=== PATIENT | male | born 1960 | race Caucasian/White ===

== ENCOUNTER 2019-04-04 05:49 | Outpatient (RCR) | payer MEDICARE, MEDICAID, SELFPAY | END 2019-04-12 00:01 | LOC: ONCMED 05:49 | PROVIDERS: Visit Provider Specialist | DX: C90.00 Multiple myeloma not having achieved remission (principal); I10 Essential (primary) hypertension; E11.9 Type 2 diabetes mellitus without complications; K21.9 Gastro-esophageal reflux disease without esophagitis; M19.90 Unspecified osteoarthritis, unspecified site; G89.3 Neoplasm related pain (acute) (chronic); M54.9 Dorsalgia, unspecified; Z79.891 Long term (current) use of opiate analgesic; Z79.4 Long term (current) use of insulin; Z79.899 Other long term (current) drug therapy; Z92.3 Personal history of irradiation; Z94.84 Stem cells transplant status; Z87.891 Personal history of nicotine dependence; Z28.21 Immunization not carried out because of patient refusal ==

== ENCOUNTER 2019-05-11 05:47 | Outpatient (RCR) | payer MEDICARE, MEDICAID, SELFPAY ==
[2019-04-19] MEDS: acetaminophen 325 mg Tablet 650 MG PO (12:00)
[2019-04-19 12:56] LABS: Immunoglobulin IGG 601 mg/dL (700-1600); Immunoglobulin IGM 64 mg/dL (40-230)
[2019-04-19] MEDS: sodium chloride 0.9% 500 ML 75 ML IV (13:00)
[2019-04-19 13:11] LABS: Immunoglobulin IGA 41 mg/dL (70-400)
[2019-04-19] MEDS: LORazepam 2 mg/mL INJ 1 mL IV (14:40)
[2019-04-20] MEDS: palonosetron 0.25 mg/5 mL SDV IV (11:20)
[2019-04-20] MEDS: acetaminophen 325 mg Tablet 650 MG PO (11:20)
[2019-04-20] MEDS: dexamethasone 20 MG in sodium chloride 0.9% 50 ML 188 MG IVP (11:20)
[2019-04-22 19:52] LABS: ABNORMAL PROTEIN BAND 1 0.2 g/dL (NONE DETECTED); ALBUMIN 3.8 g/dL (3.8-4.8); ALPHA 1 GLOBULIN 0.3 g/dL (0.2-0.3); ALPHA 2 GLOBULIN 0.8 g/dL (0.5-0.9); BETA 1 GLOBULIN 0.4 g/dL (0.4-0.6); BETA 2 GLOBULIN 0.2 g/dL (0.2-0.5); GAMMA GLOBULIN 0.5 g/dL (0.8-1.7); KAPPA LIGHT CHAIN, FREE, SERUM 15.1 mg/L (3.3-19.4); KAPPA/LAMBDA LIGHT CHAINS FREE 1.13 (0.26-1.65); LAMBDA LIGHT CHAIN, FREE, SERU 13.4 mg/L (5.7-26.3)
--- NOTE | 2019-04-25 10:38 | ONC FU_ITS ---
[facility] Patient Note Patient: Hal Canchola Unit #: [id number]: [id number] Dictated By: Diandra NunnDate of Visit: Apr 19, 2019 Onc MED Follow-Up/Prog Note Chief Complaint: Myeloma. 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 He had presented with pain in the right arm. His x-ray on 05/12/13 showed a large expansile lytic lesion in the midshaft of humeral diaphysis. He was referred to see Dr. Arrieta in [place], [place]. Further work up included laboratory analysis on 05/23/13 that showed normal hemoglobin at 12.4 g/dL, mild renal insufficiency with BUN 26 and creatinine of 1.2, normal albumin at 3.9, and normal calcium at 9.6. His skeletal bone survey showed no additional lesions on 05/26/13. Biopsy of the right humeral lesion on 05/31/13 revealed plasma cell neoplasm, kappa restricted. He was first seen here on 06/16/13. His protein electrophoresis studies showed 1.79 g of IgG kappa. His bone marrow biopsy on 06/17/13 revealed 3% plasma cells, 5-10% CD138 positive cells by flow. Cytogenetic analysis showed two population of cells. First population comprising 10% showed loss of 1q, additional material on 20q, and trisomy of chromosomes 3, 5, 7, 9, 11 and 15. FISH panel revealed gain of 9q, 11q, 15q, and 17q. He had no iron storage. Radiation therapy to the arm lesion began on 3/10/14. In the midst of all of his radiation treatment, short of about 2 fractions, the patient sustained a mechanical fall and landed on the affected arm, sustaining significant fracture. He required surgery on 08/09/2013. Despite of the radiation therapy, his follow up plasmacytoma studies on 09/01/2013 showed further increase of M protein to 2.5 g/dL, IgG 3460, serum free light chain ratio increased to 35. He had mild anemia with hemoglobin of 11 g/dL. His creatinine was 1.1. with calcium 9. Induction chemotherapy with VCd regimen (Velcade, Cytoxan and dexamethasone) began on 09/12/13. He had a positive response to the treatment, and after 6 cycles of therapy cytoxan was dropped from the regimen. The patient completed a total of 8 cycles of treatment with a very good response. On 04/11/2014 he underwent high-dose melphalan followed by an autologous stem cell transplantation. On 07/14/14 he underwent a day 100 post transplant bone marrow biopsy at [facility] with residual disease. IgG kappa M protein 0.77 g/dL. Maintenance single agent Revlimid therapy was recommended, but the patient ultimately decided against it for a variety of reasons, including concerns over completing REMS questionnaire over the phone and privacy issues. Maintenance with single agent Velcade every 2 weeks for 2 years was recommended. Cycle 1 began on 09/11/14. Baseline IgG 0.94 g/dL. The patient received Velcade therapy up until 04/10/2015. He required a dose reduction to 1 mg/m??? every 2 weeks due to progressive peripheral neuropathy. He again developed recurrent cramps and pruritis in the legs, which occurred after restarting Velcade. Given recurrent peripheral neuropathy, Velcade therapy was discontinued. M protein remained stable at 0.84 g/dL on 05/01/2015. As he had measurable disease, single agent Ixazomib began on 05/21/15 at a standard dosage of 4 mg weekly on days 1, 8,and 15 of each 28 day cycle. As of his follow-up visit in November 2015 his M protein was stable, and he was tolerating treatment well. He began cycle 9 of ixazomib on 01/02/2016. He had also continued Zometa infusions every 3 months for the lytic bone involvement. The protein electrophoresis studies from 01/22/2016 did show slight increase in his kappa free light chain, but there was no change in the M protein or in the 24-hour urine monoclonal protein excretion. On 02/03/2016 he was admitted to the hospital with cellulitis associated with a diabetic foot ulceration. His repeat protein electrophoresis studies from 03/04/2016 showed a further increase in the kappa free light chain to 15.9 mg/dL compared to 7.26 mg/dL in January and to 4 0.7 mg/dL in November 2015. The M protein at that point had also increased, to 1.11 g/dL compared to 0.81 g/dL in January. The 24-hour urine at that time showed a total protein excretion of 2226 mg with 2.3% monoclonal protein. That was not significantly changed. His subsequent protein electrophoresis studies remained stable. As of 12/11/2016 the M protein had increased only slightly, to 1.30 g/dL with his kappa free light chain stable at 12.8 mg/dL. His 24-hour urine protein electrophoresis showed a total monoclonal protein excretion of 32 mg. Skeletal survey on 10/09/2016 showed probable old healed pathologic fracture deformity of the right mid humeral diaphysis and probable additional old healed pathologic fracture of the distal left fibular diaphysis. There were findings consistent with advanced neuropathic arthropathy of the feet. There were no other lytic bone lesions. As of 01/08/2017 there was further increase in the M protein level to 1.50 g/dL, but his repeat protein electrophoresis on 02/11/2017 showed no significant change in the M protein. He continued treatment with single agent ixazomib. As of his follow-up visit on 03/18/2017 his M protein had shown a significant increase, up to 1.93 g/dL compared to 1.50 g/dL in December 2016. His blood counts at that point remained stable. His skeletal survey as of 02/11/2017 showed no active bone lesions. However, as it was evident that his disease was progressing, I did have him stop his treatment. He had subsequently reported development a chest wall mass. A noncontrast chest CT on 03/27/2017 showed evidence of a lytic expansile lesion of the anterior left fifth rib with an adjacent soft tissue mass. He was then referred to Dr. Navarro and he underwent radiation to the chest wall lesion, completed on 05/12/2017 to a total dose of 4000 cGy. He tolerated the treatment well. During this time he had also developed a lump on his forehead. Head CT on 06/18/2017 showed bifrontal and anterior ethmoid sinus soft tissue abnormality suggestive of mass and associated with mucocele expansion of the right frontal sinus and lytic bony erosive changes. Reported differential diagnosis included primary sinus neoplasm or extraosseous myeloma. Also noted was midline frontal scalp soft tissue mass secondary to erosion of the anterior wall frontal sinus. There was also apparent erosion of the floor of the anterior cranial fossa by the component of the mass in the ethmoid sinus. His laboratory studies from 06/22/2017 included CBC showing a decline in his hemoglobin to 10.4 g with white blood cell count 5100 and platelet count 253,000. Chem profile showed borderline renal function with BUN 25 and creatinine 1.44 mg/dL. Calcium was normal 9.7 mg/dL. Serum protein electrophoresis showed increase in his M protein to 3.43 g/dL. The 24-hour urine monoclonal protein excretion was 102 mg. He was then given radiation to the frontal bone, completed on 07/27/2017 to a total dose of 3600 cGy. His other medical illnesses include hypertension, type II diabetes, GERD, degenerative arthritis, and androgen deficiency. He had smoked in the past but quit more than 20 years ago. INTERIM HISTORY: On 07/06/2017 he began 3rd line treatment with daratumumab in combination with Revlimid and dexamethasone. It was initiated at a reduced dosage of Revlimid, 15 mg daily on a 21/28 day schedule. He was able to continue the daratumumab infusions weekly with no apparent toxicity. He completed his 8th weekly infusion on 08/26/2017. During that time he required a reduction in the Revlimid dosage to 10 mg. He also started monthly denosumab injections. Beginning on 09/09/2017 the frequency of his daratumumab infusions was increased to every 2 weeks. As of 12/23/2017 he completed his 8th dose of daratumumab at the 2-week dosing interval. His repeat protein electrophoresis on 01/21/2018 showed only a faint monoclonal protein band. The free light chain assay showed his kappa free light chain decreased to 1.19 mg/dL with kappa/lambda ratio normal at 0.9754. Beginning on 01/25/2018 he continued his daratumumab infusions at the 4-week dosing interval. During his time he had on his own accord adjusted his Revlimid schedule to a 14 days on/14 days off schedule because of throat swelling and spasms. The Revlimid dosage was then changed to 5 mg daily. In December 2017 he had presented with increased pain and swelling in his upper right arm. A PET/CT on 01/09/2018 showed improvement compared to the previous study from June 2017. Numerous hypermetabolic osseous lesions had become sclerotic with nearly negligible FDG uptake, consistent with a positive response to therapy. Hypermetabolic lymph nodes in the mediastinum were subcentimeter in size and FDG negative. He was referred back to his orthopedic surgeon in [place], where he underwent I & D of an abscess on 01/19/2018. It apparently was not involving the bone. In the absence of any evidence of progression of his myeloma, he continued treatment with daratumumab, Revlimid, and dexamethasone, but he opted to change the Revlimid to the previous schedule of 10 mg daily for 14 days of a 28 day schedule. As of his follow-up visit on 09/15/2018 there was no evidence of progression of the myeloma. Prior to that visit, though, he had opted to stop the Revlimid and the dexamethasone. He did receive his scheduled daratumumab infusion. During his further follow-up, he required additional surgery on his left foot, and he also required prolonged antibiotic therapy. He continued treatment with daratumumab and dexamethasone. As of October 2018 there was no increase in the serum monoclonal protein and no significant change in the kappa free light chain. The protein electrophoresis studies from 12/01/2018 again showed no change in the serum monoclonal protein. The free light chain assay did show a significant increase in the kappa free light chain, to 7.67 mg/L, but the lambda light chain also had increased such that the kappa/lambda ratio remained normal at 0.85. Dr Rodriges had seen him for a scheduled visit on 12/08/2018. At that time he had developed pain, redness, and swelling at the site of his previous abscess in the upper right arm. He was having fever and chills. The clinical picture was consistent with recurrent cellulitis or abscess. His treatment was put on hold, and Dr Rodriges had him restart IV antibiotic coverage with Rocephin. At about day 2 or 3 he developed spontaneous drainage of purulent material. Cultures from both the blood and subsequently from the exudate were negative. After the spontaneous drainage, he was transitioned to oral antibiotic therapy. During subsequent follow-up he had ongoing problems with the cellulitis and other issues, and he was not able to restart treatment. He had further evaluation with CT scans of the chest, abdomen, and pelvis on 01/25/2019. The most significant finding was the presence of progressive lytic myelomatous lesions of the left ischium and superior acetabular structures with probable nondisplaced pathologic fracture of the left acetabular margin. At that point he had developed significant pain in the left hip and left leg. He was referred to Dr. Navarro for additional radiation. He completed treatment to the left hip on 03/02/2019, total dose 3000 cGy. Mr Canchola is here today for continuation of treatment. His new chemotherapy plan of care is daratumumab, carfilzomib and dexamethasone. He states overall he is doing about the same. He is concerned that his left hip is bothering him more so than it has been. He states he does not think radiation helped a great deal. He denies any fever or chills. Said no nausea or vomiting. He denies any diarrhea or constipation. He states his appetite is good. His ability to ambulate is limited due to the hip pain is actually in a wheelchair today. He was able to drive himself over from [place] which is approximately an hour to hour and a half drive for him. He states he had to get out once and stand up because his hip is hurting him. He states the pain medicine generally controls the pain really well. He states Dr. Bah, the local needs for radiation therapy indicated that there may be way to do more radiation to his hip. He was advised that I will talk with Dr. Rodriges and Dr. Navarro regarding this. His ECOG today is 3. Past Medical History: Allergic rhinitis Diabetes Gastroesophageal reflux Hypertension Hypoganadism Osteoarthritis Phlebitis Past Surgical History: Toe amputation x2 in 2019 Autologus stem cell transplant-[facility] in 2013 Biopsy in 2013 - [facility] Ankle Surgery in 2011 Skin Graft in 1995 - Right [place] July 2013, placed pin in right arm Allergies: Aparna, Claritin, Insulin (any type), Morphine Sulfate, and OxyCODONE HCl. Medications: Acyclovir 1 (400 mg) Tablet Oral b.i.d. Amaryl (4 mg) Tablet Oral b.i.d. Aspirin 2 Tablet (of 81 mg) Tablet, enteric coated Oral daily Benadryl 2 (25 mg) Tablet Oral four times a day PRN Clotrimazole-Betamethasone Cream Topical PRN Depo-Testosterone (200 mg/mL) Intramuscular q 2 weeks Dilaudid 1 (4 mg) Tablet Oral q 3 hours PRN Famotidine 1 Tablet (of 20 mg) Oral daily Glucophage 1 Tablet (of 850 mg) Oral t.i.d. Invokana 1 (100 mg) Tablet Oral daily Januvia 1 (100 mg) Tablet Oral daily Lasix 1 Tablet (of 20 mg) Oral daily Lisinopril 1 Tablet (of 2.5 mg) Oral daily Lyrica 1 (75 mg) Capsule Oral daily Mucinex (600 mg) Tablet SR 12 HR Oral b.i.d. Prandin 2 Tablet (of 2 mg) Tablet Oral t.i.d. Victoza 1.8 mg Subcutaneous daily Family History: Mr. Canchola's mother is alive. Mr. Canchola's father at age 64: Myelomas Cancer. Mr. Canchola has 2 brothers: 2 alive. Mr. Canchola's first brother's renal pelvis and ureter cancer. Another brother's cancer history consists of Colon cancer. Social History: Mr. Canchola is single and he is an on disability. Mr. Canchola quit smoking 20 years ago but had smoked for 5 years. He has indicated exposure to the following products: cigars. Mr. Canchola reports the following support systems: lives alone, lives in own house, and supportive family/friends willing to assist with needs. His diet consists of regular meals. He indicates his activity level as: daily activities. Patient smoked 3 to 4 Cigars a day for 5 years. Review Of Symptoms: Constitutional Denies fevers, chills, night sweats, or weight loss. Moderate fatigue. Allergic/Immunologic No reactions. Eyes Denies significant visual changes. ENMT Denies sore throat, mouth sores, difficulty or changes in swallowing ability, and/or sinus drainage. Endocrine Denies hot flashes or night sweats. Hematologic/Lymphatic Denies easy bruising or bleeding. The patient denies any tender or palpable lymph nodes. Breasts Respiratory Denies chest pain or hemoptysis. Dyspnea upon exertion. Cardiovascular Denies anginal chest pain. Gastrointestinal Denies nausea, vomiting, heartburn, or constipation. Diarrhea occasional. Genitourinary (M) Denies hematuria, dysuria, increased frequency, urgency, hesitancy or incontinence. Musculoskeletal Chronic back pain-stable and controlled. Continued and worsening left hip pain. Requires wheelchair for ambulation assistance today. Integumentary Denies chronic rashes, inflammation, ulcerations or skin changes. Neurologic Denies blurred vision. Psychiatric Denies insomnia, depression, anxiety. Vital Signs: Performed on Apr 19, 2019 10:44 Height - 72.00 in Weight - 288.2 lbs (LOW) BSA - 2.49 sq.m BMI - 39.09 (HIGH) Temperature - 97.7 F (LOW) Pulse - 102 /min (HIGH) Respiration - 24 /min BP - 121/65 mm(hg) O2 Sat - 97 % Pain - 8,2 - Ambulatory/capable of all self-care, unable to perform any work activities. Up and about more than 50% of waking hours. (ECOG) Physical Examination: Constitutional Alert, oriented, no acute distress. Skin pink, warm and dry. Head Normocephalic; atraumatic. Eyes Conjunctivae and sclerae are clear and without icterus. Pupils are reactive and equal. Does wear corrective lenses. Neck Supple without masses or thyromegaly. No jugular venous distension. Hematologic/Lymphatic No petechiae or purpura. No tender or palpable lymph nodes in the cervical, supraclavicular areas. Respiratory Lungs are clear to auscultation without rhonchi or wheezing. Cardiovascular Regular rate and rhythm of heart without murmurs,clicks, gallops or rubs. Abdomen Non-tender, non-distended, no masses, ascites. Unable to detect hepatosplenomegaly due to abdominal size. Good bowel sounds noted in all quads. No guarding or rebound tenderness. No pulsatile masses. Back/Spine Non-tender to palpation. Extremities Not assessed due to wearing braces/boots both legs. Integumentary No rashes or lesions. Neurologic No sensory or motor deficits, normal cerebellar function. gait-not assessed but he required assistance to transfer from wheelchair to treatment chair due to pain. Psychiatric Alert and oriented times three. Coherent speech. Verbalizes understanding of our discussions today. Laboratory:Test performed on Apr 18, 2019 16:15 Glucose 192 mg/dL BUN 28 mg/dL Creatinine 1.28 mg/dL Cr Clearance (Est) 114.14 mL/min Sodium 139 mmol/L Potassium 4.8 mmol/L Chloride 97 mmol/L CO2 26 mmol/L Calcium 9.7 mg/dL Protein, Total 7.5 g/dL Albumin 4.8 g/dL Bilirubin, Total 0.3 mg/dL Alkaline Phosphatase 93 IU/L AST (SGOT) 17 IU/L ALT (SGPT) 25 IU/L Test performed on Apr 18, 2019 12:19 WBC 4.3 10^9/L RBC 4.56 10^12/L HGB 12.7 g/dL HCT 39.0 % MCV 85.5 fl MCH 27.9 pg MCHC 32.6 g/dL RDW 15.2 % Platelet Count 274 10^9/L MPV 9.3 fL Neutrophils (Gran) 2.37 10^9/L Lymphocytes 1.21 10^9/L Monocytes 0.55 10^9/L Eosinophils 0.11 10^9/L Basophils 0.03 10^9/L Manual Lymphocytes 28 % Manual Monocytes 13 % Manual Eosinophils 3 % Manual Basophils 1 % Test performed on Mar 31, 2019 16:09 LDH, Total 195 IU/L U Creatinine (R) 70.4 mg/dL U Creatinine, 24hr 2500 mg/24hr U Protein, 24hr 530 mg/24hr U Protein (R) 15 mg/dL IGA 41 mg/dL IGG 603 mg/dL IGM 66 mg/dL Dietrich / Lambda Ratio 0.94 Absolute Value Lambda Light Chain 12.56 Dietrich Light Chain 11.84 UPE Interpretation No significant change in monoclonal protein in urine since prior study Test performed on Mar 24, 2019 12:30 Iron 70 ug/dL Magnesium 2.2 mg/dL Protein, SPE 6.6 g/dL Vitamin D (25-Hydroxy), Total 17 ng/mL Albumin, SPE 4.1 g/dL % Iron Saturation 22.8 % UIBC 236 ug/dL Anion Gap 19.0 eGFR 62.2 mL/min Globulin 1.3 gm/dL Neutrophil % 67.3 % Lymphocyte % 20.1 % Monocyte % 9.6 % Eosinophil % 1.3 % Basophils % 0.4 % Dietrich Free Light Chains 11.3 mg/L Lambda Free Light Chains 13.0 mg/L [id number] 0.3 g/dL Dietrich/Lambda Free Ratio 0.87 [id number] 1.0 g/dL Beta Globulin 0.4 g/dL Beta 2 Globulin 0.3 g/dL Gamma Globulin 0.5 g/dL M-Bronson 0.3 g/dL S Immunofixation Interp SEE NOTE There is a restriction in the kappa gregoria that does not correspond with either G,A,M,D,E heavy chains, nor does it react with free kappa antisera. Finding is inconclusive for the presence of a monoclonal protein at this time. Suggest clinical correlation. Repeat testing in three to six months and urine protein electrophoresis with immunofixation may be helpful. THIS TEST WAS PERFORMED AT: [employer] [facility] [id number] [place] [address] PARAG ADDISON DO,MPH Test performed on Dec 29, 2018 10:31 SPE Interpretation No significant change in monochonal proteinemia since prior study. Interpreted by: Rosendo Ibrahim MD Test performed on Dec 01, 2018 10:21 Lambda Light Chain (Quant) 8.85 mg/dL Dietrich Light Chain (Quant) 7.67 mg/dL Impression: 1. Patient with stage II, standard risk multiple myeloma and a large destructive plasmacytoma in the right humerus with associated pathological fracture. He underwent palliative radiation therapy and surgical repair of his arm. 2. Despite treatment he had a further progression of his M protein, and he was found to have hyperdiploid cytogenetics on bone marrow biopsy. 3. Induction chemotherapy with Velcade, Cytoxan, and Decadron began on 09/12/13. After 6 cycles of induction therapy cyclophosphamide was stopped, and he continued with Velcade and Decadron for 8 cycles. 4. On 04/11/2014 he underwent high-dose melphalan followed by an autologous stem cell transplantation. Post transplant bone marrow biopsy revealed residual disease. 5. He declined maintenance Revlimid therapy. Maintenance treatment with Velcade 1.3 mg/m2 sc every 2 weeks for 2 years began on 09/11/14. 6. He had progressive preexistent peripheral neuropathy. His dose was adjusted at 1 mg/m??? subcutaneously every 2 weeks, but he developed progressive neuropathy with pruritus. Velcade therapy was discontinued. His M protein level at that point was stable at 0.84 g/dL. 7. A trial of ixazomib 4 mg weekly on days 1, 8, and 15 of 28 day cycle began on 05/21/15. His other medical illnesses include: 8. Hypertension. 9. Type II diabetes. 10. GERD. 11. Degenerative arthritis. 12. Androgen deficiency. He had evidence of some response to the ixazomib. As of his follow-up visit in January 2016 his M protein had increased somewhat, but it then stabilized. During subsequent follow-up, the M protein had increased very gradually. However, between December and March 2017 there was a significant increase, from 1.50 g/dL to 1.93 g/dL. He had then presented with a mass in left chest wall. His chest CT showed an area of lytic involvement with associated soft tissue mass, consistent with myeloma. He underwent radiation to the involved area, completed on 05/12/2017 to a total dose of 4000 cGy. He then developed a new lump in his forehead. Head CT showed bifrontal and anterior ethmoid sinus soft tissue abnormality suggestive of mass as well as midline frontal scalp soft tissue mass secondary to erosion of the anterior wall frontal sinus. Overall, the findings were consistent with involvement with myeloma, and his laboratory studies also were indicative of significant further progression of his M protein. He was given radiation to the frontal bone, completed on 07/27/2017 to a total dose of 3600 cGy. He then began 3rd line treatment with daratumumab in combination with Revlimid and dexamethasone. He completed 8 weekly infusions of daratumumab, which he tolerated well, though he did require a reduction in the Revlimid dosage to 10 mg. He also started monthly injections of denosumab for the lytic bone involvement. As of 09/09/2017 the frequency of the daratumumab infusions was increased to every 2 weeks. As of 12/23/2017 he had completed 8 infusions at that interval. Beginning on 01/25/2018 he continued daratumumab at the 4-week dosing interval. During this time he had opted to adjust his Revlimid to a 14 days on/14 days off schedule due to throat swelling and spasms, and his Revlimid dosage was then further reduced to 5 mg daily on a / day schedule. As of January 2018 his protein electrophoresis showed just a faint M band compared to a pretreatment M protein level of 3.43 g/dL. In December 2017 he presented with increased pain and swelling in his upper right arm. His repeat PET/CT showed significant response to treatment compared to the June 2017 study. 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 On 01/19/2018 he underwent incision/drainage of an abscess, which apparently was not involving the bone. He had an open wound at that site, but it has gradually healed. In the absence of any evidence of progression of the myeloma, he continued treatment with daratumumab, Revlimid, and dexamethasone. He has limited the Revlimid to 14 days each month because it does seem to cause some swelling in his throat. 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 During that time he required a prolonged course of antibiotic therapy with Rocephin. He has been able to continue treatment with daratumumab in combination with Revlimid and dexamethasone with no evidence of progression of the myeloma. He had been having increasing side effects with the Revlimid, and he opted to stop both the Revlimid and dexamethasone 6 weeks ago. During subsequent follow-up he had improvement in some symptoms, though his activity had been further limited due to his left foot problems. He was having more diarrhea, but that he had attributed to his antibiotic. As of his follow-up in October 2018 there was no evidence of progression of the myeloma. He had presented on 12/08/2018 with recurrence of pain in association with cellulitis/abscess of the right upper arm soft tissues. This was the same site as his previous abscess, which reportedly was not involving the bone. It showed gradual improvement on antibiotic therapy after spontaneous drainage. However, his treatment during that time had remained on hold. He then had further evaluation with CT scans of the chest, abdomen, and pelvis on 01/25/2019. 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 There appear to be associated nondisplaced lateral acetabular margin pathologic fracture. He was referred to Dr. Navarro, and he was then given radiation to the left hip, completed on 02/19/2019 to a total dose of 3000 cGy. Mr. Canchola has been offered systemic therapy with daratumumab carfilzomib and dexamethasone. He is here today to begin his first cycle. Plan: 1. Proceed with cycle 1 day 1 & 2 daratumumab/carfilzomib and dexamethasone. His treatment plan consists of daratumumab in a split dose on days 1 and 2 is just of cycle 1. He will have carfilzomib day 1 and 2 of each week for 3 weeks and he will have 1 week of rest. The daratumumab will remain weekly and after completion of 4 cycles we will go to every 2 weeks. 2. Premedication including antiemetics given his history of nausea. 3. He will need to continue acyclovir and ASA. He has been intolerant of antibiotics in the past due to severe diarrhea. 4. Labs from April 18, 2019 were reviewed in detail and discussed with Mr. Batista. WBC 4.3, hemoglobin 12.7, platelets 224,000 ANC is 2400 creatinine 1.2 BUN is 28 random glucose was 192 LFTs are normal. I did request myeloma labs be drawn at baseline today. The last myeloma labs I see on him were March 31, 2019 his kappa free light chain at that time was reported 11.8 and the lambda light chain was reported 12.56. 5. Mr. Canchola will have weekly interim labs to include CBC CMP. He also have weekly follow-ups while he is on treatment. 6. I did reduce his dexamethasone dose to 10 mg given his significant history of uncontrolled diabetes in the past. He is insulin intolerant. However he did have a mild possible infusion reaction with day 1. Therefore we will administer to 20 mg on Day 2 and he see how he does with this. 7. Mr. Batista was instructed to contact us in the interim should questions or problems arise. Return tomorrow for day 2 daratumumab and carfilzomib. 8. After discussing Mr. Canchola's hip pain with Dr. Rodriges, it is requested that we pursue with a CT of the bony pelvis and left hip for further evaluation. After results of the CT are available, we will talk with Dr. Navarro as he will be back from vacation at that time. Should Mr. Canchola fail daratumumab and carfilzomib, he may be a candidate for selinexor (Xpovio-a nuclear export inhibitor-as he requires failure of: two proteasome inhibitors (he has failed Velcade and ixazomib); two immunomodulary agents (he has failed Revlimid) (carfilzomib falls in this drug classification); and failure of one anti-CD38 monoclonal ( he would have to have failed Darzalex). Signed By: Diandra Nunn-, [facility] Rosendo Rodriges MD <<Signature on File>>
[2019-04-26] MEDS: sodium chloride 0.9% 500 ML 75 ML IV ×2 (12:00→12:50)
[2019-04-26] MEDS: acetaminophen 325 mg Tablet 650 MG PO (12:00)
[2019-04-26] MEDS: dexamethasone 20 MG in sodium chloride 0.9% 50 ML 188 MG IV (12:16)
[2019-04-27] MEDS: sodium chloride 0.9% 500 ML 999 ML IV (11:30)
[2019-04-27] MEDS: dexamethasone 20 MG in sodium chloride 0.9% 50 ML 188 MG IV (12:03)
[2019-04-27] MEDS: palonosetron 0.25 MG in sodium chloride 0.9% 50 ML 188 MG IV (12:19)
--- NOTE | 2019-04-30 14:38 | ONC FU_ITS ---
[facility] Patient Note Patient: Hal Canchola Unit #: [id number]: 1960 Dictated By: Diandra NunnDate of Visit: Apr 26, 2019 Onc MED Follow-Up/Prog Note Chief Complaint: Myeloma. 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 He had presented with pain in the right arm. His x-ray on 05/12/13 showed a large expansile lytic lesion in the midshaft of humeral diaphysis. He was referred to see Dr. Arrieta in [place], [place]. Further work up included laboratory analysis on 05/23/13 that showed normal hemoglobin at 12.4 g/dL, mild renal insufficiency with BUN 26 and creatinine of 1.2, normal albumin at 3.9, and normal calcium at 9.6. His skeletal bone survey showed no additional lesions on 05/26/13. Biopsy of the right humeral lesion on 05/31/13 revealed plasma cell neoplasm, kappa restricted. He was first seen here on 06/16/13. His protein electrophoresis studies showed 1.79 g of IgG kappa. His bone marrow biopsy on 06/17/13 revealed 3% plasma cells, 5-10% CD138 positive cells by flow. Cytogenetic analysis showed two population of cells. First population comprising 10% showed loss of 1q, additional material on 20q, and trisomy of chromosomes 3, 5, 7, 9, 11 and 15. FISH panel revealed gain of 9q, 11q, 15q, and 17q. He had no iron storage. Radiation therapy to the arm lesion began on 3/10/14. In the midst of all of his radiation treatment, short of about 2 fractions, the patient sustained a mechanical fall and landed on the affected arm, sustaining significant fracture. He required surgery on 08/09/2013. Despite of the radiation therapy, his follow up plasmacytoma studies on 09/01/2013 showed further increase of M protein to 2.5 g/dL, IgG 3460, serum free light chain ratio increased to 35. He had mild anemia with hemoglobin of 11 g/dL. His creatinine was 1.1. with calcium 9. Induction chemotherapy with VCd regimen (Velcade, Cytoxan and dexamethasone) began on 09/12/13. He had a positive response to the treatment, and after 6 cycles of therapy cytoxan was dropped from the regimen. The patient completed a total of 8 cycles of treatment with a very good response. On 04/11/2014 he underwent high-dose melphalan followed by an autologous stem cell transplantation. On 07/14/14 he underwent a day 100 post transplant bone marrow biopsy at [facility] with residual disease. IgG kappa M protein 0.77 g/dL. Maintenance single agent Revlimid therapy was recommended, but the patient ultimately decided against it for a variety of reasons, including concerns over completing REMS questionnaire over the phone and privacy issues. Maintenance with single agent Velcade every 2 weeks for 2 years was recommended. Cycle 1 began on 09/11/14. Baseline IgG 0.94 g/dL. The patient received Velcade therapy up until 04/10/2015. He required a dose reduction to 1 mg/m??? every 2 weeks due to progressive peripheral neuropathy. He again developed recurrent cramps and pruritis in the legs, which occurred after restarting Velcade. Given recurrent peripheral neuropathy, Velcade therapy was discontinued. M protein remained stable at 0.84 g/dL on 05/01/2015. As he had measurable disease, single agent Ixazomib began on 05/21/15 at a standard dosage of 4 mg weekly on days 1, 8,and 15 of each 28 day cycle. As of his follow-up visit in November 2015 his M protein was stable, and he was tolerating treatment well. He began cycle 9 of ixazomib on 01/02/2016. He had also continued Zometa infusions every 3 months for the lytic bone involvement. The protein electrophoresis studies from 01/22/2016 did show slight increase in his kappa free light chain, but there was no change in the M protein or in the 24-hour urine monoclonal protein excretion. On 02/03/2016 he was admitted to the hospital with cellulitis associated with a diabetic foot ulceration. His repeat protein electrophoresis studies from 03/04/2016 showed a further increase in the kappa free light chain to 15.9 mg/dL compared to 7.26 mg/dL in January and to 4 0.7 mg/dL in November 2015. The M protein at that point had also increased, to 1.11 g/dL compared to 0.81 g/dL in January. The 24-hour urine at that time showed a total protein excretion of 2226 mg with 2.3% monoclonal protein. That was not significantly changed. His subsequent protein electrophoresis studies remained stable. As of 12/11/2016 the M protein had increased only slightly, to 1.30 g/dL with his kappa free light chain stable at 12.8 mg/dL. His 24-hour urine protein electrophoresis showed a total monoclonal protein excretion of 32 mg. Skeletal survey on 10/09/2016 showed probable old healed pathologic fracture deformity of the right mid humeral diaphysis and probable additional old healed pathologic fracture of the distal left fibular diaphysis. There were findings consistent with advanced neuropathic arthropathy of the feet. There were no other lytic bone lesions. As of 01/08/2017 there was further increase in the M protein level to 1.50 g/dL, but his repeat protein electrophoresis on 02/11/2017 showed no significant change in the M protein. He continued treatment with single agent ixazomib. As of his follow-up visit on 03/18/2017 his M protein had shown a significant increase, up to 1.93 g/dL compared to 1.50 g/dL in December 2016. His blood counts at that point remained stable. His skeletal survey as of 02/11/2017 showed no active bone lesions. However, as it was evident that his disease was progressing, I did have him stop his treatment. He had subsequently reported development a chest wall mass. A noncontrast chest CT on 03/27/2017 showed evidence of a lytic expansile lesion of the anterior left fifth rib with an adjacent soft tissue mass. He was then referred to Dr. Navarro and he underwent radiation to the chest wall lesion, completed on 05/12/2017 to a total dose of 4000 cGy. He tolerated the treatment well. During this time he had also developed a lump on his forehead. Head CT on 06/18/2017 showed bifrontal and anterior ethmoid sinus soft tissue abnormality suggestive of mass and associated with mucocele expansion of the right frontal sinus and lytic bony erosive changes. Reported differential diagnosis included primary sinus neoplasm or extraosseous myeloma. Also noted was midline frontal scalp soft tissue mass secondary to erosion of the anterior wall frontal sinus. There was also apparent erosion of the floor of the anterior cranial fossa by the component of the mass in the ethmoid sinus. His laboratory studies from 06/22/2017 included CBC showing a decline in his hemoglobin to 10.4 g with white blood cell count 5100 and platelet count 253,000. Chem profile showed borderline renal function with BUN 25 and creatinine 1.44 mg/dL. Calcium was normal 9.7 mg/dL. Serum protein electrophoresis showed increase in his M protein to 3.43 g/dL. The 24-hour urine monoclonal protein excretion was 102 mg. He was then given radiation to the frontal bone, completed on 07/27/2017 to a total dose of 3600 cGy. His other medical illnesses include hypertension, type II diabetes, GERD, degenerative arthritis, and androgen deficiency. He had smoked in the past but quit more than 20 years ago. INTERIM HISTORY: On 07/06/2017 he began 3rd line treatment with daratumumab in combination with Revlimid and dexamethasone. It was initiated at a reduced dosage of Revlimid, 15 mg daily on a 21/28 day schedule. He was able to continue the daratumumab infusions weekly with no apparent toxicity. He completed his 8th weekly infusion on 08/26/2017. During that time he required a reduction in the Revlimid dosage to 10 mg. He also started monthly denosumab injections. Beginning on 09/09/2017 the frequency of his daratumumab infusions was increased to every 2 weeks. As of 12/23/2017 he completed his 8th dose of daratumumab at the 2-week dosing interval. His repeat protein electrophoresis on 01/21/2018 showed only a faint monoclonal protein band. The free light chain assay showed his kappa free light chain decreased to 1.19 mg/dL with kappa/lambda ratio normal at 0.9754. Beginning on 01/25/2018 he continued his daratumumab infusions at the 4-week dosing interval. During his time he had on his own accord adjusted his Revlimid schedule to a 14 days on/14 days off schedule because of throat swelling and spasms. The Revlimid dosage was then changed to 5 mg daily. In December 2017 he had presented with increased pain and swelling in his upper right arm. A PET/CT on 01/09/2018 showed improvement compared to the previous study from June 2017. Numerous hypermetabolic osseous lesions had become sclerotic with nearly negligible FDG uptake, consistent with a positive response to therapy. Hypermetabolic lymph nodes in the mediastinum were subcentimeter in size and FDG negative. He was referred back to his orthopedic surgeon in [place], where he underwent I & D of an abscess on 01/19/2018. It apparently was not involving the bone. In the absence of any evidence of progression of his myeloma, he continued treatment with daratumumab, Revlimid, and dexamethasone, but he opted to change the Revlimid to the previous schedule of 10 mg daily for 14 days of a 28 day schedule. As of his follow-up visit on 09/15/2018 there was no evidence of progression of the myeloma. Prior to that visit, though, he had opted to stop the Revlimid and the dexamethasone. He did receive his scheduled daratumumab infusion. During his further follow-up, he required additional surgery on his left foot, and he also required prolonged antibiotic therapy. He continued treatment with daratumumab and dexamethasone. As of October 2018 there was no increase in the serum monoclonal protein and no significant change in the kappa free light chain. The protein electrophoresis studies from 12/01/2018 again showed no change in the serum monoclonal protein. The free light chain assay did show a significant increase in the kappa free light chain, to 7.67 mg/L, but the lambda light chain also had increased such that the kappa/lambda ratio remained normal at 0.85. Dr Rodriges had seen him for a scheduled visit on 12/08/2018. At that time he had developed pain, redness, and swelling at the site of his previous abscess in the upper right arm. He was having fever and chills. The clinical picture was consistent with recurrent cellulitis or abscess. His treatment was put on hold, and Dr Rodriges had him restart IV antibiotic coverage with Rocephin. At about day 2 or 3 he developed spontaneous drainage of purulent material. Cultures from both the blood and subsequently from the exudate were negative. After the spontaneous drainage, he was transitioned to oral antibiotic therapy. During subsequent follow-up he had ongoing problems with the cellulitis and other issues, and he was not able to restart treatment. He had further evaluation with CT scans of the chest, abdomen, and pelvis on 01/25/2019. The most significant finding was the presence of progressive lytic myelomatous lesions of the left ischium and superior acetabular structures with probable nondisplaced pathologic fracture of the left acetabular margin. At that point he had developed significant pain in the left hip and left leg. He was referred to Dr. Navarro for additional radiation. He completed treatment to the left hip on 03/02/2019, total dose 3000 cGy. Mr Canchola is here today for continuation of treatment. He is due for cycle 1 day 8 daratumumab, carfilzomib and dexamethasone. He states overall he is doing about the same. He is concerned that his left hip still really bothering him. We attempted to set him up for CT of the hip at [facility] but he did not keep that appointment. He was to warp picker a disc for comparison here when he was in town after his last visit but did not do that so apparently did not keep his appointment. This is been rescheduled. He does have the comparison CD disc and hand today. He states the pain is no worse but it is no better either. He states he did have a few little cracks in the corner of my mouth but no actual sores. They resolved on their own. Is also complaining of some right ear pain. He states after his last treatment he had a little stomach upset but that seemed to resolve on its own. He thinks he may have taken some pain medicine on empty stomach which may have contributed. He has had no recurrence of the upset stomach . He denies any new concerns. He denies any new pain. He denies fever or chills. He states his appetite is good for him. He still requires a wheelchair for assistance due to the hip pain. He is trying to stay as active as he can with the limited mobility with the hip. His ECOG is 3 due to the hip pain. Past Medical History: Allergic rhinitis Diabetes Gastroesophageal reflux Hypertension Hypoganadism Osteoarthritis Phlebitis Past Surgical History: Toe amputation x2 in 2019 Autologus stem cell transplant-Ro in 2013 Biopsy in 2013 - [facility] Ankle Surgery in 2011 Skin Graft in 1995 - Right [place] July 2013, placed pin in right arm Allergies: Aparna, Claritin, Insulin (any type), Morphine Sulfate, and OxyCODONE HCl. Medications: Acyclovir 1 (400 mg) Tablet Oral b.i.d. Amaryl (4 mg) Tablet Oral b.i.d. Aspirin 2 Tablet (of 81 mg) Tablet, enteric coated Oral daily Benadryl 2 (25 mg) Tablet Oral four times a day PRN Clotrimazole-Betamethasone Cream Topical PRN Depo-Testosterone (200 mg/mL) Intramuscular q 2 weeks Dilaudid 1 (4 mg) Tablet Oral q 3 hours PRN Famotidine 1 Tablet (of 20 mg) Oral daily Glucophage 1 Tablet (of 850 mg) Oral t.i.d. Invokana 1 (100 mg) Tablet Oral daily Januvia 1 (100 mg) Tablet Oral daily Lasix 1 Tablet (of 20 mg) Oral daily Lisinopril 1 Tablet (of 2.5 mg) Oral daily Lyrica 1 (75 mg) Capsule Oral daily Mucinex (600 mg) Tablet SR 12 HR Oral b.i.d. Prandin 2 Tablet (of 2 mg) Tablet Oral t.i.d. Victoza 1.8 mg Subcutaneous daily Family History: Mr. Canchola's mother is alive. Mr. Canchola's father at age 64: Myelomas Cancer. Mr. Canchola has 2 brothers: 2 alive. Mr. Canchola's first brother's renal pelvis and ureter cancer. Another brother's cancer history consists of Colon cancer. Social History: Mr. Canchola is single and he is an on disability. Mr. Canchola quit smoking 20 years ago but had smoked for 5 years. He has indicated exposure to the following products: cigars. Mr. Canchola reports the following support systems: lives alone, lives in own house, and supportive family/friends willing to assist with needs. His diet consists of regular meals. He indicates his activity level as: daily activities. Patient smoked 3 to 4 Cigars a day for 5 years. Review Of Symptoms: Constitutional Denies fevers, chills, night sweats, or weight loss. Moderate fatigue. Allergic/Immunologic No reactions. Eyes Denies significant visual changes. ENMT Denies sore throat, mouth sores, difficulty or changes in swallowing ability, and/or sinus drainage. Right ear pain. new and has been there for 2-3 days...not sure if any drainage. Endocrine Denies hot flashes or night sweats. Hematologic/Lymphatic Denies easy bruising or bleeding. The patient denies any tender or palpable lymph nodes. Respiratory Denies chest pain or hemoptysis. Dyspnea upon exertion. Cardiovascular Denies anginal chest pain. Gastrointestinal Denies nausea, vomiting, heartburn, or constipation. Diarrhea occasional. A little stomach upset after treatment last week, but nothing persistent. Did not take any nausea meds or heartburn meds and resolved on its own. Genitourinary (M) Denies hematuria, dysuria, increased frequency, urgency, hesitancy or incontinence. Musculoskeletal Chronic back pain-stable and controlled. Continued and worsening left hip pain. Requires wheelchair for ambulation assistance today. Integumentary Denies chronic rashes, inflammation, ulcerations or skin changes. Neurologic Denies blurred vision. Psychiatric Denies insomnia, depression, anxiety. Vital Signs: Performed on Apr 26, 2019 11:14 Height - 72.00 in Weight - 294.4 lbs (HIGH) BSA - 2.51 sq.m BMI - 39.93 (HIGH) Temperature - 97.8 F (LOW) Pulse - 94 /min Respiration - 16 /min BP - 109/64 mm(hg) O2 Sat - 98 % Pain - 4 Fatigue - 7,3 - Capable of only limited self-care, confined to bed or chair more than 50% of waking hours. (ECOG) Physical Examination: Constitutional Alert, oriented, no acute distress. Skin pink, warm and dry. Head Normocephalic; atraumatic. Eyes Conjunctivae and sclerae are clear and without icterus. Pupils are reactive and equal. Does wear corrective lenses. ENMT Sinuses are nontender. No oral exudates, ulcers, masses, thrush or mucositis. Oropharynx clear. Tongue normal. Right ear does have cloudy appearance with slight exudate. TM is red and cloudy appearing. Left ear is normal. Neck Supple without masses or thyromegaly. No jugular venous distension. Hematologic/Lymphatic No petechiae or purpura. No tender or palpable lymph nodes in the cervical, supraclavicular areas. Respiratory Lungs are clear to auscultation without rhonchi or wheezing. Cardiovascular Regular rate and rhythm of heart with soft systolic murmur but no clicks, gallops or rubs. Abdomen Non-tender, non-distended, no masses, ascites. Good bowel sounds noted in all quads. No guarding or rebound tenderness. No pulsatile masses. Back/Spine Non-tender to palpation. Extremities Not assessed due to wearing braces/boots both legs. Musculoskeletal No tenderness or swelling, normal range of motion without obvious weakness. Integumentary No rashes or lesions. Neurologic No sensory or motor deficits, normal cerebellar function. gait-not assessed but he required assistance to transfer from wheelchair to treatment chair due to pain. Psychiatric Alert and oriented times three. Coherent speech. Verbalizes understanding of our discussions today. Laboratory:Test performed on Apr 26, 2019 08:08 Protein, Total 6.0 g/dL Albumin, SPE 3.8 g/dL Maize / Lambda Ratio 1.13 Absolute Value Lambda Light Chain 13.4 IGG 601 mg/dL Maize Light Chain 15.1 IGA 41 mg/dL IGM 64 mg/dL Enwmy-8-baqoaxav 0.3 g/dL Yukgr-8-yymojtkv 0.8 g/dL Beta Globulin 0.4 g/dL Gamma Globulin 0.5 g/dL SPE Interpretation Faint restricted band (M-spike) migrating in the gamma region. Test performed on Apr 25, 2019 15:13 Glucose 183 mg/dL BUN 26 mg/dL Creatinine 1.14 mg/dL Cr Clearance (Est) 128.15 mL/min Sodium 137 mmol/L Potassium 4.5 mmol/L Chloride 98 mmol/L CO2 24 mmol/L Calcium 9.6 mg/dL Albumin 4.4 g/dL Bilirubin, Total 0.3 mg/dL Alkaline Phosphatase 95 IU/L AST (SGOT) 14 IU/L ALT (SGPT) 25 IU/L WBC 5.1 10^9/L RBC 4.57 10^12/L HGB 12.6 g/dL HCT 39.1 % MCV 85.6 fl MCH 27.6 pg MCHC 32.2 g/dL RDW 15.1 % Platelet Count 238 10^9/L MPV 9.7 fL Neutrophils (Gran) 3.2 10^9/L Lymphocytes 1.34 10^9/L Monocytes 0.44 10^9/L Eosinophils 0.11 10^9/L Basophils 0.01 10^9/L Test performed on Apr 18, 2019 12:19 Manual Lymphocytes 28 % Manual Monocytes 13 % Manual Eosinophils 3 % Manual Basophils 1 % Test performed on Mar 31, 2019 16:09 LDH, Total 195 IU/L U Creatinine (R) 70.4 mg/dL U Creatinine, 24hr 2500 mg/24hr U Protein, 24hr 530 mg/24hr U Protein (R) 15 mg/dL UPE Interpretation No significant change in monoclonal protein in urine since prior study Test performed on Mar 24, 2019 12:30 Iron 70 ug/dL Magnesium 2.2 mg/dL Protein, SPE 6.6 g/dL Vitamin D (25-Hydroxy), Total 17 ng/mL % Iron Saturation 22.8 % UIBC 236 ug/dL Anion Gap 19.0 eGFR 62.2 mL/min Globulin 1.3 gm/dL Neutrophil % 67.3 % Lymphocyte % 20.1 % Monocyte % 9.6 % Eosinophil % 1.3 % Basophils % 0.4 % Maize Free Light Chains 11.3 mg/L Lambda Free Light Chains 13.0 mg/L Maize/Lambda Free Ratio 0.87 Beta 2 Globulin 0.3 g/dL M-Bronson 0.3 g/dL S Immunofixation Interp SEE NOTE There is a restriction in the kappa gregoria that does not correspond with either G,A,M,D,E heavy chains, nor does it react with free kappa antisera. Finding is inconclusive for the presence of a monoclonal protein at this time. Suggest clinical correlation. Repeat testing in three to six months and urine protein electrophoresis with immunofixation may be helpful. THIS TEST WAS PERFORMED AT: [facility] [id number] [place] [id number] PARAG ADDISON DO,MPH Test performed on Jan 11, 2019 11:05 Manual Segs 38 % Manual Bands 0 % Test performed on Dec 08, 2018 12:05 CRP, High Sensitivity 23.040 mg/dL ESR (Sed Rate) 105 mm/hr Blood Culture NO GROWTH AFTER 5 DAYS Test performed on Dec 01, 2018 10:21 Lambda Light Chain (Quant) 8.85 mg/dL Maize Light Chain (Quant) 7.67 mg/dL Impression: 1. Patient with stage II, standard risk multiple myeloma and a large destructive plasmacytoma in the right humerus with associated pathological fracture. He underwent palliative radiation therapy and surgical repair of his arm. 2. Despite treatment he had a further progression of his M protein, and he was found to have hyperdiploid cytogenetics on bone marrow biopsy. 3. Induction chemotherapy with Velcade, Cytoxan, and Decadron began on 09/12/13. After 6 cycles of induction therapy cyclophosphamide was stopped, and he continued with Velcade and Decadron for 8 cycles. 4. On 04/11/2014 he underwent high-dose melphalan followed by an autologous stem cell transplantation. Post transplant bone marrow biopsy revealed residual disease. 5. He declined maintenance Revlimid therapy. Maintenance treatment with Velcade 1.3 mg/m2 sc every 2 weeks for 2 years began on 09/11/14. 6. He had progressive preexistent peripheral neuropathy. His dose was adjusted at 1 mg/m??? subcutaneously every 2 weeks, but he developed progressive neuropathy with pruritus. Velcade therapy was discontinued. His M protein level at that point was stable at 0.84 g/dL. 7. A trial of ixazomib 4 mg weekly on days 1, 8, and 15 of 28 day cycle began on 05/21/15. His other medical illnesses include: 8. Hypertension. 9. Type II diabetes. 10. GERD. 11. Degenerative arthritis. 12. Androgen deficiency. He had evidence of some response to the ixazomib. As of his follow-up visit in January 2016 his M protein had increased somewhat, but it then stabilized. During subsequent follow-up, the M protein had increased very gradually. However, between December and March 2017 there was a significant increase, from 1.50 g/dL to 1.93 g/dL. He had then presented with a mass in left chest wall. His chest CT showed an area of lytic involvement with associated soft tissue mass, consistent with myeloma. He underwent radiation to the involved area, completed on 05/12/2017 to a total dose of 4000 cGy. He then developed a new lump in his forehead. Head CT showed bifrontal and anterior ethmoid sinus soft tissue abnormality suggestive of mass as well as midline frontal scalp soft tissue mass secondary to erosion of the anterior wall frontal sinus. Overall, the findings were consistent with involvement with myeloma, and his laboratory studies also were indicative of significant further progression of his M protein. He was given radiation to the frontal bone, completed on 07/27/2017 to a total dose of 3600 cGy. He then began 3rd line treatment with daratumumab in combination with Revlimid and dexamethasone. He completed 8 weekly infusions of daratumumab, which he tolerated well, though he did require a reduction in the Revlimid dosage to 10 mg. He also started monthly injections of denosumab for the lytic bone involvement. As of 09/09/2017 the frequency of the daratumumab infusions was increased to every 2 weeks. As of 12/23/2017 he had completed 8 infusions at that interval. Beginning on 01/25/2018 he continued daratumumab at the 4-week dosing interval. During this time he had opted to adjust his Revlimid to a 14 days on/14 days off schedule due to throat swelling and spasms, and his Revlimid dosage was then further reduced to 5 mg daily on a / day schedule. As of January 2018 his protein electrophoresis showed just a faint M band compared to a pretreatment M protein level of 3.43 g/dL. In December 2017 he presented with increased pain and swelling in his upper right arm. His repeat PET/CT showed significant response to treatment compared to the June 2017 study. 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 On 01/19/2018 he underwent incision/drainage of an abscess, which apparently was not involving the bone. He had an open wound at that site, but it has gradually healed. In the absence of any evidence of progression of the myeloma, he continued treatment with daratumumab, Revlimid, and dexamethasone. He has limited the Revlimid to 14 days each month because it does seem to cause some swelling in his throat. 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 During that time he required a prolonged course of antibiotic therapy with Rocephin. He has been able to continue treatment with daratumumab in combination with Revlimid and dexamethasone with no evidence of progression of the myeloma. He had been having increasing side effects with the Revlimid, and he opted to stop both the Revlimid and dexamethasone 6 weeks ago. During subsequent follow-up he had improvement in some symptoms, though his activity had been further limited due to his left foot problems. He was having more diarrhea, but that he had attributed to his antibiotic. As of his follow-up in October 2018 there was no evidence of progression of the myeloma. He had presented on 12/08/2018 with recurrence of pain in association with cellulitis/abscess of the right upper arm soft tissues. This was the same site as his previous abscess, which reportedly was not involving the bone. It showed gradual improvement on antibiotic therapy after spontaneous drainage. However, his treatment during that time had remained on hold. He then had further evaluation with CT scans of the chest, abdomen, and pelvis on 01/25/2019. 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 There appear to be associated nondisplaced lateral acetabular margin pathologic fracture. He was referred to Dr. Navarro, and he was then given radiation to the left hip, completed on 02/19/2019 to a total dose of 3000 cGy. Mr. Canchola has been offered systemic therapy with daratumumab carfilzomib and dexamethasone. He is here today for cycle 1 day 8 & 9 treatment. He has tolerated it relatively well so far. He did have a mild infusion reaction last week on day 1 but tolerated day 2 well. Plan: 1. Proceed with cycle 1 day 8 & 9 daratumumab/carfilzomib and dexamethasone. His treatment plan consists of daratumumab in a split dose on days 1 and 2- just on cycle 1. He will have carfilzomib day 1 and 2 of each week for 3 weeks and he will have 1 week of rest. The daratumumab will remain weekly and after completion of 4 cycles we will go to every 2 weeks. 2. Premedication including antiemetics given his history of nausea. 3. He will need to continue acyclovir and ASA. He has been intolerant of antibiotics in the past due to severe diarrhea. 4. Labs from April 25, 2019 were reviewed in detail and discussed with Mr. Canchola. WBC 5.1, hemoglobin 12.6, platelets 238,000 ANC is 3200 creatinine 1.1 BUN is 26 random glucose was 183 LFTs are normal. I did request myeloma labs be drawn at baseline today. The last myeloma labs I see on him were March 31, 2019 his kappa free light chain at that time was reported 11.8 and the lambda light chain was reported 12.56. 5. Mr. Canchola will have weekly interim labs to include CBC CMP. He also have weekly follow-ups while he is on treatment. 6. I did reduce his dexamethasone dose to 10 mg given his significant history of uncontrolled diabetes in the past. He is insulin intolerant. However he did have a mild possible infusion reaction with day 1. Therefore we did administer 20 mg on Day 2 and he tolerated day 2 much better. His Random glucose is no higher than what it has been, so will leavee the dexamethasone at 20 mg. 7. Mr. Batista was instructed to contact us in the interim should questions or problems arise. Return tomorrow for day 9 carfilzomib. 8. After discussing Mr. Canchola's hip pain with Dr. Rodriges, it is requested that we pursue with a CT of the bony pelvis and left hip for further evaluation. After results of the CT are available, we will talk with Dr. Navarro. Mr Canchola was scheduled for the CT at [facility], but his appointment had to be rescheduled for adjustments to his schedule. 9. Refill neomycin ear gtts for pb media in right ear. Should Mr. Canchola fail daratumumab and carfilzomib, he may be a candidate for selinexor (Xpovio-a nuclear export inhibitor-as he requires failure of: two proteasome inhibitors (he has failed Velcade and ixazomib); two immunomodulary agents (he has failed Revlimid) (carfilzomib falls in this drug classification); and failure of one anti-CD38 monoclonal ( he would have to have failed Darzalex). Signed By: Diandra Nunn-, [facility] Rosendo Rodriges MD <<Signature on File>>
[2019-05-04] MEDS: acetaminophen 325 mg Tablet 650 MG PO (12:10)
[2019-05-04] MEDS: dexamethasone 20 MG in sodium chloride 0.9% 50 ML 188 MG IV (12:31)
[2019-05-04] MEDS: sodium chloride 0.9% 500 ML 999 ML IV (15:50)
--- NOTE | 2019-05-07 09:40 | ONC FU_ITS ---
Dr. Rodriges Patient Follow-Up Note Patient: Hal Canchola Unit #: [id number]: [id number] Dicatated By: Rosendo Rodriges M.D.Date of Visit:May 04, 2019 Onc Med Follow-up/Prog Note Chief Complaint: Myeloma. 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 He had presented with pain in the right arm. His x-ray on 05/12/13 showed a large expansile lytic lesion in the midshaft of humeral diaphysis. He was referred to see Dr. Arrieta in [place], [place]. Further work up included laboratory analysis on 05/23/13 that showed normal hemoglobin at 12.4 g/dL, mild renal insufficiency with BUN 26 and creatinine of 1.2, normal albumin at 3.9, and normal calcium at 9.6. His skeletal bone survey showed no additional lesions on 05/26/13. Biopsy of the right humeral lesion on 05/31/13 revealed plasma cell neoplasm, kappa restricted. He was first seen here on 06/16/13. His protein electrophoresis studies showed 1.79 g of IgG kappa. His bone marrow biopsy on 06/17/13 revealed 3% plasma cells, 5-10% CD138 positive cells by flow. Cytogenetic analysis showed two population of cells. First population comprising 10% showed loss of 1q, additional material on 20q, and trisomy of chromosomes 3, 5, 7, 9, 11 and 15. FISH panel revealed gain of 9q, 11q, 15q, and 17q. He had no iron storage. Radiation therapy to the arm lesion began on 06/20/13. In the midst of all of his radiation treatment, short of about 2 fractions, the patient sustained a mechanical fall and landed on the affected arm, sustaining significant fracture. He required surgery on 08/09/2013. Despite of the radiation therapy, his follow up plasmacytoma studies on 09/01/2013 showed further increase of M protein to 2.5 g/dL, IgG 3460, serum free light chain ratio increased to 35. He had mild anemia with hemoglobin of 11 g/dL. His creatinine was 1.1. with calcium 9. Induction chemotherapy with VCd regimen (Velcade, Cytoxan and dexamethasone) began on 09/12/13. He had a positive response to the treatment, and after 6 cycles of therapy cytoxan was dropped from the regimen. The patient completed a total of 8 cycles of treatment with a very good response. On 04/11/2014 he underwent high-dose melphalan followed by an autologous stem cell transplantation. On 07/14/14 he underwent a day 100 post transplant bone marrow biopsy at [facility] with residual disease. IgG kappa M protein 0.77 g/dL. Maintenance single agent Revlimid therapy was recommended, but the patient ultimately decided against it for a variety of reasons, including concerns over completing REMS questionnaire over the phone and privacy issues. Maintenance with single agent Velcade every 2 weeks for 2 years was recommended. Cycle 1 began on 09/11/14. Baseline IgG 0.94 g/dL. The patient received Velcade therapy up until 04/10/2015. He required a dose reduction to 1 mg/m??? every 2 weeks due to progressive peripheral neuropathy. He again developed recurrent cramps and pruritis in the legs, which occurred after restarting Velcade. Given recurrent peripheral neuropathy, Velcade therapy was discontinued. M protein remained stable at 0.84 g/dL on 05/01/2015. As he had measurable disease, single agent Ixazomib began on 05/21/15 at a standard dosage of 4 mg weekly on days 1, 8,and 15 of each 28 day cycle. As of his follow-up visit in November 2015 his M protein was stable, and he was tolerating treatment well. He began cycle 9 of ixazomib on 01/02/2016. He had also continued Zometa infusions every 3 months for the lytic bone involvement. The protein electrophoresis studies from 01/22/2016 did show slight increase in his kappa free light chain, but there was no change in the M protein or in the 24-hour urine monoclonal protein excretion. On 02/03/2016 he was admitted to the hospital with cellulitis associated with a diabetic foot ulceration. His repeat protein electrophoresis studies from 03/04/2016 showed a further increase in the kappa free light chain to 15.9 mg/dL compared to 7.26 mg/dL in January and to 4 0.7 mg/dL in November 2015. The M protein at that point had also increased, to 1.11 g/dL compared to 0.81 g/dL in January. The 24-hour urine at that time showed a total protein excretion of 2226 mg with 2.3% monoclonal protein. That was not significantly changed. His subsequent protein electrophoresis studies remained stable. As of 12/11/2016 the M protein had increased only slightly, to 1.30 g/dL with his kappa free light chain stable at 12.8 mg/dL. His 24-hour urine protein electrophoresis showed a total monoclonal protein excretion of 32 mg. Skeletal survey on 10/09/2016 showed probable old healed pathologic fracture deformity of the right mid humeral diaphysis and probable additional old healed pathologic fracture of the distal left fibular diaphysis. There were findings consistent with advanced neuropathic arthropathy of the feet. There were no other lytic bone lesions. As of 01/08/2017 there was further increase in the M protein level to 1.50 g/dL, but his repeat protein electrophoresis on 02/11/2017 showed no significant change in the M protein. He continued treatment with single agent ixazomib. As of his follow-up visit on 03/18/2017 his M protein had shown a significant increase, up to 1.93 g/dL compared to 1.50 g/dL in December 2016. His blood counts at that point remained stable. His skeletal survey as of 02/11/2017 showed no active bone lesions. However, as it was evident that his disease was progressing, I did have him stop his treatment. He had subsequently reported development a chest wall mass. A noncontrast chest CT on 03/27/2017 showed evidence of a lytic expansile lesion of the anterior left fifth rib with an adjacent soft tissue mass. He was then referred to Dr. Navarro and he underwent radiation to the chest wall lesion, completed on 05/12/2017 to a total dose of 4000 cGy. He tolerated the treatment well. During this time he had also developed a lump on his forehead. Head CT on 06/18/2017 showed bifrontal and anterior ethmoid sinus soft tissue abnormality suggestive of mass and associated with mucocele expansion of the right frontal sinus and lytic bony erosive changes. Reported differential diagnosis included primary sinus neoplasm or extraosseous myeloma. Also noted was midline frontal scalp soft tissue mass secondary to erosion of the anterior wall frontal sinus. There was also apparent erosion of the floor of the anterior cranial fossa by the component of the mass in the ethmoid sinus. His laboratory studies from 06/22/2017 included CBC showing a decline in his hemoglobin to 10.4 g with white blood cell count 5100 and platelet count 253,000. Chem profile showed borderline renal function with BUN 25 and creatinine 1.44 mg/dL. Calcium was normal 9.7 mg/dL. Serum protein electrophoresis showed increase in his M protein to 3.43 g/dL. The 24-hour urine monoclonal protein excretion was 102 mg. He was then given radiation to the frontal bone, completed on 07/27/2017 to a total dose of 3600 cGy. His other medical illnesses include hypertension, type II diabetes, GERD, degenerative arthritis, and androgen deficiency. He had smoked in the past but quit more than 20 years ago. INTERIM HISTORY: On 07/06/2017 he began 3rd line treatment with daratumumab in combination with Revlimid and dexamethasone. It was initiated at a reduced dosage of Revlimid, 15 mg daily on a 21/28 day schedule. He was able to continue the daratumumab infusions weekly with no apparent toxicity. He completed his 8th weekly infusion on 08/26/2017. During that time he required a reduction in the Revlimid dosage to 10 mg. He also started monthly denosumab injections. Beginning on 09/09/2017 the frequency of his daratumumab infusions was increased to every 2 weeks. As of 12/23/2017 he completed his 8th dose of daratumumab at the 2-week dosing interval. His repeat protein electrophoresis on 01/21/2018 showed only a faint monoclonal protein band. The free light chain assay showed his kappa free light chain decreased to 1.19 mg/dL with kappa/lambda ratio normal at 0.9754. Beginning on 01/25/2018 he continued his daratumumab infusions at the 4-week dosing interval. During his time he had on his own accord adjusted his Revlimid schedule to a 14 days on/14 days off schedule because of throat swelling and spasms. The Revlimid dosage was then changed to 5 mg daily. In December 2017 he had presented with increased pain and swelling in his upper right arm. A PET/CT on 01/09/2018 showed improvement compared to the previous study from June 2017. Numerous hypermetabolic osseous lesions had become sclerotic with nearly negligible FDG uptake, consistent with a positive response to therapy. Hypermetabolic lymph nodes in the mediastinum were subcentimeter in size and FDG negative. He was referred back to his orthopedic surgeon in [place], where he underwent I & D of an abscess on 01/19/2018. It apparently was not involving the bone. In the absence of any evidence of progression of his myeloma, he continued treatment with daratumumab, Revlimid, and dexamethasone, but he opted to change the Revlimid to the previous schedule of 10 mg daily for 14 days of a 28 day schedule. As of his follow-up visit on 09/15/2018 there was no evidence of progression of the myeloma. Prior to that visit, though, he had opted to stop the Revlimid and the dexamethasone. He did receive his scheduled daratumumab infusion. During his further follow-up, he required additional surgery on his left foot, and he also required prolonged antibiotic therapy. He continued treatment with daratumumab and dexamethasone. As of October 2018 there was no increase in the serum monoclonal protein and no significant change in the kappa free light chain. The protein electrophoresis studies from 12/01/2018 again showed no change in the serum monoclonal protein. The free light chain assay did show a significant increase in the kappa free light chain, to 7.67 mg/L, but the lambda light chain also had increased such that the kappa/lambda ratio remained normal at 0.85. I had seen him for a scheduled visit on 12/08/2018. At that time he had developed pain, redness, and swelling at the site of his previous abscess in the upper right arm. He was having fever and chills. The clinical picture was consistent with recurrent cellulitis or abscess. His treatment was put on hold, and I had him restart IV antibiotic coverage with Rocephin. At about day 2 or 3 he developed spontaneous drainage of purulent material. Cultures from both the blood and subsequently from the exudate were negative. After the spontaneous drainage, he was transitioned to oral antibiotic therapy. During subsequent follow-up he had ongoing problems with the cellulitis and other issues, and he was not able to restart treatment. He had further evaluation with CT scans of the chest, abdomen, and pelvis on 01/25/2019. The most significant finding was the presence of progressive lytic myelomatous lesions of the left ischium and superior acetabular structures with probable nondisplaced pathologic fracture of the left acetabular margin. At that point he had developed significant pain in the left hip and left leg. He was referred to Dr. Navarro for additional radiation. He completed treatment to the left hip on 03/02/2019, total dose 3000 cGy. On 04/19/2019 he restarted systemic therapy with carfilzomib and dexamethasone in combination with daratumumab. He tolerated his initial day 1/day 2 treatment well, and he returned for day 8 treatment on 04/26/2019. He is seen for a follow-up visit. He still has very limited activity due to the left hip/leg pain. His ECOG score is 3. His appetite has been OK. He has not had fever. He had one episode of night sweating. He does not complain of shortness of breath or chest pain. He has just occasional cough. He currently has no GI or complaints other than frequent urination. He also has back pain, which is chronic. He reports having some weakness in the left arm, attributable to prior Velcade therapy, and recently he has had some weakness in the right arm. He has neuropathy in his feet. Medications: Acyclovir 1 (400 mg) Tablet Oral b.i.d., Amaryl (4 mg) Tablet Oral b.i.d., Aspirin 2 Tablet (of 81 mg) Tablet, enteric coated Oral daily, Benadryl 2 (25 mg) Tablet Oral four times a day PRN, Clotrimazole-Betamethasone Cream Topical PRN, Depo-Testosterone (200 mg/mL) Intramuscular q 2 weeks, Dilaudid 1 (4 mg) Tablet Oral q 3 hours PRN, Famotidine 1 Tablet (of 20 mg) Oral daily, Glucophage 1 Tablet (of 850 mg) Oral t.i.d., Invokana 1 (100 mg) Tablet Oral daily, Januvia 1 (100 mg) Tablet Oral daily, Lasix 1 Tablet (of 20 mg) Oral daily, Lisinopril 1 Tablet (of 2.5 mg) Oral daily, Lyrica 1 (75 mg) Capsule Oral daily, Mucinex (600 mg) Tablet SR 12 HR Oral b.i.d., Prandin 2 Tablet (of 2 mg) Tablet Oral t.i.d., Victoza 1.8 mg Subcutaneous daily Allergies: Aparna, Claritin, Insulin (any type), Morphine Sulfate, and OxyCODONE HCl. Review of Systems: Constitutional - He has limited activity. His appetite has been okay. He has no fever. He had one episode of night sweating. ECOG score is 3, ENMT - He has sinus congestion/drainage. His mouth has a rough spot on one side. No sore throat or difficulty swallowing, Hematologic/Lymphatic - No abnormal bruising or bleeding, Respiratory - No shortness of breath. He has just occasional cough. No pleuritic pain or hemoptysis, Cardiovascular - No angina pain. No palpitations, Gastrointestinal - No nausea/vomiting. He has some heartburn/acid reflux. No diarrhea or constipation. No blood in the stool or black stools, Genitourinary (M) - No dysuria or hematuria. He has urinary frequency. No urgency or incontinence, Musculoskeletal - He has significant pain in his left hip and leg. It is limiting his activity. He also has some chronic back pain, Integumentary - The sores on his left foot have healed, Neurologic - He has occasional headache. No dizziness, but he has some difficulty with his balance. He has neuropathy in his feet. He has had some weakness in the left arm from Velcade, and lately his right arm has felt weak, Psychiatric - No anxiety or depression. No insomnia. Vital Signs: Performed on May 04, 2019 10:55 Height - 72.00 in Weight - 293.2 lbs (LOW) BSA - 2.51 sq.m BMI - 39.77 (HIGH) Temperature - 98.0 F (LOW) Pulse - 107 /min (HIGH) Respiration - 26 /min BP - 146/68 mm(hg) (HIGH) O2 Sat - 98 % Pain - 6 Physical Examination: Constitutional - He appears somewhat weak generally. He has limited mobility, Eyes - Sclerae nonicteric. Conjunctivae clear, ENMT - No lesions noted in the oral cavity, Hematologic/Lymphatic - No cervical, clavicular, or axillary adenopathy, Respiratory - Lungs sound clear with diminished air movemen bilaterally, Cardiovascular - Heart rhythm is regular. There is a II/ systolic murmur. There is no gallop or rub noted, Abdomen - Mildly distended. Liver and spleen are not enlarged. There is no abdominal mass or ascites noted and there is no inguinal adenopathy, Extremities - There is mild lower extremity edema, Integumentary - There is some localized erythema in the area of the right wrist, Neurologic - No focal neurologic deficits noted. Lab/Imaging: Test performed on May 03, 2019 10:46 Glucose 258 mg/dL BUN 33 mg/dL Creatinine 1.05 mg/dL Cr Clearance (Est) 139.14 mL/min Sodium 137 mmol/L Potassium 4.9 mmol/L Chloride 96 mmol/L CO2 25 mmol/L Calcium 9.4 mg/dL Protein, Total 6.6 g/dL Albumin 4.1 g/dL Bilirubin, Total 0.3 mg/dL Alkaline Phosphatase 86 IU/L AST (SGOT) 14 IU/L ALT (SGPT) 19 IU/L WBC 4.7 10^9/L RBC 4.23 10^12/L HGB 11.7 g/dL HCT 36.1 % MCV 85.3 fl MCH 27.7 pg MCHC 32.4 g/dL RDW 15.4 % Platelet Count 163 10^9/L MPV 10.0 fL Neutrophils (Gran) 3.39 10^9/L Lymphocytes 0.72 10^9/L Monocytes 0.47 10^9/L Eosinophils 0.08 10^9/L Basophils 0.01 10^9/L Manual Lymphocytes 15 % Manual Monocytes 10 % Manual Eosinophils 2 % Manual Basophils 0 % Test performed on Apr 26, 2019 08:08 Albumin, SPE 3.8 g/dL [place] / Lambda Ratio 1.13 Absolute Value Lambda Light Chain 13.4 IGG 601 mg/dL [place] Light Chain 15.1 IGA 41 mg/dL IGM 64 mg/dL [id number] 0.3 g/dL Ttbms-4-[id number] 0.8 g/dL Beta Globulin 0.4 g/dL Gamma Globulin 0.5 g/dL SPE Interpretation Faint restricted band (M-spike) migrating in the gamma region. Impression: 1. Patient with stage II, standard risk multiple myeloma and a large destructive plasmacytoma in the right humerus with associated pathological fracture. He underwent palliative radiation therapy and surgical repair of his arm. 2. Despite treatment he had a further progression of his M protein, and he was found to have hyperdiploid cytogenetics on bone marrow biopsy. 3. Induction chemotherapy with Velcade, Cytoxan, and Decadron began on 09/12/13. After 6 cycles of induction therapy cyclophosphamide was stopped, and he continued with Velcade and Decadron for 8 cycles. 4. On 04/11/2014 he underwent high-dose melphalan followed by an autologous stem cell transplantation. Post transplant bone marrow biopsy revealed residual disease. 5. He declined maintenance Revlimid therapy. Maintenance treatment with Velcade 1.3 mg/m2 sc every 2 weeks for 2 years began on 09/11/14. 6. He had progressive preexistent peripheral neuropathy. His dose was adjusted at 1 mg/m??? subcutaneously every 2 weeks, but he developed progressive neuropathy with pruritus. Velcade therapy was discontinued. His M protein level at that point was stable at 0.84 g/dL. 7. A trial of ixazomib 4 mg weekly on days 1, 8, and 15 of 28 day cycle began on 05/21/15. His other medical illnesses include: 8. Hypertension. 9. Type II diabetes. 10. GERD. 11. Degenerative arthritis. 12. Androgen deficiency. He had evidence of some response to the ixazomib. As of his follow-up visit in January 2016 his M protein had increased somewhat, but it then stabilized. During subsequent follow-up, the M protein had increased very gradually. However, between December and March 2017 there was a significant increase, from 1.50 g/dL to 1.93 g/dL. He had then presented with a mass in left chest wall. His chest CT showed an area of lytic involvement with associated soft tissue mass, consistent with myeloma. He underwent radiation to the involved area, completed on 05/12/2017 to a total dose of 4000 cGy. He then developed a new lump in his forehead. Head CT showed bifrontal and anterior ethmoid sinus soft tissue abnormality suggestive of mass as well as midline frontal scalp soft tissue mass secondary to erosion of the anterior wall frontal sinus. Overall, the findings were consistent with involvement with myeloma, and his laboratory studies also were indicative of significant further progression of his M protein. He was given radiation to the frontal bone, completed on 07/27/2017 to a total dose of 3600 cGy. He then began 3rd line treatment with daratumumab in combination with Revlimid and dexamethasone. He completed 8 weekly infusions of daratumumab, which he tolerated well, though he did require a reduction in the Revlimid dosage to 10 mg. He also started monthly injections of denosumab for the lytic bone involvement. As of 09/09/2017 the frequency of the daratumumab infusions was increased to every 2 weeks. As of 12/23/2017 he had completed 8 infusions at that interval. Beginning on 01/25/2018 he continued daratumumab at the 4-week dosing interval. During this time he had opted to adjust his Revlimid to a 14 days on/14 days off schedule due to throat swelling and spasms, and his Revlimid dosage was then further reduced to 5 mg daily on a 21/ day schedule. As of January 2018 his protein electrophoresis showed just a faint M band compared to a pretreatment M protein level of 3.43 g/dL. In December 2017 he presented with increased pain and swelling in his upper right arm. His repeat PET/CT showed significant response to treatment compared to the June 2017 study. 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 On 01/19/2018 he underwent incision/drainage of an abscess, which apparently was not involving the bone. He had an open wound at that site, but it has gradually healed. In the absence of any evidence of progression of the myeloma, he continued treatment with daratumumab, Revlimid, and dexamethasone. He has limited the Revlimid to 14 days each month because it does seem to cause some swelling in his throat. 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 During that time he required a prolonged course of antibiotic therapy with Rocephin. He has been able to continue treatment with daratumumab in combination with Revlimid and dexamethasone with no evidence of progression of the myeloma. He had been having increasing side effects with the Revlimid, and he opted to stop both the Revlimid and dexamethasone 6 weeks ago. During subsequent follow-up he had improvement in some symptoms, though his activity had been further limited due to his left foot problems. He was having more diarrhea, but that he had attributed to his antibiotic. As of his follow-up in October 2018 there was no evidence of progression of the myeloma. He had presented on 12/08/2018 with recurrence of pain in association with cellulitis/abscess of the right upper arm soft tissues. This was the same site as his previous abscess, which reportedly was not involving the bone. It showed gradual improvement on antibiotic therapy after spontaneous drainage. However, his treatment during that time had remained on hold. He then had further evaluation with CT scans of the chest, abdomen, and pelvis on 01/25/2019. 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 There appear to be associated nondisplaced lateral acetabular margin pathologic fracture. He was referred to Dr. Navarro, and he was then given radiation to the left hip, completed on 02/19/2019 to a total dose of 3000 cGy. On 04/19/2019 he restarted systemic therapy with carfilzomib and dexamethasone in combination with daratumumab. He tolerated his initial day 1/day 2 treatment well, and he returned for day 8 treatment on 04/26/2019. Thus far he has been tolerating the treatment well. He still has very limited activity related to the lytic involvement in the left acetabulum, and the recent CT scan showed evidence of pathologic fracture. Plan: He will continue with day 15 daratumumab and day 15/16 carfilzomib and dexamethasome. The dosages remain the same. He returns next week for day 22 daratumumab. He will have a followup visit in 2 weeks. In the meantime, I will review the CT scan with one of the orthopedic surgeons as soon as the disk is available. Signed By: Rosendo Rodriges M.D. <<Signature on File>>
[2019-05-11] MEDS: acetaminophen 325 mg Tablet 650 MG PO (11:00)
[2019-05-11] MEDS: dexamethasone 20 MG in sodium chloride 0.9% 50 ML 188 MG IV (11:36)
[2019-05-11] MEDS: sodium chloride 0.9% 500 ML 999 ML IV (11:55)
== END 2019-05-13 23:59 | disposition home or self-care (01) ==
LOC: ONCMED 05:47
PROVIDERS: Nurse Practitioner; Visit Provider Internal Medicine Medical Oncology
DX: Z51.12 Encounter for antineoplastic immunotherapy (principal); C90.00 Multiple myeloma not having achieved remission; Z94.84 Stem cells transplant status; I10 Essential (primary) hypertension; K21.9 Gastro-esophageal reflux disease without esophagitis; M19.90 Unspecified osteoarthritis, unspecified site; E11.42 Type 2 diabetes mellitus with diabetic polyneuropathy; M84.550D Pathological fracture in neoplastic disease, pelvis, subsequent encounter for fracture with routine healing; G89.3 Neoplasm related pain (acute) (chronic); Z79.82 Long term (current) use of aspirin; Z79.891 Long term (current) use of opiate analgesic; Z79.4 Long term (current) use of insulin; Z89.429 Acquired absence of other toe(s), unspecified side; Z92.3 Personal history of irradiation; Z87.891 Personal history of nicotine dependence
CPT/HCPCS: 82784; 83883; 84155; 84165; 96361; 96367; 96375; 96413; 96415; 96417; 99214; A4222; J1100; J1200; J2060; J2405; J2469; J7040; J9047; J9145

== ENCOUNTER 2019-06-08 05:44 | Outpatient (RCR) | payer MEDICARE, MEDICAID, SELFPAY ==
[2019-05-18] MEDS: sodium chloride 0.9% 500 ML 999 ML IV (12:03)
[2019-05-18] MEDS: dexamethasone 20 MG in sodium chloride 0.9% 50 ML 188 MG IV (12:03)
[2019-05-18] MEDS: acetaminophen 325 mg Tablet 650 MG PO (12:05)
[2019-05-19] MEDS: sodium chloride 0.9% 500 ML 999 ML IV (11:15)
[2019-05-19] MEDS: acetaminophen 325 mg Tablet 650 MG PO (11:15)
[2019-05-19] MEDS: dexamethasone 20 MG in sodium chloride 0.9% 50 ML 188 MG IV (11:30)
[2019-05-19] MEDS: palonosetron 0.25 MG in sodium chloride 0.9% 50 ML 188 MG IV (11:46)
[2019-05-25] MEDS: acetaminophen 325 mg Tablet 650 MG PO (12:05)
[2019-05-25] MEDS: dexamethasone 20 MG in sodium chloride 0.9% 50 ML 188 MG IV (12:57)
[2019-05-25] MEDS: sodium chloride 0.9% 500 ML 999 ML IV (15:30)
--- NOTE | 2019-05-25 20:53 | ONC FU_ITS ---
Dr. Rodriges Patient Follow-Up Note Patient: Hal Canchola Unit #: [id number]: [id number] Dicatated By: Rosendo Rodriges M.D.Date of Visit:May 25, 2019 Onc Med Follow-up/Prog Note Chief Complaint: Myeloma. 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 He had presented with pain in the right arm. His x-ray on 05/12/13 showed a large expansile lytic lesion in the midshaft of humeral diaphysis. He was referred to see Dr. Arrieta in [place], [place]. Further work up included laboratory analysis on 05/23/13 that showed normal hemoglobin at 12.4 g/dL, mild renal insufficiency with BUN 26 and creatinine of 1.2, normal albumin at 3.9, and normal calcium at 9.6. His skeletal bone survey showed no additional lesions on 05/26/13. Biopsy of the right humeral lesion on 05/31/13 revealed plasma cell neoplasm, kappa restricted. He was first seen here on 06/16/13. His protein electrophoresis studies showed 1.79 g of IgG kappa. His bone marrow biopsy on 06/17/13 revealed 3% plasma cells, 5-10% CD138 positive cells by flow. Cytogenetic analysis showed two population of cells. First population comprising 10% showed loss of 1q, additional material on 20q, and trisomy of chromosomes 3, 5, 7, 9, 11 and 15. FISH panel revealed gain of 9q, 11q, 15q, and 17q. He had no iron storage. Radiation therapy to the arm lesion began on 06/20/13. In the midst of all of his radiation treatment, short of about 2 fractions, the patient sustained a mechanical fall and landed on the affected arm, sustaining significant fracture. He required surgery on 08/09/2013. Despite of the radiation therapy, his follow up plasmacytoma studies on 09/01/2013 showed further increase of M protein to 2.5 g/dL, IgG 3460, serum free light chain ratio increased to 35. He had mild anemia with hemoglobin of 11 g/dL. His creatinine was 1.1. with calcium 9. Induction chemotherapy with VCd regimen (Velcade, Cytoxan and dexamethasone) began on 09/12/13. He had a positive response to the treatment, and after 6 cycles of therapy cytoxan was dropped from the regimen. The patient completed a total of 8 cycles of treatment with a very good response. On 04/11/2014 he underwent high-dose melphalan followed by an autologous stem cell transplantation. On 07/14/14 he underwent a day 100 post transplant bone marrow biopsy at [facility] with residual disease. IgG kappa M protein 0.77 g/dL. Maintenance single agent Revlimid therapy was recommended, but the patient ultimately decided against it for a variety of reasons, including concerns over completing REMS questionnaire over the phone and privacy issues. Maintenance with single agent Velcade every 2 weeks for 2 years was recommended. Cycle 1 began on 09/11/14. Baseline IgG 0.94 g/dL. The patient received Velcade therapy up until 04/10/2015. He required a dose reduction to 1 mg/m??? every 2 weeks due to progressive peripheral neuropathy. He again developed recurrent cramps and pruritis in the legs, which occurred after restarting Velcade. Given recurrent peripheral neuropathy, Velcade therapy was discontinued. M protein remained stable at 0.84 g/dL on 05/01/2015. As he had measurable disease, single agent Ixazomib began on 05/21/15 at a standard dosage of 4 mg weekly on days 1, 8,and 15 of each 28 day cycle. As of his follow-up visit in November 2015 his M protein was stable, and he was tolerating treatment well. He began cycle 9 of ixazomib on 01/02/2016. He had also continued Zometa infusions every 3 months for the lytic bone involvement. The protein electrophoresis studies from 01/22/2016 did show slight increase in his kappa free light chain, but there was no change in the M protein or in the 24-hour urine monoclonal protein excretion. On 02/03/2016 he was admitted to the hospital with cellulitis associated with a diabetic foot ulceration. His repeat protein electrophoresis studies from 03/04/2016 showed a further increase in the kappa free light chain to 15.9 mg/dL compared to 7.26 mg/dL in January and to 4 0.7 mg/dL in November 2015. The M protein at that point had also increased, to 1.11 g/dL compared to 0.81 g/dL in January. The 24-hour urine at that time showed a total protein excretion of 2226 mg with 2.3% monoclonal protein. That was not significantly changed. His subsequent protein electrophoresis studies remained stable. As of 12/11/2016 the M protein had increased only slightly, to 1.30 g/dL with his kappa free light chain stable at 12.8 mg/dL. His 24-hour urine protein electrophoresis showed a total monoclonal protein excretion of 32 mg. Skeletal survey on 10/09/2016 showed probable old healed pathologic fracture deformity of the right mid humeral diaphysis and probable additional old healed pathologic fracture of the distal left fibular diaphysis. There were findings consistent with advanced neuropathic arthropathy of the feet. There were no other lytic bone lesions. As of 01/08/2017 there was further increase in the M protein level to 1.50 g/dL, but his repeat protein electrophoresis on 02/11/2017 showed no significant change in the M protein. He continued treatment with single agent ixazomib. As of his follow-up visit on 03/18/2017 his M protein had shown a significant increase, up to 1.93 g/dL compared to 1.50 g/dL in December 2016. His blood counts at that point remained stable. His skeletal survey as of 02/11/2017 showed no active bone lesions. However, as it was evident that his disease was progressing, I did have him stop his treatment. He had subsequently reported development a chest wall mass. A noncontrast chest CT on 03/27/2017 showed evidence of a lytic expansile lesion of the anterior left fifth rib with an adjacent soft tissue mass. He was then referred to Dr. Navarro and he underwent radiation to the chest wall lesion, completed on 05/12/2017 to a total dose of 4000 cGy. He tolerated the treatment well. During this time he had also developed a lump on his forehead. Head CT on 06/18/2017 showed bifrontal and anterior ethmoid sinus soft tissue abnormality suggestive of mass and associated with mucocele expansion of the right frontal sinus and lytic bony erosive changes. Reported differential diagnosis included primary sinus neoplasm or extraosseous myeloma. Also noted was midline frontal scalp soft tissue mass secondary to erosion of the anterior wall frontal sinus. There was also apparent erosion of the floor of the anterior cranial fossa by the component of the mass in the ethmoid sinus. His laboratory studies from 06/22/2017 included CBC showing a decline in his hemoglobin to 10.4 g with white blood cell count 5100 and platelet count 253,000. Chem profile showed borderline renal function with BUN 25 and creatinine 1.44 mg/dL. Calcium was normal 9.7 mg/dL. Serum protein electrophoresis showed increase in his M protein to 3.43 g/dL. The 24-hour urine monoclonal protein excretion was 102 mg. He was then given radiation to the frontal bone, completed on 07/27/2017 to a total dose of 3600 cGy. His other medical illnesses include hypertension, type II diabetes, GERD, degenerative arthritis, and androgen deficiency. He had smoked in the past but quit more than 20 years ago. INTERIM HISTORY: On 07/06/2017 he began 3rd line treatment with daratumumab in combination with Revlimid and dexamethasone. It was initiated at a reduced dosage of Revlimid, 15 mg daily on a 21/28 day schedule. He was able to continue the daratumumab infusions weekly with no apparent toxicity. He completed his 8th weekly infusion on 08/26/2017. During that time he required a reduction in the Revlimid dosage to 10 mg. He also started monthly denosumab injections. Beginning on 09/09/2017 the frequency of his daratumumab infusions was increased to every 2 weeks. As of 12/23/2017 he completed his 8th dose of daratumumab at the 2-week dosing interval. His repeat protein electrophoresis on 01/21/2018 showed only a faint monoclonal protein band. The free light chain assay showed his kappa free light chain decreased to 1.19 mg/dL with kappa/lambda ratio normal at 0.9754. Beginning on 01/25/2018 he continued his daratumumab infusions at the 4-week dosing interval. During his time he had on his own accord adjusted his Revlimid schedule to a 14 days on/14 days off schedule because of throat swelling and spasms. The Revlimid dosage was then changed to 5 mg daily. In December 2017 he had presented with increased pain and swelling in his upper right arm. A PET/CT on 01/09/2018 showed improvement compared to the previous study from June 2017. Numerous hypermetabolic osseous lesions had become sclerotic with nearly negligible FDG uptake, consistent with a positive response to therapy. Hypermetabolic lymph nodes in the mediastinum were subcentimeter in size and FDG negative. He was referred back to his orthopedic surgeon in [place], where he underwent I & D of an abscess on 01/19/2018. It apparently was not involving the bone. In the absence of any evidence of progression of his myeloma, he continued treatment with daratumumab, Revlimid, and dexamethasone, but he opted to change the Revlimid to the previous schedule of 10 mg daily for 14 days of a 28 day schedule. As of his follow-up visit on 09/15/2018 there was no evidence of progression of the myeloma. Prior to that visit, though, he had opted to stop the Revlimid and the dexamethasone. He did receive his scheduled daratumumab infusion. During his further follow-up, he required additional surgery on his left foot, and he also required prolonged antibiotic therapy. He continued treatment with daratumumab and dexamethasone. As of October 2018 there was no increase in the serum monoclonal protein and no significant change in the kappa free light chain. The protein electrophoresis studies from 12/01/2018 again showed no change in the serum monoclonal protein. The free light chain assay did show a significant increase in the kappa free light chain, to 7.67 mg/L, but the lambda light chain also had increased such that the kappa/lambda ratio remained normal at 0.85. I had seen him for a scheduled visit on 12/08/2018. At that time he had developed pain, redness, and swelling at the site of his previous abscess in the upper right arm. He was having fever and chills. The clinical picture was consistent with recurrent cellulitis or abscess. His treatment was put on hold, and I had him restart IV antibiotic coverage with Rocephin. At about day 2 or 3 he developed spontaneous drainage of purulent material. Cultures from both the blood and subsequently from the exudate were negative. After the spontaneous drainage, he was transitioned to oral antibiotic therapy. During subsequent follow-up he had ongoing problems with the cellulitis and other issues, and he was not able to restart treatment. He had further evaluation with CT scans of the chest, abdomen, and pelvis on 01/25/2019. The most significant finding was the presence of progressive lytic myelomatous lesions of the left ischium and superior acetabular structures with probable nondisplaced pathologic fracture of the left acetabular margin. At that point he had developed significant pain in the left hip and left leg. He was referred to Dr. Navarro for additional radiation. He completed treatment to the left hip on 03/02/2019, total dose 3000 cGy. On 04/19/2019 he restarted systemic therapy with carfilzomib and dexamethasone in combination with daratumumab. He tolerated his initial day 1/day 2 treatment well, and he was then able to continue his treatment on schedule other than he missed his day 16 carfilzomib injection due to bad weather. He began cycle 2 on 05/04/2019. He is seen for a follow-up visit. He continues to have low energy and limited activity, though he says his left hip is not hurting as much as it had been. It mainly bothers him now when he is leaning to his left side. He indicates he is now having some difficulty with his right leg mobility, though does not really hurt. He is ambulating with crutches. His ECOG score is 2. He has good appetite. He has had recent symptoms of respiratory infection with fever/chills, sinus congestion, and cough. He was started on antibiotic, and it does seem to be getting better. He says his breathing is pretty good. He does not complain of chest pain. He had some vomiting yesterday. He has acid reflux, the medication is helping with that. Bowel function has been okay. He has frequent urination. He has had some generalized aching with the fever, and he also has had some headache. He has numbness/tingling in his feet and in his left hand. Medications: Acyclovir 1 (400 mg) Tablet Oral b.i.d., Amaryl (4 mg) Tablet Oral b.i.d., Aspirin 2 Tablet (of 81 mg) Tablet, enteric coated Oral daily, Azithromycin 1 Tablet (of 250 mg) Oral b.i.d. for 10 days, Benadryl 2 (25 mg) Tablet Oral four times a day PRN, Clotrimazole-Betamethasone Cream Topical PRN, Depo-Testosterone (200 mg/mL) Intramuscular q 2 weeks, Dilaudid 1 (4 mg) Tablet Oral q 3 hours PRN, Famotidine 1 Tablet (of 20 mg) Oral daily, Glucophage 1 Tablet (of 850 mg) Oral t.i.d., Invokana 1 (100 mg) Tablet Oral daily, Januvia 1 (100 mg) Tablet Oral daily, Lasix 1 Tablet (of 20 mg) Oral daily, Lisinopril 1 Tablet (of 2.5 mg) Oral daily, Lyrica 1 (75 mg) Capsule Oral daily, Mucinex (600 mg) Tablet SR 12 HR Oral b.i.d., Prandin 2 Tablet (of 2 mg) Tablet Oral t.i.d., Victoza 1.8 mg Subcutaneous daily Allergies: Aparna, Claritin, Insulin (any type), Morphine Sulfate, and OxyCODONE HCl. Review of Systems: Constitutional - His energy has been low. He does not do much at home. He has not been feeling well since Thursday. His appetite is good and his weight is up slightly. He had a fever this morning of 101.3. He has had chills and sweating. ECOG score is 3, ENMT - He has sinus congestion/drainage. No mouth sores. He has a sore throat. No difficulty swallowing, Hematologic/Lymphatic - No abnormal bruising or bleeding, Respiratory - No shortness of breath. He has a nonproductive cough. No pleuritic pain or hemoptysis, Cardiovascular - No angina pain. No palpitations, Gastrointestinal - He has some nausea and vomiting. He was recently changed to Protonix. His heartburn had gotten better. No diarrhea or constipation. No blood in the stool or black stools, Genitourinary (M) - No dysuria or hematuria. No urinary frequency. No urgency or incontinence, Musculoskeletal - He has pain in the left side of his lower back and hip when he bends over, Integumentary - No skin complications, Neurologic - He has had headache. No dizziness. He has numbness and tingling in his feet and in his left hand, Psychiatric - No anxiety or depression. No insomnia. Vital Signs: Performed on May 25, 2019 11:22 Height - 72.00 in Weight - 292.6 lbs (HIGH) BSA - 2.50 sq.m BMI - 39.68 (HIGH) Temperature - 98.0 F (LOW) Pulse - 97 /min Respiration - 24 /min BP - 91/63 mm(hg) O2 Sat - 96 % Pain - 4 Physical Examination: Constitutional - He appears generally weak. He has limited mobility, Eyes - Sclerae nonicteric. Conjunctivae clear, ENMT - No lesions noted in the oral cavity, Hematologic/Lymphatic - No cervical, clavicular, or axillary adenopathy, Respiratory - Lungs sound clear with diminished air movement bilaterally, Cardiovascular - Heart rhythm is regular. There is a II/ systolic murmur. There is no gallop or rub noted, Abdomen - Mildly distended. Liver and spleen are not enlarged. There is no abdominal mass or ascites noted and there is no inguinal adenopathy, Extremities - Mild edema, Neurologic - No focal neurologic deficits noted. Lab/Imaging: Test performed on May 23, 2019 12:50 Glucose 219 mg/dL BUN 20 mg/dL Creatinine 0.97 mg/dL Cr Clearance (Est) 150.61 mL/min Sodium 132 mmol/L Potassium 4.4 mmol/L Chloride 93 mmol/L CO2 27 mmol/L Calcium 9.7 mg/dL Protein, Total 6.1 g/dL Albumin 4.0 g/dL Bilirubin, Total 0.3 mg/dL Alkaline Phosphatase 83 IU/L AST (SGOT) 18 IU/L ALT (SGPT) 22 IU/L WBC 4.2 10^9/L RBC 4.07 10^12/L HGB 11.5 g/dL HCT 34.7 % MCV 85.3 fl MCH 28.3 pg MCHC 33.1 g/dL RDW 15.6 % Platelet Count 143 10^9/L MPV 9.8 fL Neutrophils (Gran) 3.21 10^9/L Lymphocytes 0.47 10^9/L Monocytes 0.42 10^9/L Eosinophils 0.08 10^9/L Basophils 0.00 10^9/L Manual Lymphocytes 11 % Manual Monocytes 10 % Manual Eosinophils 2 % Manual Basophils 0 % Test performed on May 16, 2019 13:32 Albumin, SPE 4.21 g/dL [place] / Lambda Ratio 0.78 Absolute Value Lambda Light Chain 6.68 [place] Light Chain 5.22 Lyrwu-0-thfulwus 0.2 g/dL Arylj-2-ehfohdvv 0.96 g/dL Beta Globulin 0.86 g/dL Gamma Globulin 0.59 g/dL M-Bronson 0.19 g/dL SPE Interpretation No significant change in monoclonal proteinemia since prior study. Impression: 1. Patient with stage II, standard risk multiple myeloma and a large destructive plasmacytoma in the right humerus with associated pathological fracture. He underwent palliative radiation therapy and surgical repair of his arm. 2. Despite treatment he had a further progression of his M protein, and he was found to have hyperdiploid cytogenetics on bone marrow biopsy. 3. Induction chemotherapy with Velcade, Cytoxan, and Decadron began on 09/12/13. After 6 cycles of induction therapy cyclophosphamide was stopped, and he continued with Velcade and Decadron for 8 cycles. 4. On 04/11/2014 he underwent high-dose melphalan followed by an autologous stem cell transplantation. Post transplant bone marrow biopsy revealed residual disease. 5. He declined maintenance Revlimid therapy. Maintenance treatment with Velcade 1.3 mg/m2 sc every 2 weeks for 2 years began on 09/11/14. 6. He had progressive preexistent peripheral neuropathy. His dose was adjusted at 1 mg/m??? subcutaneously every 2 weeks, but he developed progressive neuropathy with pruritus. Velcade therapy was discontinued. His M protein level at that point was stable at 0.84 g/dL. 7. A trial of ixazomib 4 mg weekly on days 1, 8, and 15 of 28 day cycle began on 05/21/15. His other medical illnesses include: 8. Hypertension. 9. Type II diabetes. 10. GERD. 11. Degenerative arthritis. 12. Androgen deficiency. He had evidence of some response to the ixazomib. As of his follow-up visit in January 2016 his M protein had increased somewhat, but it then stabilized. During subsequent follow-up, the M protein had increased very gradually. However, between December and March 2017 there was a significant increase, from 1.50 g/dL to 1.93 g/dL. He had then presented with a mass in left chest wall. His chest CT showed an area of lytic involvement with associated soft tissue mass, consistent with myeloma. He underwent radiation to the involved area, completed on 05/12/2017 to a total dose of 4000 cGy. He then developed a new lump in his forehead. Head CT showed bifrontal and anterior ethmoid sinus soft tissue abnormality suggestive of mass as well as midline frontal scalp soft tissue mass secondary to erosion of the anterior wall frontal sinus. Overall, the findings were consistent with involvement with myeloma, and his laboratory studies also were indicative of significant further progression of his M protein. He was given radiation to the frontal bone, completed on 07/27/2017 to a total dose of 3600 cGy. He then began 3rd line treatment with daratumumab in combination with Revlimid and dexamethasone. He completed 8 weekly infusions of daratumumab, which he tolerated well, though he did require a reduction in the Revlimid dosage to 10 mg. He also started monthly injections of denosumab for the lytic bone involvement. As of 09/09/2017 the frequency of the daratumumab infusions was increased to every 2 weeks. As of 12/23/2017 he had completed 8 infusions at that interval. Beginning on 01/25/2018 he continued daratumumab at the 4-week dosing interval. During this time he had opted to adjust his Revlimid to a 14 days on/14 days off schedule due to throat swelling and spasms, and his Revlimid dosage was then further reduced to 5 mg daily on a 21/28 day schedule. As of January 2018 his protein electrophoresis showed just a faint M band compared to a pretreatment M protein level of 3.43 g/dL. In December 2017 he presented with increased pain and swelling in his upper right arm. His repeat PET/CT showed significant response to treatment compared to the June 2017 study. 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 On 01/19/2018 he underwent incision/drainage of an abscess, which apparently was not involving the bone. He had an open wound at that site, but it has gradually healed. In the absence of any evidence of progression of the myeloma, he continued treatment with daratumumab, Revlimid, and dexamethasone. He has limited the Revlimid to 14 days each month because it does seem to cause some swelling in his throat. 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 During that time he required a prolonged course of antibiotic therapy with Rocephin. He has been able to continue treatment with daratumumab in combination with Revlimid and dexamethasone with no evidence of progression of the myeloma. He had been having increasing side effects with the Revlimid, and he opted to stop both the Revlimid and dexamethasone 6 weeks ago. During subsequent follow-up he had improvement in some symptoms, though his activity had been further limited due to his left foot problems. He was having more diarrhea, but that he had attributed to his antibiotic. As of his follow-up in October 2018 there was no evidence of progression of the myeloma. He had presented on 12/08/2018 with recurrence of pain in association with cellulitis/abscess of the right upper arm soft tissues. This was the same site as his previous abscess, which reportedly was not involving the bone. It showed gradual improvement on antibiotic therapy after spontaneous drainage. However, his treatment during that time had remained on hold. He then had further evaluation with CT scans of the chest, abdomen, and pelvis on 01/25/2019. 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 There appear to be associated nondisplaced lateral acetabular margin pathologic fracture. He was referred to Dr. Navarro, and he was then given radiation to the left hip, completed on 02/19/2019 to a total dose of 3000 cGy. On 04/19/2019 he restarted systemic therapy with carfilzomib and dexamethasone in combination with daratumumab. He tolerated his initial day 1/day 2 treatment well, and he was then able to continue his treatment on schedule other than he had to skip his day 16 carfilzomib injection due to bad weather. He began cycle 2 on 05/18/2019. He has been tolerating treatment with acceptable toxicity. It will be difficult to evaluate his response. By clinical evaluation, he has not had any obvious disease progression. Plan: He will continue with cycle 2 day 8 daratumumab and carfilzomib. This will be his 6th weekly infusion of daratumumab. The carfilzomib dosage will now be adjusted to 70 mg/m2 weekly. He returns in one week. Signed By: Rosendo Rodriges M.D. <<Signature on File>>
[2019-06-01] MEDS: acetaminophen 325 mg Tablet 650 MG PO (12:35)
[2019-06-01] MEDS: dexamethasone 20 MG in sodium chloride 0.9% 50 ML 188 MG IV (12:37)
[2019-06-01] MEDS: sodium chloride 0.9% 500 ML 999 ML IV (12:37)
--- NOTE | 2019-06-02 16:33 | ONC FU_ITS ---
[facility] Patient Note Patient: Hal Canchola Unit #: [id number]: 1960 Dictated By: Diandra NunnDate of Visit: Jun 01, 2019 Onc MED Follow-Up/Prog Note Chief Complaint: Myeloma. 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 He had presented with pain in the right arm. His x-ray on 05/12/13 showed a large expansile lytic lesion in the midshaft of humeral diaphysis. He was referred to see Dr. Arrieta in [place], [place]. Further work up included laboratory analysis on 05/23/13 that showed normal hemoglobin at 12.4 g/dL, mild renal insufficiency with BUN 26 and creatinine of 1.2, normal albumin at 3.9, and normal calcium at 9.6. His skeletal bone survey showed no additional lesions on 05/26/13. Biopsy of the right humeral lesion on 05/31/13 revealed plasma cell neoplasm, kappa restricted. He was first seen here on 06/16/13. His protein electrophoresis studies showed 1.79 g of IgG kappa. His bone marrow biopsy on 06/17/13 revealed 3% plasma cells, 5-10% CD138 positive cells by flow. Cytogenetic analysis showed two population of cells. First population comprising 10% showed loss of 1q, additional material on 20q, and trisomy of chromosomes 3, 5, 7, 9, 11 and 15. FISH panel revealed gain of 9q, 11q, 15q, and 17q. He had no iron storage. Radiation therapy to the arm lesion began on 06/20/13. In the midst of all of his radiation treatment, short of about 2 fractions, the patient sustained a mechanical fall and landed on the affected arm, sustaining significant fracture. He required surgery on 08/09/2013. Despite of the radiation therapy, his follow up plasmacytoma studies on 09/01/2013 showed further increase of M protein to 2.5 g/dL, IgG 3460, serum free light chain ratio increased to 35. He had mild anemia with hemoglobin of 11 g/dL. His creatinine was 1.1. with calcium 9. Induction chemotherapy with VCd regimen (Velcade, Cytoxan and dexamethasone) began on 09/12/13. He had a positive response to the treatment, and after 6 cycles of therapy cytoxan was dropped from the regimen. The patient completed a total of 8 cycles of treatment with a very good response. On 04/11/2014 he underwent high-dose melphalan followed by an autologous stem cell transplantation. On 07/14/14 he underwent a day 100 post transplant bone marrow biopsy at [facility] with residual disease. IgG kappa M protein 0.77 g/dL. Maintenance single agent Revlimid therapy was recommended, but the patient ultimately decided against it for a variety of reasons, including concerns over completing REMS questionnaire over the phone and privacy issues. Maintenance with single agent Velcade every 2 weeks for 2 years was recommended. Cycle 1 began on 09/11/14. Baseline IgG 0.94 g/dL. The patient received Velcade therapy up until 04/10/2015. He required a dose reduction to 1 mg/m??? every 2 weeks due to progressive peripheral neuropathy. He again developed recurrent cramps and pruritis in the legs, which occurred after restarting Velcade. Given recurrent peripheral neuropathy, Velcade therapy was discontinued. M protein remained stable at 0.84 g/dL on 05/01/2015. As he had measurable disease, single agent Ixazomib began on 05/21/15 at a standard dosage of 4 mg weekly on days 1, 8,and 15 of each 28 day cycle. As of his follow-up visit in November 2015 his M protein was stable, and he was tolerating treatment well. He began cycle 9 of ixazomib on 01/02/2016. He had also continued Zometa infusions every 3 months for the lytic bone involvement. The protein electrophoresis studies from 01/22/2016 did show slight increase in his kappa free light chain, but there was no change in the M protein or in the 24-hour urine monoclonal protein excretion. On 02/03/2016 he was admitted to the hospital with cellulitis associated with a diabetic foot ulceration. His repeat protein electrophoresis studies from 03/04/2016 showed a further increase in the kappa free light chain to 15.9 mg/dL compared to 7.26 mg/dL in January and to 4 0.7 mg/dL in November 2015. The M protein at that point had also increased, to 1.11 g/dL compared to 0.81 g/dL in January. The 24-hour urine at that time showed a total protein excretion of 2226 mg with 2.3% monoclonal protein. That was not significantly changed. His subsequent protein electrophoresis studies remained stable. As of 12/11/2016 the M protein had increased only slightly, to 1.30 g/dL with his kappa free light chain stable at 12.8 mg/dL. His 24-hour urine protein electrophoresis showed a total monoclonal protein excretion of 32 mg. Skeletal survey on 10/09/2016 showed probable old healed pathologic fracture deformity of the right mid humeral diaphysis and probable additional old healed pathologic fracture of the distal left fibular diaphysis. There were findings consistent with advanced neuropathic arthropathy of the feet. There were no other lytic bone lesions. As of 01/08/2017 there was further increase in the M protein level to 1.50 g/dL, but his repeat protein electrophoresis on 02/11/2017 showed no significant change in the M protein. He continued treatment with single agent ixazomib. As of his follow-up visit on 03/18/2017 his M protein had shown a significant increase, up to 1.93 g/dL compared to 1.50 g/dL in December 2016. His blood counts at that point remained stable. His skeletal survey as of 02/11/2017 showed no active bone lesions. However, as it was evident that his disease was progressing, Dr Rodriges did have him stop his treatment. He had subsequently reported development a chest wall mass. A noncontrast chest CT on 03/27/2017 showed evidence of a lytic expansile lesion of the anterior left fifth rib with an adjacent soft tissue mass. He was then referred to Dr. Navarro and he underwent radiation to the chest wall lesion, completed on 05/12/2017 to a total dose of 4000 cGy. He tolerated the treatment well. During this time he had also developed a lump on his forehead. Head CT on 06/18/2017 showed bifrontal and anterior ethmoid sinus soft tissue abnormality suggestive of mass and associated with mucocele expansion of the right frontal sinus and lytic bony erosive changes. Reported differential diagnosis included primary sinus neoplasm or extraosseous myeloma. Also noted was midline frontal scalp soft tissue mass secondary to erosion of the anterior wall frontal sinus. There was also apparent erosion of the floor of the anterior cranial fossa by the component of the mass in the ethmoid sinus. His laboratory studies from 06/22/2017 included CBC showing a decline in his hemoglobin to 10.4 g with white blood cell count 5100 and platelet count 253,000. Chem profile showed borderline renal function with BUN 25 and creatinine 1.44 mg/dL. Calcium was normal 9.7 mg/dL. Serum protein electrophoresis showed increase in his M protein to 3.43 g/dL. The 24-hour urine monoclonal protein excretion was 102 mg. He was then given radiation to the frontal bone, completed on 07/27/2017 to a total dose of 3600 cGy. His other medical illnesses include hypertension, type II diabetes, GERD, degenerative arthritis, and androgen deficiency. He had smoked in the past but quit more than 20 years ago. INTERIM HISTORY: On 07/06/2017 he began 3rd line treatment with daratumumab in combination with Revlimid and dexamethasone. It was initiated at a reduced dosage of Revlimid, 15 mg daily on a 21/28 day schedule. He was able to continue the daratumumab infusions weekly with no apparent toxicity. He completed his 8th weekly infusion on 08/26/2017. During that time he required a reduction in the Revlimid dosage to 10 mg. He also started monthly denosumab injections. Beginning on 09/09/2017 the frequency of his daratumumab infusions was increased to every 2 weeks. As of 12/23/2017 he completed his 8th dose of daratumumab at the 2-week dosing interval. His repeat protein electrophoresis on 01/21/2018 showed only a faint monoclonal protein band. The free light chain assay showed his kappa free light chain decreased to 1.19 mg/dL with kappa/lambda ratio normal at 0.9754. Beginning on 01/25/2018 he continued his daratumumab infusions at the 4-week dosing interval. During his time he had on his own accord adjusted his Revlimid schedule to a 14 days on/14 days off schedule because of throat swelling and spasms. The Revlimid dosage was then changed to 5 mg daily. In December 2017 he had presented with increased pain and swelling in his upper right arm. A PET/CT on 01/09/2018 showed improvement compared to the previous study from June 2017. Numerous hypermetabolic osseous lesions had become sclerotic with nearly negligible FDG uptake, consistent with a positive response to therapy. Hypermetabolic lymph nodes in the mediastinum were subcentimeter in size and FDG negative. He was referred back to his orthopedic surgeon in [place], where he underwent I & D of an abscess on 01/19/2018. It apparently was not involving the bone. In the absence of any evidence of progression of his myeloma, he continued treatment with daratumumab, Revlimid, and dexamethasone, but he opted to change the Revlimid to the previous schedule of 10 mg daily for 14 days of a 28 day schedule. As of his follow-up visit on 09/15/2018 there was no evidence of progression of the myeloma. Prior to that visit, though, he had opted to stop the Revlimid and the dexamethasone. He did receive his scheduled daratumumab infusion. During his further follow-up, he required additional surgery on his left foot, and he also required prolonged antibiotic therapy. He continued treatment with daratumumab and dexamethasone. As of October 2018 there was no increase in the serum monoclonal protein and no significant change in the kappa free light chain. The protein electrophoresis studies from 12/01/2018 again showed no change in the serum monoclonal protein. The free light chain assay did show a significant increase in the kappa free light chain, to 7.67 mg/L, but the lambda light chain also had increased such that the kappa/lambda ratio remained normal at 0.85. Dr Rodriges had seen him for a scheduled visit on 12/08/2018. At that time he had developed pain, redness, and swelling at the site of his previous abscess in the upper right arm. He was having fever and chills. The clinical picture was consistent with recurrent cellulitis or abscess. His treatment was put on hold, and Dr Rodriges had him restart IV antibiotic coverage with Rocephin. At about day 2 or 3 he developed spontaneous drainage of purulent material. Cultures from both the blood and subsequently from the exudate were negative. After the spontaneous drainage, he was transitioned to oral antibiotic therapy. During subsequent follow-up he had ongoing problems with the cellulitis and other issues, and he was not able to restart treatment. He had further evaluation with CT scans of the chest, abdomen, and pelvis on 01/25/2019. The most significant finding was the presence of progressive lytic myelomatous lesions of the left ischium and superior acetabular structures with probable nondisplaced pathologic fracture of the left acetabular margin. At that point he had developed significant pain in the left hip and left leg. He was referred to Dr. Navarro for additional radiation. He completed treatment to the left hip on 03/02/2019, total dose 3000 cGy. Mr Canchola is here today for continuation of treatment. He is due for cycle 2 day 15 (week 7) daratumumab, carfilzomib and dexamethasone. He has no new concerns today. He denies any fever or chills. He said no trouble swallowing. He states he continues to have hip pain but has not gotten any worse. He still uses a walker to ambulate because of hip pain. He denies any new pain. His appetite is still good, but his energy is low. He denied any diarrhea or constipatin. He denies an bladder concerns. He presents in a wheelchair today and continues to wear his orthopedic boot . His ECOG is 2. Past Medical History: Allergic rhinitis Diabetes Gastroesophageal reflux Hypertension Hypoganadism Osteoarthritis Phlebitis Past Surgical History: Toe amputation x2 in 2018 Autologus stem cell transplant-[facility] in 2013 Biopsy in 2013 - [facility] in 2011 Skin Graft in 1995 - Right [place] July 2013, placed pin in right arm Allergies: Aparna, Claritin, Insulin (any type), Morphine Sulfate, and OxyCODONE HCl. Medications: Acyclovir 1 (400 mg) Tablet Oral b.i.d. Amaryl (4 mg) Tablet Oral b.i.d. Aspirin 2 Tablet (of 81 mg) Tablet, enteric coated Oral daily Azithromycin 1 Tablet (of 250 mg) Oral b.i.d. for 10 days Benadryl 2 (25 mg) Tablet Oral four times a day PRN Clotrimazole-Betamethasone Cream Topical PRN Depo-Testosterone (200 mg/mL) Intramuscular q 2 weeks Dilaudid 1 (4 mg) Tablet Oral q 3 hours PRN Famotidine 1 Tablet (of 20 mg) Oral daily Glucophage 1 Tablet (of 850 mg) Oral t.i.d. Invokana 1 (100 mg) Tablet Oral daily Januvia 1 (100 mg) Tablet Oral daily Lasix 1 Tablet (of 20 mg) Oral daily Lisinopril 1 Tablet (of 2.5 mg) Oral daily Lyrica 1 (75 mg) Capsule Oral daily Mucinex (600 mg) Tablet SR 12 HR Oral b.i.d. Prandin 2 Tablet (of 2 mg) Tablet Oral t.i.d. Victoza 1.8 mg Subcutaneous daily Family History: Mr. Canchola's mother is alive. Mr. Canchola's father at age 64: Myelomas Cancer. Mr. Canchola has 2 brothers: 2 alive. Mr. Canchola's first brother's renal pelvis and ureter cancer. Another brother's cancer history consists of Colon cancer. Social History: Mr. Canchola is single and he is an on disability. Mr. Canchola quit smoking 20 years ago but had smoked for 5 years. He has indicated exposure to the following products: cigars. Mr. Canchola reports the following support systems: lives alone, lives in own house, and supportive family/friends willing to assist with needs. His diet consists of regular meals. He indicates his activity level as: daily activities. Patient smoked 3 to 4 Cigars a day for 5 years. Review Of Symptoms: Constitutional Denies fevers, chills, night sweats, excessive fatigue or weight loss. Allergic/Immunologic No reactions. Eyes Denies significant visual changes. No diplopia. No amaurosis. ENMT Denies changes in hearing, sore throat, mouth sores, difficulty or changes in swallowing ability, and/or sinus drainage. Endocrine No diabetes, thyroid disease or hormone replacement. Denies hot flashes or night sweats. Hematologic/Lymphatic Denies easy bruising or bleeding. The patient denies any tender or palpable lymph nodes. Respiratory Denies dyspnea on exertion, chest pain, cough or hemoptysis. Denies orthopnea. Cardiovascular Denies anginal chest pain, palpitations or orthopnea. Gastrointestinal Denies nausea, vomiting, diarrhea, GI bleeding, or constipation. Denies change in bowel habits and/or stool color, no heartburn or early satiety. Genitourinary (M) Denies hematuria, dysuria, increased frequency, urgency, hesitancy or incontinence. Musculoskeletal Denies joint pain, swelling or redness. No decreased range of motion. Integumentary Denies chronic rashes, inflammation, ulcerations or skin changes. Neurologic Denies headache, blurred vision, and no areas of focal weakness or numbness. Normal gait. No sensory problems. Psychiatric Denies insomnia, depression, jacqueline or mood swings. Vital Signs: Performed on Jun 01, 2019 11:37 Height - 72.00 in Weight - 282.4 lbs (LOW) BSA - 2.47 sq.m BMI - 38.30 (HIGH) Temperature - 98.4 F Pulse - 96 /min Respiration - 14 /min BP - 103/62 mm(hg) O2 Sat - 99 % Pain - 3 Fatigue - 6,2 - Ambulatory/capable of all self-care, unable to perform any work activities. Up and about more than 50% of waking hours. (ECOG) Physical Examination: Constitutional Alert, oriented, no acute distress. Skin pink, warm and dry. Head Normocephalic; atraumatic. Eyes Conjunctivae and sclerae are clear and without icterus. Pupils are reactive and equal. ENMT No oral exudates, ulcers, masses, thrush or mucositis. Oropharynx clear. Tongue normal. Neck Supple without masses or thyromegaly. No jugular venous distension. Hematologic/Lymphatic No petechiae or purpura. No tender or palpable lymph nodes in the cervical or supraclavicular areas. Respiratory Lungs are clear to auscultation without rhonchi or wheezing. Cardiovascular Regular rate and rhythm of heart without murmurs,clicks, gallops or rubs. Chest Chest is symmetric without chest wall deformities. Abdomen Non-tender, non-distended, no masses or ascites. Good bowel sounds noted in all quads. No guarding or rebound tenderness. No pulsatile masses. Back/Spine Non-tender to palpation. Extremities No visible deformities, no cyanosis, clubbing or edema. Musculoskeletal No tenderness or swelling, normal range of motion without obvious weakness. Integumentary No rashes or lesions. Neurologic No sensory or motor deficits, normal cerebellar function, normal gait. Psychiatric Alert and oriented times three. Coherent speech. Verbalizes understanding of our discussions today. Laboratory:Test performed on May 30, 2019 16:26 Glucose 179 mg/dL BUN 42 mg/dL Creatinine 1.25 mg/dL Sodium 138 mmol/L Potassium 4.2 mmol/L Chloride 102 mmol/L CO2 25 mmol/L Calcium 8.7 mg/dL WBC 4.1 10^9/L RBC 3.68 10^12/L HGB 10.3 g/dL HCT 31.9 % MCV 86.7 fl MCH 28 pg MCHC 32.3 g/dL RDW 16.6 % Platelet Count 103 10^9/L Neutrophils (Gran) 3.321 10^9/L Lymphocytes 0.41 10^9/L Monocytes 0.287 10^9/L Eosinophils 0.041 10^9/L Basophils 0 10^9/L Test performed on May 23, 2019 12:50 Cr Clearance (Est) 150.61 mL/min Protein, Total 6.1 g/dL Albumin 4.0 g/dL Bilirubin, Total 0.3 mg/dL Alkaline Phosphatase 83 IU/L AST (SGOT) 18 IU/L ALT (SGPT) 22 IU/L MPV 9.8 fL Manual Lymphocytes 11 % Manual Monocytes 10 % Manual Eosinophils 2 % Manual Basophils 0 % Test performed on May 16, 2019 13:32 Albumin, SPE 4.21 g/dL [place] / Lambda Ratio 0.78 Absolute Value Lambda Light Chain 6.68 [place] Light Chain 5.22 [id number]-hafbuhog 0.2 g/dL Sousr-1-ehuioyph 0.96 g/dL Beta Globulin 0.86 g/dL Gamma Globulin 0.59 g/dL M-Bronson 0.19 g/dL SPE Interpretation No significant change in monoclonal proteinemia since prior study. Test performed on Apr 26, 2019 08:08 IGG 601 mg/dL IGA 41 mg/dL IGM 64 mg/dL Test performed on Mar 31, 2019 16:09 LDH, Total 195 IU/L U Creatinine (R) 70.4 mg/dL U Creatinine, 24hr 2500 mg/24hr U Protein, 24hr 530 mg/24hr U Protein (R) 15 mg/dL UPE Interpretation No significant change in monoclonal protein in urine since prior study Test performed on Mar 24, 2019 12:30 Iron 70 ug/dL Magnesium 2.2 mg/dL Protein, SPE 6.6 g/dL Vitamin D (25-Hydroxy), Total 17 ng/mL % Iron Saturation 22.8 % UIBC 236 ug/dL Anion Gap 19.0 eGFR 62.2 mL/min Globulin 1.3 gm/dL Neutrophil % 67.3 % Lymphocyte % 20.1 % Monocyte % 9.6 % Eosinophil % 1.3 % Basophils % 0.4 % [place] Free Light Chains 11.3 mg/L Lambda Free Light Chains 13.0 mg/L [place]/Lambda Free Ratio 0.87 Beta 2 Globulin 0.3 g/dL S Immunofixation Interp SEE NOTE There is a restriction in the kappa gregoria that does not correspond with either G,A,M,D,E heavy chains, nor does it react with free kappa antisera. Finding is inconclusive for the presence of a monoclonal protein at this time. Suggest clinical correlation. Repeat testing in three to six months and urine protein electrophoresis with immunofixation may be helpful. THIS TEST WAS PERFORMED AT: [facility] [place] [address] [place] [address] PARAG ADDISON DO,MPH Test performed on Jan 11, 2019 11:05 Manual Segs 38 % Manual Bands 0 % Test performed on Dec 08, 2018 12:05 CRP, High Sensitivity 23.040 mg/dL ESR (Sed Rate) 105 mm/hr Blood Culture NO GROWTH AFTER 5 DAYS Impression: 1. Patient with stage II, standard risk multiple myeloma and a large destructive plasmacytoma in the right humerus with associated pathological fracture. He underwent palliative radiation therapy and surgical repair of his arm. 2. Despite treatment he had a further progression of his M protein, and he was found to have hyperdiploid cytogenetics on bone marrow biopsy. 3. Induction chemotherapy with Velcade, Cytoxan, and Decadron began on 09/12/13. After 6 cycles of induction therapy cyclophosphamide was stopped, and he continued with Velcade and Decadron for 8 cycles. 4. On 04/11/2014 he underwent high-dose melphalan followed by an autologous stem cell transplantation. Post transplant bone marrow biopsy revealed residual disease. 5. He declined maintenance Revlimid therapy. Maintenance treatment with Velcade 1.3 mg/m2 sc every 2 weeks for 2 years began on 09/11/14. 6. He had progressive preexistent peripheral neuropathy. His dose was adjusted at 1 mg/m??? subcutaneously every 2 weeks, but he developed progressive neuropathy with pruritus. Velcade therapy was discontinued. His M protein level at that point was stable at 0.84 g/dL. 7. A trial of ixazomib 4 mg weekly on days 1, 8, and 15 of 28 day cycle began on 05/21/15. His other medical illnesses include: 8. Hypertension. 9. Type II diabetes. 10. GERD. 11. Degenerative arthritis. 12. Androgen deficiency. He had evidence of some response to the ixazomib. As of his follow-up visit in January 2016 his M protein had increased somewhat, but it then stabilized. During subsequent follow-up, the M protein had increased very gradually. However, between December and March 2017 there was a significant increase, from 1.50 g/dL to 1.93 g/dL. He had then presented with a mass in left chest wall. His chest CT showed an area of lytic involvement with associated soft tissue mass, consistent with myeloma. He underwent radiation to the involved area, completed on 05/12/2017 to a total dose of 4000 cGy. He then developed a new lump in his forehead. Head CT showed bifrontal and anterior ethmoid sinus soft tissue abnormality suggestive of mass as well as midline frontal scalp soft tissue mass secondary to erosion of the anterior wall frontal sinus. Overall, the findings were consistent with involvement with myeloma, and his laboratory studies also were indicative of significant further progression of his M protein. He was given radiation to the frontal bone, completed on 07/27/2017 to a total dose of 3600 cGy. He then began 3rd line treatment with daratumumab in combination with Revlimid and dexamethasone. He completed 8 weekly infusions of daratumumab, which he tolerated well, though he did require a reduction in the Revlimid dosage to 10 mg. He also started monthly injections of denosumab for the lytic bone involvement. As of 09/09/2017 the frequency of the daratumumab infusions was increased to every 2 weeks. As of 12/23/2017 he had completed 8 infusions at that interval. Beginning on 01/25/2018 he continued daratumumab at the 4-week dosing interval. During this time he had opted to adjust his Revlimid to a 14 days on/14 days off schedule due to throat swelling and spasms, and his Revlimid dosage was then further reduced to 5 mg daily on a day schedule. As of January 2018 his protein electrophoresis showed just a faint M band compared to a pretreatment M protein level of 3.43 g/dL. In December 2017 he presented with increased pain and swelling in his upper right arm. His repeat PET/CT showed significant response to treatment compared to the June 2017 study. 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 On 01/19/2018 he underwent incision/drainage of an abscess, which apparently was not involving the bone. He had an open wound at that site, but it has gradually healed. In the absence of any evidence of progression of the myeloma, he continued treatment with daratumumab, Revlimid, and dexamethasone. He has limited the Revlimid to 14 days each month because it does seem to cause some swelling in his throat. 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 During that time he required a prolonged course of antibiotic therapy with Rocephin. He has been able to continue treatment with daratumumab in combination with Revlimid and dexamethasone with no evidence of progression of the myeloma. He had been having increasing side effects with the Revlimid, and he opted to stop both the Revlimid and dexamethasone 6 weeks ago. During subsequent follow-up he had improvement in some symptoms, though his activity had been further limited due to his left foot problems. He was having more diarrhea, but that he had attributed to his antibiotic. As of his follow-up in October 2018 there was no evidence of progression of the myeloma. He had presented on 12/08/2018 with recurrence of pain in association with cellulitis/abscess of the right upper arm soft tissues. This was the same site as his previous abscess, which reportedly was not involving the bone. It showed gradual improvement on antibiotic therapy after spontaneous drainage. However, his treatment during that time had remained on hold. He then had further evaluation with CT scans of the chest, abdomen, and pelvis on 01/25/2019. 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 There appear to be associated nondisplaced lateral acetabular margin pathologic fracture. He was referred to Dr. Navarro, and he was then given radiation to the left hip, completed on 02/19/2019 to a total dose of 3000 cGy. Mr. Canchola has been offered systemic therapy with daratumumab carfilzomib and dexamethasone. He is here today for cycle 2 day 15 treatment. He has tolerated it relatively well so far. He did have a mild infusion reaction on day 1 but tolerated day 2 well. He has tolerated it well since that time. He is having a clinical response by the comparisons of the [place] free light chain and Lambda free light chain. On March 31, 2019 his kappa free light chain was reported as 11.8 (it was 5.22 on 05/16/2019) and the lambda light chain was reported as 12.56 on 03/31/2019 and it was reported as 6.68 on 05/16/2019. His M-protein was 0.19 on . Plan: 1. Proceed with cycle 15 daratumumab/carfilzomib and dexamethasone. His treatment plan consists of carfilzomib for 3 weeks and he will have 1 week of rest. The daratumumab will remain weekly and after completion of 4 cycles (16 weeks) we will go to every 2 weeks. The carfilizomib has no been transitioned to weeklky administration. 2. Premedication including antiemetics given his history of nausea. 3. He will need to continue acyclovir and ASA. He has been intolerant of antibiotics in the past due to severe diarrhea. 4. Labs from 05/30/2019 were reviewed in detail and discussed with Mr. Canchola. WBC 4.1, hemoglobin 4.1, HGB was 10.3 platelets 103,000 ANC is 3300 creatinine 125 mg BUN is 25 random glucose was 215. LFTs are normal. On March 31, 2019 his kappa free light chain was reported as 11.8 (it was 5.22 on 05/16/2019) and the lambda light chain was reported as 12.56 on 03/31/2019 and it was reported as 6.68 on 05/16/2019. 5. Mr. Canchola will have weekly interim labs to include CBC CMP. He also have weekly follow-ups while he is on treatment. 6. I did reduce his dexamethasone dose to 10 mg given his significant history of uncontrolled diabetes in the past. He is insulin intolerant. However he did have a mild possible infusion reaction with day 1. Therefore we did administer 20 mg on Day 2 and he tolerated day 2 much better. His Random glucose is no higher than what it has been, so will leave the dexamethasone at 20 mg. 7. Mr. Batista was instructed to contact us in the interim should questions or problems arise. Should Mr. Canchola fail daratumumab and carfilzomib, he may be a candidate for selinexor (Xpovio-a nuclear export inhibitor-as he requires failure of: two proteasome inhibitors (he has failed Velcade and ixazomib); two immunomodulary agents (he has failed Revlimid) (carfilzomib falls in this drug classification); and failure of one anti-CD38 monoclonal ( he would have to have failed Darzalex). Signed By: Diandra Nunn-, [facility] Rosendo Rodriges MD <<Signature on File>>
[2019-06-08] MEDS: sodium chloride 0.9% 500 ML 999 ML IV (11:23)
[2019-06-08] MEDS: acetaminophen 325 mg Tablet 650 MG PO (11:23)
[2019-06-08] MEDS: dexamethasone 20 MG in sodium chloride 0.9% 50 ML 188 MG IV (11:23)
== END 2019-06-11 23:59 | disposition home or self-care (01) ==
LOC: ONCMED 05:44
PROVIDERS: Visit Provider Nurse Practitioner
DX: Z51.12 Encounter for antineoplastic immunotherapy (principal); C90.00 Multiple myeloma not having achieved remission; I10 Essential (primary) hypertension; K21.9 Gastro-esophageal reflux disease without esophagitis; E11.42 Type 2 diabetes mellitus with diabetic polyneuropathy; M19.90 Unspecified osteoarthritis, unspecified site; E29.1 Testicular hypofunction; Z94.84 Stem cells transplant status; Z79.82 Long term (current) use of aspirin; Z79.4 Long term (current) use of insulin; Z79.899 Other long term (current) drug therapy; Z87.891 Personal history of nicotine dependence; Z92.21 Personal history of antineoplastic chemotherapy; Z92.3 Personal history of irradiation; Z89.429 Acquired absence of other toe(s), unspecified side
CPT/HCPCS: 96361; 96367; 96413; 96415; 96417; 99214; J1100; J1200; J2405; J2469; J7040; J9047; J9145

== ENCOUNTER 2019-07-12 06:48 | Outpatient (RCR) | payer MEDICARE, MEDICAID, SELFPAY ==
--- NOTE | 2019-06-15 18:43 | ONC FU_ITS ---
Dr. Rodriges Patient Follow-Up Note Patient: Hal Canchola Unit #: [id number]: 1960 Dicatated By: Rosendo Rodriges M.D.Date of Visit:Jun 15, 2019 Onc Med Follow-up/Prog Note Chief Complaint: Myeloma. 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 He had presented with pain in the right arm. His x-ray on 05/12/13 showed a large expansile lytic lesion in the midshaft of humeral diaphysis. He was referred to see Dr. Arrieta in . Further work up included laboratory analysis on 05/23/13 that showed normal hemoglobin at 12.4 g/dL, mild renal insufficiency with BUN 26 and creatinine of 1.2, normal albumin at 3.9, and normal calcium at 9.6. His skeletal bone survey showed no additional lesions on 05/26/13. Biopsy of the right humeral lesion on 05/31/13 revealed plasma cell neoplasm, kappa restricted. He was first seen here on 06/16/13. His protein electrophoresis studies showed 1.79 g of IgG kappa. His bone marrow biopsy on 06/17/13 revealed 3% plasma cells, 5-10% CD138 positive cells by flow. Cytogenetic analysis showed two population of cells. First population comprising 10% showed loss of 1q, additional material on 20q, and trisomy of chromosomes 3, 5, 7, 9, 11 and 15. FISH panel revealed gain of 9q, 11q, 15q, and 17q. He had no iron storage. Radiation therapy to the arm lesion began on 06/20/13. In the midst of all of his radiation treatment, short of about 2 fractions, the patient sustained a mechanical fall and landed on the affected arm, sustaining significant fracture. He required surgery on 08/09/2013. Despite of the radiation therapy, his follow up plasmacytoma studies on 09/01/2013 showed further increase of M protein to 2.5 g/dL, IgG 3460, serum free light chain ratio increased to 35. He had mild anemia with hemoglobin of 11 g/dL. His creatinine was 1.1. with calcium 9. Induction chemotherapy with VCd regimen (Velcade, Cytoxan and dexamethasone) began on 09/12/13. He had a positive response to the treatment, and after 6 cycles of therapy cytoxan was dropped from the regimen. The patient completed a total of 8 cycles of treatment with a very good response. On 04/11/2014 he underwent high-dose melphalan followed by an autologous stem cell transplantation. On 07/14/14 he underwent a day 100 post transplant bone marrow biopsy at [facility] with residual disease. IgG kappa M protein 0.77 g/dL. Maintenance single agent Revlimid therapy was recommended, but the patient ultimately decided against it for a variety of reasons, including concerns over completing REMS questionnaire over the phone and privacy issues. Maintenance with single agent Velcade every 2 weeks for 2 years was recommended. Cycle 1 began on 09/11/14. Baseline IgG 0.94 g/dL. The patient received Velcade therapy up until 04/10/2015. He required a dose reduction to 1 mg/m??? every 2 weeks due to progressive peripheral neuropathy. He again developed recurrent cramps and pruritis in the legs, which occurred after restarting Velcade. Given recurrent peripheral neuropathy, Velcade therapy was discontinued. M protein remained stable at 0.84 g/dL on 05/01/2015. As he had measurable disease, single agent Ixazomib began on 05/21/15 at a standard dosage of 4 mg weekly on days 1, 8,and 15 of each 28 day cycle. As of his follow-up visit in November 2015 his M protein was stable, and he was tolerating treatment well. He began cycle 9 of ixazomib on 01/02/2016. He had also continued Zometa infusions every 3 months for the lytic bone involvement. The protein electrophoresis studies from 01/22/2016 did show slight increase in his kappa free light chain, but there was no change in the M protein or in the 24-hour urine monoclonal protein excretion. On 02/03/2016 he was admitted to the hospital with cellulitis associated with a diabetic foot ulceration. His repeat protein electrophoresis studies from 03/04/2016 showed a further increase in the kappa free light chain to 15.9 mg/dL compared to 7.26 mg/dL in January and to 4 0.7 mg/dL in November 2015. The M protein at that point had also increased, to 1.11 g/dL compared to 0.81 g/dL in January. The 24-hour urine at that time showed a total protein excretion of 2226 mg with 2.3% monoclonal protein. That was not significantly changed. His subsequent protein electrophoresis studies remained stable. As of 12/11/2016 the M protein had increased only slightly, to 1.30 g/dL with his kappa free light chain stable at 12.8 mg/dL. His 24-hour urine protein electrophoresis showed a total monoclonal protein excretion of 32 mg. Skeletal survey on 10/09/2016 showed probable old healed pathologic fracture deformity of the right mid humeral diaphysis and probable additional old healed pathologic fracture of the distal left fibular diaphysis. There were findings consistent with advanced neuropathic arthropathy of the feet. There were no other lytic bone lesions. As of 01/08/2017 there was further increase in the M protein level to 1.50 g/dL, but his repeat protein electrophoresis on 02/11/2017 showed no significant change in the M protein. He continued treatment with single agent ixazomib. As of his follow-up visit on 03/18/2017 his M protein had shown a significant increase, up to 1.93 g/dL compared to 1.50 g/dL in December 2016. His blood counts at that point remained stable. His skeletal survey as of 02/11/2017 showed no active bone lesions. However, as it was evident that his disease was progressing, I did have him stop his treatment. He had subsequently reported development a chest wall mass. A noncontrast chest CT on 03/27/2017 showed evidence of a lytic expansile lesion of the anterior left fifth rib with an adjacent soft tissue mass. He was then referred to Dr. Navarro and he underwent radiation to the chest wall lesion, completed on 05/12/2017 to a total dose of 4000 cGy. He tolerated the treatment well. During this time he had also developed a lump on his forehead. Head CT on 06/18/2017 showed bifrontal and anterior ethmoid sinus soft tissue abnormality suggestive of mass and associated with mucocele expansion of the right frontal sinus and lytic bony erosive changes. Reported differential diagnosis included primary sinus neoplasm or extraosseous myeloma. Also noted was midline frontal scalp soft tissue mass secondary to erosion of the anterior wall frontal sinus. There was also apparent erosion of the floor of the anterior cranial fossa by the component of the mass in the ethmoid sinus. His laboratory studies from 06/22/2017 included CBC showing a decline in his hemoglobin to 10.4 g with white blood cell count 5100 and platelet count 253,000. Chem profile showed borderline renal function with BUN 25 and creatinine 1.44 mg/dL. Calcium was normal 9.7 mg/dL. Serum protein electrophoresis showed increase in his M protein to 3.43 g/dL. The 24-hour urine monoclonal protein excretion was 102 mg. He was then given radiation to the frontal bone, completed on 07/27/2017 to a total dose of 3600 cGy. His other medical illnesses include hypertension, type II diabetes, GERD, degenerative arthritis, and androgen deficiency. He had smoked in the past but quit more than 20 years ago. INTERIM HISTORY: On 07/06/2017 he began 3rd line treatment with daratumumab in combination with Revlimid and dexamethasone. It was initiated at a reduced dosage of Revlimid, 15 mg daily on a 21/28 day schedule. He was able to continue the daratumumab infusions weekly with no apparent toxicity. He completed his 8th weekly infusion on 08/26/2017. During that time he required a reduction in the Revlimid dosage to 10 mg. He also started monthly denosumab injections. Beginning on 09/09/2017 the frequency of his daratumumab infusions was increased to every 2 weeks. As of 12/23/2017 he completed his 8th dose of daratumumab at the 2-week dosing interval. His repeat protein electrophoresis on 01/21/2018 showed only a faint monoclonal protein band. The free light chain assay showed his kappa free light chain decreased to 1.19 mg/dL with kappa/lambda ratio normal at 0.9754. Beginning on 01/25/2018 he continued his daratumumab infusions at the 4-week dosing interval. During his time he had on his own accord adjusted his Revlimid schedule to a 14 days on/14 days off schedule because of throat swelling and spasms. The Revlimid dosage was then changed to 5 mg daily. In December 2017 he had presented with increased pain and swelling in his upper right arm. A PET/CT on 01/09/2018 showed improvement compared to the previous study from June 2017. Numerous hypermetabolic osseous lesions had become sclerotic with nearly negligible FDG uptake, consistent with a positive response to therapy. Hypermetabolic lymph nodes in the mediastinum were subcentimeter in size and FDG negative. He was referred back to his orthopedic surgeon in [place], where he underwent I & D of an abscess on 01/19/2018. It apparently was not involving the bone. In the absence of any evidence of progression of his myeloma, he continued treatment with daratumumab, Revlimid, and dexamethasone, but he opted to change the Revlimid to the previous schedule of 10 mg daily for 14 days of a 28 day schedule. As of his follow-up visit on 09/15/2018 there was no evidence of progression of the myeloma. Prior to that visit, though, he had opted to stop the Revlimid and the dexamethasone. He did receive his scheduled daratumumab infusion. During his further follow-up, he required additional surgery on his left foot, and he also required prolonged antibiotic therapy. He continued treatment with daratumumab and dexamethasone. As of October 2018 there was no increase in the serum monoclonal protein and no significant change in the kappa free light chain. The protein electrophoresis studies from 12/01/2018 again showed no change in the serum monoclonal protein. The free light chain assay did show a significant increase in the kappa free light chain, to 7.67 mg/L, but the lambda light chain also had increased such that the kappa/lambda ratio remained normal at 0.85. I had seen him for a scheduled visit on 12/08/2018. At that time he had developed pain, redness, and swelling at the site of his previous abscess in the upper right arm. He was having fever and chills. The clinical picture was consistent with recurrent cellulitis or abscess. His treatment was put on hold, and I had him restart IV antibiotic coverage with Rocephin. At about day 2 or 3 he developed spontaneous drainage of purulent material. Cultures from both the blood and subsequently from the exudate were negative. After the spontaneous drainage, he was transitioned to oral antibiotic therapy. During subsequent follow-up he had ongoing problems with the cellulitis and other issues, and he was not able to restart treatment. He had further evaluation with CT scans of the chest, abdomen, and pelvis on 01/25/2019. The most significant finding was the presence of progressive lytic myelomatous lesions of the left ischium and superior acetabular structures with probable nondisplaced pathologic fracture of the left acetabular margin. At that point he had developed significant pain in the left hip and left leg. He was referred to Dr. Navarro for additional radiation. He completed treatment to the left hip on 03/02/2019, total dose 3000 cGy. On 04/19/2019 he restarted systemic therapy with carfilzomib and dexamethasone in combination with daratumumab. He tolerated his initial day 1/day 2 treatment well, and he was then able to continue his treatment on schedule other than he missed his day 16 carfilzomib injection due to bad weather. He began cycle 2 on 05/18/2019. At that point the carfilzomib was adjusted to weekly dosing, and he was able to complete his day 1, day 8, and day 15 treatments with no adverse effects. He was then hospitalized with influenza A. He returned on 06/08/2023 is day 22 treatment, limited to just to the daratumumab, and that did complete his 8th weekly daratumumab infusion. He is seen for a follow-up visit. He is still having some increased fatigue following his recent influenza illness. He also has limited activity due to continued pain in the left hip area. His ECOG score is 2. He has good appetite. He has not had any fever since the hospitalization. He has occasional sweating. He always has sinus drainage. He does not complain of shortness of breath, cough, or chest pain. He has had some nausea. His acid reflux is adequately managed. Bowel function has been okay. He has frequent urination. He also has some pain in his low back and sciatic area on both sides and he has pain in both ankles. He has occasional headache. He has numbness in his feet. Medications: Acyclovir 1 (400 mg) Tablet Oral b.i.d., Amaryl (4 mg) Tablet Oral b.i.d., Aspirin 2 Tablet (of 81 mg) Tablet, enteric coated Oral daily, Azithromycin 1 Tablet (of 250 mg) Oral b.i.d. for 10 days, Benadryl 2 (25 mg) Tablet Oral four times a day PRN, Clotrimazole-Betamethasone Cream Topical PRN, Depo-Testosterone (200 mg/mL) Intramuscular q 2 weeks, Dilaudid 1 (4 mg) Tablet Oral q 3 hours PRN, Famotidine 1 Tablet (of 20 mg) Oral daily, Glucophage 1 Tablet (of 850 mg) Oral t.i.d., Invokana 1 (100 mg) Tablet Oral daily, Januvia 1 (100 mg) Tablet Oral daily, Lasix 1 Tablet (of 20 mg) Oral daily, Lisinopril 1 Tablet (of 2.5 mg) Oral daily, Lyrica 1 (75 mg) Capsule Oral daily, Mucinex (600 mg) Tablet SR 12 HR Oral b.i.d., Prandin 2 Tablet (of 2 mg) Tablet Oral t.i.d., Victoza 1.8 mg Subcutaneous daily Allergies: Aparna, Claritin, Insulin (any type), Morphine Sulfate, and OxyCODONE HCl. Review of Systems: Constitutional - His energy is low. He is up and around at home, but does not do much activity. His appetite is good and his weight is up 10 pounds. No fever, chills or hot flashes. He has occasional sweating at night. ECOG score is 2, ENMT - He has sinus congestion/drainage. No mouth sores. No sore throat or difficulty swallowing, Hematologic/Lymphatic - He bruises easily, Respiratory - No shortness of breath. No cough. No pleuritic pain or hemoptysis, Cardiovascular - No angina pain. No palpitations, Gastrointestinal - He had nausea and vomiting last night. He woke up with some nausea this morning. The Protonix seems to be working better for his heartburn. No diarrhea or constipation. No blood in the stool or black stools, Genitourinary (M) - No dysuria or hematuria. He has urinary frequency during the day. No urgency or incontinence, Musculoskeletal - He has pain in his left hip and in both ankles. He also has been having more pain in his lower back, Integumentary - His left leg/foot ulcerations have healed, Neurologic - He has occasional sinus headaches. No dizziness. He has numbness in his feet, Psychiatric - No anxiety or depression. No insomnia. Vital Signs: Performed on Jun 15, 2019 10:49 Height - 72.00 in Weight - 292.0 lbs (HIGH) BSA - 2.50 sq.m BMI - 39.60 (HIGH) Temperature - 99.5 F (HIGH) Pulse - 98 /min Respiration - 24 /min BP - 113/63 mm(hg) O2 Sat - 98 % Pain - 6 Physical Examination: Constitutional - He appears somewhat weak generally. He has limited mobility, Eyes - Sclerae nonicteric. Conjunctivae clear, ENMT - No lesions noted in the oral cavity, Hematologic/Lymphatic - No cervical, clavicular, or axillary adenopathy, Respiratory - Lungs sound clear with diminished air movement bilaterally, Cardiovascular - Heart rhythm is regular. There is a II/ systolic murmur. There is no gallop or rub noted, Abdomen - Mildly distended. Liver and spleen are not enlarged. There is no abdominal mass or ascites noted and there is no inguinal adenopathy, Extremities - Currently no edema, Integumentary - There is some erythema in the right axillary area, Neurologic - No focal neurologic deficits noted. Lab/Imaging: Test performed on Jun 13, 2019 12:47 Glucose 208 mg/dL BUN 18 mg/dL Creatinine 0.99 mg/dL Cr Clearance (Est) 147.57 mL/min Sodium 134 mmol/L Potassium 4.4 mmol/L Chloride 97 mmol/L CO2 25 mmol/L Calcium 8.9 mg/dL Protein, Total 5.9 g/dL Albumin 4.0 g/dL Bilirubin, Total 0.3 mg/dL Alkaline Phosphatase 75 IU/L AST (SGOT) 18 IU/L ALT (SGPT) 25 IU/L WBC 3.3 10^9/L RBC 3.56 10^12/L HGB 10.2 g/dL HCT 32.3 % MCV 90.7 fl MCH 28.7 pg MCHC 31.6 g/dL RDW 17.8 % Platelet Count 232 10^9/L MPV 8.9 fL Neutrophils (Gran) 1.90 10^9/L Lymphocytes 0.89 10^9/L Monocytes 0.47 10^9/L Eosinophils 0.04 10^9/L Basophils 0.02 10^9/L Manual Lymphocytes 27 % Manual Monocytes 14 % Manual Eosinophils 1 % Manual Basophils 1 % Impression: 1. Patient with stage II, standard risk multiple myeloma and a large destructive plasmacytoma in the right humerus with associated pathological fracture. He underwent palliative radiation therapy and surgical repair of his arm. 2. Despite treatment he had a further progression of his M protein, and he was found to have hyperdiploid cytogenetics on bone marrow biopsy. 3. Induction chemotherapy with Velcade, Cytoxan, and Decadron began on 09/12/13. After 6 cycles of induction therapy cyclophosphamide was stopped, and he continued with Velcade and Decadron for 8 cycles. 4. On 04/11/2014 he underwent high-dose melphalan followed by an autologous stem cell transplantation. Post transplant bone marrow biopsy revealed residual disease. 5. He declined maintenance Revlimid therapy. Maintenance treatment with Velcade 1.3 mg/m2 sc every 2 weeks for 2 years began on 09/11/14. 6. He had progressive preexistent peripheral neuropathy. His dose was adjusted at 1 mg/m??? subcutaneously every 2 weeks, but he developed progressive neuropathy with pruritus. Velcade therapy was discontinued. His M protein level at that point was stable at 0.84 g/dL. 7. A trial of ixazomib 4 mg weekly on days 1, 8, and 15 of 28 day cycle began on 05/21/15. His other medical illnesses include: 8. Hypertension. 9. Type II diabetes. 10. GERD. 11. Degenerative arthritis. 12. Androgen deficiency. He had evidence of some response to the ixazomib. As of his follow-up visit in January 2016 his M protein had increased somewhat, but it then stabilized. During subsequent follow-up, the M protein had increased very gradually. However, between December and March 2017 there was a significant increase, from 1.50 g/dL to 1.93 g/dL. He had then presented with a mass in left chest wall. His chest CT showed an area of lytic involvement with associated soft tissue mass, consistent with myeloma. He underwent radiation to the involved area, completed on 05/12/2017 to a total dose of 4000 cGy. He then developed a new lump in his forehead. Head CT showed bifrontal and anterior ethmoid sinus soft tissue abnormality suggestive of mass as well as midline frontal scalp soft tissue mass secondary to erosion of the anterior wall frontal sinus. Overall, the findings were consistent with involvement with myeloma, and his laboratory studies also were indicative of significant further progression of his M protein. He was given radiation to the frontal bone, completed on 07/27/2017 to a total dose of 3600 cGy. He then began 3rd line treatment with daratumumab in combination with Revlimid and dexamethasone. He completed 8 weekly infusions of daratumumab, which he tolerated well, though he did require a reduction in the Revlimid dosage to 10 mg. He also started monthly injections of denosumab for the lytic bone involvement. As of 09/09/2017 the frequency of the daratumumab infusions was increased to every 2 weeks. As of 12/23/2017 he had completed 8 infusions at that interval. Beginning on 01/25/2018 he continued daratumumab at the 4-week dosing interval. During this time he had opted to adjust his Revlimid to a 14 days on/14 days off schedule due to throat swelling and spasms, and his Revlimid dosage was then further reduced to 5 mg daily on a / day schedule. As of January 2018 his protein electrophoresis showed just a faint M band compared to a pretreatment M protein level of 3.43 g/dL. In December 2017 he presented with increased pain and swelling in his upper right arm. His repeat PET/CT showed significant response to treatment compared to the June 2017 study. 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 On 01/19/2018 he underwent incision/drainage of an abscess, which apparently was not involving the bone. He had an open wound at that site, but it has gradually healed. In the absence of any evidence of progression of the myeloma, he continued treatment with daratumumab, Revlimid, and dexamethasone. He has limited the Revlimid to 14 days each month because it does seem to cause some swelling in his throat. 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 During that time he required a prolonged course of antibiotic therapy with Rocephin. He has been able to continue treatment with daratumumab in combination with Revlimid and dexamethasone with no evidence of progression of the myeloma. He had been having increasing side effects with the Revlimid, and he opted to stop both the Revlimid and dexamethasone 6 weeks ago. During subsequent follow-up he had improvement in some symptoms, though his activity had been further limited due to his left foot problems. He was having more diarrhea, but that he had attributed to his antibiotic. As of his follow-up in October 2018 there was no evidence of progression of the myeloma. He had presented on 12/08/2018 with recurrence of pain in association with cellulitis/abscess of the right upper arm soft tissues. This was the same site as his previous abscess, which reportedly was not involving the bone. It showed gradual improvement on antibiotic therapy after spontaneous drainage. However, his treatment during that time had remained on hold. He then had further evaluation with CT scans of the chest, abdomen, and pelvis on 01/25/2019. 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 There appear to be associated nondisplaced lateral acetabular margin pathologic fracture. He was referred to Dr. Navarro, and he was then given radiation to the left hip, completed on 02/19/2019 to a total dose of 3000 cGy. On 04/19/2019 he restarted systemic therapy with carfilzomib and dexamethasone in combination with daratumumab. He tolerated his initial day 1/day 2 treatment well, and he was then able to continue his treatment on schedule other than he had to skip his day 16 carfilzomib injection due to bad weather. He began cycle 2 on 05/18/2019. He has been tolerating treatment with acceptable toxicity, though his treatment was complicated by a hospitalization for influenza A. He has had uneventful recovery, and he otherwise appears stable clinically. Plan: He will proceed with cycle 3 of daratumumab/carfilzomib/dexamethasone, but it will be delayed until next week, as his daratumumab is now scheduled to be administered at 2-week intervals. The dosage remains the same. The carfilzomib will be continued at 70 mg/m??? weekly and he will continue dexamethasone 20 mg weekly. He will have a baseline echocardiogram prior to starting the third cycle. He will be scheduled for a follow-up visit in 5 weeks at which point he will be due to begin the 4th cycle of treatment. Signed By: Rosendo Rodriges M.D. <<Signature on File>>
--- NOTE | 2019-06-22 | CT_ITS ---
Radiation Therapy Planning CT images; total exam DLP: 1232.21 mGy-cm MTDD
[2019-06-22] MEDS: sodium chloride 0.9% 500 ML 999 ML IV (12:03)
[2019-06-22] MEDS: dexamethasone 20 MG in sodium chloride 0.9% 50 ML 188 MG IV (12:23)
[2019-06-22] MEDS: acetaminophen 325 mg Tablet 650 MG PO (12:24)
--- NOTE | 2019-06-22 13:11 | ONCRAD EPV_ITS ---
Radiation Oncology Established Patient Visit Patient: Betsy MR#: [id number] : 1960> Age: 58> Sex: Male> Dictated by: Dr. Kvng Ramirez Date of Service: 06/22/2019 Referring Physician(s) : Rosendo Rodriges M.D. Diagnosis: M89.9 - Disorder of bone, unspecified, Diagnosed 06/10/2016 (Active) C90.00 - Multiple myeloma not having achieved remission, Diagnosed 01/30/2015 (Active) Radiotherapy to Date: Course: LT Hip 2018, Treatment Site: LT Hip 30Gy, Ref. ID: [id number], Energy: 15X, Dose/Fx (cGy): 300, #Fx: , Dose Correction (cGy): 0, Total Dose (cGy): 3,000, Start Date: 02/17/2019, End Date: 03/02/2019, Elapsed Days: 13 Chief Complaint / History of Present Illness: . . 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 Induction chemotherapy with VCd regimen (Velcade, Cytoxan and dexamethasone) began on 09/12/13. He had a positive response to the treatment, and after 6 cycles of therapy cytoxan was dropped from the regimen. The patient completed a total of 8 cycles of treatment with a very good response. On 04/11/2014 he underwent high-dose melphalan followed by an autologous stem cell transplantation. On 07/14/14 he underwent a day 100 post transplant bone marrow biopsy at [facility] with residual disease. IgG kappa M protein 0.77 g/dL. Maintenance single agent Revlimid therapy was recommended, but the patient ultimately decided against it for a variety of reasons, He subsequently reported development a chest wall mass. A noncontrast chest CT on 03/27/2017 showed evidence of a lytic expansile lesion of the anterior left fifth rib with an adjacent soft tissue mass. He was referred to Dr. Navarro who administered radiation to the chest wall lesion, completed on 05/12/2017 to a total dose of 4000 cGy. He tolerated the treatment well. On 07/06/2017 he began 3rd line treatment with daratumumab in combination with Revlimid and dexamethasone with no apparent toxicity. He completed his 8th weekly infusion on 08/26/2017. He also started monthly denosumab injections. He had further evaluation with CT scans of the chest, abdomen, and pelvis on 01/25/2019. The most significant finding was the presence of progressive lytic myelomatous lesions of the left ischium and superior acetabular structures with probable nondisplaced pathologic fracture of the left acetabular margin. At that point he had developed significant pain in the left hip and left leg. He was referred to Dr. Navarro for additional radiation. He completed treatment to the left hip on 03/02/2019, total dose 3000 cGy. On 04/19/2019 he restarted systemic therapy with carfilzomib and dexamethasone in combination with daratumumab. He began cycle 2 on 05/18/2019. Recently Mr. Canchola has developed more pain in his left hip and he is referred by Dr. Rodriges for evaluation and consideration of additional radiation therapy to the left hemipelvis. He has no additional complaints. Current Medications: Acetaminophen, acyclovir, acyclovir, aloxi, amaryl, aspirin, ativan, azithromycin, benadryl, benadryl, carfilzomib, cefTRIAXone Sodium, clotrimazole-Betamethasone, clotrimazole-Betamethasone, compazine, daratumumab, depo-Testosterone, dexamethasone, dexamethasone Sodium Phosphate, diclofenac Sodium, dilaudid, dilaudid, diphenhydrAMINE HCl, famotidine, first-Mouthwash BLM, glucophage, hYDROmorphone HCl, invokana, januvia, keflex, lasix, lisinopril, lisinopril, lomotil, lyrica, mucinex, [id number]-[id number]-FU, ondansetron HCl, pantoprazole Sodium, pepcid, prandin, revlimid, sodium Chloride, victoza. Allergies: Aparna, Insulin (any type), Claritin, Morphine Sulfate and OxyCODONE HCl. Current Complaints / Review of Systems: .See above history. No other systemic complaints. Vital Signs: Performed on 06/22/2019 11:35 AM Temperature - 98.1 f, Pulse - 100, Respiration - 16, O2 Sat - 100 %, Pain - 8, Fatigue - 8 and BP - 118/ 70 mm(hg). Physical Exam: General: Alert and oriented x 3. Patient on wheel chair. No acute distress. HEENT: . Oral cavity and oropharynx clear without lesions, masses or ulcers. NECK: No jugular or supraclavicular palpable lymphadenopathy. LUNGS: Clear to auscultation bilaterally without rales, rhonchi or wheeze. MUSCULOSKELETAL: No tenderness or percussion pain over the axial skeleton, scapulae . Minimal pain on deep palpation and percussion of left acetabular area. ABDOMEN: Soft, nontender, nondistended without masses or organomegaly. EXTREMITIES: . Patient uses crutched to ambulate, because of left hip pain. He has metallic braces in both legs. NEUROLOGIC: Cranial nerves II ???XII are grossly intact. Normal sensation, strength 5/5 in all extremities, normal gait, no ataxia. Performance Status: 3 - Capable of only limited self-care, confined to bed or chair more than 50% of waking hours. (ECOG) : Primary, m89.9 - disorder of bone, unspecified, Diagnosed 06/10/2016 (active), Primary, c90.00 - multiple myeloma not having achieved remission, Diagnosed 01/30/2015 (active) and Secondary, z92.3 - personal history of irradiation, Diagnosed 03/2017 (active). Imaging: See HPI Impression: Patient with previously treated multiple myeloma treated with systemic therapies, bone marrow transplant and radiation therapy to right humerus, chest wall and left hemipelvis, as described above. Plan of Therapy In view of the recurrent pain in his left hip and impairment of ambulation I agree with Dr. Rodriges???s recommendation to administer additional irradiation to the left acetabular area. Patient previously received 2500 cGy to this volume.. At this time a dose of 3000 cGy will be appropriate, to relief pain and improve function. Since this is a re-treatment I prefer to use 200 cGy daily fractions to decrease possibility of fibrosis or bone sequelae. I explained proposed treatment plan and potential acute and late RT effects to Mrs. Canchola. He had no additional questions. Informed consent signed. Patient simulated today and we will plan his treatment and schedule him for initiation of radiation therapy next Thursday. Thank you for the opportunity to participate in the care of this interesting gentleman. We will coordinate his management with you. Time involved in review of medical records, imaging studies, examination of patient, discussion of treatment and preparation of consultation note- 90 minutes. Signed by: 06/22/2019 1:09:09 PM <<Signature on File>> Time spent with patient: CPT Code: CPT Code:
--- NOTE | 2019-06-28 12:31 | ONCRAD TMN_ITS ---
Radiation Oncology Weekly Treatment Management Patient: Hal Canchola MR#: [id number] : 1960 Age: 58 Sex: Male Dictated by: Dr. Marco Bah Date of Service: 06/28/2019 Referring Physician(s) : Rosendo Rodriges M.D. Diagnosis: M89.9 - Disorder of bone, unspecified, Diagnosed 06/10/2016 (Active) C90.00 - Multiple myeloma not having achieved remission, Diagnosed 01/30/2015 (Active) Radiotherapy to date: Course: [id number], Treatment Site: Hip 2019, Ref. ID: [id number], Energy: 15X, Dose/Fx (cGy): 250, #Fx: , Dose Correction (cGy): 0, Total Dose (cGy): 500, Start Date: 06/27/2019, Elapsed Days: 1 Prior RT: 3000/10 Left Hip -02/17-03/02/19. Current Status: Mr. Canchola is receiving additional radiation to the left ilium/hip area because of persistent pain. Dr. Ramirez set up his treatments last week and called yesterday to discuss the patient's case. We agreed that retreatment is the appropriate thing to do. He has only had 2 treatments and thus far there is been no change in the pain. He is hoping for some pain relief by next week, but I cautioned him that sometimes it takes longer. He has no questions about the treatment process. Continue treatment according to plan. Current Medications: Acetaminophen, acyclovir, acyclovir, aloxi, amaryl, aspirin, ativan, azithromycin, benadryl, benadryl, carfilzomib, cefTRIAXone Sodium, clotrimazole-Betamethasone, clotrimazole-Betamethasone, compazine, daratumumab, depo-Testosterone, dexamethasone, dexamethasone Sodium Phosphate, diclofenac Sodium, dilaudid, dilaudid, diphenhydrAMINE HCl, famotidine, first-Mouthwash BLM, glucophage, hYDROmorphone HCl, invokana, januvia, keflex, lasix, lisinopril, lisinopril, lomotil, lyrica, mucinex, [id number]-[id number]-EN, ondansetron HCl, pantoprazole Sodium, pepcid, prandin, revlimid, sodium Chloride, victoza. Allergies: Aparna, Insulin (any type), Claritin, Morphine Sulfate and OxyCODONE HCl. Current Complaints/Review of Systems: See above. Vital Signs: Physical Exam: Appears stable, no skin erythema or desquamation. Performance Status: 3 - Capable of only limited self-care, confined to bed or chair more than 50% of waking hours. (ECOG) Lab: None pending in Radiation Oncology. Imaging: No new diagnostic imaging was performed since the last weekly treatment visit. All radiation therapy related imaging (including but not limited to kV, MV, and CBCT generated images) was reviewed. Appropriate changes, if any, were made to assure accurate target localization. Impression/Plan: Tolerating treatment well with expected side effects. Continue treatment as planned. CPT: 61768 Signed by: Dr. Erasmo Bah>06/28/2019 12:29:27 PM <<Signature on File>>
[2019-06-29] MEDS: sodium chloride 0.9% 500 ML 999 ML IV (11:13)
[2019-06-29] MEDS: acetaminophen 325 mg Tablet 650 MG PO (11:13)
[2019-06-29] MEDS: dexamethasone 20 MG in sodium chloride 0.9% 50 ML 188 MG IV (11:53)
[2019-07-04 11:53] LABS: Basophils % 0.2 %; Eosinophils # 0.1 10^3/uL (0.0-0.8); Eosinophils % 2.2 %; Hematocrit 33.9 % (42.0-52.0); Hemoglobin 10.8 g/dL (11.7-16.6); Lymphocytes # 0.6 10^3/uL (0.8-4.8); Lymphocytes % 15.8 %; Mean Corpuscular HGB Conc 31.9 g/dL (30.0-36.0); Mean Corpuscular Hemoglobin 29.4 pg (28.0-34.0); Mean Corpuscular Volume 92.4 fL (80-94); Mean Platelet Volume 10.5 fL (7.4-10.4); Monocytes # 0.5 10^3/uL (0.2-0.9); Monocytes % 11.4 %; Neutrophils # 2.8 10^3/uL (1.8-7.7); Neutrophils % 68.9 %; Nucleated Red Blood Cells % 0.5 %; Platelet Count 185 10^3/cmm (130-400); Red Blood Count 3.67 10^6/uL (4.1-5.3); Red Cell Distribution Width 16.8 % (12.1-15.1)
[2019-07-06] MEDS: sodium chloride 0.9% 500 ML 999 ML IV (11:20)
[2019-07-06] MEDS: acetaminophen 325 mg Tablet 650 MG PO (11:22)
[2019-07-06] MEDS: dexamethasone 20 MG in sodium chloride 0.9% 50 ML 188 MG IV (11:36)
--- NOTE | 2019-07-06 12:27 | ONCRAD TMN_ITS ---
Radiation Oncology Weekly Treatment Management Patient: Hal Canchola MR#: [id number] : 1960> Age: 58> Sex: Male Dictated by: Dr. Erasmo Bah Date of Service: 07/06/2019 Referring Physician(s) : Rosendo Rodriges M.D. Primary Diagnosis: M89.9 - Disorder of bone, unspecified, Diagnosed 06/10/2016 (Active) C90.00 - Multiple myeloma not having achieved remission, Diagnosed 01/30/2015 (Active) [id number], Ref. ID: [id number], Energy: 15X, Dose/Fx (cGy): 250, #Fx: , Dose Correction (cGy): 0, Total Dose (cGy): 2,000, Start Date: 06/27/2019, Elapsed Days: 9 Current Complaints/Interval History: Mr. Batista has completed 8 of 12 planned treatments to the left hip. He still has pain but it has improved slightly. He is taking less Dilaudid. He had diarrhea yesterday. It was relieved by Imodium. No bladder problems. He has severe fatigue. Current Medications: Acetaminophen, acyclovir, acyclovir, aloxi, amaryl, aspirin, ativan, azithromycin, benadryl, benadryl, carfilzomib, cefTRIAXone Sodium, clotrimazole-Betamethasone, clotrimazole-Betamethasone, compazine, daratumumab, depo-Testosterone, dexamethasone, dexamethasone Sodium Phosphate, diclofenac Sodium, dilaudid, dilaudid, diphenhydrAMINE HCl, famotidine, first-Mouthwash BLM, glucophage, hYDROmorphone HCl, invokana, januvia, keflex, lasix, lisinopril, lisinopril, lomotil, lyrica, mucinex, [id number]-[id number]-EH, ondansetron HCl, pantoprazole Sodium, pepcid, prandin, revlimid, sodium Chloride, victoza. Allergies: Aparna, Insulin (any type), Claritin, Morphine Sulfate and OxyCODONE HCl. Vital Signs: Physical Exam: Appears stable, no skin erythema or desquamation. Performance Status: 3 - Capable of only limited self-care, confined to bed or chair more than 50% of waking hours. (ECOG) Lab: None pending in Radiation Oncology. Test performed on 01/11/2019 11:05 AM Manual Segs - 38 % (low), Test performed on 03/24/2019 12:30 PM eGFR - 62.2 ml/min (low), Vitamin D (25-Hydroxy), Total - 17 ng/ml (low), Test performed on 03/31/2019 4:09 PM U Creatinine, 24hr - 2500 mg/24hr (high), U Protein, 24hr - 530 mg/24hr (high), Test performed on 04/26/2019 8:08 AM IGG - 601 mg/dl (low), IGA - 41 mg/dl (low), Test performed on 05/16/2019 1:32 PM [place] / Lambda Ratio - 0.78 absolute value (low), Test performed on 06/13/2019 12:47 PM Manual Monocytes - 14 % (high), Cr Clearance (Est) - 147.57 ml/min (high), Sodium - 134 mmol/l (low), Protein, Total - 5.9 g/dl (low), Test performed on 07/04/2019 11:30 AM RBC - 3.67 10 6/ul (low), HGB - 10.8 g/dl (low), HCT - 33.9 % (low), RDW - 16.8 % (high), MPV - 10.5 fl (high) and Lymphocytes - 0.6 10 3/ul (low). Imaging: No new diagnostic imaging was performed since the last weekly treatment visit. All radiation therapy related imaging (including but not limited to kV, MV, and CBCT generated images) was reviewed. Appropriate changes, if any, were made to assure accurate target localization. Impression/Plan: Tolerating treatments well. Continue as planned. Mr. Batista has persistent debilitating pain in the left hip related to multiple myeloma. Because of this pain he requires crutches for mobility. He had a pathologic fracture of the right humerus secondary to a large myeloma lesion and had surgery for stabilization followed by radiation. He has chronic pain in the upper right arm and standard crutches caused him a great deal of pain in the right axilla. Because of these issues, he needs forearm crutches.. CPT: 18162 Signed by: Dr. Erasmo Bah>07/06/2019 12:25:55 PM <<Signature on File>>
== END 2019-07-12 23:59 | disposition home or self-care (01) ==
LOC: ONCMED 06:48
PROVIDERS: Internal Medicine Medical Oncology; Absent Provider Nurse Practitioner
DX: Z51.12 Encounter for antineoplastic immunotherapy (principal); Z51.0 Encounter for antineoplastic radiation therapy; C90.00 Multiple myeloma not having achieved remission; G89.3 Neoplasm related pain (acute) (chronic); I10 Essential (primary) hypertension; E11.42 Type 2 diabetes mellitus with diabetic polyneuropathy; K21.9 Gastro-esophageal reflux disease without esophagitis; M19.90 Unspecified osteoarthritis, unspecified site; Z79.82 Long term (current) use of aspirin; Z79.899 Other long term (current) drug therapy; Z87.891 Personal history of nicotine dependence; Z94.84 Stem cells transplant status
CPT/HCPCS: 36415; 77290; 77295; 77300; 77334; 77336; 77387; 77412; 77470; 85025; 96361; 96367; 96413; 96415; 96417; 99213; 99214; J1100; J1200; J2405; J7040; J9047; J9145

== ENCOUNTER → 2019-07-14 09:48 | Outpatient (BNVA) | payer MEDICARE, MEDICAID, SELFPAY | PROVIDERS: Visit Provider Nurse Practitioner Family | DX: R19.7 Diarrhea, unspecified (principal) | CPT/HCPCS: 87493 ==

== ENCOUNTER 2019-07-20 07:03 | Outpatient (CLI) | payer MEDICARE, MEDICAID, SELFPAY ==
[2019-07-20] MEDS: sodium chloride 0.9% 500 ML 999 ML IV (11:40)
[2019-07-20] MEDS: acetaminophen 325 mg Tablet 650 MG PO (11:40)
[2019-07-20] MEDS: dexamethasone 20 MG in sodium chloride 0.9% 50 ML 188 MG IV (12:01)
[2019-07-20] MEDS: denosumab 120 mg SDV SUBCUT (15:55)
--- NOTE | 2019-07-20 19:35 | ONC FU_ITS ---
Dr. Rodriges Patient Follow-Up Note Patient: Hal Canchola Unit #: [id number]: 1960 Dicatated By: Rosendo Rodriges M.D.Date of Visit:Jul 20, 2019 Onc Med Follow-up/Prog Note Chief Complaint: Myeloma. 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 He had presented with pain in the right arm. His x-ray on 05/12/13 showed a large expansile lytic lesion in the midshaft of humeral diaphysis. He was referred to see Dr. Arrieta in [place], [place]. Further work up included laboratory analysis on 05/23/13 that showed normal hemoglobin at 12.4 g/dL, mild renal insufficiency with BUN 26 and creatinine of 1.2, normal albumin at 3.9, and normal calcium at 9.6. His skeletal bone survey showed no additional lesions on 05/26/13. Biopsy of the right humeral lesion on 05/31/13 revealed plasma cell neoplasm, kappa restricted. He was first seen here on 06/16/13. His protein electrophoresis studies showed 1.79 g of IgG kappa. His bone marrow biopsy on 06/17/13 revealed 3% plasma cells, 5-10% CD138 positive cells by flow. Cytogenetic analysis showed two population of cells. First population comprising 10% showed loss of 1q, additional material on 20q, and trisomy of chromosomes 3, 5, 7, 9, 11 and 15. FISH panel revealed gain of 9q, 11q, 15q, and 17q. He had no iron storage. Radiation therapy to the arm lesion began on 06/20/13. In the midst of all of his radiation treatment, short of about 2 fractions, the patient sustained a mechanical fall and landed on the affected arm, sustaining significant fracture. He required surgery on 08/09/2013. Despite of the radiation therapy, his follow up plasmacytoma studies on 09/01/2013 showed further increase of M protein to 2.5 g/dL, IgG 3460, serum free light chain ratio increased to 35. He had mild anemia with hemoglobin of 11 g/dL. His creatinine was 1.1. with calcium 9. Induction chemotherapy with VCd regimen (Velcade, Cytoxan and dexamethasone) began on 09/12/13. He had a positive response to the treatment, and after 6 cycles of therapy cytoxan was dropped from the regimen. The patient completed a total of 8 cycles of treatment with a very good response. On 04/11/2014 he underwent high-dose melphalan followed by an autologous stem cell transplantation. On 07/14/14 he underwent a day 100 post transplant bone marrow biopsy at [facility] with residual disease. IgG kappa M protein 0.77 g/dL. Maintenance single agent Revlimid therapy was recommended, but the patient ultimately decided against it for a variety of reasons, including concerns over completing REMS questionnaire over the phone and privacy issues. Maintenance with single agent Velcade every 2 weeks for 2 years was recommended. Cycle 1 began on 09/11/14. Baseline IgG 0.94 g/dL. The patient received Velcade therapy up until 04/10/2015. He required a dose reduction to 1 mg/m??? every 2 weeks due to progressive peripheral neuropathy. He again developed recurrent cramps and pruritis in the legs, which occurred after restarting Velcade. Given recurrent peripheral neuropathy, Velcade therapy was discontinued. M protein remained stable at 0.84 g/dL on 05/01/2015. As he had measurable disease, single agent Ixazomib began on 05/21/15 at a standard dosage of 4 mg weekly on days 1, 8,and 15 of each 28 day cycle. As of his follow-up visit in November 2015 his M protein was stable, and he was tolerating treatment well. He began cycle 9 of ixazomib on 01/02/2016. He had also continued Zometa infusions every 3 months for the lytic bone involvement. The protein electrophoresis studies from 01/22/2016 did show slight increase in his kappa free light chain, but there was no change in the M protein or in the 24-hour urine monoclonal protein excretion. On 02/03/2016 he was admitted to the hospital with cellulitis associated with a diabetic foot ulceration. His repeat protein electrophoresis studies from 03/04/2016 showed a further increase in the kappa free light chain to 15.9 mg/dL compared to 7.26 mg/dL in January and to 4 0.7 mg/dL in November 2015. The M protein at that point had also increased, to 1.11 g/dL compared to 0.81 g/dL in January. The 24-hour urine at that time showed a total protein excretion of 2226 mg with 2.3% monoclonal protein. That was not significantly changed. His subsequent protein electrophoresis studies remained stable. As of 12/11/2016 the M protein had increased only slightly, to 1.30 g/dL with his kappa free light chain stable at 12.8 mg/dL. His 24-hour urine protein electrophoresis showed a total monoclonal protein excretion of 32 mg. Skeletal survey on 10/09/2016 showed probable old healed pathologic fracture deformity of the right mid humeral diaphysis and probable additional old healed pathologic fracture of the distal left fibular diaphysis. There were findings consistent with advanced neuropathic arthropathy of the feet. There were no other lytic bone lesions. As of 01/08/2017 there was further increase in the M protein level to 1.50 g/dL, but his repeat protein electrophoresis on 02/11/2017 showed no significant change in the M protein. He continued treatment with single agent ixazomib. As of his follow-up visit on 03/18/2017 his M protein had shown a significant increase, up to 1.93 g/dL compared to 1.50 g/dL in December 2016. His blood counts at that point remained stable. His skeletal survey as of 02/11/2017 showed no active bone lesions. However, as it was evident that his disease was progressing, I did have him stop his treatment. He had subsequently reported development a chest wall mass. A noncontrast chest CT on 03/27/2017 showed evidence of a lytic expansile lesion of the anterior left fifth rib with an adjacent soft tissue mass. He was then referred to Dr. Navarro and he underwent radiation to the chest wall lesion, completed on 05/12/2017 to a total dose of 4000 cGy. He tolerated the treatment well. During this time he had also developed a lump on his forehead. Head CT on 06/18/2017 showed bifrontal and anterior ethmoid sinus soft tissue abnormality suggestive of mass and associated with mucocele expansion of the right frontal sinus and lytic bony erosive changes. Reported differential diagnosis included primary sinus neoplasm or extraosseous myeloma. Also noted was midline frontal scalp soft tissue mass secondary to erosion of the anterior wall frontal sinus. There was also apparent erosion of the floor of the anterior cranial fossa by the component of the mass in the ethmoid sinus. His laboratory studies from 06/22/2017 included CBC showing a decline in his hemoglobin to 10.4 g with white blood cell count 5100 and platelet count 253,000. Chem profile showed borderline renal function with BUN 25 and creatinine 1.44 mg/dL. Calcium was normal 9.7 mg/dL. Serum protein electrophoresis showed increase in his M protein to 3.43 g/dL. The 24-hour urine monoclonal protein excretion was 102 mg. He was then given radiation to the frontal bone, completed on 07/27/2017 to a total dose of 3600 cGy. His other medical illnesses include hypertension, type II diabetes, GERD, degenerative arthritis, and androgen deficiency. He had smoked in the past but quit more than 20 years ago. INTERIM HISTORY: On 07/06/2017 he began 3rd line treatment with daratumumab in combination with Revlimid and dexamethasone. It was initiated at a reduced dosage of Revlimid, 15 mg daily on a 21/28 day schedule. He was able to continue the daratumumab infusions weekly with no apparent toxicity. He completed his 8th weekly infusion on 08/26/2017. During that time he required a reduction in the Revlimid dosage to 10 mg. He also started monthly denosumab injections. Beginning on 09/09/2017 the frequency of his daratumumab infusions was increased to every 2 weeks. As of 12/23/2017 he completed his 8th dose of daratumumab at the 2-week dosing interval. His repeat protein electrophoresis on 01/21/2018 showed only a faint monoclonal protein band. The free light chain assay showed his kappa free light chain decreased to 1.19 mg/dL with kappa/lambda ratio normal at 0.9754. Beginning on 01/25/2018 he continued his daratumumab infusions at the 4-week dosing interval. During his time he had on his own accord adjusted his Revlimid schedule to a 14 days on/14 days off schedule because of throat swelling and spasms. The Revlimid dosage was then changed to 5 mg daily. In December 2017 he had presented with increased pain and swelling in his upper right arm. A PET/CT on 01/09/2018 showed improvement compared to the previous study from June 2017. Numerous hypermetabolic osseous lesions had become sclerotic with nearly negligible FDG uptake, consistent with a positive response to therapy. Hypermetabolic lymph nodes in the mediastinum were subcentimeter in size and FDG negative. He was referred back to his orthopedic surgeon in [place], where he underwent I & D of an abscess on 01/19/2018. It apparently was not involving the bone. In the absence of any evidence of progression of his myeloma, he continued treatment with daratumumab, Revlimid, and dexamethasone, but he opted to change the Revlimid to the previous schedule of 10 mg daily for 14 days of a 28 day schedule. As of his follow-up visit on 09/15/2018 there was no evidence of progression of the myeloma. Prior to that visit, though, he had opted to stop the Revlimid and the dexamethasone. He did receive his scheduled daratumumab infusion. During his further follow-up, he required additional surgery on his left foot, and he also required prolonged antibiotic therapy. He continued treatment with daratumumab and dexamethasone. As of October 2018 there was no increase in the serum monoclonal protein and no significant change in the kappa free light chain. The protein electrophoresis studies from 12/01/2018 again showed no change in the serum monoclonal protein. The free light chain assay did show a significant increase in the kappa free light chain, to 7.67 mg/L, but the lambda light chain also had increased such that the kappa/lambda ratio remained normal at 0.85. I had seen him for a scheduled visit on 12/08/2018. At that time he had developed pain, redness, and swelling at the site of his previous abscess in the upper right arm. He was having fever and chills. The clinical picture was consistent with recurrent cellulitis or abscess. His treatment was put on hold, and I had him restart IV antibiotic coverage with Rocephin. At about day 2 or 3 he developed spontaneous drainage of purulent material. Cultures from both the blood and subsequently from the exudate were negative. After the spontaneous drainage, he was transitioned to oral antibiotic therapy. During subsequent follow-up he had ongoing problems with the cellulitis and other issues, and he was not able to restart treatment. He had further evaluation with CT scans of the chest, abdomen, and pelvis on 01/25/2019. The most significant finding was the presence of progressive lytic myelomatous lesions of the left ischium and superior acetabular structures with probable nondisplaced pathologic fracture of the left acetabular margin. At that point he had developed significant pain in the left hip and left leg. He was referred to Dr. Navarro for additional radiation. He completed treatment to the left hip on 03/02/2019, total dose 3000 cGy. On 04/19/2019 he restarted systemic therapy with carfilzomib and dexamethasone in combination with daratumumab. He tolerated his initial day 1/day 2 treatment well, and he was then able to continue his treatment on schedule other than he missed his day 16 carfilzomib injection due to bad weather. He began cycle 2 on 05/18/2019. At that point the carfilzomib was adjusted to weekly dosing, and he was able to complete his day 1, day 8, and day 15 treatments with no adverse effects. He was then hospitalized with influenza A. He returned on 06/08/2023 for his day 22 treatment, limited just to the daratumumab, and that did complete his 8th weekly daratumumab infusion. He continued with his 3rd cycle of treatment on 06/22/2019, and with that cycle of the frequency of the daratumumab infusions was reduced to every 2 weeks. During that time he had continued to complain of significant left hip pain. He was given additional radiation to that area, completed on 07/12/2019 to a total dose of 3000 cGy. He is seen for a follow-up visit. He has been feeling a little better generally. His main complaint is that he had developed pretty severe diarrhea about a week ago. He has been managing it symptomatically, as his stool did test negative for C. difficile. He says it is getting better, and he indicates that he did have a formed stool this morning. His energy is a little better, and his hip pain now is pretty well controlled with medication. He has had some improvement in his activity tolerance. His ECOG score is 2. He has good appetite. He did have a fever of 100 degrees one night, and he did have some sweating with that episode. He otherwise has just had occasional night sweating. He has a little bit of sinus drainage. He has not had sore mouth or throat. He does not complain of shortness of breath, cough, or chest pain. He has had some nausea, but without vomiting. His acid reflux has been managed adequately taking Protonix twice a day. He has no complaints. He has no other joint or bone pain. He does report having numbness in his feet. Medications: Acyclovir 1 (400 mg) Tablet Oral b.i.d., Amaryl (4 mg) Tablet Oral b.i.d., Aspirin 2 Tablet (of 81 mg) Tablet, enteric coated Oral daily, Azithromycin 1 Tablet (of 250 mg) Oral b.i.d. for 10 days, Benadryl 2 (25 mg) Tablet Oral four times a day PRN, Clotrimazole-Betamethasone Cream Topical PRN, Depo-Testosterone (200 mg/mL) Intramuscular q 2 weeks, Dilaudid 1 Tablet (of 8 mg) Oral q 3 hours PRN, Famotidine 1 Tablet (of 20 mg) Oral daily, Glucophage 1 Tablet (of 850 mg) Oral t.i.d., Invokana 1 (100 mg) Tablet Oral daily, Januvia 1 (100 mg) Tablet Oral daily, Lasix 1 Tablet (of 20 mg) Oral daily, Lisinopril 1 Tablet (of 2.5 mg) Oral daily, Lyrica 1 (75 mg) Capsule Oral daily, Mucinex (600 mg) Tablet SR 12 HR Oral b.i.d., Prandin 2 Tablet (of 2 mg) Tablet Oral t.i.d., Protonix 1 - 2 Tablet (of 20 mg) Tablet, enteric coated Oral daily, Victoza 1.8 mg Subcutaneous daily Allergies: Aparna, Claritin, Insulin (any type), Morphine Sulfate, and OxyCODONE HCl. Review of Systems: Constitutional - His energy level is improved. He still has some activity limitation due to pain. His appetite is good and weight is stable. He had a fever on Thursday of 100, none since. No chills, hot flashes, or night sweats. ECOG score is 2, ENMT - No sinus congestion/drainage. No mouth sores. No sore throat or difficulty swallowing, Hematologic/Lymphatic - No abnormal bruising or bleeding, Respiratory - No shortness of breath. No cough. No pleuritic pain or hemoptysis, Cardiovascular - No angina pain. No palpitations, Gastrointestinal - No nausea or vomiting. He has acid reflux that is controlled with Protonix. His diarrhea is improving. No constipation. No blood in the stool or black stools, Genitourinary (M) - No dysuria or hematuria. No urinary frequency. No urgency or incontinence, Musculoskeletal - His hip pain has improved, Integumentary - His ankle wound has improved, Neurologic - He had a slight headache a few days ago. No dizziness. He has numbness in his feet, Psychiatric - No anxiety or depression. No insomnia. Vital Signs: Performed on Jul 20, 2019 10:43 Height - 72.00 in Weight - 291.0 lbs (HIGH) BSA - 2.50 sq.m BMI - 39.47 (HIGH) Temperature - 97.5 F (LOW) Pulse - 94 /min Respiration - 26 /min BP - 143/73 mm(hg) (HIGH) O2 Sat - 99 % Pain - 0 Physical Examination: Constitutional - He looks pretty good generally, though he is mildly diaphoretic, Eyes - Sclerae nonicteric. Conjunctivae clear, ENMT - No lesions noted in the oral cavity, Hematologic/Lymphatic - No cervical, clavicular, or axillary adenopathy, Respiratory - Lungs sound clear with diminished air movement bilaterally, Cardiovascular - Heart rhythm is regular. There is a II/ systolic murmur. There is no gallop or rub noted, Abdomen - Mildly distended. Liver and spleen are not enlarged. There is no abdominal mass or ascites noted and there is no inguinal adenopathy, Extremities - No edema, Neurologic - No focal neurologic deficits noted. Lab/Imaging: Test performed on Jul 18, 2019 11:34 Glucose 239 mg/dL Protein, Total 5.8 g/dL Albumin, SPE 3.49 g/dL BUN 17 mg/dL Creatinine 1.07 mg/dL Cr Clearance (Est) 136.54 mL/min Sodium 138 mmol/L Potassium 4.1 mmol/L Chloride 100 mmol/L CO2 24 mmol/L Calcium 9.1 mg/dL Albumin 3.8 g/dL Bilirubin, Total 0.4 mg/dL Alkaline Phosphatase 66 IU/L AST (SGOT) 15 IU/L ALT (SGPT) 17 IU/L WBC 4.8 10^9/L RBC 3.55 10^12/L HGB 10.5 g/dL HCT 32.4 % MCV 91.3 fl MCH 29.6 pg MCHC 32.4 g/dL RDW 15.7 % Platelet Count 217 10^9/L MPV 9.0 fL Neutrophils (Gran) 0.72 10^9/L Lymphocytes 0.56 10^9/L Monocytes 0.18 10^9/L Eosinophils 0.03 10^9/L Manual Lymphocytes 15 % Manual Monocytes 12 % Manual Eosinophils 4 % Manual Basophils 1 % Osino / Lambda Ratio 0.90 Absolute Value Lambda Light Chain 8.40 Osino Light Chain 7.55 [id number] 0.24 g/dL [id number] 0.90 g/dL Beta Globulin 0.75 g/dL Gamma Globulin 0.42 g/dL SPE Interpretation No significant change in monoclonal proteinemia since prior study Impression: 1. Patient with stage II, standard risk multiple myeloma and a large destructive plasmacytoma in the right humerus with associated pathological fracture. He underwent palliative radiation therapy and surgical repair of his arm. 2. Despite treatment he had a further progression of his M protein, and he was found to have hyperdiploid cytogenetics on bone marrow biopsy. 3. Induction chemotherapy with Velcade, Cytoxan, and Decadron began on 09/12/13. After 6 cycles of induction therapy cyclophosphamide was stopped, and he continued with Velcade and Decadron for 8 cycles. 4. On 04/11/2014 he underwent high-dose melphalan followed by an autologous stem cell transplantation. Post transplant bone marrow biopsy revealed residual disease. 5. He declined maintenance Revlimid therapy. Maintenance treatment with Velcade 1.3 mg/m2 sc every 2 weeks for 2 years began on 09/11/14. 6. He had progressive preexistent peripheral neuropathy. His dose was adjusted at 1 mg/m??? subcutaneously every 2 weeks, but he developed progressive neuropathy with pruritus. Velcade therapy was discontinued. His M protein level at that point was stable at 0.84 g/dL. 7. A trial of ixazomib 4 mg weekly on days 1, 8, and 15 of 28 day cycle began on 05/21/15. His other medical illnesses include: 8. Hypertension. 9. Type II diabetes. 10. GERD. 11. Degenerative arthritis. 12. Androgen deficiency. He had evidence of some response to the ixazomib. As of his follow-up visit in January 2016 his M protein had increased somewhat, but it then stabilized. During subsequent follow-up, the M protein had increased very gradually. However, between December and March 2017 there was a significant increase, from 1.50 g/dL to 1.93 g/dL. He had then presented with a mass in left chest wall. His chest CT showed an area of lytic involvement with associated soft tissue mass, consistent with myeloma. He underwent radiation to the involved area, completed on 05/12/2017 to a total dose of 4000 cGy. He then developed a new lump in his forehead. Head CT showed bifrontal and anterior ethmoid sinus soft tissue abnormality suggestive of mass as well as midline frontal scalp soft tissue mass secondary to erosion of the anterior wall frontal sinus. Overall, the findings were consistent with involvement with myeloma, and his laboratory studies also were indicative of significant further progression of his M protein. He was given radiation to the frontal bone, completed on 07/27/2017 to a total dose of 3600 cGy. He then began 3rd line treatment with daratumumab in combination with Revlimid and dexamethasone. He completed 8 weekly infusions of daratumumab, which he tolerated well, though he did require a reduction in the Revlimid dosage to 10 mg. He also started monthly injections of denosumab for the lytic bone involvement. As of 09/09/2017 the frequency of the daratumumab infusions was increased to every 2 weeks. As of 12/23/2017 he had completed 8 infusions at that interval. Beginning on 01/25/2018 he continued daratumumab at the 4-week dosing interval. During this time he had opted to adjust his Revlimid to a 14 days on/14 days off schedule due to throat swelling and spasms, and his Revlimid dosage was then further reduced to 5 mg daily on a 21/ day schedule. As of January 2018 his protein electrophoresis showed just a faint M band compared to a pretreatment M protein level of 3.43 g/dL. In December 2017 he presented with increased pain and swelling in his upper right arm. His repeat PET/CT showed significant response to treatment compared to the June 2017 study. 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 On 01/19/2018 he underwent incision/drainage of an abscess, which apparently was not involving the bone. He had an open wound at that site, but it has gradually healed. In the absence of any evidence of progression of the myeloma, he continued treatment with daratumumab, Revlimid, and dexamethasone. He has limited the Revlimid to 14 days each month because it does seem to cause some swelling in his throat. 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 During that time he required a prolonged course of antibiotic therapy with Rocephin. He has been able to continue treatment with daratumumab in combination with Revlimid and dexamethasone with no evidence of progression of the myeloma. He had been having increasing side effects with the Revlimid, and he opted to stop both the Revlimid and dexamethasone 6 weeks ago. During subsequent follow-up he had improvement in some symptoms, though his activity had been further limited due to his left foot problems. He was having more diarrhea, but that he had attributed to his antibiotic. As of his follow-up in October 2018 there was no evidence of progression of the myeloma. He had presented on 12/08/2018 with recurrence of pain in association with cellulitis/abscess of the right upper arm soft tissues. This was the same site as his previous abscess, which reportedly was not involving the bone. It showed gradual improvement on antibiotic therapy after spontaneous drainage. However, his treatment during that time had remained on hold. He then had further evaluation with CT scans of the chest, abdomen, and pelvis on 01/25/2019. 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 There appear to be associated nondisplaced lateral acetabular margin pathologic fracture. He was referred to Dr. Navarro, and he was then given radiation to the left hip, completed on 02/19/2019 to a total dose of 3000 cGy. On 04/19/2019 he restarted systemic therapy with carfilzomib and dexamethasone in combination with daratumumab. He tolerated his initial day 1/day 2 treatment well, and he was then able to continue his treatment on schedule other than he had to skip his day 16 carfilzomib injection due to bad weather. He began cycle 2 on 05/18/2019. He has been tolerating treatment with acceptable toxicity, though his treatment was complicated by a hospitalization for influenza A. He has had uneventful recovery. He continued with his 3rd cycle of treatment on 06/22/2019, and with that cycle the frequency of the daratumumab infusions was reduced to every 2 weeks. He continued to complain of significant left hip pain. He was given additional radiation to that area, completed on 07/12/2019 to a total dose of 3000 cGy. He has now completed 3 cycles of treatment with daratumumab/carfilzomib/dexamethasone. He has had some improvement in his energy and his left hip pain has been adequately managed with medication. Recently he had developed significant diarrhea. A specific cause was not determined. His stool had tested negative for C. difficile. It does appear to be improving now with symptomatic management. Overall, he appears to be showing improvement in his clinical status. Plan: He will proceed with cycle 4 of daratumumab/carfilzomib/dexamethasone. The daratumumab is being administered at 2-week intervals. The dosage remains the same. The carfilzomib will be continued at 70 mg/m??? weekly and he will continue dexamethasone 20 mg weekly. He will be scheduled for a follow-up visit in 2 weeks. Signed By: Rosendo Rodriges M.D. <<Signature on File>>
== END 2019-07-20 07:04 | disposition home or self-care (01) ==
PROVIDERS: Visit Provider Internal Medicine Medical Oncology
DX: Z51.12 Encounter for antineoplastic immunotherapy (principal); C90.00 Multiple myeloma not having achieved remission; G89.3 Neoplasm related pain (acute) (chronic); I10 Essential (primary) hypertension; E11.9 Type 2 diabetes mellitus without complications; K21.9 Gastro-esophageal reflux disease without esophagitis; M19.90 Unspecified osteoarthritis, unspecified site; Z79.899 Other long term (current) drug therapy; Z79.82 Long term (current) use of aspirin; Z79.84 Long term (current) use of oral hypoglycemic drugs; Z94.84 Stem cells transplant status; Z87.891 Personal history of nicotine dependence; Z92.3 Personal history of irradiation
CPT/HCPCS: 77336; 96361; 96367; 96372; 96413; 96415; 96417; 99214; J0897; J1100; J1200; J2405; J7040; J9047; J9145

== ENCOUNTER 2019-07-27 11:40 | Outpatient (CLI) | payer MEDICARE, MEDICAID, SELFPAY ==
[2019-07-27] MEDS: acetaminophen 325 mg Tablet 650 MG PO (11:48)
[2019-07-27] MEDS: dexamethasone 20 MG in sodium chloride 0.9% 50 ML 188 MG IV (12:04)
[2019-07-27] MEDS: sodium chloride 0.9% 500 ML 999 ML IV (12:36)
== END 2019-07-27 11:41 | disposition home or self-care (01) ==
LOC: ONCMED 11:40
PROVIDERS: Visit Provider Internal Medicine Medical Oncology
DX: Z51.12 Encounter for antineoplastic immunotherapy (principal); C90.00 Multiple myeloma not having achieved remission
CPT/HCPCS: 96367; 96413; J1100; J1200; J2405; J7040; J9047

== ENCOUNTER 2019-08-03 12:43 | Outpatient (CLI) | payer MEDICARE, MEDICAID, SELFPAY ==
[2019-08-03] MEDS: acetaminophen 325 mg Tablet 650 MG PO (12:40)
[2019-08-03] MEDS: dexamethasone 20 MG in sodium chloride 0.9% 50 ML 188 MG IV (12:56)
[2019-08-03] MEDS: sodium chloride 0.9% 500 ML 999 ML IV (13:30)
--- NOTE | 2019-08-06 13:58 | ONC FU_ITS ---
Dr. Rodriges Patient Follow-Up Note Patient: Hal Canchola Unit #: [id number]: 1960 Dicatated By: Rosendo Rodriges M.D.Date of Visit:Aug 03, 2019 Onc Med Follow-up/Prog Note Chief Complaint: Myeloma. 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 He had presented with pain in the right arm. His x-ray on 05/12/13 showed a large expansile lytic lesion in the midshaft of humeral diaphysis. He was referred to see Dr. Arrieta in [place], [place]. Further work up included laboratory analysis on 05/23/13 that showed normal hemoglobin at 12.4 g/dL, mild renal insufficiency with BUN 26 and creatinine of 1.2, normal albumin at 3.9, and normal calcium at 9.6. His skeletal bone survey showed no additional lesions on 05/26/13. Biopsy of the right humeral lesion on 05/31/13 revealed plasma cell neoplasm, kappa restricted. He was first seen here on 06/16/13. His protein electrophoresis studies showed 1.79 g of IgG kappa. His bone marrow biopsy on 06/17/13 revealed 3% plasma cells, 5-10% CD138 positive cells by flow. Cytogenetic analysis showed two population of cells. First population comprising 10% showed loss of 1q, additional material on 20q, and trisomy of chromosomes 3, 5, 7, 9, 11 and 15. FISH panel revealed gain of 9q, 11q, 15q, and 17q. He had no iron storage. Radiation therapy to the arm lesion began on 06/20/13. In the midst of all of his radiation treatment, short of about 2 fractions, the patient sustained a mechanical fall and landed on the affected arm, sustaining significant fracture. He required surgery on 08/09/2013. Despite of the radiation therapy, his follow up plasmacytoma studies on 09/01/2013 showed further increase of M protein to 2.5 g/dL, IgG 3460, serum free light chain ratio increased to 35. He had mild anemia with hemoglobin of 11 g/dL. His creatinine was 1.1. with calcium 9. Induction chemotherapy with VCd regimen (Velcade, Cytoxan and dexamethasone) began on 09/12/13. He had a positive response to the treatment, and after 6 cycles of therapy cytoxan was dropped from the regimen. The patient completed a total of 8 cycles of treatment with a very good response. On 04/11/2014 he underwent high-dose melphalan followed by an autologous stem cell transplantation. On 07/14/14 he underwent a day 100 post transplant bone marrow biopsy at [facility] with residual disease. IgG kappa M protein 0.77 g/dL. Maintenance single agent Revlimid therapy was recommended, but the patient ultimately decided against it for a variety of reasons, including concerns over completing REMS questionnaire over the phone and privacy issues. Maintenance with single agent Velcade every 2 weeks for 2 years was recommended. Cycle 1 began on 09/11/14. Baseline IgG 0.94 g/dL. The patient received Velcade therapy up until 04/10/2015. He required a dose reduction to 1 mg/m??? every 2 weeks due to progressive peripheral neuropathy. He again developed recurrent cramps and pruritis in the legs, which occurred after restarting Velcade. Given recurrent peripheral neuropathy, Velcade therapy was discontinued. M protein remained stable at 0.84 g/dL on 05/01/2015. As he had measurable disease, single agent Ixazomib began on 05/21/15 at a standard dosage of 4 mg weekly on days 1, 8,and 15 of each 28 day cycle. As of his follow-up visit in November 2015 his M protein was stable, and he was tolerating treatment well. He began cycle 9 of ixazomib on 01/02/2016. He had also continued Zometa infusions every 3 months for the lytic bone involvement. The protein electrophoresis studies from 01/22/2016 did show slight increase in his kappa free light chain, but there was no change in the M protein or in the 24-hour urine monoclonal protein excretion. On 02/03/2016 he was admitted to the hospital with cellulitis associated with a diabetic foot ulceration. His repeat protein electrophoresis studies from 03/04/2016 showed a further increase in the kappa free light chain to 15.9 mg/dL compared to 7.26 mg/dL in January and to 4 0.7 mg/dL in November 2015. The M protein at that point had also increased, to 1.11 g/dL compared to 0.81 g/dL in January. The 24-hour urine at that time showed a total protein excretion of 2226 mg with 2.3% monoclonal protein. That was not significantly changed. His subsequent protein electrophoresis studies remained stable. As of 12/11/2016 the M protein had increased only slightly, to 1.30 g/dL with his kappa free light chain stable at 12.8 mg/dL. His 24-hour urine protein electrophoresis showed a total monoclonal protein excretion of 32 mg. Skeletal survey on 10/09/2016 showed probable old healed pathologic fracture deformity of the right mid humeral diaphysis and probable additional old healed pathologic fracture of the distal left fibular diaphysis. There were findings consistent with advanced neuropathic arthropathy of the feet. There were no other lytic bone lesions. As of 01/08/2017 there was further increase in the M protein level to 1.50 g/dL, but his repeat protein electrophoresis on 02/11/2017 showed no significant change in the M protein. He continued treatment with single agent ixazomib. As of his follow-up visit on 03/18/2017 his M protein had shown a significant increase, up to 1.93 g/dL compared to 1.50 g/dL in December 2016. His blood counts at that point remained stable. His skeletal survey as of 02/11/2017 showed no active bone lesions. However, as it was evident that his disease was progressing, I did have him stop his treatment. He had subsequently reported development a chest wall mass. A noncontrast chest CT on 03/27/2017 showed evidence of a lytic expansile lesion of the anterior left fifth rib with an adjacent soft tissue mass. He was then referred to Dr. Navarro and he underwent radiation to the chest wall lesion, completed on 05/12/2017 to a total dose of 4000 cGy. He tolerated the treatment well. During this time he had also developed a lump on his forehead. Head CT on 06/18/2017 showed bifrontal and anterior ethmoid sinus soft tissue abnormality suggestive of mass and associated with mucocele expansion of the right frontal sinus and lytic bony erosive changes. Reported differential diagnosis included primary sinus neoplasm or extraosseous myeloma. Also noted was midline frontal scalp soft tissue mass secondary to erosion of the anterior wall frontal sinus. There was also apparent erosion of the floor of the anterior cranial fossa by the component of the mass in the ethmoid sinus. His laboratory studies from 06/22/2017 included CBC showing a decline in his hemoglobin to 10.4 g with white blood cell count 5100 and platelet count 253,000. Chem profile showed borderline renal function with BUN 25 and creatinine 1.44 mg/dL. Calcium was normal 9.7 mg/dL. Serum protein electrophoresis showed increase in his M protein to 3.43 g/dL. The 24-hour urine monoclonal protein excretion was 102 mg. He was then given radiation to the frontal bone, completed on 07/27/2017 to a total dose of 3600 cGy. His other medical illnesses include hypertension, type II diabetes, GERD, degenerative arthritis, and androgen deficiency. He had smoked in the past but quit more than 20 years ago. INTERIM HISTORY: On 07/06/2017 he began 3rd line treatment with daratumumab in combination with Revlimid and dexamethasone. It was initiated at a reduced dosage of Revlimid, 15 mg daily on a 21/28 day schedule. He was able to continue the daratumumab infusions weekly with no apparent toxicity. He completed his 8th weekly infusion on 08/26/2017. During that time he required a reduction in the Revlimid dosage to 10 mg. He also started monthly denosumab injections. Beginning on 09/09/2017 the frequency of his daratumumab infusions was increased to every 2 weeks. As of 12/23/2017 he completed his 8th dose of daratumumab at the 2-week dosing interval. His repeat protein electrophoresis on 01/21/2018 showed only a faint monoclonal protein band. The free light chain assay showed his kappa free light chain decreased to 1.19 mg/dL with kappa/lambda ratio normal at 0.9754. Beginning on 01/25/2018 he continued his daratumumab infusions at the 4-week dosing interval. During his time he had on his own accord adjusted his Revlimid schedule to a 14 days on/14 days off schedule because of throat swelling and spasms. The Revlimid dosage was then changed to 5 mg daily. In December 2017 he had presented with increased pain and swelling in his upper right arm. A PET/CT on 01/09/2018 showed improvement compared to the previous study from June 2017. Numerous hypermetabolic osseous lesions had become sclerotic with nearly negligible FDG uptake, consistent with a positive response to therapy. Hypermetabolic lymph nodes in the mediastinum were subcentimeter in size and FDG negative. He was referred back to his orthopedic surgeon in [place], where he underwent I & D of an abscess on 01/19/2018. It apparently was not involving the bone. In the absence of any evidence of progression of his myeloma, he continued treatment with daratumumab, Revlimid, and dexamethasone, but he opted to change the Revlimid to the previous schedule of 10 mg daily for 14 days of a 28 day schedule. As of his follow-up visit on 09/15/2018 there was no evidence of progression of the myeloma. Prior to that visit, though, he had opted to stop the Revlimid and the dexamethasone. He did receive his scheduled daratumumab infusion. During his further follow-up, he required additional surgery on his left foot, and he also required prolonged antibiotic therapy. He continued treatment with daratumumab and dexamethasone. As of October 2018 there was no increase in the serum monoclonal protein and no significant change in the kappa free light chain. The protein electrophoresis studies from 12/01/2018 again showed no change in the serum monoclonal protein. The free light chain assay did show a significant increase in the kappa free light chain, to 7.67 mg/L, but the lambda light chain also had increased such that the kappa/lambda ratio remained normal at 0.85. I had seen him for a scheduled visit on 12/08/2018. At that time he had developed pain, redness, and swelling at the site of his previous abscess in the upper right arm. He was having fever and chills. The clinical picture was consistent with recurrent cellulitis or abscess. His treatment was put on hold, and I had him restart IV antibiotic coverage with Rocephin. At about day 2 or 3 he developed spontaneous drainage of purulent material. Cultures from both the blood and subsequently from the exudate were negative. After the spontaneous drainage, he was transitioned to oral antibiotic therapy. During subsequent follow-up he had ongoing problems with the cellulitis and other issues, and he was not able to restart treatment. He had further evaluation with CT scans of the chest, abdomen, and pelvis on 01/25/2019. The most significant finding was the presence of progressive lytic myelomatous lesions of the left ischium and superior acetabular structures with probable nondisplaced pathologic fracture of the left acetabular margin. At that point he had developed significant pain in the left hip and left leg. He was referred to Dr. Navarro for additional radiation. He completed treatment to the left hip on 03/02/2019, total dose 3000 cGy. On 04/19/2019 he restarted systemic therapy with carfilzomib and dexamethasone in combination with daratumumab. He tolerated his initial day 1/day 2 treatment well, and he was then able to continue his treatment on schedule other than he missed his day 16 carfilzomib injection due to bad weather. He began cycle 2 on 05/18/2019. At that point the carfilzomib was adjusted to weekly dosing, and he was able to complete his day 1, day 8, and day 15 treatments with no adverse effects. He was then hospitalized with influenza A. He returned on 06/08/2023 for his day 22 treatment, limited just to the daratumumab, and that did complete his 8th weekly daratumumab infusion. He continued with his 3rd cycle of treatment on 06/22/2019, and with that cycle of the frequency of the daratumumab infusions was reduced to every 2 weeks. During that time he had continued to complain of significant left hip pain. He was given additional radiation to that area, completed on 07/12/2019 to a total dose of 3000 cGy. As of 07/20/2019 he began cycle 4 of daratumumab/carfilzomib, and dexamethasone. He is seen for a follow-up visit. He has been feeling pretty good generally. He still has limited activity, but he is having less pain now and he is able to get out of bed and do a little walking. His ECOG score is 2. He has good appetite. He has not had fever. He did have some sweating last night. He has had no mouth sores. He has no shortness of breath, cough, or chest pain. He occasionally has nausea. His acid reflux is managed adequately with medication and he has had only a little diarrhea. It is controlled with Imodium. Bladder function has been okay. His hip pain, as noted, has improved. He does report having a crick in his neck. He occasionally has headache. He is sometimes dizzy. He has neuropathy in his feet. He also has some numbness in the little finger of his left hand. Medications: Acyclovir 1 (400 mg) Tablet Oral b.i.d., Amaryl (4 mg) Tablet Oral b.i.d., Aspirin 2 Tablet (of 81 mg) Tablet, enteric coated Oral daily, Azithromycin 1 Tablet (of 250 mg) Oral b.i.d. for 10 days, Benadryl 2 (25 mg) Tablet Oral four times a day PRN, Clotrimazole-Betamethasone Cream Topical PRN, Depo-Testosterone (200 mg/mL) Intramuscular q 2 weeks, Dilaudid 1 Tablet (of 8 mg) Oral q 3 hours PRN, Famotidine 1 Tablet (of 20 mg) Oral daily, Glucophage 1 Tablet (of 850 mg) Oral t.i.d., Invokana 1 (100 mg) Tablet Oral daily, Januvia 1 (100 mg) Tablet Oral daily, Lasix 1 Tablet (of 20 mg) Oral daily, Lisinopril 1 Tablet (of 2.5 mg) Oral daily, Lyrica 1 (75 mg) Capsule Oral daily, Mucinex (600 mg) Tablet SR 12 HR Oral b.i.d., Prandin 2 Tablet (of 2 mg) Tablet Oral t.i.d., Protonix 1 - 2 Tablet (of 20 mg) Tablet, enteric coated Oral daily, Victoza 1.8 mg Subcutaneous daily Allergies: Aparna, Claritin, Insulin (any type), Morphine Sulfate, and OxyCODONE HCl. Review of Systems: Constitutional - His energy is okay. He is doing a little bit of light housework and hie is able to walk short distances. His appetite is good and weight is stable. No fever, chills, hot flashes. He had an episode of sweating last night. ECOG score is 2, ENMT - He has sinus drainage. No mouth sores. No sore throat or difficulty swallowing, Hematologic/Lymphatic - He denies easy bruising and tender or enlarged lymph nodes, Respiratory - No shortness of breath. No cough. No pleuritic pain or hemoptysis, Cardiovascular - No angina pain. No palpitations, Gastrointestinal - No nausea or vomiting. His acid reflux is adequately controlled with Protonix. He is having intermittent diarrhea, adequately managed with Imodium. No constipation. No blood in the stool or black stools, Genitourinary (M) - No dysuria or hematuria. No urinary frequency. No urgency or incontinence, Musculoskeletal - His hip pain has improved, Integumentary - No skin complications, Neurologic - No headache or dizziness. He has neuropathy in his feet. He has some numbness in his left pinky finger, Psychiatric - No anxiety or depression. No insomnia. Vital Signs: Performed on Aug 03, 2019 11:57 Height - 72.00 in Weight - 296.0 lbs (HIGH) BSA - 2.52 sq.m BMI - 40.15 (HIGH) Temperature - 97.5 F (LOW) Pulse - 92 /min Respiration - 22 /min BP - 138/79 mm(hg) O2 Sat - 100 % Pain - 5 Physical Examination: Constitutional - He looks pretty good generally, Eyes - Sclerae nonicteric. Conjunctivae clear, ENMT - No lesions noted in the oral cavity, Hematologic/Lymphatic - No cervical, clavicular, or axillary adenopathy, Respiratory - Lungs sound clear with diminished air movement bilaterally, Cardiovascular - Heart rhythm is regular. There is a II/ systolic murmur. There is no gallop or rub noted, Abdomen - Mildly distended. Liver and spleen are not enlarged. There is no abdominal mass or ascites noted and there is no inguinal adenopathy, Extremities - No edema, Integumentary - There is currently no skin ulceration, Neurologic - No focal neurologic deficits noted. Lab/Imaging: Test performed on Aug 01, 2019 10:55 WBC 3.5 10^9/L RBC 3.49 10^12/L HGB 10.3 g/dL HCT 32.1 % MCV 92.0 fl MCH 29.5 pg MCHC 32.1 g/dL RDW 16.3 % Platelet Count 148 10^9/L MPV 10.8 fL Neutrophils (Gran) 10.8 10^9/L Lymphocytes 1.97 10^9/L Monocytes 0.86 10^9/L Eosinophils 0.45 10^9/L Basophils 0.19 10^9/L Manual Segs 0.02 % Manual Lymphocytes 24 % Manual Monocytes 13 % Manual Eosinophils 5 % Manual Basophils 1 % Impression: 1. Patient with stage II, standard risk multiple myeloma and a large destructive plasmacytoma in the right humerus with associated pathological fracture. He underwent palliative radiation therapy and surgical repair of his arm. 2. Despite treatment he had a further progression of his M protein, and he was found to have hyperdiploid cytogenetics on bone marrow biopsy. 3. Induction chemotherapy with Velcade, Cytoxan, and Decadron began on 09/12/13. After 6 cycles of induction therapy cyclophosphamide was stopped, and he continued with Velcade and Decadron for 8 cycles. 4. On 04/11/2014 he underwent high-dose melphalan followed by an autologous stem cell transplantation. Post transplant bone marrow biopsy revealed residual disease. 5. He declined maintenance Revlimid therapy. Maintenance treatment with Velcade 1.3 mg/m2 sc every 2 weeks for 2 years began on 09/11/14. 6. He had progressive preexistent peripheral neuropathy. His dose was adjusted at 1 mg/m??? subcutaneously every 2 weeks, but he developed progressive neuropathy with pruritus. Velcade therapy was discontinued. His M protein level at that point was stable at 0.84 g/dL. 7. A trial of ixazomib 4 mg weekly on days 1, 8, and 15 of 28 day cycle began on 05/21/15. His other medical illnesses include: 8. Hypertension. 9. Type II diabetes. 10. GERD. 11. Degenerative arthritis. 12. Androgen deficiency. He had evidence of some response to the ixazomib. As of his follow-up visit in January 2016 his M protein had increased somewhat, but it then stabilized. During subsequent follow-up, the M protein had increased very gradually. However, between December and March 2017 there was a significant increase, from 1.50 g/dL to 1.93 g/dL. He had then presented with a mass in left chest wall. His chest CT showed an area of lytic involvement with associated soft tissue mass, consistent with myeloma. He underwent radiation to the involved area, completed on 05/12/2017 to a total dose of 4000 cGy. He then developed a new lump in his forehead. Head CT showed bifrontal and anterior ethmoid sinus soft tissue abnormality suggestive of mass as well as midline frontal scalp soft tissue mass secondary to erosion of the anterior wall frontal sinus. Overall, the findings were consistent with involvement with myeloma, and his laboratory studies also were indicative of significant further progression of his M protein. He was given radiation to the frontal bone, completed on 07/27/2017 to a total dose of 3600 cGy. He then began 3rd line treatment with daratumumab in combination with Revlimid and dexamethasone. He completed 8 weekly infusions of daratumumab, which he tolerated well, though he did require a reduction in the Revlimid dosage to 10 mg. He also started monthly injections of denosumab for the lytic bone involvement. As of 09/09/2017 the frequency of the daratumumab infusions was increased to every 2 weeks. As of 12/23/2017 he had completed 8 infusions at that interval. Beginning on 01/25/2018 he continued daratumumab at the 4-week dosing interval. During this time he had opted to adjust his Revlimid to a 14 days on/14 days off schedule due to throat swelling and spasms, and his Revlimid dosage was then further reduced to 5 mg daily on a / day schedule. As of January 2018 his protein electrophoresis showed just a faint M band compared to a pretreatment M protein level of 3.43 g/dL. In December 2017 he presented with increased pain and swelling in his upper right arm. His repeat PET/CT showed significant response to treatment compared to the June 2017 study. 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 On 01/19/2018 he underwent incision/drainage of an abscess, which apparently was not involving the bone. He had an open wound at that site, but it has gradually healed. In the absence of any evidence of progression of the myeloma, he continued treatment with daratumumab, Revlimid, and dexamethasone. He has limited the Revlimid to 14 days each month because it does seem to cause some swelling in his throat. 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 During that time he required a prolonged course of antibiotic therapy with Rocephin. He has been able to continue treatment with daratumumab in combination with Revlimid and dexamethasone with no evidence of progression of the myeloma. He had been having increasing side effects with the Revlimid, and he opted to stop both the Revlimid and dexamethasone 6 weeks ago. During subsequent follow-up he had improvement in some symptoms, though his activity had been further limited due to his left foot problems. He was having more diarrhea, but that he had attributed to his antibiotic. As of his follow-up in October 2018 there was no evidence of progression of the myeloma. He had presented on 12/08/2018 with recurrence of pain in association with cellulitis/abscess of the right upper arm soft tissues. This was the same site as his previous abscess, which reportedly was not involving the bone. It showed gradual improvement on antibiotic therapy after spontaneous drainage. However, his treatment during that time had remained on hold. He then had further evaluation with CT scans of the chest, abdomen, and pelvis on 01/25/2019. 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 There appear to be associated nondisplaced lateral acetabular margin pathologic fracture. He was referred to Dr. Navarro, and he was then given radiation to the left hip, completed on 02/19/2019 to a total dose of 3000 cGy. On 04/19/2019 he restarted systemic therapy with carfilzomib and dexamethasone in combination with daratumumab. He tolerated his initial day 1/day 2 treatment well, and he was then able to continue his treatment on schedule other than he had to skip his day 16 carfilzomib injection due to bad weather. He began cycle 2 on 05/18/2019. He has been tolerating treatment with acceptable toxicity, though his treatment was complicated by a hospitalization for influenza A. He has had uneventful recovery. He continued with his 3rd cycle of treatment on 06/22/2019, and with that cycle the frequency of the daratumumab infusions was reduced to every 2 weeks. He continued to complain of significant left hip pain. He was given additional radiation to that area, completed on 07/12/2019 to a total dose of 3000 cGy. During that time he had developed significant diarrhea. A specific cause was not determined. His stool had tested negative for C. difficile. The diarrhea subsequently improved on symptomatic management. As of 07/20/2019 he continued with cycle 4 of daratumumab/carfilzomib/dexamethasone. At that point he was showing evidence of response, and he also appeared to be showing improvement in his clinical status. Plan: He will proceed with cycle 4 day 15 daratumumab/carfilzomib/dexamethasone. The dosages remains the same. He will return in 2 weeks. Signed By: Rosendo Rodriges M.D. <<Signature on File>>
== END 2019-08-03 12:44 | disposition home or self-care (01) ==
LOC: ONCMED 12:43
PROVIDERS: Visit Provider Internal Medicine Medical Oncology
DX: Q99.8 Other specified chromosome abnormalities; I10 Essential (primary) hypertension; K21.9 Gastro-esophageal reflux disease without esophagitis; M19.011 Primary osteoarthritis, right shoulder; E29.1 Testicular hypofunction; C90.00 Multiple myeloma not having achieved remission; Z51.12 Encounter for antineoplastic immunotherapy; Z51.11 Encounter for antineoplastic chemotherapy; E11.42 Type 2 diabetes mellitus with diabetic polyneuropathy; Z79.4 Long term (current) use of insulin; Z92.3 Personal history of irradiation; Z87.891 Personal history of nicotine dependence
CPT/HCPCS: 96367; 96413; 96415; 96417; 99214; J1100; J1200; J7040; J9047; J9145

== ENCOUNTER 2019-08-17 10:58 | Outpatient (CLI) | payer MEDICARE, MEDICAID, SELFPAY ==
[2019-08-17] MEDS: acetaminophen 325 mg Tablet 650 MG PO (12:15)
[2019-08-17] MEDS: sodium chloride 0.9% 500 ML 999 ML IV (12:20)
[2019-08-17] MEDS: dexamethasone 20 MG in sodium chloride 0.9% 50 ML 188 MG IV (12:41)
--- NOTE | 2019-08-20 12:32 | ONC FU_ITS ---
Dr. Rodriges Patient Follow-Up Note Patient: Hal Canchola Unit #: [id number]: 1960 Dicatated By: Rosendo Rodriges M.D.Date of Visit:August 17, 2019 Onc Med Follow-up/Prog Note Chief Complaint: Myeloma. 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 He had presented with pain in the right arm. His x-ray on 05/12/13 showed a large expansile lytic lesion in the midshaft of humeral diaphysis. He was referred to see Dr. Arrieta in [place], [place]. Further work up included laboratory analysis on 05/23/13 that showed normal hemoglobin at 12.4 g/dL, mild renal insufficiency with BUN 26 and creatinine of 1.2, normal albumin at 3.9, and normal calcium at 9.6. His skeletal bone survey showed no additional lesions on 05/26/13. Biopsy of the right humeral lesion on 05/31/13 revealed plasma cell neoplasm, kappa restricted. He was first seen here on 06/16/13. His protein electrophoresis studies showed 1.79 g of IgG kappa. His bone marrow biopsy on 06/17/13 revealed 3% plasma cells, 5-10% CD138 positive cells by flow. Cytogenetic analysis showed two population of cells. First population comprising 10% showed loss of 1q, additional material on 20q, and trisomy of chromosomes 3, 5, 7, 9, 11 and 15. FISH panel revealed gain of 9q, 11q, 15q, and 17q. He had no iron storage. Radiation therapy to the arm lesion began on 06/20/13. In the midst of all of his radiation treatment, short of about 2 fractions, the patient sustained a mechanical fall and landed on the affected arm, sustaining significant fracture. He required surgery on 08/09/2013. Despite of the radiation therapy, his follow up plasmacytoma studies on 09/01/2013 showed further increase of M protein to 2.5 g/dL, IgG 3460, serum free light chain ratio increased to 35. He had mild anemia with hemoglobin of 11 g/dL. His creatinine was 1.1. with calcium 9. Induction chemotherapy with VCd regimen (Velcade, Cytoxan and dexamethasone) began on 09/12/13. He had a positive response to the treatment, and after 6 cycles of therapy cytoxan was dropped from the regimen. The patient completed a total of 8 cycles of treatment with a very good response. On 04/11/2014 he underwent high-dose melphalan followed by an autologous stem cell transplantation. On 07/14/14 he underwent a day 100 post transplant bone marrow biopsy at [facility] with residual disease. IgG kappa M protein 0.77 g/dL. Maintenance single agent Revlimid therapy was recommended, but the patient ultimately decided against it for a variety of reasons, including concerns over completing REMS questionnaire over the phone and privacy issues. Maintenance with single agent Velcade every 2 weeks for 2 years was recommended. Cycle 1 began on 09/11/14. Baseline IgG 0.94 g/dL. The patient received Velcade therapy up until 04/10/2015. He required a dose reduction to 1 mg/m??? every 2 weeks due to progressive peripheral neuropathy. He again developed recurrent cramps and pruritis in the legs, which occurred after restarting Velcade. Given recurrent peripheral neuropathy, Velcade therapy was discontinued. M protein remained stable at 0.84 g/dL on 05/01/2015. As he had measurable disease, single agent Ixazomib began on 05/21/15 at a standard dosage of 4 mg weekly on days 1, 8,and 15 of each 28 day cycle. As of his follow-up visit in November 2015 his M protein was stable, and he was tolerating treatment well. He began cycle 9 of ixazomib on 01/02/2016. He had also continued Zometa infusions every 3 months for the lytic bone involvement. The protein electrophoresis studies from 01/22/2016 did show slight increase in his kappa free light chain, but there was no change in the M protein or in the 24-hour urine monoclonal protein excretion. On 02/03/2016 he was admitted to the hospital with cellulitis associated with a diabetic foot ulceration. His repeat protein electrophoresis studies from 03/04/2016 showed a further increase in the kappa free light chain to 15.9 mg/dL compared to 7.26 mg/dL in January and to 4 0.7 mg/dL in November 2015. The M protein at that point had also increased, to 1.11 g/dL compared to 0.81 g/dL in January. The 24-hour urine at that time showed a total protein excretion of 2226 mg with 2.3% monoclonal protein. That was not significantly changed. His subsequent protein electrophoresis studies remained stable. As of 12/11/2016 the M protein had increased only slightly, to 1.30 g/dL with his kappa free light chain stable at 12.8 mg/dL. His 24-hour urine protein electrophoresis showed a total monoclonal protein excretion of 32 mg. Skeletal survey on 10/09/2016 showed probable old healed pathologic fracture deformity of the right mid humeral diaphysis and probable additional old healed pathologic fracture of the distal left fibular diaphysis. There were findings consistent with advanced neuropathic arthropathy of the feet. There were no other lytic bone lesions. As of 01/08/2017 there was further increase in the M protein level to 1.50 g/dL, but his repeat protein electrophoresis on 02/11/2017 showed no significant change in the M protein. He continued treatment with single agent ixazomib. As of his follow-up visit on 03/18/2017 his M protein had shown a significant increase, up to 1.93 g/dL compared to 1.50 g/dL in December 2016. His blood counts at that point remained stable. His skeletal survey as of 02/11/2017 showed no active bone lesions. However, as it was evident that his disease was progressing, I did have him stop his treatment. He had subsequently reported development a chest wall mass. A noncontrast chest CT on 03/27/2017 showed evidence of a lytic expansile lesion of the anterior left fifth rib with an adjacent soft tissue mass. He was then referred to Dr. Navarro and he underwent radiation to the chest wall lesion, completed on 05/12/2017 to a total dose of 4000 cGy. He tolerated the treatment well. During this time he had also developed a lump on his forehead. Head CT on 06/18/2017 showed bifrontal and anterior ethmoid sinus soft tissue abnormality suggestive of mass and associated with mucocele expansion of the right frontal sinus and lytic bony erosive changes. Reported differential diagnosis included primary sinus neoplasm or extraosseous myeloma. Also noted was midline frontal scalp soft tissue mass secondary to erosion of the anterior wall frontal sinus. There was also apparent erosion of the floor of the anterior cranial fossa by the component of the mass in the ethmoid sinus. His laboratory studies from 06/22/2017 included CBC showing a decline in his hemoglobin to 10.4 g with white blood cell count 5100 and platelet count 253,000. Chem profile showed borderline renal function with BUN 25 and creatinine 1.44 mg/dL. Calcium was normal 9.7 mg/dL. Serum protein electrophoresis showed increase in his M protein to 3.43 g/dL. The 24-hour urine monoclonal protein excretion was 102 mg. He was then given radiation to the frontal bone, completed on 07/27/2017 to a total dose of 3600 cGy. His other medical illnesses include hypertension, type II diabetes, GERD, degenerative arthritis, and androgen deficiency. He had smoked in the past but quit more than 20 years ago. INTERIM HISTORY: On 07/06/2017 he began 3rd line treatment with daratumumab in combination with Revlimid and dexamethasone. It was initiated at a reduced dosage of Revlimid, 15 mg daily on a 21/28 day schedule. He was able to continue the daratumumab infusions weekly with no apparent toxicity. He completed his 8th weekly infusion on 08/26/2017. During that time he required a reduction in the Revlimid dosage to 10 mg. He also started monthly denosumab injections. Beginning on 09/09/2017 the frequency of his daratumumab infusions was increased to every 2 weeks. As of 12/23/2017 he completed his 8th dose of daratumumab at the 2-week dosing interval. His repeat protein electrophoresis on 01/21/2018 showed only a faint monoclonal protein band. The free light chain assay showed his kappa free light chain decreased to 1.19 mg/dL with kappa/lambda ratio normal at 0.9754. Beginning on 01/25/2018 he continued his daratumumab infusions at the 4-week dosing interval. During his time he had on his own accord adjusted his Revlimid schedule to a 14 days on/14 days off schedule because of throat swelling and spasms. The Revlimid dosage was then changed to 5 mg daily. In December 2017 he had presented with increased pain and swelling in his upper right arm. A PET/CT on 01/09/2018 showed improvement compared to the previous study from June 2017. Numerous hypermetabolic osseous lesions had become sclerotic with nearly negligible FDG uptake, consistent with a positive response to therapy. Hypermetabolic lymph nodes in the mediastinum were subcentimeter in size and FDG negative. He was referred back to his orthopedic surgeon in [place], where he underwent I & D of an abscess on 01/19/2018. It apparently was not involving the bone. In the absence of any evidence of progression of his myeloma, he continued treatment with daratumumab, Revlimid, and dexamethasone, but he opted to change the Revlimid to the previous schedule of 10 mg daily for 14 days of a 28 day schedule. As of his follow-up visit on 09/15/2018 there was no evidence of progression of the myeloma. Prior to that visit, though, he had opted to stop the Revlimid and the dexamethasone. He did receive his scheduled daratumumab infusion. During his further follow-up, he required additional surgery on his left foot, and he also required prolonged antibiotic therapy. He continued treatment with daratumumab and dexamethasone. As of October 2018 there was no increase in the serum monoclonal protein and no significant change in the kappa free light chain. The protein electrophoresis studies from 12/01/2018 again showed no change in the serum monoclonal protein. The free light chain assay did show a significant increase in the kappa free light chain, to 7.67 mg/L, but the lambda light chain also had increased such that the kappa/lambda ratio remained normal at 0.85. I had seen him for a scheduled visit on 12/08/2018. At that time he had developed pain, redness, and swelling at the site of his previous abscess in the upper right arm. He was having fever and chills. The clinical picture was consistent with recurrent cellulitis or abscess. His treatment was put on hold, and I had him restart IV antibiotic coverage with Rocephin. At about day 2 or 3 he developed spontaneous drainage of purulent material. Cultures from both the blood and subsequently from the exudate were negative. After the spontaneous drainage, he was transitioned to oral antibiotic therapy. During subsequent follow-up he had ongoing problems with the cellulitis and other issues, and he was not able to restart treatment. He had further evaluation with CT scans of the chest, abdomen, and pelvis on 01/25/2019. The most significant finding was the presence of progressive lytic myelomatous lesions of the left ischium and superior acetabular structures with probable nondisplaced pathologic fracture of the left acetabular margin. At that point he had developed significant pain in the left hip and left leg. He was referred to Dr. Navarro for additional radiation. He completed treatment to the left hip on 03/02/2019, total dose 3000 cGy. On 04/19/2019 he restarted systemic therapy with carfilzomib and dexamethasone in combination with daratumumab. He tolerated his initial day 1/day 2 treatment well, and he was then able to continue his treatment on schedule other than he missed his day 16 carfilzomib injection due to bad weather. He began cycle 2 on 05/18/2019. At that point the carfilzomib was adjusted to weekly dosing, and he was able to complete his day 1, day 8, and day 15 treatments with no adverse effects. He was then hospitalized with influenza A. He returned on 06/08/2023 for his day 22 treatment, limited just to the daratumumab, and that did complete his 8th weekly daratumumab infusion. He continued with his 3rd cycle of treatment on 06/22/2019, and with that cycle the frequency of the daratumumab infusions was reduced to every 2 weeks. During that time he had continued to complain of significant left hip pain. He was given additional radiation to that area, completed on 07/12/2019 to a total dose of 3000 cGy. As of 07/20/2019 he began cycle 4 of daratumumab/carfilzomib, and dexamethasone. He is seen for a follow-up visit. He has been feeling okay, though today he complains that he sleeps all the time. He says that for a day or two after his treatment he cannot sleep, but then for the next several days he sleeps almost [id number]. Lately he has not had much activity. His ECOG score is 3. His appetite has been okay, but he has lost a few pounds. He does not have fever. He does have some sweating at night. He always has sinus drainage. He has not had mouth sores. He does not complain of shortness of breath, cough, or chest pain. He has some nausea, not as bad. His acid reflux is managed adequately with medication. He still has occasional diarrhea. He has frequent urination. He continues to have pain in his left hip and leg. He also has some low back pain, which is chronic. He has numbness/tingling in his feet and also in his left hand. Medications: Acyclovir 1 (400 mg) Tablet Oral b.i.d., Amaryl (4 mg) Tablet Oral b.i.d., Aspirin 2 Tablet (of 81 mg) Tablet, enteric coated Oral daily, Azithromycin 1 Tablet (of 250 mg) Oral b.i.d. for 10 days, Benadryl 2 (25 mg) Tablet Oral four times a day PRN, Clotrimazole-Betamethasone Cream Topical PRN, Depo-Testosterone (200 mg/mL) Intramuscular q 2 weeks, Dilaudid 1 Tablet (of 8 mg) Oral q 3 hours PRN, Famotidine 1 Tablet (of 20 mg) Oral daily, Glucophage 1 Tablet (of 850 mg) Oral t.i.d., Invokana 1 (100 mg) Tablet Oral daily, Januvia 1 (100 mg) Tablet Oral daily, Lasix 1 Tablet (of 20 mg) Oral daily, Lisinopril 1 Tablet (of 2.5 mg) Oral daily, Lyrica 1 (75 mg) Capsule Oral daily, Mucinex (600 mg) Tablet SR 12 HR Oral b.i.d., Prandin 2 Tablet (of 2 mg) Tablet Oral t.i.d., Protonix 1 - 2 Tablet (of 20 mg) Tablet, enteric coated Oral daily, Victoza 1.8 mg Subcutaneous daily Allergies: Aparna, Claritin, Insulin (any type), Morphine Sulfate, and OxyCODONE HCl. Review of Systems: Constitutional - He is feeling okay. His energy level is low. He is mainly sedentary. His appetite is good and weight is down a few pounds. No fever or chills. He has had night sweats. ECOG score is 3, ENMT - He has chronic sinusitis. No mouth sores. No sore throat or difficulty swallowing, Hematologic/Lymphatic - No abnormal bruising or bleeding, Respiratory - No shortness of breath. No cough. No pleuritic pain or hemoptysis, Cardiovascular - No angina pain. No palpitations, Gastrointestinal - No nausea or vomiting. His heartburn is well controlled with Protonix. His diarrhea is improved. No constipation. No blood in the stool or black stools, Genitourinary (M) - No dysuria or hematuria. No urinary frequency. No urgency or incontinence, Musculoskeletal - He has increased pain in his left hip and leg. He also has chronic unchanged lower back pain, Integumentary - No skin complications, Neurologic - No headache or dizziness. His numbness and tingling is unchanged, Psychiatric - No anxiety or depression. He has difficulty sleeping the first 1-2 days following treatment then he sleeps constantly for a few days. Vital Signs: Performed on August 17, 2019 11:03 Height - 72.00 in Weight - 293.6 lbs (LOW) BSA - 2.51 sq.m BMI - 39.82 (HIGH) Temperature - 98.2 F (LOW) Pulse - 96 /min Respiration - 22 /min BP - 145/73 mm(hg) (HIGH) O2 Sat - 97 % Pain - 6 Physical Examination: Constitutional - He looks pretty good generally, Eyes - Sclerae nonicteric. Conjunctivae clear, ENMT - No lesions noted in the oral cavity, Hematologic/Lymphatic - No cervical, clavicular, or axillary adenopathy, Respiratory - Lungs sound clear with diminished air movement bilaterally, Cardiovascular - Heart rhythm is regular. There is a II/ systolic murmur. There is no gallop or rub noted, Abdomen - Mildly distended. Liver and spleen are not enlarged. There is no abdominal mass or ascites noted and there is no inguinal adenopathy, Extremities - No edema. He has scattered, small purpuric lesions, Integumentary - There are no skin ulcerations. There is a small subcutaneous nodule in the right parietal/occipital scalp area, Neurologic - No focal neurologic deficits noted. Lab/Imaging: Test performed on August 15, 2019 10:39 Glucose 251 mg/dL BUN 18 mg/dL Creatinine 0.96 mg/dL Cr Clearance (Est) 152.18 mL/min Sodium 138 mmol/L Potassium 4.2 mmol/L Chloride 97 mmol/L CO2 24 mmol/L Calcium 9.9 mg/dL Protein, Total 6.8 g/dL Albumin 4.2 g/dL Bilirubin, Total 0.4 mg/dL Alkaline Phosphatase 76 IU/L AST (SGOT) 21 IU/L ALT (SGPT) 25 IU/L WBC 5.0 10^9/L RBC 3.85 10^12/L HGB 11.4 g/dL HCT 35.7 % MCV 92.7 fl MCH 29.6 pg MCHC 31.9 g/dL RDW 16.1 % Platelet Count 255 10^9/L MPV 9.8 fL Neutrophils (Gran) 2.61 10^9/L Lymphocytes 1.56 10^9/L Monocytes 0.41 10^9/L Eosinophils 0.32 10^9/L Basophils 0.03 10^9/L Manual Lymphocytes 32 % Manual Monocytes 8 % Manual Eosinophils 7 % Manual Basophils 1 % [place] / Lambda Ratio 1.05 Absolute Value Lambda Light Chain 6.22 [place] Light Chain 6.56 Impression: 1. Patient with stage II, standard risk multiple myeloma and a large destructive plasmacytoma in the right humerus with associated pathological fracture. He underwent palliative radiation therapy and surgical repair of his arm. 2. Despite treatment he had a further progression of his M protein, and he was found to have hyperdiploid cytogenetics on bone marrow biopsy. 3. Induction chemotherapy with Velcade, Cytoxan, and Decadron began on 09/12/13. After 6 cycles of induction therapy cyclophosphamide was stopped, and he continued with Velcade and Decadron for 8 cycles. 4. On 04/11/2014 he underwent high-dose melphalan followed by an autologous stem cell transplantation. Post transplant bone marrow biopsy revealed residual disease. 5. He declined maintenance Revlimid therapy. Maintenance treatment with Velcade 1.3 mg/m2 sc every 2 weeks for 2 years began on 09/11/14. 6. He had progressive preexistent peripheral neuropathy. His dose was adjusted at 1 mg/m??? subcutaneously every 2 weeks, but he developed progressive neuropathy with pruritus. Velcade therapy was discontinued. His M protein level at that point was stable at 0.84 g/dL. 7. A trial of ixazomib 4 mg weekly on days 1, 8, and 15 of 28 day cycle began on 05/21/15. His other medical illnesses include: 8. Hypertension. 9. Type II diabetes. 10. GERD. 11. Degenerative arthritis. 12. Androgen deficiency. He had evidence of some response to the ixazomib. As of his follow-up visit in January 2016 his M protein had increased somewhat, but it then stabilized. During subsequent follow-up, the M protein had increased very gradually. However, between December and March 2017 there was a significant increase, from 1.50 g/dL to 1.93 g/dL. He had then presented with a mass in left chest wall. His chest CT showed an area of lytic involvement with associated soft tissue mass, consistent with myeloma. He underwent radiation to the involved area, completed on 05/12/2017 to a total dose of 4000 cGy. He then developed a new lump in his forehead. Head CT showed bifrontal and anterior ethmoid sinus soft tissue abnormality suggestive of mass as well as midline frontal scalp soft tissue mass secondary to erosion of the anterior wall frontal sinus. Overall, the findings were consistent with involvement with myeloma, and his laboratory studies also were indicative of significant further progression of his M protein. He was given radiation to the frontal bone, completed on 07/27/2017 to a total dose of 3600 cGy. He then began 3rd line treatment with daratumumab in combination with Revlimid and dexamethasone. He completed 8 weekly infusions of daratumumab, which he tolerated well, though he did require a reduction in the Revlimid dosage to 10 mg. He also started monthly injections of denosumab for the lytic bone involvement. As of 09/09/2017 the frequency of the daratumumab infusions was increased to every 2 weeks. As of 12/23/2017 he had completed 8 infusions at that interval. Beginning on 01/25/2018 he continued daratumumab at the 4-week dosing interval. During this time he had opted to adjust his Revlimid to a 14 days on/14 days off schedule due to throat swelling and spasms, and his Revlimid dosage was then further reduced to 5 mg daily on a 21/ day schedule. As of January 2018 his protein electrophoresis showed just a faint M band compared to a pretreatment M protein level of 3.43 g/dL. In December 2017 he presented with increased pain and swelling in his upper right arm. His repeat PET/CT showed significant response to treatment compared to the June 2017 study. 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 On 01/19/2018 he underwent incision/drainage of an abscess, which apparently was not involving the bone. He had an open wound at that site, but it has gradually healed. In the absence of any evidence of progression of the myeloma, he continued treatment with daratumumab, Revlimid, and dexamethasone. He has limited the Revlimid to 14 days each month because it does seem to cause some swelling in his throat. 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 During that time he required a prolonged course of antibiotic therapy with Rocephin. He has been able to continue treatment with daratumumab in combination with Revlimid and dexamethasone with no evidence of progression of the myeloma. He had been having increasing side effects with the Revlimid, and he opted to stop both the Revlimid and dexamethasone 6 weeks ago. During subsequent follow-up he had improvement in some symptoms, though his activity had been further limited due to his left foot problems. He was having more diarrhea, but that he had attributed to his antibiotic. As of his follow-up in October 2018 there was no evidence of progression of the myeloma. He had presented on 12/08/2018 with recurrence of pain in association with cellulitis/abscess of the right upper arm soft tissues. This was the same site as his previous abscess, which reportedly was not involving the bone. It showed gradual improvement on antibiotic therapy after spontaneous drainage. However, his treatment during that time had remained on hold. He then had further evaluation with CT scans of the chest, abdomen, and pelvis on 01/25/2019. 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 There appear to be associated nondisplaced lateral acetabular margin pathologic fracture. He was referred to Dr. Navarro, and he was then given radiation to the left hip, completed on 02/19/2019 to a total dose of 3000 cGy. On 04/19/2019 he restarted systemic therapy with carfilzomib and dexamethasone in combination with daratumumab. He tolerated his initial day 1/day 2 treatment well, and he was then able to continue his treatment on schedule other than he had to skip his day 16 carfilzomib injection due to bad weather. He began cycle 2 on 05/18/2019. He has been tolerating treatment with acceptable toxicity, though his treatment was complicated by a hospitalization for influenza A. He has had uneventful recovery. He continued with his 3rd cycle of treatment on 06/22/2019, and with that cycle the frequency of the daratumumab infusions was reduced to every 2 weeks. He continued to complain of significant left hip pain. He was given additional radiation to that area, completed on 07/12/2019 to a total dose of 3000 cGy. During that time he had developed significant diarrhea. A specific cause was not determined. His stool had tested negative for C. difficile. The diarrhea subsequently improved on symptomatic management. As of 07/20/2019 he continued with cycle 4 of daratumumab/carfilzomib/dexamethasone. At that point he was showing evidence of response, and he also appeared to be showing improvement in his clinical status. He has since then remained stable clinically other than he has had some difficulty with his sleep pattern, which I suspect is at least to some extent related to the dexamethasone. Plan: He will continue with cycle 5 of daratumumab/carfilzomib/dexamethasone. He will return for treatment in 1 week and for a follow-up visit in 2 weeks. Signed By: Rosendo Rodriges M.D. <<Signature on File>>
== END 2019-08-17 10:59 | disposition home or self-care (01) ==
LOC: ONCMED 10:59
PROVIDERS: Visit Provider Internal Medicine Medical Oncology
DX: Z51.12 Encounter for antineoplastic immunotherapy (principal); Z51.11 Encounter for antineoplastic chemotherapy; C90.00 Multiple myeloma not having achieved remission; I10 Essential (primary) hypertension; E11.42 Type 2 diabetes mellitus with diabetic polyneuropathy; K21.9 Gastro-esophageal reflux disease without esophagitis; M19.90 Unspecified osteoarthritis, unspecified site; Z92.3 Personal history of irradiation; Z79.52 Long term (current) use of systemic steroids
CPT/HCPCS: 96367; 96413; 96415; 96417; 99214; J1100; J1200; J2405; J7040; J9047; J9145

== ENCOUNTER 2019-08-24 11:26 | Outpatient (CLI) | payer MEDICARE, MEDICAID, SELFPAY ==
[2019-08-24] MEDS: sodium chloride 0.9% 500 ML 999 ML IV (11:55)
[2019-08-24] MEDS: dexamethasone 20 MG in sodium chloride 0.9% 50 ML 188 MG IV (12:11)
[2019-08-24] MEDS: acetaminophen 325 mg Tablet 650 MG PO (12:49)
[2019-08-24] MEDS: denosumab 120 mg SDV SUBCUT (12:49)
== END 2019-08-24 11:27 | disposition home or self-care (01) ==
LOC: ONCMED 11:30
PROVIDERS: Visit Provider Internal Medicine Medical Oncology
DX: Z51.12 Encounter for antineoplastic immunotherapy (principal); Z51.11 Encounter for antineoplastic chemotherapy; C90.00 Multiple myeloma not having achieved remission; E11.9 Type 2 diabetes mellitus without complications; K21.9 Gastro-esophageal reflux disease without esophagitis; I10 Essential (primary) hypertension; M19.90 Unspecified osteoarthritis, unspecified site; E29.1 Testicular hypofunction; I80.9 Phlebitis and thrombophlebitis of unspecified site; Z79.899 Other long term (current) drug therapy
CPT/HCPCS: 96367; 96372; 96413; J0897; J1100; J1200; J2405; J7040; J9047

== ENCOUNTER 2019-08-31 11:13 | Outpatient (CLI) | payer MEDICARE, MEDICAID, SELFPAY ==
[2019-08-31] MEDS: acetaminophen 325 mg Tablet 650 MG PO (12:25)
[2019-08-31] MEDS: dexamethasone 20 MG in sodium chloride 0.9% 50 ML 188 MG IV (12:48)
[2019-08-31] MEDS: sodium chloride 0.9% 500 ML 999 ML IV (13:38)
--- NOTE | 2019-09-05 15:41 | ONC FU_ITS ---
[facility] Patient Note Patient: Hal Canchola Unit #: [id number]: [id number] Dictated By: Diandra NunnDate of Visit: August 31, 2019 Onc MED Follow-Up/Prog Note Chief Complaint: Myeloma. 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 He had presented with pain in the right arm. His x-ray on 05/12/13 showed a large expansile lytic lesion in the midshaft of humeral diaphysis. He was referred to see Dr. Arrieta in [place], [place]. Further work up included laboratory analysis on 05/23/13 that showed normal hemoglobin at 12.4 g/dL, mild renal insufficiency with BUN 26 and creatinine of 1.2, normal albumin at 3.9, and normal calcium at 9.6. His skeletal bone survey showed no additional lesions on 05/26/13. Biopsy of the right humeral lesion on 05/31/13 revealed plasma cell neoplasm, kappa restricted. He was first seen here on 06/16/13. His protein electrophoresis studies showed 1.79 g of IgG kappa. His bone marrow biopsy on 06/17/13 revealed 3% plasma cells, 5-10% CD138 positive cells by flow. Cytogenetic analysis showed two population of cells. First population comprising 10% showed loss of 1q, additional material on 20q, and trisomy of chromosomes 3, 5, 7, 9, 11 and 15. FISH panel revealed gain of 9q, 11q, 15q, and 17q. He had no iron storage. Radiation therapy to the arm lesion began on 3/10/14. In the midst of all of his radiation treatment, short of about 2 fractions, the patient sustained a mechanical fall and landed on the affected arm, sustaining significant fracture. He required surgery on 08/09/2013. Despite of the radiation therapy, his follow up plasmacytoma studies on 09/01/2013 showed further increase of M protein to 2.5 g/dL, IgG 3460, serum free light chain ratio increased to 35. He had mild anemia with hemoglobin of 11 g/dL. His creatinine was 1.1. with calcium 9. Induction chemotherapy with VCd regimen (Velcade, Cytoxan and dexamethasone) began on 09/12/13. He had a positive response to the treatment, and after 6 cycles of therapy cytoxan was dropped from the regimen. The patient completed a total of 8 cycles of treatment with a very good response. On 04/11/2014 he underwent high-dose melphalan followed by an autologous stem cell transplantation. On 07/14/14 he underwent a day 100 post transplant bone marrow biopsy at [facility] with residual disease. IgG kappa M protein 0.77 g/dL. Maintenance single agent Revlimid therapy was recommended, but the patient ultimately decided against it for a variety of reasons, including concerns over completing REMS questionnaire over the phone and privacy issues. Maintenance with single agent Velcade every 2 weeks for 2 years was recommended. Cycle 1 began on 09/11/14. Baseline IgG 0.94 g/dL. The patient received Velcade therapy up until 04/10/2015. He required a dose reduction to 1 mg/m??? every 2 weeks due to progressive peripheral neuropathy. He again developed recurrent cramps and pruritis in the legs, which occurred after restarting Velcade. Given recurrent peripheral neuropathy, Velcade therapy was discontinued. M protein remained stable at 0.84 g/dL on 05/01/2015. As he had measurable disease, single agent Ixazomib began on 05/21/15 at a standard dosage of 4 mg weekly on days 1, 8,and 15 of each 28 day cycle. As of his follow-up visit in November 2015 his M protein was stable, and he was tolerating treatment well. He began cycle 9 of ixazomib on 01/02/2016. He had also continued Zometa infusions every 3 months for the lytic bone involvement. The protein electrophoresis studies from 01/22/2016 did show slight increase in his kappa free light chain, but there was no change in the M protein or in the 24-hour urine monoclonal protein excretion. On 02/03/2016 he was admitted to the hospital with cellulitis associated with a diabetic foot ulceration. His repeat protein electrophoresis studies from 03/04/2016 showed a further increase in the kappa free light chain to 15.9 mg/dL compared to 7.26 mg/dL in January and to 4 0.7 mg/dL in November 2015. The M protein at that point had also increased, to 1.11 g/dL compared to 0.81 g/dL in January. The 24-hour urine at that time showed a total protein excretion of 2226 mg with 2.3% monoclonal protein. That was not significantly changed. His subsequent protein electrophoresis studies remained stable. As of 12/11/2016 the M protein had increased only slightly, to 1.30 g/dL with his kappa free light chain stable at 12.8 mg/dL. His 24-hour urine protein electrophoresis showed a total monoclonal protein excretion of 32 mg. Skeletal survey on 10/09/2016 showed probable old healed pathologic fracture deformity of the right mid humeral diaphysis and probable additional old healed pathologic fracture of the distal left fibular diaphysis. There were findings consistent with advanced neuropathic arthropathy of the feet. There were no other lytic bone lesions. As of 01/08/2017 there was further increase in the M protein level to 1.50 g/dL, but his repeat protein electrophoresis on 02/11/2017 showed no significant change in the M protein. He continued treatment with single agent ixazomib. As of his follow-up visit on 03/18/2017 his M protein had shown a significant increase, up to 1.93 g/dL compared to 1.50 g/dL in December 2016. His blood counts at that point remained stable. His skeletal survey as of 02/11/2017 showed no active bone lesions. However, as it was evident that his disease was progressing, Dr Rodriges did have him stop his treatment. He had subsequently reported development a chest wall mass. A noncontrast chest CT on 03/27/2017 showed evidence of a lytic expansile lesion of the anterior left fifth rib with an adjacent soft tissue mass. He was then referred to Dr. Navarro and he underwent radiation to the chest wall lesion, completed on 05/12/2017 to a total dose of 4000 cGy. He tolerated the treatment well. During this time he had also developed a lump on his forehead. Head CT on 06/18/2017 showed bifrontal and anterior ethmoid sinus soft tissue abnormality suggestive of mass and associated with mucocele expansion of the right frontal sinus and lytic bony erosive changes. Reported differential diagnosis included primary sinus neoplasm or extraosseous myeloma. Also noted was midline frontal scalp soft tissue mass secondary to erosion of the anterior wall frontal sinus. There was also apparent erosion of the floor of the anterior cranial fossa by the component of the mass in the ethmoid sinus. His laboratory studies from 06/22/2017 included CBC showing a decline in his hemoglobin to 10.4 g with white blood cell count 5100 and platelet count 253,000. Chem profile showed borderline renal function with BUN 25 and creatinine 1.44 mg/dL. Calcium was normal 9.7 mg/dL. Serum protein electrophoresis showed increase in his M protein to 3.43 g/dL. The 24-hour urine monoclonal protein excretion was 102 mg. He was then given radiation to the frontal bone, completed on 07/27/2017 to a total dose of 3600 cGy. His other medical illnesses include hypertension, type II diabetes, GERD, degenerative arthritis, and androgen deficiency. He had smoked in the past but quit more than 20 years ago. INTERIM HISTORY: On 07/06/2017 he began 3rd line treatment with daratumumab in combination with Revlimid and dexamethasone. It was initiated at a reduced dosage of Revlimid, 15 mg daily on a 21/28 day schedule. He was able to continue the daratumumab infusions weekly with no apparent toxicity. He completed his 8th weekly infusion on 08/26/2017. During that time he required a reduction in the Revlimid dosage to 10 mg. He also started monthly denosumab injections. Beginning on 09/09/2017 the frequency of his daratumumab infusions was increased to every 2 weeks. As of 12/23/2017 he completed his 8th dose of daratumumab at the 2-week dosing interval. His repeat protein electrophoresis on 01/21/2018 showed only a faint monoclonal protein band. The free light chain assay showed his kappa free light chain decreased to 1.19 mg/dL with kappa/lambda ratio normal at 0.9754. Beginning on 01/25/2018 he continued his daratumumab infusions at the 4-week dosing interval. During his time he had on his own accord adjusted his Revlimid schedule to a 14 days on/14 days off schedule because of throat swelling and spasms. The Revlimid dosage was then changed to 5 mg daily. In December 2017 he had presented with increased pain and swelling in his upper right arm. A PET/CT on 01/09/2018 showed improvement compared to the previous study from June 2017. Numerous hypermetabolic osseous lesions had become sclerotic with nearly negligible FDG uptake, consistent with a positive response to therapy. Hypermetabolic lymph nodes in the mediastinum were subcentimeter in size and FDG negative. He was referred back to his orthopedic surgeon in [place], where he underwent I & D of an abscess on 01/19/2018. It apparently was not involving the bone. In the absence of any evidence of progression of his myeloma, he continued treatment with daratumumab, Revlimid, and dexamethasone, but he opted to change the Revlimid to the previous schedule of 10 mg daily for 14 days of a 28 day schedule. As of his follow-up visit on 09/15/2018 there was no evidence of progression of the myeloma. Prior to that visit, though, he had opted to stop the Revlimid and the dexamethasone. He did receive his scheduled daratumumab infusion. During his further follow-up, he required additional surgery on his left foot, and he also required prolonged antibiotic therapy. He continued treatment with daratumumab and dexamethasone. As of October 2018 there was no increase in the serum monoclonal protein and no significant change in the kappa free light chain. The protein electrophoresis studies from 12/01/2018 again showed no change in the serum monoclonal protein. The free light chain assay did show a significant increase in the kappa free light chain, to 7.67 mg/L, but the lambda light chain also had increased such that the kappa/lambda ratio remained normal at 0.85. Dr Rodriges had seen him for a scheduled visit on 12/08/2018. At that time he had developed pain, redness, and swelling at the site of his previous abscess in the upper right arm. He was having fever and chills. The clinical picture was consistent with recurrent cellulitis or abscess. His treatment was put on hold, and he restarted IV antibiotic coverage with Rocephin. At about day 2 or 3 he developed spontaneous drainage of purulent material. Cultures from both the blood and subsequently from the exudate were negative. After the spontaneous drainage, he was transitioned to oral antibiotic therapy. During subsequent follow-up he had ongoing problems with the cellulitis and other issues, and he was not able to restart treatment. He had further evaluation with CT scans of the chest, abdomen, and pelvis on 01/25/2019. The most significant finding was the presence of progressive lytic myelomatous lesions of the left ischium and superior acetabular structures with probable nondisplaced pathologic fracture of the left acetabular margin. At that point he had developed significant pain in the left hip and left leg. He was referred to Dr. Navarro for additional radiation. He completed treatment to the left hip on 03/02/2019, total dose 3000 cGy. On 04/19/2019 he restarted systemic therapy with carfilzomib and dexamethasone in combination with daratumumab. He tolerated his initial day 1/day 2 treatment well, and he was then able to continue his treatment on schedule other than he missed his day 16 carfilzomib injection due to bad weather. He began cycle 2 on 05/18/2019. At that point the carfilzomib was adjusted to weekly dosing, and he was able to complete his day 1, day 8, and day 15 treatments with no adverse effects. He was then hospitalized with influenza A. He returned on 06/08/2023 for his day 22 treatment, limited just to the daratumumab, and that did complete his 8th weekly daratumumab infusion. He continued with his 3rd cycle of treatment on 06/22/2019, and with that cycle the frequency of the daratumumab infusions was reduced to every 2 weeks. During that time he had continued to complain of significant left hip pain. He was given additional radiation to that area, completed on 07/12/2019 to a total dose of 3000 cGy. As of 07/20/2019 he began cycle 4 of daratumumab/carfilzomib, and dexamethasone. Mr Canchola is here today for followup. He states he is doing about the same as always. He states he still have pain in the hip and leg but it is better. He is in a wheelchair today during our visit, but states he has been going without it for small distances. He denies any fever or chills. He states his appetite is good. His energy is unchanged continues to be low. He still sleeping a lot but states it is less than it has been. He is trying to be more active around the house. He is aware that his glucose from August 29, 2019 was elevated. It was reported at 252. He reinforces that he cannot do insulin as it makes him sick. He does plan to talk with Dr. Miranda regarding his blood sugars. He denies any new pain. He denies any change in shortness of breath. He has had no orthopnea. He continues to have some intermittent lower extremity edema but contributes that to the foot braces that he generally wears. He denies mouth sores or sore throat. He states his bowels and bladder are normal for him. He has had some neuropathy symptoms but states that they are stable. He denies any bone pain with the denosumab. His ECOG is 2. Past Medical History: Allergic rhinitis Diabetes Gastroesophageal reflux Hypertension Hypoganadism Osteoarthritis Phlebitis Past Surgical History: Toe amputation x2 in 2018 Autologus stem cell transplant-[facility] in 2013 Biopsy in 2013 - [facility]le Surgery in 2011 Skin Graft in 1995 - Right [place] July 2013, placed pin in right arm Allergies: Aparna, Claritin, Insulin (any type), Morphine Sulfate, and OxyCODONE HCl. Medications: Acyclovir 1 (400 mg) Tablet Oral b.i.d. Amaryl (4 mg) Tablet Oral b.i.d. Aspirin 2 Tablet (of 81 mg) Tablet, enteric coated Oral daily Azithromycin 1 Tablet (of 250 mg) Oral b.i.d. for 10 days Benadryl 2 (25 mg) Tablet Oral four times a day PRN Clotrimazole-Betamethasone Cream Topical PRN Depo-Testosterone (200 mg/mL) Intramuscular q 2 weeks Dilaudid 1 Tablet (of 8 mg) Oral q 3 hours PRN Famotidine 1 Tablet (of 20 mg) Oral daily Glucophage 1 Tablet (of 850 mg) Oral t.i.d. Invokana 1 (100 mg) Tablet Oral daily Januvia 1 (100 mg) Tablet Oral daily Lasix 1 Tablet (of 20 mg) Oral daily Lisinopril 1 Tablet (of 2.5 mg) Oral daily Lyrica 1 (75 mg) Capsule Oral daily Mucinex (600 mg) Tablet SR 12 HR Oral b.i.d. Prandin 2 Tablet (of 2 mg) Tablet Oral t.i.d. Protonix 1 - 2 Tablet (of 20 mg) Tablet, enteric coated Oral daily Victoza 1.8 mg Subcutaneous daily Family History: Mr. Canchola's mother is alive. Mr. Canchola's father at age 64: Myelomas Cancer. Mr. Canchola has 2 brothers: 2 alive. Mr. Canchola's first brother's renal pelvis and ureter cancer. Another brother's cancer history consists of Colon cancer. Social History: Mr. Canchola is single and he is an on disability. Mr. Canchola quit smoking 20 years ago but had smoked for 5 years. He has indicated exposure to the following products: cigars. Mr. Canchola reports the following support systems: lives alone, lives in own house, and supportive family/friends willing to assist with needs. His diet consists of regular meals. He indicates his activity level as: daily activities. Patient smoked 3 to 4 Cigars a day for 5 years. Review Of Symptoms: Constitutional Denies fevers, chills, night sweats, excessive fatigue or weight loss. Fatigue is unchanged. Allergic/Immunologic No reactions. Eyes Denies significant visual changes. No diplopia. No amaurosis. ENMT Denies changes in hearing, sore throat, mouth sores, difficulty or changes in swallowing ability, and/or sinus drainage. Endocrine No diabetes, thyroid disease or hormone replacement. Denies hot flashes or night sweats. Hematologic/Lymphatic Denies easy bruising or bleeding. The patient denies any tender or palpable lymph nodes. Respiratory Denies dyspnea on exertion, chest pain, cough or hemoptysis. Denies orthopnea. Cardiovascular Denies anginal chest pain, palpitations or orthopnea. Gastrointestinal Denies nausea, vomiting, diarrhea, GI bleeding, or constipation. Denies change in bowel habits and/or stool color, no heartburn or early satiety. Genitourinary (M) Denies hematuria, dysuria, increased frequency, urgency, hesitancy or incontinence. Musculoskeletal Denies joint pain, swelling or redness. No decreased range of motion. Integumentary Denies chronic rashes, inflammation, ulcerations or skin changes. Neurologic Denies headache, blurred vision, and no areas of focal weakness or numbness. Normal gait. No sensory problems. Psychiatric Denies insomnia, depression, jacqueline or mood swings. Vital Signs: Performed on August 31, 2019 11:18 Height - 72.00 in Weight - 300.0 lbs (HIGH) BSA - 2.53 sq.m BMI - 40.69 (HIGH) Temperature - 97.1 F (LOW) Pulse - 94 /min Respiration - 24 /min BP - 148/86 mm(hg) (HIGH) O2 Sat - 100 % Pain - 7,2 - Ambulatory/capable of all self-care, unable to perform any work activities. Up and about more than 50% of waking hours. (ECOG) Physical Examination: Constitutional Alert, oriented, no acute distress. Skin pink, warm and dry. Head Normocephalic; atraumatic. Eyes Conjunctivae and sclerae are clear and without icterus. Pupils are reactive and equal. Neck Supple without masses or thyromegaly. No jugular venous distension. Hematologic/Lymphatic No petechiae or purpura. No tender or palpable lymph nodes in the cervical or supraclavicular areas. Respiratory Lungs are clear to auscultation without rhonchi or wheezing. Cardiovascular Regular rate and rhythm of heart without murmurs,clicks, gallops or rubs. Abdomen Non-tender, non-distended, no masses or ascites. Good bowel sounds noted in all quads. No guarding or rebound tenderness. No pulsatile masses. Back/Spine Non-tender to palpation. Extremities No visible deformities, no cyanosis, clubbing or edema. Musculoskeletal No tenderness or swelling, normal range of motion without obvious weakness. Integumentary No rashes or lesions. Psychiatric Alert and oriented times three. Coherent speech. Verbalizes understanding of our discussions today. Laboratory:Test performed on August 29, 2019 12:17 Glucose 252 mg/dL BUN 20 mg/dL Creatinine 1.01 mg/dL Cr Clearance (Est) 144.65 mL/min Sodium 137 mmol/L Potassium 4.6 mmol/L Chloride 98 mmol/L CO2 24 mmol/L Calcium 9.8 mg/dL Protein, Total 6.8 g/dL Albumin 4.2 g/dL Bilirubin, Total 0.3 mg/dL Alkaline Phosphatase 76 IU/L AST (SGOT) 18 IU/L ALT (SGPT) 26 IU/L WBC 7.3 10^9/L RBC 4.19 10^12/L HGB 12.3 g/dL HCT 38.1 % MCV 90.9 fl MCH 29.4 pg MCHC 32.3 g/dL RDW 15.8 % Platelet Count 211 10^9/L MPV 10.6 fL Neutrophils (Gran) 3.73 10^9/L Lymphocytes 1.43 10^9/L Monocytes 0.51 10^9/L Eosinophils 1.53 10^9/L Basophils 0.04 10^9/L Manual Lymphocytes 20 % Manual Monocytes 7 % Manual Eosinophils 21 % Manual Basophils 1 % Test performed on August 15, 2019 10:39 Clever / Lambda Ratio 1.05 Absolute Value Lambda Light Chain 6.22 Clever Light Chain 6.56 Test performed on Aug 01, 2019 10:55 Manual Segs 0.02 % Test performed on Jul 18, 2019 11:34 Albumin, SPE 3.49 g/dL [id number] 0.24 g/dL [id number] 0.90 g/dL Beta Globulin 0.75 g/dL Gamma Globulin 0.42 g/dL SPE Interpretation No significant change in monoclonal proteinemia since prior study Test performed on Jul 04, 2019 11:30 Neutrophil % 68.9 % Lymphocyte % 15.8 % Monocyte % 11.4 % Eosinophil % 2.2 % Basophils % 0.2 % Test performed on May 16, 2019 13:32 M-Bronson 0.19 g/dL Test performed on Apr 26, 2019 08:08 IGG 601 mg/dL IGA 41 mg/dL IGM 64 mg/dL Test performed on Mar 31, 2019 16:09 LDH, Total 195 IU/L U Creatinine (R) 70.4 mg/dL U Creatinine, 24hr 2500 mg/24hr U Protein, 24hr 530 mg/24hr U Protein (R) 15 mg/dL UPE Interpretation No significant change in monoclonal protein in urine since prior study Test performed on Mar 24, 2019 12:30 Iron 70 ug/dL Magnesium 2.2 mg/dL Protein, SPE 6.6 g/dL Vitamin D (25-Hydroxy), Total 17 ng/mL % Iron Saturation 22.8 % UIBC 236 ug/dL Anion Gap 19.0 eGFR 62.2 mL/min Globulin 1.3 gm/dL Clever Free Light Chains 11.3 mg/L Lambda Free Light Chains 13.0 mg/L Clever/Lambda Free Ratio 0.87 Beta 2 Globulin 0.3 g/dL S Immunofixation Interp SEE NOTE There is a restriction in the kappa gregoria that does not correspond with either G,A,M,D,E heavy chains, nor does it react with free kappa antisera. Finding is inconclusive for the presence of a monoclonal protein at this time. Suggest clinical correlation. Repeat testing in three to six months and urine protein electrophoresis with immunofixation may be helpful. THIS TEST WAS PERFORMED AT: [facility] [address] [place] [address] PARAG ADDISON DO,MPH Impression: 1. Patient with stage II, standard risk multiple myeloma and a large destructive plasmacytoma in the right humerus with associated pathological fracture. He underwent palliative radiation therapy and surgical repair of his arm. 2. Despite treatment he had a further progression of his M protein, and he was found to have hyperdiploid cytogenetics on bone marrow biopsy. 3. Induction chemotherapy with Velcade, Cytoxan, and Decadron began on 09/12/13. After 6 cycles of induction therapy cyclophosphamide was stopped, and he continued with Velcade and Decadron for 8 cycles. 4. On 04/11/2014 he underwent high-dose melphalan followed by an autologous stem cell transplantation. Post transplant bone marrow biopsy revealed residual disease. 5. He declined maintenance Revlimid therapy. Maintenance treatment with Velcade 1.3 mg/m2 sc every 2 weeks for 2 years began on 09/11/14. 6. He had progressive preexistent peripheral neuropathy. His dose was adjusted at 1 mg/m??? subcutaneously every 2 weeks, but he developed progressive neuropathy with pruritus. Velcade therapy was discontinued. His M protein level at that point was stable at 0.84 g/dL. 7. A trial of ixazomib 4 mg weekly on days 1, 8, and 15 of 28 day cycle began on 05/21/15. His other medical illnesses include: 8. Hypertension. 9. Type II diabetes. 10. GERD. 11. Degenerative arthritis. 12. Androgen deficiency. He had evidence of some response to the ixazomib. As of his follow-up visit in January 2016 his M protein had increased somewhat, but it then stabilized. During subsequent follow-up, the M protein had increased very gradually. However, between December and March 2017 there was a significant increase, from 1.50 g/dL to 1.93 g/dL. He had then presented with a mass in left chest wall. His chest CT showed an area of lytic involvement with associated soft tissue mass, consistent with myeloma. He underwent radiation to the involved area, completed on 05/12/2017 to a total dose of 4000 cGy. He then developed a new lump in his forehead. Head CT showed bifrontal and anterior ethmoid sinus soft tissue abnormality suggestive of mass as well as midline frontal scalp soft tissue mass secondary to erosion of the anterior wall frontal sinus. Overall, the findings were consistent with involvement with myeloma, and his laboratory studies also were indicative of significant further progression of his M protein. He was given radiation to the frontal bone, completed on 07/27/2017 to a total dose of 3600 cGy. He then began 3rd line treatment with daratumumab in combination with Revlimid and dexamethasone. He completed 8 weekly infusions of daratumumab, which he tolerated well, though he did require a reduction in the Revlimid dosage to 10 mg. He also started monthly injections of denosumab for the lytic bone involvement. As of 09/09/2017 the frequency of the daratumumab infusions was increased to every 2 weeks. As of 12/23/2017 he had completed 8 infusions at that interval. Beginning on 01/25/2018 he continued daratumumab at the 4-week dosing interval. During this time he had opted to adjust his Revlimid to a 14 days on/14 days off schedule due to throat swelling and spasms, and his Revlimid dosage was then further reduced to 5 mg daily on a 21/28 day schedule. As of January 2018 his protein electrophoresis showed just a faint M band compared to a pretreatment M protein level of 3.43 g/dL. In December 2017 he presented with increased pain and swelling in his upper right arm. His repeat PET/CT showed significant response to treatment compared to the June 2017 study. 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 On 01/19/2018 he underwent incision/drainage of an abscess, which apparently was not involving the bone. He had an open wound at that site, but it has gradually healed. In the absence of any evidence of progression of the myeloma, he continued treatment with daratumumab, Revlimid, and dexamethasone. He has limited the Revlimid to 14 days each month because it does seem to cause some swelling in his throat. 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 During that time he required a prolonged course of antibiotic therapy with Rocephin. He has been able to continue treatment with daratumumab in combination with Revlimid and dexamethasone with no evidence of progression of the myeloma. He had been having increasing side effects with the Revlimid, and he opted to stop both the Revlimid and dexamethasone 6 weeks ago. During subsequent follow-up he had improvement in some symptoms, though his activity had been further limited due to his left foot problems. He was having more diarrhea, but that he had attributed to his antibiotic. As of his follow-up in October 2018 there was no evidence of progression of the myeloma. He had presented on 12/08/2018 with recurrence of pain in association with cellulitis/abscess of the right upper arm soft tissues. This was the same site as his previous abscess, which reportedly was not involving the bone. It showed gradual improvement on antibiotic therapy after spontaneous drainage. However, his treatment during that time had remained on hold. He then had further evaluation with CT scans of the chest, abdomen, and pelvis on 01/25/2019. 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 There appear to be associated nondisplaced lateral acetabular margin pathologic fracture. He was referred to Dr. Navarro, and he was then given radiation to the left hip, completed on 02/19/2019 to a total dose of 3000 cGy. On 04/19/2019 he restarted systemic therapy with carfilzomib and dexamethasone in combination with daratumumab. He tolerated his initial day 1/day 2 treatment well, and he was then able to continue his treatment on schedule other than he had to skip his day 16 carfilzomib injection due to bad weather. He began cycle 2 on 05/18/2019. He has been tolerating treatment with acceptable toxicity, though his treatment was complicated by a hospitalization for influenza A. He has had uneventful recovery. He continued with his 3rd cycle of treatment on 06/22/2019, and with that cycle the frequency of the daratumumab infusions was reduced to every 2 weeks. He continued to complain of significant left hip pain. He was given additional radiation to that area, completed on 07/12/2019 to a total dose of 3000 cGy. During that time he had developed significant diarrhea. A specific cause was not determined. His stool had tested negative for C. difficile. The diarrhea subsequently improved on symptomatic management. As of 07/20/2019 he continued with cycle 4 of daratumumab/carfilzomib/dexamethasone. At that point he was showing evidence of response, and he also appeared to be showing improvement in his clinical status. He has since then remained stable clinically other than he has had some difficulty with his sleep pattern, which I suspect is at least to some extent related to the dexamethasone. Plan: 1. Proceed with cycle 5 day 15 of daratumumab/carfilzomib/dexamethasone. The dosages remains the same. The carfilzomib is day 1, 8 & 15. The daratumumab is every two weeks-this is # 6/8 every two week treaments then he will go to monthly on the daratumumab. 2. Continue current premeds as he is tolerating them well and is not having any infusion reactions. 3. Labs from August 29, 2019 were reviewed in detail and discussed with Mr. Batista and a copy was given to him. WBC 7.3, hemoglobin 12.3, platelets 211,000, ANC is 3700 potassium 4.6 random glucose 252 creatinine 1.0 LFTs are normal. We did receive a hemoglobin A1c on him faxed from [facility] but was unable to read the results. This will be requested. 4. Continue current pain management. He is taking Dilaudid 8 mg every 4-6 hours as needed pain. His last prescription was on 07/20/2019 at which time the quantity was written for 120 tablets. He states he does not need any pain medication refills today. 5. We will plan to have him return for cycle 6-day 1 daratumumab/carfilzomib and dexamethasone in 2 weeks at which time we will request CBC, CMP, myeloma labs (SPEP free light chain assay)and results on the hemoglobin A1c for 08/29/2019. 6. Mr. Canchola is instructed to contact us in the interim should questions or problems arise. ADDENDUM: 7. Bone involvement: Mr Canchola received denosumab last on 07/25/2019. He is scheduled to receive it monthly. Signed By: Otis Nunn.N.P.-ROSARIO, AOCNP Rosendo Rodriges MD <<Signature on File>>
== END 2019-08-31 11:14 | disposition home or self-care (01) ==
LOC: ONCMED 11:16
PROVIDERS: Visit Provider Nurse Practitioner
DX: Z51.12 Encounter for antineoplastic immunotherapy (principal); C90.00 Multiple myeloma not having achieved remission; M89.9 Disorder of bone, unspecified; Z92.3 Personal history of irradiation
CPT/HCPCS: 96367; 96413; 96415; 96417; 99214; J1100; J1200; J2405; J7040; J9047; J9145

== ENCOUNTER 2019-09-14 06:13 | Outpatient (CLI) | payer MEDICARE, MEDICAID, SELFPAY ==
[2019-09-14] MEDS: acetaminophen 325 mg Tablet 650 MG PO (12:20)
[2019-09-14] MEDS: dexamethasone 20 MG in sodium chloride 0.9% 50 ML 188 MG IV (12:49)
--- NOTE | 2019-09-18 09:31 | ONC FU_ITS ---
Dr. Rodriges Patient Follow-Up Note Patient: Hal Canchola Unit #: [id number]: [id number] Dicatated By: Rosendo Rodriges M.D.Date of Visit:Sep 14, 2019 Onc Med Follow-up/Prog Note Chief Complaint: Myeloma. 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 He had presented with pain in the right arm. His x-ray on 05/12/13 showed a large expansile lytic lesion in the midshaft of humeral diaphysis. He was referred to see Dr. Arrieta in [place], [place]. Further work up included laboratory analysis on 05/23/13 that showed normal hemoglobin at 12.4 g/dL, mild renal insufficiency with BUN 26 and creatinine of 1.2, normal albumin at 3.9, and normal calcium at 9.6. His skeletal bone survey showed no additional lesions on 05/26/13. Biopsy of the right humeral lesion on 05/31/13 revealed plasma cell neoplasm, kappa restricted. He was first seen here on 06/16/13. His protein electrophoresis studies showed 1.79 g of IgG kappa. His bone marrow biopsy on 06/17/13 revealed 3% plasma cells, 5-10% CD138 positive cells by flow. Cytogenetic analysis showed two population of cells. First population comprising 10% showed loss of 1q, additional material on 20q, and trisomy of chromosomes 3, 5, 7, 9, 11 and 15. FISH panel revealed gain of 9q, 11q, 15q, and 17q. He had no iron storage. Radiation therapy to the arm lesion began on 06/20/13. In the midst of all of his radiation treatment, short of about 2 fractions, the patient sustained a mechanical fall and landed on the affected arm, sustaining significant fracture. He required surgery on 08/09/2013. Despite of the radiation therapy, his follow up plasmacytoma studies on 09/01/2013 showed further increase of M protein to 2.5 g/dL, IgG 3460, serum free light chain ratio increased to 35. He had mild anemia with hemoglobin of 11 g/dL. His creatinine was 1.1. with calcium 9. Induction chemotherapy with VCd regimen (Velcade, Cytoxan and dexamethasone) began on 09/12/13. He had a positive response to the treatment, and after 6 cycles of therapy cytoxan was dropped from the regimen. The patient completed a total of 8 cycles of treatment with a very good response. On 04/11/2014 he underwent high-dose melphalan followed by an autologous stem cell transplantation. On 07/14/14 he underwent a day 100 post transplant bone marrow biopsy at [facility] with residual disease. IgG kappa M protein 0.77 g/dL. Maintenance single agent Revlimid therapy was recommended, but the patient ultimately decided against it for a variety of reasons, including concerns over completing REMS questionnaire over the phone and privacy issues. Maintenance with single agent Velcade every 2 weeks for 2 years was recommended. Cycle 1 began on 09/11/14. Baseline IgG 0.94 g/dL. The patient received Velcade therapy up until 04/10/2015. He required a dose reduction to 1 mg/m??? every 2 weeks due to progressive peripheral neuropathy. He again developed recurrent cramps and pruritis in the legs, which occurred after restarting Velcade. Given recurrent peripheral neuropathy, Velcade therapy was discontinued. M protein remained stable at 0.84 g/dL on 05/01/2015. As he had measurable disease, single agent Ixazomib began on 05/21/15 at a standard dosage of 4 mg weekly on days 1, 8,and 15 of each 28 day cycle. As of his follow-up visit in November 2015 his M protein was stable, and he was tolerating treatment well. He began cycle 9 of ixazomib on 01/02/2016. He had also continued Zometa infusions every 3 months for the lytic bone involvement. The protein electrophoresis studies from 01/22/2016 did show slight increase in his kappa free light chain, but there was no change in the M protein or in the 24-hour urine monoclonal protein excretion. On 02/03/2016 he was admitted to the hospital with cellulitis associated with a diabetic foot ulceration. His repeat protein electrophoresis studies from 03/04/2016 showed a further increase in the kappa free light chain to 15.9 mg/dL compared to 7.26 mg/dL in January and to 4 0.7 mg/dL in November 2015. The M protein at that point had also increased, to 1.11 g/dL compared to 0.81 g/dL in January. The 24-hour urine at that time showed a total protein excretion of 2226 mg with 2.3% monoclonal protein. That was not significantly changed. His subsequent protein electrophoresis studies remained stable. As of 12/11/2016 the M protein had increased only slightly, to 1.30 g/dL with his kappa free light chain stable at 12.8 mg/dL. His 24-hour urine protein electrophoresis showed a total monoclonal protein excretion of 32 mg. Skeletal survey on 10/09/2016 showed probable old healed pathologic fracture deformity of the right mid humeral diaphysis and probable additional old healed pathologic fracture of the distal left fibular diaphysis. There were findings consistent with advanced neuropathic arthropathy of the feet. There were no other lytic bone lesions. As of 01/08/2017 there was further increase in the M protein level to 1.50 g/dL, but his repeat protein electrophoresis on 02/11/2017 showed no significant change in the M protein. He continued treatment with single agent ixazomib. As of his follow-up visit on 03/18/2017 his M protein had shown a significant increase, up to 1.93 g/dL compared to 1.50 g/dL in December 2016. His blood counts at that point remained stable. His skeletal survey as of 02/11/2017 showed no active bone lesions. However, as it was evident that his disease was progressing, I did have him stop his treatment. He had subsequently reported development a chest wall mass. A noncontrast chest CT on 03/27/2017 showed evidence of a lytic expansile lesion of the anterior left fifth rib with an adjacent soft tissue mass. He was then referred to Dr. Navarro and he underwent radiation to the chest wall lesion, completed on 05/12/2017 to a total dose of 4000 cGy. He tolerated the treatment well. During this time he had also developed a lump on his forehead. Head CT on 06/18/2017 showed bifrontal and anterior ethmoid sinus soft tissue abnormality suggestive of mass and associated with mucocele expansion of the right frontal sinus and lytic bony erosive changes. Reported differential diagnosis included primary sinus neoplasm or extraosseous myeloma. Also noted was midline frontal scalp soft tissue mass secondary to erosion of the anterior wall frontal sinus. There was also apparent erosion of the floor of the anterior cranial fossa by the component of the mass in the ethmoid sinus. His laboratory studies from 06/22/2017 included CBC showing a decline in his hemoglobin to 10.4 g with white blood cell count 5100 and platelet count 253,000. Chem profile showed borderline renal function with BUN 25 and creatinine 1.44 mg/dL. Calcium was normal 9.7 mg/dL. Serum protein electrophoresis showed increase in his M protein to 3.43 g/dL. The 24-hour urine monoclonal protein excretion was 102 mg. He was then given radiation to the frontal bone, completed on 07/27/2017 to a total dose of 3600 cGy. His other medical illnesses include hypertension, type II diabetes, GERD, degenerative arthritis, and androgen deficiency. He had smoked in the past but quit more than 20 years ago. INTERIM HISTORY: On 07/06/2017 he began 3rd line treatment with daratumumab in combination with Revlimid and dexamethasone. It was initiated at a reduced dosage of Revlimid, 15 mg daily on a 21/28 day schedule. He was able to continue the daratumumab infusions weekly with no apparent toxicity. He completed his 8th weekly infusion on 08/26/2017. During that time he required a reduction in the Revlimid dosage to 10 mg. He also started monthly denosumab injections. Beginning on 09/09/2017 the frequency of his daratumumab infusions was increased to every 2 weeks. As of 12/23/2017 he completed his 8th dose of daratumumab at the 2-week dosing interval. His repeat protein electrophoresis on 01/21/2018 showed only a faint monoclonal protein band. The free light chain assay showed his kappa free light chain decreased to 1.19 mg/dL with kappa/lambda ratio normal at 0.9754. Beginning on 01/25/2018 he continued his daratumumab infusions at the 4-week dosing interval. During his time he had on his own accord adjusted his Revlimid schedule to a 14 days on/14 days off schedule because of throat swelling and spasms. The Revlimid dosage was then changed to 5 mg daily. In December 2017 he had presented with increased pain and swelling in his upper right arm. A PET/CT on 01/09/2018 showed improvement compared to the previous study from June 2017. Numerous hypermetabolic osseous lesions had become sclerotic with nearly negligible FDG uptake, consistent with a positive response to therapy. Hypermetabolic lymph nodes in the mediastinum were subcentimeter in size and FDG negative. He was referred back to his orthopedic surgeon in [place], where he underwent I & D of an abscess on 01/19/2018. It apparently was not involving the bone. In the absence of any evidence of progression of his myeloma, he continued treatment with daratumumab, Revlimid, and dexamethasone, but he opted to change the Revlimid to the previous schedule of 10 mg daily for 14 days of a 28 day schedule. As of his follow-up visit on 09/15/2018 there was no evidence of progression of the myeloma. Prior to that visit, though, he had opted to stop the Revlimid and the dexamethasone. He did receive his scheduled daratumumab infusion. During his further follow-up, he required additional surgery on his left foot, and he also required prolonged antibiotic therapy. He continued treatment with daratumumab and dexamethasone. As of October 2018 there was no increase in the serum monoclonal protein and no significant change in the kappa free light chain. The protein electrophoresis studies from 12/01/2018 again showed no change in the serum monoclonal protein. The free light chain assay did show a significant increase in the kappa free light chain, to 7.67 mg/L, but the lambda light chain also had increased such that the kappa/lambda ratio remained normal at 0.85. I had seen him for a scheduled visit on 12/08/2018. At that time he had developed pain, redness, and swelling at the site of his previous abscess in the upper right arm. He was having fever and chills. The clinical picture was consistent with recurrent cellulitis or abscess. His treatment was put on hold, and I had him restart IV antibiotic coverage with Rocephin. At about day 2 or 3 he developed spontaneous drainage of purulent material. Cultures from both the blood and subsequently from the exudate were negative. After the spontaneous drainage, he was transitioned to oral antibiotic therapy. During subsequent follow-up he had ongoing problems with the cellulitis and other issues, and he was not able to restart treatment. He had further evaluation with CT scans of the chest, abdomen, and pelvis on 01/25/2019. The most significant finding was the presence of progressive lytic myelomatous lesions of the left ischium and superior acetabular structures with probable nondisplaced pathologic fracture of the left acetabular margin. At that point he had developed significant pain in the left hip and left leg. He was referred to Dr. Navarro for additional radiation. He completed treatment to the left hip on 03/02/2019, total dose 3000 cGy. On 04/19/2019 he restarted systemic therapy with carfilzomib and dexamethasone in combination with daratumumab. He tolerated his initial day 1/day 2 treatment well, and he was then able to continue his treatment on schedule other than he missed his day 16 carfilzomib injection due to bad weather. He began cycle 2 on 05/18/2019. At that point the carfilzomib was adjusted to weekly dosing, and he was able to complete his day 1, day 8, and day 15 treatments with no adverse effects. He was then hospitalized with influenza A. He returned on 06/08/2023 for his day 22 treatment, limited just to the daratumumab, and that did complete his 8th weekly daratumumab infusion. He continued with his 3rd cycle of treatment on 06/22/2019, and with that cycle the frequency of the daratumumab infusions was reduced to every 2 weeks. During that time he had continued to complain of significant left hip pain. He was given additional radiation to that area, completed on 07/12/2019 to a total dose of 3000 cGy. He continued with cycle 4 of daratumumab/carfilzomib/dexamethasone on 07/20/2019 and with cycle 5 on 08/17/2019. He is seen for a follow-up visit. He has been feeling pretty good generally, though his activity remains limited. Recently that has been due more to back pain, as his hip pain did show significant improvement with the additional radiation. His ECOG score is 2. He has good appetite. He has not had fever. He does have some sweating at night. He has a little sinus drainage and cough. He has no shortness of breath or chest pain. He has no GI complaints other than his stools are occasionally loose. He is not having actual diarrhea, though. He has frequent urination. He has headache occasionally, and he sometimes has orthostatic lightheadedness. His neuropathy is unchanged. Medications: Acyclovir 1 (400 mg) Tablet Oral b.i.d., Amaryl (4 mg) Tablet Oral b.i.d., Aspirin 2 Tablet (of 81 mg) Tablet, enteric coated Oral daily, Azithromycin 1 Tablet (of 250 mg) Oral b.i.d. for 10 days, Benadryl 2 (25 mg) Tablet Oral four times a day PRN, Clotrimazole-Betamethasone Cream Topical PRN, Depo-Testosterone (200 mg/mL) Intramuscular q 2 weeks, Dilaudid 1 Tablet (of 8 mg) Oral q 3 hours PRN, Famotidine 1 Tablet (of 20 mg) Oral daily, Glucophage 1 Tablet (of 850 mg) Oral t.i.d., Invokana 1 (100 mg) Tablet Oral daily, Januvia 1 (100 mg) Tablet Oral daily, Lasix 1 Tablet (of 20 mg) Oral daily, Lisinopril 1 Tablet (of 2.5 mg) Oral daily, Lyrica 1 (75 mg) Capsule Oral daily, Mucinex (600 mg) Tablet SR 12 HR Oral b.i.d., Prandin 2 Tablet (of 2 mg) Tablet Oral t.i.d., Protonix 1 - 2 Tablet (of 20 mg) Tablet, enteric coated Oral daily, Victoza 1.8 mg Subcutaneous daily Allergies: Aparna, Claritin, Insulin (any type), Morphine Sulfate, and OxyCODONE HCl. Review of Systems: Constitutional - He generally feels good, though his energy is low and he is mainly sedentary. His appetite is good and weight is down about 9 pounds from last visit. No fever, night sweats, or hot flashes. ECOG score is 2, ENMT - He has chronic sinus drainage. No mouth sores. No sore throat or difficulty swallowing, Hematologic/Lymphatic - No abnormal bruising or bleeding, Respiratory - No shortness of breath. No cough. No pleuritic pain or hemoptysis, Cardiovascular - No angina pain. No palpitations, Gastrointestinal - No nausea or vomiting. No heartburn or acid reflux. No diarrhea or constipation. No blood in the stool or black stools, Genitourinary (M) - No dysuria or hematuria. He has daytime urinary frequency. No urgency or incontinence, Musculoskeletal - His hip pain is improved but he is having increased pain in his back, Integumentary - No new or active skin ulcerations, Neurologic - No headache or dizziness. His neuropathy is unchanged. No other focal neurologic symptoms, Psychiatric - No anxiety or depression. No insomnia. Vital Signs: Performed on Sep 14, 2019 11:08 Height - 72.00 in Weight - 291.8 lbs (LOW) BSA - 2.50 sq.m BMI - 39.58 (HIGH) Temperature - 97.5 F (LOW) Pulse - 112 /min (HIGH) Respiration - 24 /min BP - 135/84 mm(hg) O2 Sat - 98 % Pain - 7 Physical Examination: Constitutional - He looks pretty good generally, Eyes - Sclerae nonicteric. Conjunctivae clear, ENMT - No lesions noted in the oral cavity, Hematologic/Lymphatic - No cervical, clavicular, or axillary adenopathy, Respiratory - Lungs sound clear with diminished air movement bilaterally, Cardiovascular - Heart rhythm is regular. There is a II/ systolic murmur. There is no gallop or rub noted, Abdomen - Mildly distended. Liver and spleen are not enlarged. There is no abdominal mass or ascites noted and there is no inguinal adenopathy, Extremities - There are venous stasis changes. There is no edema, Neurologic - No focal neurologic deficits noted. Lab/Imaging: Test performed on Sep 12, 2019 11:43 Glucose 258 mg/dL Protein, Total 6.1 g/dL Albumin, SPE 3.85 g/dL BUN 22 mg/dL Creatinine 1.08 mg/dL Cr Clearance (Est) 135.27 mL/min Sodium 132 mmol/L Potassium 4.6 mmol/L Chloride 94 mmol/L CO2 26 mmol/L Calcium 9.6 mg/dL Albumin 4.2 g/dL Bilirubin, Total 0.2 mg/dL Alkaline Phosphatase 68 IU/L AST (SGOT) 18 IU/L ALT (SGPT) 16 IU/L WBC 6.4 10^9/L RBC 4.01 10^12/L HGB 11.6 g/dL HCT 36.2 % MCV 90.3 fl MCH 28.9 pg MCHC 32.0 g/dL RDW 15.7 % Platelet Count 229 10^9/L MPV 9.5 fL Neutrophils (Gran) 3.69 10^9/L Lymphocytes 1.26 10^9/L Monocytes 0.47 10^9/L Eosinophils 0.95 10^9/L Basophils 0.02 10^9/L Manual Lymphocytes 20 % Manual Monocytes 7 % Manual Eosinophils 15 % Manual Basophils 0 % [place] / Lambda Ratio 1.15 Absolute Value Lambda Light Chain 5.87 [place] Light Chain 6.74 Nceto-7-ltlqqyrd 0.18 g/dL Yptwq-6-[id number] 0.77 g/dL Beta Globulin 0.73 g/dL Gamma Globulin 0.56 g/dL SPE Interpretation No significant change in monoclonal proteinemia since prior study Impression: 1. Patient with stage II, standard risk multiple myeloma and a large destructive plasmacytoma in the right humerus with associated pathological fracture. He underwent palliative radiation therapy and surgical repair of his arm. 2. Despite treatment he had a further progression of his M protein, and he was found to have hyperdiploid cytogenetics on bone marrow biopsy. 3. Induction chemotherapy with Velcade, Cytoxan, and Decadron began on 09/12/13. After 6 cycles of induction therapy cyclophosphamide was stopped, and he continued with Velcade and Decadron for 8 cycles. 4. On 04/11/2014 he underwent high-dose melphalan followed by an autologous stem cell transplantation. Post transplant bone marrow biopsy revealed residual disease. 5. He declined maintenance Revlimid therapy. Maintenance treatment with Velcade 1.3 mg/m2 sc every 2 weeks for 2 years began on 09/11/14. 6. He had progressive preexistent peripheral neuropathy. His dose was adjusted at 1 mg/m??? subcutaneously every 2 weeks, but he developed progressive neuropathy with pruritus. Velcade therapy was discontinued. His M protein level at that point was stable at 0.84 g/dL. 7. A trial of ixazomib 4 mg weekly on days 1, 8, and 15 of 28 day cycle began on 05/21/15. His other medical illnesses include: 8. Hypertension. 9. Type II diabetes. 10. GERD. 11. Degenerative arthritis. 12. Androgen deficiency. He had evidence of some response to the ixazomib. As of his follow-up visit in January 2016 his M protein had increased somewhat, but it then stabilized. During subsequent follow-up, the M protein had increased very gradually. However, between December and March 2017 there was a significant increase, from 1.50 g/dL to 1.93 g/dL. He had then presented with a mass in left chest wall. His chest CT showed an area of lytic involvement with associated soft tissue mass, consistent with myeloma. He underwent radiation to the involved area, completed on 05/12/2017 to a total dose of 4000 cGy. He then developed a new lump in his forehead. Head CT showed bifrontal and anterior ethmoid sinus soft tissue abnormality suggestive of mass as well as midline frontal scalp soft tissue mass secondary to erosion of the anterior wall frontal sinus. Overall, the findings were consistent with involvement with myeloma, and his laboratory studies also were indicative of significant further progression of his M protein. He was given radiation to the frontal bone, completed on 07/27/2017 to a total dose of 3600 cGy. He then began 3rd line treatment with daratumumab in combination with Revlimid and dexamethasone. He completed 8 weekly infusions of daratumumab, which he tolerated well, though he did require a reduction in the Revlimid dosage to 10 mg. He also started monthly injections of denosumab for the lytic bone involvement. As of 09/09/2017 the frequency of the daratumumab infusions was increased to every 2 weeks. As of 12/23/2017 he had completed 8 infusions at that interval. Beginning on 01/25/2018 he continued daratumumab at the 4-week dosing interval. During this time he had opted to adjust his Revlimid to a 14 days on/14 days off schedule due to throat swelling and spasms, and his Revlimid dosage was then further reduced to 5 mg daily on a / day schedule. As of January 2018 his protein electrophoresis showed just a faint M band compared to a pretreatment M protein level of 3.43 g/dL. In December 2017 he presented with increased pain and swelling in his upper right arm. His repeat PET/CT showed significant response to treatment compared to the June 2017 study. 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 On 01/19/2018 he underwent incision/drainage of an abscess, which apparently was not involving the bone. He had an open wound at that site, but it has gradually healed. In the absence of any evidence of progression of the myeloma, he continued treatment with daratumumab, Revlimid, and dexamethasone. He has limited the Revlimid to 14 days each month because it does seem to cause some swelling in his throat. 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 During that time he required a prolonged course of antibiotic therapy with Rocephin. He has been able to continue treatment with daratumumab in combination with Revlimid and dexamethasone with no evidence of progression of the myeloma. He had been having increasing side effects with the Revlimid, and he opted to stop both the Revlimid and dexamethasone 6 weeks ago. During subsequent follow-up he had improvement in some symptoms, though his activity had been further limited due to his left foot problems. He was having more diarrhea, but that he had attributed to his antibiotic. As of his follow-up in October 2018 there was no evidence of progression of the myeloma. He had presented on 12/08/2018 with recurrence of pain in association with cellulitis/abscess of the right upper arm soft tissues. This was the same site as his previous abscess, which reportedly was not involving the bone. It showed gradual improvement on antibiotic therapy after spontaneous drainage. However, his treatment during that time had remained on hold. He then had further evaluation with CT scans of the chest, abdomen, and pelvis on 01/25/2019. 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 There appear to be associated nondisplaced lateral acetabular margin pathologic fracture. He was referred to Dr. Navarro, and he was then given radiation to the left hip, completed on 02/19/2019 to a total dose of 3000 cGy. On 04/19/2019 he restarted systemic therapy with carfilzomib and dexamethasone in combination with daratumumab. He tolerated his initial day 1/day 2 treatment well, and he was then able to continue his treatment on schedule other than he had to skip his day 16 carfilzomib injection due to bad weather. He began cycle 2 on 05/18/2019. He has been tolerating treatment with acceptable toxicity, though his treatment was complicated by a hospitalization for influenza A. He has had uneventful recovery. He continued with his 3rd cycle of treatment on 06/22/2019, and with that cycle the frequency of the daratumumab infusions was reduced to every 2 weeks. He continued to complain of significant left hip pain. He was given additional radiation to that area, completed on 07/12/2019 to a total dose of 3000 cGy. During that time he had developed significant diarrhea. A specific cause was not determined. His stool had tested negative for C. difficile. The diarrhea subsequently improved on symptomatic management. As of 07/20/2019 he continued with cycle 4 of daratumumab/carfilzomib/dexamethasone. At that point he was showing evidence of response, and he also appeared to be showing improvement in his clinical status. He continue with his 5th cycle of treatment on 08/17/2019. He seems to tolerate the treatment very well. He continues to have fairly marginal performance status. Recently that has been related more to back pain, as his hip pain did improve significantly following the additional radiation. Thus far there has been no obvious progression of the myeloma. Plan: He will continue with cycle 6 of daratumumab/carfilzomib/dexamethasone. The dosages remains the same. He will return for treatment weekly. He will be scheduled for a follow-up visit in 4 weeks. At that point he will be due to have the frequency of the daratumumab infusions reduced to every 4 weeks. Signed By: Rosendo Rodriges M.D. <<Signature on File>>
== END 2019-09-14 06:14 | disposition home or self-care (01) ==
LOC: ONCMED 06:15
PROVIDERS: Visit Provider Internal Medicine Medical Oncology
DX: Z51.12 Encounter for antineoplastic immunotherapy (principal); Z51.11 Encounter for antineoplastic chemotherapy; C90.00 Multiple myeloma not having achieved remission; M89.9 Disorder of bone, unspecified; Z92.3 Personal history of irradiation; E11.9 Type 2 diabetes mellitus without complications; K21.9 Gastro-esophageal reflux disease without esophagitis; I10 Essential (primary) hypertension
CPT/HCPCS: 96367; 96413; 96415; 96417; 99214; J1100; J1200; J2405; J7040; J9047; J9145

== ENCOUNTER 2019-09-21 11:10 | Outpatient (CLI) | payer MEDICARE, MEDICAID, SELFPAY ==
[2019-09-21] MEDS: acetaminophen 325 mg Tablet 650 MG PO (12:20)
[2019-09-21] MEDS: dexamethasone 20 MG in sodium chloride 0.9% 50 ML 188 MG IV (12:37)
[2019-09-21] MEDS: sodium chloride 0.9% 250 ML 999 ML IV (13:30)
== END 2019-09-21 11:11 | disposition home or self-care (01) ==
LOC: ONCMED 11:14
PROVIDERS: Internal Medicine; Visit Provider Internal Medicine Medical Oncology
DX: Z51.12 Encounter for antineoplastic immunotherapy (principal); Z51.11 Encounter for antineoplastic chemotherapy; C90.00 Multiple myeloma not having achieved remission; I10 Essential (primary) hypertension; E11.42 Type 2 diabetes mellitus with diabetic polyneuropathy; K21.9 Gastro-esophageal reflux disease without esophagitis; M19.90 Unspecified osteoarthritis, unspecified site; Z92.3 Personal history of irradiation; Z79.52 Long term (current) use of systemic steroids
CPT/HCPCS: 84403; 96367; 96413; J1100; J1200; J2405; J7050; J9047

== ENCOUNTER 2019-09-28 10:46 | Outpatient (CLI) | payer MEDICARE, MEDICAID, SELFPAY ==
[2019-09-28] MEDS: acetaminophen 325 mg Tablet 650 MG PO (11:37)
[2019-09-28] MEDS: dexamethasone 20 MG in sodium chloride 0.9% 50 ML 188 MG IV (11:56)
[2019-09-28] MEDS: sodium chloride 0.9% 500 ML 999 ML IV (12:31)
== END 2019-09-28 10:47 | disposition home or self-care (01) ==
LOC: ONCMED 10:48
PROVIDERS: Visit Provider Internal Medicine Medical Oncology
DX: Z51.12 Encounter for antineoplastic immunotherapy (principal); Z51.11 Encounter for antineoplastic chemotherapy; C90.00 Multiple myeloma not having achieved remission; M89.9 Disorder of bone, unspecified; E11.9 Type 2 diabetes mellitus without complications; K21.9 Gastro-esophageal reflux disease without esophagitis; I10 Essential (primary) hypertension; M19.90 Unspecified osteoarthritis, unspecified site; I80.9 Phlebitis and thrombophlebitis of unspecified site; J30.9 Allergic rhinitis, unspecified; Z92.3 Personal history of irradiation; Z79.899 Other long term (current) drug therapy
CPT/HCPCS: 96367; 96413; 96415; 96417; J1100; J1200; J2405; J7040; J9047; J9145

== ENCOUNTER 2019-10-12 11:53 | Outpatient (CLI) | payer MEDICARE, MEDICAID, SELFPAY ==
[2019-10-12] MEDS: sodium chloride 0.9% 500 ML 999 ML IV (13:00)
[2019-10-12] MEDS: acetaminophen 325 mg Tablet 650 MG PO (13:05)
[2019-10-12] MEDS: dexamethasone 20 MG in sodium chloride 0.9% 50 ML 188 MG IV (13:26)
--- NOTE | 2019-10-18 15:07 | ONC FU_ITS ---
[facility] Patient Note Patient: Hal Canchola Unit #: [id number]: 1960 Dictated By: Diandra NunnDate of Visit: Oct 12, 2019 Onc MED Follow-Up/Prog Note Chief Complaint: Myeloma. 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 He had presented with pain in the right arm. His x-ray on 05/12/13 showed a large expansile lytic lesion in the midshaft of humeral diaphysis. He was referred to see Dr. Arrieta in [place], [place]. Further work up included laboratory analysis on 05/23/13 that showed normal hemoglobin at 12.4 g/dL, mild renal insufficiency with BUN 26 and creatinine of 1.2, normal albumin at 3.9, and normal calcium at 9.6. His skeletal bone survey showed no additional lesions on 05/26/13. Biopsy of the right humeral lesion on 05/31/13 revealed plasma cell neoplasm, kappa restricted. He was first seen here on 06/16/13. His protein electrophoresis studies showed 1.79 g of IgG kappa. His bone marrow biopsy on 06/17/13 revealed 3% plasma cells, 5-10% CD138 positive cells by flow. Cytogenetic analysis showed two population of cells. First population comprising 10% showed loss of 1q, additional material on 20q, and trisomy of chromosomes 3, 5, 7, 9, 11 and 15. FISH panel revealed gain of 9q, 11q, 15q, and 17q. He had no iron storage. Radiation therapy to the arm lesion began on 3/10/14. In the midst of all of his radiation treatment, short of about 2 fractions, the patient sustained a mechanical fall and landed on the affected arm, sustaining significant fracture. He required surgery on 08/09/2013. Despite of the radiation therapy, his follow up plasmacytoma studies on 09/01/2013 showed further increase of M protein to 2.5 g/dL, IgG 3460, serum free light chain ratio increased to 35. He had mild anemia with hemoglobin of 11 g/dL. His creatinine was 1.1. with calcium 9. Induction chemotherapy with VCd regimen (Velcade, Cytoxan and dexamethasone) began on 09/12/13. He had a positive response to the treatment, and after 6 cycles of therapy cytoxan was dropped from the regimen. The patient completed a total of 8 cycles of treatment with a very good response. On 04/11/2014 he underwent high-dose melphalan followed by an autologous stem cell transplantation. On 07/14/14 he underwent a day 100 post transplant bone marrow biopsy at [facility] with residual disease. IgG kappa M protein 0.77 g/dL. Maintenance single agent Revlimid therapy was recommended, but the patient ultimately decided against it for a variety of reasons, including concerns over completing REMS questionnaire over the phone and privacy issues. Maintenance with single agent Velcade every 2 weeks for 2 years was recommended. Cycle 1 began on 09/11/14. Baseline IgG 0.94 g/dL. The patient received Velcade therapy up until 04/10/2015. He required a dose reduction to 1 mg/m??? every 2 weeks due to progressive peripheral neuropathy. He again developed recurrent cramps and pruritis in the legs, which occurred after restarting Velcade. Given recurrent peripheral neuropathy, Velcade therapy was discontinued. M protein remained stable at 0.84 g/dL on 05/01/2015. As he had measurable disease, single agent Ixazomib began on 05/21/15 at a standard dosage of 4 mg weekly on days 1, 8,and 15 of each 28 day cycle. As of his follow-up visit in November 2015 his M protein was stable, and he was tolerating treatment well. He began cycle 9 of ixazomib on 01/02/2016. He had also continued Zometa infusions every 3 months for the lytic bone involvement. The protein electrophoresis studies from 01/22/2016 did show slight increase in his kappa free light chain, but there was no change in the M protein or in the 24-hour urine monoclonal protein excretion. On 02/03/2016 he was admitted to the hospital with cellulitis associated with a diabetic foot ulceration. His repeat protein electrophoresis studies from 03/04/2016 showed a further increase in the kappa free light chain to 15.9 mg/dL compared to 7.26 mg/dL in January and to 4 0.7 mg/dL in November 2015. The M protein at that point had also increased, to 1.11 g/dL compared to 0.81 g/dL in January. The 24-hour urine at that time showed a total protein excretion of 2226 mg with 2.3% monoclonal protein. That was not significantly changed. His subsequent protein electrophoresis studies remained stable. As of 12/11/2016 the M protein had increased only slightly, to 1.30 g/dL with his kappa free light chain stable at 12.8 mg/dL. His 24-hour urine protein electrophoresis showed a total monoclonal protein excretion of 32 mg. Skeletal survey on 10/09/2016 showed probable old healed pathologic fracture deformity of the right mid humeral diaphysis and probable additional old healed pathologic fracture of the distal left fibular diaphysis. There were findings consistent with advanced neuropathic arthropathy of the feet. There were no other lytic bone lesions. As of 01/08/2017 there was further increase in the M protein level to 1.50 g/dL, but his repeat protein electrophoresis on 02/11/2017 showed no significant change in the M protein. He continued treatment with single agent ixazomib. As of his follow-up visit on 03/18/2017 his M protein had shown a significant increase, up to 1.93 g/dL compared to 1.50 g/dL in December 2016. His blood counts at that point remained stable. His skeletal survey as of 02/11/2017 showed no active bone lesions. However, as it was evident that his disease was progressing, Dr Rodriges did have him stop his treatment. He had subsequently reported development a chest wall mass. A noncontrast chest CT on 03/27/2017 showed evidence of a lytic expansile lesion of the anterior left fifth rib with an adjacent soft tissue mass. He was then referred to Dr. Navarro and he underwent radiation to the chest wall lesion, completed on 05/12/2017 to a total dose of 4000 cGy. He tolerated the treatment well. During this time he had also developed a lump on his forehead. Head CT on 06/18/2017 showed bifrontal and anterior ethmoid sinus soft tissue abnormality suggestive of mass and associated with mucocele expansion of the right frontal sinus and lytic bony erosive changes. Reported differential diagnosis included primary sinus neoplasm or extraosseous myeloma. Also noted was midline frontal scalp soft tissue mass secondary to erosion of the anterior wall frontal sinus. There was also apparent erosion of the floor of the anterior cranial fossa by the component of the mass in the ethmoid sinus. His laboratory studies from 06/22/2017 included CBC showing a decline in his hemoglobin to 10.4 g with white blood cell count 5100 and platelet count 253,000. Chem profile showed borderline renal function with BUN 25 and creatinine 1.44 mg/dL. Calcium was normal 9.7 mg/dL. Serum protein electrophoresis showed increase in his M protein to 3.43 g/dL. The 24-hour urine monoclonal protein excretion was 102 mg. He was then given radiation to the frontal bone, completed on 07/27/2017 to a total dose of 3600 cGy. His other medical illnesses include hypertension, type II diabetes, GERD, degenerative arthritis, and androgen deficiency. He had smoked in the past but quit more than 20 years ago. INTERIM HISTORY: On 07/06/2017 he began 3rd line treatment with daratumumab in combination with Revlimid and dexamethasone. It was initiated at a reduced dosage of Revlimid, 15 mg daily on a 21/28 day schedule. He was able to continue the daratumumab infusions weekly with no apparent toxicity. He completed his 8th weekly infusion on 08/26/2017. During that time he required a reduction in the Revlimid dosage to 10 mg. He also started monthly denosumab injections. Beginning on 09/09/2017 the frequency of his daratumumab infusions was increased to every 2 weeks. As of 12/23/2017 he completed his 8th dose of daratumumab at the 2-week dosing interval. His repeat protein electrophoresis on 01/21/2018 showed only a faint monoclonal protein band. The free light chain assay showed his kappa free light chain decreased to 1.19 mg/dL with kappa/lambda ratio normal at 0.9754. Beginning on 01/25/2018 he continued his daratumumab infusions at the 4-week dosing interval. During his time he had on his own accord adjusted his Revlimid schedule to a 14 days on/14 days off schedule because of throat swelling and spasms. The Revlimid dosage was then changed to 5 mg daily. In December 2017 he had presented with increased pain and swelling in his upper right arm. A PET/CT on 01/09/2018 showed improvement compared to the previous study from June 2017. Numerous hypermetabolic osseous lesions had become sclerotic with nearly negligible FDG uptake, consistent with a positive response to therapy. Hypermetabolic lymph nodes in the mediastinum were subcentimeter in size and FDG negative. He was referred back to his orthopedic surgeon in [place], where he underwent I & D of an abscess on 01/19/2018. It apparently was not involving the bone. In the absence of any evidence of progression of his myeloma, he continued treatment with daratumumab, Revlimid, and dexamethasone, but he opted to change the Revlimid to the previous schedule of 10 mg daily for 14 days of a 28 day schedule. As of his follow-up visit on 09/15/2018 there was no evidence of progression of the myeloma. Prior to that visit, though, he had opted to stop the Revlimid and the dexamethasone. He did receive his scheduled daratumumab infusion. During his further follow-up, he required additional surgery on his left foot, and he also required prolonged antibiotic therapy. He continued treatment with daratumumab and dexamethasone. As of October 2018 there was no increase in the serum monoclonal protein and no significant change in the kappa free light chain. The protein electrophoresis studies from 12/01/2018 again showed no change in the serum monoclonal protein. The free light chain assay did show a significant increase in the kappa free light chain, to 7.67 mg/L, but the lambda light chain also had increased such that the kappa/lambda ratio remained normal at 0.85. Dr Rodriges had seen him for a scheduled visit on 12/08/2018. At that time he had developed pain, redness, and swelling at the site of his previous abscess in the upper right arm. He was having fever and chills. The clinical picture was consistent with recurrent cellulitis or abscess. His treatment was put on hold, and he restarted IV antibiotic coverage with Rocephin. At about day 2 or 3 he developed spontaneous drainage of purulent material. Cultures from both the blood and subsequently from the exudate were negative. After the spontaneous drainage, he was transitioned to oral antibiotic therapy. During subsequent follow-up he had ongoing problems with the cellulitis and other issues, and he was not able to restart treatment. He had further evaluation with CT scans of the chest, abdomen, and pelvis on 01/25/2019. The most significant finding was the presence of progressive lytic myelomatous lesions of the left ischium and superior acetabular structures with probable nondisplaced pathologic fracture of the left acetabular margin. At that point he had developed significant pain in the left hip and left leg. He was referred to Dr. Navarro for additional radiation. He completed treatment to the left hip on 03/02/2019, total dose 3000 cGy. On 04/19/2019 he restarted systemic therapy with carfilzomib and dexamethasone in combination with daratumumab. He tolerated his initial day 1/day 2 treatment well, and he was then able to continue his treatment on schedule other than he missed his day 16 carfilzomib injection due to bad weather. He began cycle 2 on 05/18/2019. At that point the carfilzomib was adjusted to weekly dosing, and he was able to complete his day 1, day 8, and day 15 treatments with no adverse effects. He was then hospitalized with influenza A. He returned on 06/08/2023 for his day 22 treatment, limited just to the daratumumab, and that did complete his 8th weekly daratumumab infusion. He continued with his 3rd cycle of treatment on 06/22/2019, and with that cycle the frequency of the daratumumab infusions was reduced to every 2 weeks. During that time he had continued to complain of significant left hip pain. He was given additional radiation to that area, completed on 07/12/2019 to a total dose of 3000 cGy. As of 07/20/2019 he began cycle 4 of daratumumab/carfilzomib, and dexamethasone. Mr Canchola is here today for followup. He is due for cycle 7 day 1 carfilzomib. He also begins monthly daratumumab today as well. He states overall he is doing about the same energy roca. He is eating okay. He is having more pain in the right shoulder and right hip/lower back area. He also notes that there is a tender spot on his scalp that is a knot that has been there but is now becoming more tender and he thinks it is growing some. It is on the right posterior side of his scalp. He denies any fever or chills. He has had no nausea or vomiting. He states his bowels and bladder are normal for him. He denies any neuropathy that is worsening- his baseline is stable. His ECOG is 2. Past Medical History: Allergic rhinitis Diabetes Gastroesophageal reflux Hypertension Hypoganadism Osteoarthritis Phlebitis Past Surgical History: Toe amputation x2 in 2018 Autologus stem cell transplant-[facility] in 2013 Biopsy in 2013 - [facility] Ankle Surgery in 2011 Skin Graft in 1995 - Right [place] July 2013, placed pin in right arm Allergies: Aparna, Claritin, Insulin (any type), Morphine Sulfate, and OxyCODONE HCl. Medications: Acyclovir 1 (400 mg) Tablet Oral b.i.d. Amaryl (4 mg) Tablet Oral b.i.d. Aspirin 2 Tablet (of 81 mg) Tablet, enteric coated Oral daily Benadryl 2 (25 mg) Tablet Oral four times a day PRN Clotrimazole-Betamethasone Cream Topical PRN Depo-Testosterone (200 mg/mL) Intramuscular q 2 weeks Dilaudid 1 Tablet (of 8 mg) Oral q 3 hours PRN Glucophage 1 Tablet (of 850 mg) Oral t.i.d. Invokana 1 (100 mg) Tablet Oral daily Januvia 1 (100 mg) Tablet Oral daily Lasix 1 Tablet (of 20 mg) Oral daily Lisinopril 1 Tablet (of 2.5 mg) Oral daily Lyrica 1 (75 mg) Capsule Oral daily Mucinex (600 mg) Tablet SR 12 HR Oral b.i.d. Prandin 2 Tablet (of 2 mg) Tablet Oral t.i.d. Protonix 1 - 2 Tablet (of 20 mg) Tablet, enteric coated Oral daily Victoza 1.8 mg Subcutaneous daily Family History: Mr. Canchola's mother is alive. Mr. Canchola's father at age 64: Myelomas Cancer. Mr. Canchola has 2 brothers: 2 alive. Mr. Canchola's first brother's renal pelvis and ureter cancer. Another brother's cancer history consists of Colon cancer. Social History: Mr. Canchola is single and he is an on disability. Mr. Canchola quit smoking 20 years ago but had smoked for 5 years. He has indicated exposure to the following products: cigars. Mr. Canchola reports the following support systems: lives alone, lives in own house, and supportive family/friends willing to assist with needs. His diet consists of regular meals. He indicates his activity level as: daily activities. Patient smoked 3 to 4 Cigars a day for 5 years. Review Of Symptoms: Constitutional Denies fevers, chills, night sweats, excessive fatigue or weight loss. Fatigue is unchanged. Nodule on right side of head that is now tender. Allergic/Immunologic No reactions. Eyes Denies significant visual changes. No diplopia. No amaurosis. ENMT Denies changes in hearing, sore throat, mouth sores, difficulty or changes in swallowing ability, and/or sinus drainage. Hematologic/Lymphatic Denies easy bruising or bleeding. The patient denies any tender or palpable lymph nodes. Respiratory Denies worsening dyspnea on exertion, chest pain, cough or hemoptysis. Denies orthopnea. Cardiovascular Denies anginal chest pain, palpitations or orthopnea. Gastrointestinal Denies nausea, vomiting, diarrhea, GI bleeding, or constipation. Denies change in bowel habits and/or stool color, no heartburn or early satiety. Genitourinary (M) Denies hematuria, dysuria, increased frequency, urgency, hesitancy or incontinence. Musculoskeletal Denies joint pain, swelling or redness. No decreased range of motion. Integumentary Denies chronic rashes, inflammation, ulcerations or skin changes. Neurologic Denies headache, blurred vision, and no areas of focal weakness or numbness. Normal gait. No sensory problems. Psychiatric Denies insomnia, depression, jacqueline or mood swings. Vital Signs: Performed on Oct 12, 2019 12:13 Height - 72.00 in Weight - 290.6 lbs (LOW) BSA - 2.50 sq.m BMI - 39.41 (HIGH) Temperature - 97.2 F (LOW) Pulse - 109 /min (HIGH) Respiration - 20 /min BP - 147/69 mm(hg) (HIGH) O2 Sat - 99 % Pain - 8,2 - Ambulatory/capable of all self-care, unable to perform any work activities. Up and about more than 50% of waking hours. (ECOG) Physical Examination: Constitutional Alert, oriented, no acute distress. Skin pink, warm and dry. Head Normocephalic; atraumatic. There is a nodule on the right side mid to posterior area that is semi firm-no exudate or skin breakdown. It is not red or hot. Eyes Conjunctivae and sclerae are clear and without icterus. Pupils are reactive and equal. Neck Supple without masses or thyromegaly. No jugular venous distension. Hematologic/Lymphatic No petechiae or purpura. No tender or palpable lymph nodes in the cervical or supraclavicular areas. Respiratory Lungs are clear to auscultation without rhonchi or wheezing. Cardiovascular Regular rate and rhythm of heart without murmurs,clicks, gallops or rubs. Abdomen Non-tender, non-distended, no masses or ascites. Good bowel sounds noted in all quads. No guarding or rebound tenderness. No pulsatile masses. Back/Spine Non-tender to palpation. Extremities No visible deformities, no cyanosis, clubbing or edema. Musculoskeletal No tenderness or swelling, normal range of motion without obvious weakness. Integumentary No rashes or lesions. Psychiatric Alert and oriented times three. Coherent speech. Verbalizes understanding of our discussions today. Impression: 1. Patient with stage II, standard risk multiple myeloma and a large destructive plasmacytoma in the right humerus with associated pathological fracture. He underwent palliative radiation therapy and surgical repair of his arm. 2. Despite treatment he had a further progression of his M protein, and he was found to have hyperdiploid cytogenetics on bone marrow biopsy. 3. Induction chemotherapy with Velcade, Cytoxan, and Decadron began on 09/12/13. After 6 cycles of induction therapy cyclophosphamide was stopped, and he continued with Velcade and Decadron for 8 cycles. 4. On 04/11/2014 he underwent high-dose melphalan followed by an autologous stem cell transplantation. Post transplant bone marrow biopsy revealed residual disease. 5. He declined maintenance Revlimid therapy. Maintenance treatment with Velcade 1.3 mg/m2 sc every 2 weeks for 2 years began on 09/11/14. 6. He had progressive preexistent peripheral neuropathy. His dose was adjusted at 1 mg/m??? subcutaneously every 2 weeks, but he developed progressive neuropathy with pruritus. Velcade therapy was discontinued. His M protein level at that point was stable at 0.84 g/dL. 7. A trial of ixazomib 4 mg weekly on days 1, 8, and 15 of 28 day cycle began on 05/21/15. His other medical illnesses include: 8. Hypertension. 9. Type II diabetes. 10. GERD. 11. Degenerative arthritis. 12. Androgen deficiency. He had evidence of some response to the ixazomib. As of his follow-up visit in January 2016 his M protein had increased somewhat, but it then stabilized. During subsequent follow-up, the M protein had increased very gradually. However, between December and March 2017 there was a significant increase, from 1.50 g/dL to 1.93 g/dL. He had then presented with a mass in left chest wall. His chest CT showed an area of lytic involvement with associated soft tissue mass, consistent with myeloma. He underwent radiation to the involved area, completed on 05/12/2017 to a total dose of 4000 cGy. He then developed a new lump in his forehead. Head CT showed bifrontal and anterior ethmoid sinus soft tissue abnormality suggestive of mass as well as midline frontal scalp soft tissue mass secondary to erosion of the anterior wall frontal sinus. Overall, the findings were consistent with involvement with myeloma, and his laboratory studies also were indicative of significant further progression of his M protein. He was given radiation to the frontal bone, completed on 07/27/2017 to a total dose of 3600 cGy. He then began 3rd line treatment with daratumumab in combination with Revlimid and dexamethasone. He completed 8 weekly infusions of daratumumab, which he tolerated well, though he did require a reduction in the Revlimid dosage to 10 mg. He also started monthly injections of denosumab for the lytic bone involvement. As of 09/09/2017 the frequency of the daratumumab infusions was increased to every 2 weeks. As of 12/23/2017 he had completed 8 infusions at that interval. Beginning on 01/25/2018 he continued daratumumab at the 4-week dosing interval. During this time he had opted to adjust his Revlimid to a 14 days on/14 days off schedule due to throat swelling and spasms, and his Revlimid dosage was then further reduced to 5 mg daily on a / day schedule. As of January 2018 his protein electrophoresis showed just a faint M band compared to a pretreatment M protein level of 3.43 g/dL. In December 2017 he presented with increased pain and swelling in his upper right arm. His repeat PET/CT showed significant response to treatment compared to the June 2017 study. 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 On 01/19/2018 he underwent incision/drainage of an abscess, which apparently was not involving the bone. He had an open wound at that site, but it has gradually healed. In the absence of any evidence of progression of the myeloma, he continued treatment with daratumumab, Revlimid, and dexamethasone. He has limited the Revlimid to 14 days each month because it does seem to cause some swelling in his throat. 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 During that time he required a prolonged course of antibiotic therapy with Rocephin. He has been able to continue treatment with daratumumab in combination with Revlimid and dexamethasone with no evidence of progression of the myeloma. He had been having increasing side effects with the Revlimid, and he opted to stop both the Revlimid and dexamethasone 6 weeks ago. During subsequent follow-up he had improvement in some symptoms, though his activity had been further limited due to his left foot problems. He was having more diarrhea, but that he had attributed to his antibiotic. As of his follow-up in October 2018 there was no evidence of progression of the myeloma. He had presented on 12/08/2018 with recurrence of pain in association with cellulitis/abscess of the right upper arm soft tissues. This was the same site as his previous abscess, which reportedly was not involving the bone. It showed gradual improvement on antibiotic therapy after spontaneous drainage. However, his treatment during that time had remained on hold. He then had further evaluation with CT scans of the chest, abdomen, and pelvis on 01/25/2019. 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 There appear to be associated nondisplaced lateral acetabular margin pathologic fracture. He was referred to Dr. Navarro, and he was then given radiation to the left hip, completed on 02/19/2019 to a total dose of 3000 cGy. On 04/19/2019 he restarted systemic therapy with carfilzomib and dexamethasone in combination with daratumumab. He tolerated his initial day 1/day 2 treatment well, and he was then able to continue his treatment on schedule other than he had to skip his day 16 carfilzomib injection due to bad weather. He began cycle 2 on 05/18/2019. He has been tolerating treatment with acceptable toxicity, though his treatment was complicated by a hospitalization for influenza A. He has had uneventful recovery. He continued with his 3rd cycle of treatment on 06/22/2019, and with that cycle the frequency of the daratumumab infusions was reduced to every 2 weeks. He continued to complain of significant left hip pain. He was given additional radiation to that area, completed on 07/12/2019 to a total dose of 3000 cGy. During that time he had developed significant diarrhea. A specific cause was not determined. His stool had tested negative for C. difficile. The diarrhea subsequently improved on symptomatic management. As of 07/20/2019 he continued with cycle 4 of daratumumab/carfilzomib/dexamethasone. At that point he was showing evidence of response, and he also appeared to be showing improvement in his clinical status. He has since then remained stable clinically. He has began having more pain in his Right hip/back area as well as the right shoulder. He is also reporting a lesion on his scalp that is tender and growing Plan: 1. Proceed with cycle 7 day 1 of daratumumab/carfilzomib/dexamethasone. The dosages remains the same. The carfilzomib is day 1, 8 & 15. The daratumumab is every four weeks. 2. Continue current premeds as he is tolerating them well and is not having any infusion reactions. 3. Labs from 2019 were reviewed in detail and discussed with Mr. Canchola and a copy was given to him. WBC 5.5, hemoglobin 11.8, platelets 222,000, ANC is 3300 potassium 5.1 random glucose 282 creatinine 1.1. Calcium is 9.3. LFTs are normal. 4. Continue current pain management. He is taking Dilaudid 8 mg every 4-6 hours as needed pain. His last prescription was on 09/14/2019 at which time the quantity was written for 120 tablets. 5. I have request CT scan of his head-looking a nodule on his calvarium. I will also repeat CT of the chest abdomen pelvis for further evaluation of bone pain. He cannot have a PET CT due to his hyperglycemia. He request to have these done at [facility] so we will need to make sure they have copies of the disc of any CTs done at [facility]. 7. We will plan to have him return for cycle 7-day 8 carfilzomib and dexamethasone in 1 week and again in 2 weeks at which time he will be due for followup to review CT scans and re evaluate pain. 8. Mr. Canchola is instructed to contact us in the interim should questions or problems arise. 9. Bone involvement: Mr Canchola received denosumab last on 08/24/2019. He is scheduled to receive it monthly. We will tentatively plan on administering that with his followup visit in [address] scans are obtained and his pain is re evaluated. Signed By: Diandra Nunn-, AOCNP Rosendo Rodriges MD <<Signature on File>>
== END 2019-10-12 11:54 | disposition home or self-care (01) ==
LOC: ONCMED 11:56
PROVIDERS: Visit Provider Nurse Practitioner
DX: Z51.12 Encounter for antineoplastic immunotherapy (principal); C90.00 Multiple myeloma not having achieved remission; M89.9 Disorder of bone, unspecified; E11.9 Type 2 diabetes mellitus without complications; K21.9 Gastro-esophageal reflux disease without esophagitis; I10 Essential (primary) hypertension; M19.90 Unspecified osteoarthritis, unspecified site; Z92.3 Personal history of irradiation
CPT/HCPCS: 96367; 96413; 96415; 96417; 99214; J1100; J1200; J2405; J7040; J9047; J9145

== ENCOUNTER 2019-10-19 11:33 | Outpatient (CLI) | payer MEDICARE, MEDICAID, SELFPAY ==
[2019-10-19] MEDS: acetaminophen 325 mg Tablet 650 MG PO (12:50)
[2019-10-19] MEDS: sodium chloride 0.9% 500 ML 999 ML IV (12:51)
[2019-10-19] MEDS: dexamethasone 20 MG in sodium chloride 0.9% 50 ML 188 MG IV (12:51)
[2019-10-19] MEDS: denosumab 120 mg SDV SUBCUT (14:00)
== END 2019-10-19 11:34 | disposition home or self-care (01) ==
LOC: ONCMED 11:38
PROVIDERS: Visit Provider Nurse Practitioner
DX: Z51.11 Encounter for antineoplastic chemotherapy (principal); C90.00 Multiple myeloma not having achieved remission; M89.9 Disorder of bone, unspecified; Z92.3 Personal history of irradiation; J30.9 Allergic rhinitis, unspecified; E11.9 Type 2 diabetes mellitus without complications; K21.9 Gastro-esophageal reflux disease without esophagitis; I10 Essential (primary) hypertension; E29.1 Testicular hypofunction; I80.9 Phlebitis and thrombophlebitis of unspecified site
CPT/HCPCS: 96367; 96372; 96413; J0897; J1100; J1200; J2405; J7040; J9047

== ENCOUNTER 2019-10-26 11:04 | Outpatient (CLI) | payer MEDICARE, MEDICAID, SELFPAY ==
--- NOTE | 2019-10-26 | CT_ITS ---
Radiation Therapy Planning CT images; total exam DLP: 2230.10 mGy-cm MTDD
[2019-10-26] MEDS: acetaminophen 325 mg Tablet 650 MG PO (12:30)
[2019-10-26] MEDS: sodium chloride 0.9% 500 ML 999 ML IV (12:50)
[2019-10-26] MEDS: dexamethasone 20 MG in sodium chloride 0.9% 50 ML 188 MG IV (12:59)
--- NOTE | 2019-10-26 18:15 | ONCRAD EPV_ITS ---
Radiation Oncology Established Patient Visit Patient: Betsy MR#: [id number] : 1960 Age: 59 Sex: Male Dictated by: Dr. Sreekanth Munoz Date of Service: 10/26/2019 Referring Physician(s) : Rosendo Rodriges M.D. Diagnosis: M89.9 - Disorder of bone, unspecified, Diagnosed 06/10/2016 (Active) C90.00 - Multiple myeloma not having achieved remission, Diagnosed 01/30/2015 (Active) Radiotherapy to Date: Course: C2, Treatment Site: LT [id number]_40GY, Ref. ID: PTV Lt Rib, Energy: 15X, Dose/Fx (cGy): 200, #Fx: 20 / 20, Dose Correction (cGy): 0, Total Dose (cGy): 4,000, Start Date: 04/14/2017, End Date: 05/12/2017, Elapsed Days: 28 Treatment Site: FRONTAL BRAIN [id number], Ref. ID: [email or web address], Energy: 6X, Dose/Fx (cGy): 180, #Fx: 20 / 20, Dose Correction (cGy): 0, Total Dose (cGy): 3,600, Start Date: 06/30/2017, End Date: 07/27/2017, Elapsed Days: 27 Treatment Site: RT ARM, Ref. ID: RT ARM, Energy: 15X/6X, Dose/Fx (cGy): 200, #Fx: 14 / 25, Dose Correction (cGy): 1,000, Total Dose (cGy): 2,800, Start Date: 06/22/2013, End Date: 07/11/2013, Elapsed Days: 19 Treatment Site: RT ARM, Ref. ID: RT ARM BOOST, Energy: 15X/6X, Dose/Fx (cGy): 200, #Fx: 5 / 11, Dose Correction (cGy): 0, Total Dose (cGy): 1,000, Start Date: 07/12/2013, End Date: 07/18/2013, Elapsed Days: 6 Treatment Site: RT ARM, Ref. ID: RT ARM, Energy: 6X, Dose/Fx (cGy): 200, #Fx: 4 / 6, Dose Correction (cGy): 1,000, Total Dose (cGy): 800, Start Date: 08/01/2013, End Date: 08/04/2013, Elapsed Days: 3 Treatment Site: LT Hip 30Gy, Ref. ID: [email or web address], Energy: 15X, Dose/Fx (cGy): 300, #Fx: , Dose Correction (cGy): 0, Total Dose (cGy): 3,000, Start Date: 02/17/2019, End Date: 03/02/2019, Elapsed Days: 13 Treatment Site: LT Hip 2020, Ref. ID: [id number], Energy: 15X, Dose/Fx (cGy): 250, #Fx: , Dose Correction (cGy): 0, Total Dose (cGy): 3,000, Start Date: 06/27/2019, End Date: 07/12/2019, Elapsed Days: 15 Current History: The patient is a 59-year-old male with multiple myeloma with significant back pain. His most recent CT of the chest abdomen pelvis (10/24/2019) revealed a 7.8 x 6.8 cm right paraspinal mass invading into the L1 vertebral body with mass-effect on the adjacent right kidney. Furthermore, the patient has extensive bony lesions consistent with a history of myeloma coupled with several bilateral pulmonary nodules (largest measuring 8 mm) with a recommendation for a follow-up CT of the chest in 3 months. The patient is well-known in our radiation oncology center and he has received multiple radiation treatments. Today in consultation the patient reports back pain, right groin pain, right arm pain, and bilateral hip pain (right greater than left). Current Medications: Acetaminophen, acyclovir, acyclovir, aloxi, amaryl, aspirin, ativan, benadryl, benadryl, carfilzomib, cefTRIAXone Sodium, clotrimazole-Betamethasone, clotrimazole-Betamethasone, compazine, daratumumab, depo-Testosterone, dexamethasone, dexamethasone Sodium Phosphate, diclofenac Sodium, dilaudid, dilaudid, diphenhydrAMINE HCl, first-Mouthwash BLM, glucophage, hYDROmorphone HCl, invokana, januvia, keflex, lasix, lisinopril, lisinopril, lomotil, lyrica, mucinex, qmeyzqan-Udknpawcu-KE, ondansetron HCl, pantoprazole Sodium, pepcid, prandin, protonix, revlimid, sodium Chloride, victoza. Allergies: Aparna, Insulin (any type), Claritin, Morphine Sulfate and OxyCODONE HCl. Current Complaints / Review of Systems: Constitutional - Complains of severe fatigue. Complains of fever has had one off and on that started on Thursday and has not had one since Thursday. THe highest it got was 101.0. Complains of night sweats and day sweats. Denies lack of appetite. Head - Has a knot that is on the right side of the head that is tender to the touch. Eyes - Denies blurred vision and double vision. ENMT - Complains of problems with hearing in both ears. Complains of tinnitus. Denies dysphagia, ear pain, mouth dryness, stomatitis and altered taste. Neck - Complains of neck pain. Denies decreased range of motion. Integumentary - Denies rash. Cardiovascular - Denies arrhythmias, chest pain and edema. Respiratory - Complains of cough occasionally. Complains of dyspnea associated with normal activity. Complains of wheezing had some the other day but no longer present. Gastrointestinal - Complains of occasional constipation. Complains of intermittent diarrhea. Complains of heartburn / dyspepsia. Denies abdominal pain, melena / GI bleeding, nausea and vomiting. Genitourinary (M) - Complains of incontinence occasionally and nocturia gets up about 1 to 2 times per night. Denies dysuria, frequency and urgency. Musculoskeletal - Complains of moderate bone pain in the right upper arm and lower back, and inside the groin on the right side. Complains of joint pain both hips and back. Complains of muscle weakness. Complains of decreased range of motion in the right arm. Neurologic - Denies dizziness and headaches. Endocrine - Complains of Type 2 diabetes. Denies thyroid disease. Hematologic/Lymphatic - Denies tender or enlarged lymph nodes.. Vital Signs: Performed on 10/26/2019 11:13 AM Height - 72.00 in, Weight - 299.0 lbs (high), BSA - 2.53 sq.m, BMI - 40.55 (high), Temperature - 97.3 f (low), Pulse - 100 /min, Respiration - 26 /min, O2 Sat - 100 %, Pain - 10 and BP - 119/ 73 mm(hg). Physical Exam: General: Alert and oriented x 3. No acute distress. HEENT: Normocephalic, atraumatic. Extraocular Movements Intact: Pupils Equal, Round, Reactive to Light and Accommodation: Sclerae anicteric. Oral cavity is clear without lesions, masses or ulcers. NECK: Supple without supraclavicular or jugular lymphadenopathy. LUNGS: Clear to auscultation bilaterally without rales, rhonchi or wheeze. HEART: Regular rate and rhythm, normal S1 and S2 without murmur, gallop or rub. MUSCULOSKELETAL: No tenderness or percussion pain over the axial skeleton, scapulae or pelvis. ABDOMEN: Soft, nontender, nondistended without masses or organomegaly. Bowell sounds are present. EXTREMITIES: No peripheral edema is identified. NEUROLOGIC: Cranial nerves II ???XII are grossly intact Performance Status: 3 - Capable of only limited self-care, confined to bed or chair more than 50% of waking hours. (ECOG) Lab: None pending. Test performed on 08/01/2019 10:55 AM Manual Segs - 0.02 % (low), Test performed on 10/05/2019 8:36 AM HGB - 11.8 g/dl (low), MCHC - 31.9 g/dl (low), RDW - 15.7 % (high), Cr Clearance (Est) - 131.19 ml/min (high), Sodium - 134 mmol/l (low), Pettibone / Lambda Ratio - 4.23 absolute value (high), IGA - 13 mg/dl (low), IGG - 694 mg/dl (low) and IGM - 14 mg/dl (low). Imaging: See HPI Impression: The patient is a 59-year-old male with symptomatic multiple myeloma not having achieved remission who has back pain and a 7.8 x 6.8 cm right paraspinal mass causing mass-effect on the right kidney and erosion into the L1 vertebral body. I reviewed the patient's prior plans of radiation therapy and there is no current overlap with our current plan to treat the right paraspinal mass to 30 Gy in 10 fractions. An IMRT technique will be medically necessary to reduce toxicity risks to the right kidney. Furthermore, we will attempt to sculpt the radiation dose such that the spinal cord/canal will not receive greater than 20 Gy in 10 fractions. The purpose of this, is to allow future radiation treatment to the lumbar spine as needed without associated spinal cord complication risks of retreatment. This is reasonable if a future prescription dose of 20 Gy/10 fractions or less is utilized to the L-spine. We will begin treatment planning today. Following completion of his palliative radiation therapy, he will return to Dr. Rodriges for further systemic therapy as clinically indicated. Signed by: 10/26/2019 6:14:17 PM <<Signature on File>> CPT Code: CPT Code:
--- NOTE | 2019-10-30 12:07 | ONC FU_ITS ---
Dr. Rodriges Patient Follow-Up Note Patient: Hal Canchola Unit #: [id number]: 1960 Dicatated By: Rosendo Rodriges M.D.Date of Visit:Oct 26, 2019 Onc Med Follow-up/Prog Note Chief Complaint: Myeloma. 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 He had presented with pain in the right arm. His x-ray on 05/12/13 showed a large expansile lytic lesion in the midshaft of humeral diaphysis. He was referred to see Dr. Arrieta in [place], [place]. Further work up included laboratory analysis on 05/23/13 that showed normal hemoglobin at 12.4 g/dL, mild renal insufficiency with BUN 26 and creatinine of 1.2, normal albumin at 3.9, and normal calcium at 9.6. His skeletal bone survey showed no additional lesions on 05/26/13. Biopsy of the right humeral lesion on 05/31/13 revealed plasma cell neoplasm, kappa restricted. He was first seen here on 06/16/13. His protein electrophoresis studies showed 1.79 g of IgG kappa. His bone marrow biopsy on 06/17/13 revealed 3% plasma cells, 5-10% CD138 positive cells by flow. Cytogenetic analysis showed two population of cells. First population comprising 10% showed loss of 1q, additional material on 20q, and trisomy of chromosomes 3, 5, 7, 9, 11 and 15. FISH panel revealed gain of 9q, 11q, 15q, and 17q. He had no iron storage. Radiation therapy to the arm lesion began on 06/20/13. In the midst of all of his radiation treatment, short of about 2 fractions, the patient sustained a mechanical fall and landed on the affected arm, sustaining significant fracture. He required surgery on 08/09/2013. Despite of the radiation therapy, his follow up plasmacytoma studies on 09/01/2013 showed further increase of M protein to 2.5 g/dL, IgG 3460, serum free light chain ratio increased to 35. He had mild anemia with hemoglobin of 11 g/dL. His creatinine was 1.1. with calcium 9. Induction chemotherapy with VCd regimen (Velcade, Cytoxan and dexamethasone) began on 09/12/13. He had a positive response to the treatment, and after 6 cycles of therapy cytoxan was dropped from the regimen. The patient completed a total of 8 cycles of treatment with a very good response. On 04/11/2014 he underwent high-dose melphalan followed by an autologous stem cell transplantation. On 07/14/14 he underwent a day 100 post transplant bone marrow biopsy at [facility] with residual disease. IgG kappa M protein 0.77 g/dL. Maintenance single agent Revlimid therapy was recommended, but the patient ultimately decided against it for a variety of reasons, including concerns over completing REMS questionnaire over the phone and privacy issues. Maintenance with single agent Velcade every 2 weeks for 2 years was recommended. Cycle 1 began on 09/11/14. Baseline IgG 0.94 g/dL. The patient received Velcade therapy up until 04/10/2015. He required a dose reduction to 1 mg/m??? every 2 weeks due to progressive peripheral neuropathy. He again developed recurrent cramps and pruritis in the legs, which occurred after restarting Velcade. Given recurrent peripheral neuropathy, Velcade therapy was discontinued. M protein remained stable at 0.84 g/dL on 05/01/2015. As he had measurable disease, single agent Ixazomib began on 05/21/15 at a standard dosage of 4 mg weekly on days 1, 8,and 15 of each 28 day cycle. As of his follow-up visit in November 2015 his M protein was stable, and he was tolerating treatment well. He began cycle 9 of ixazomib on 01/02/2016. He had also continued Zometa infusions every 3 months for the lytic bone involvement. The protein electrophoresis studies from 01/22/2016 did show slight increase in his kappa free light chain, but there was no change in the M protein or in the 24-hour urine monoclonal protein excretion. On 02/03/2016 he was admitted to the hospital with cellulitis associated with a diabetic foot ulceration. His repeat protein electrophoresis studies from 03/04/2016 showed a further increase in the kappa free light chain to 15.9 mg/dL compared to 7.26 mg/dL in January and to 4 0.7 mg/dL in November 2015. The M protein at that point had also increased, to 1.11 g/dL compared to 0.81 g/dL in January. The 24-hour urine at that time showed a total protein excretion of 2226 mg with 2.3% monoclonal protein. That was not significantly changed. His subsequent protein electrophoresis studies remained stable. As of 12/11/2016 the M protein had increased only slightly, to 1.30 g/dL with his kappa free light chain stable at 12.8 mg/dL. His 24-hour urine protein electrophoresis showed a total monoclonal protein excretion of 32 mg. Skeletal survey on 10/09/2016 showed probable old healed pathologic fracture deformity of the right mid humeral diaphysis and probable additional old healed pathologic fracture of the distal left fibular diaphysis. There were findings consistent with advanced neuropathic arthropathy of the feet. There were no other lytic bone lesions. As of 01/08/2017 there was further increase in the M protein level to 1.50 g/dL, but his repeat protein electrophoresis on 02/11/2017 showed no significant change in the M protein. He continued treatment with single agent ixazomib. As of his follow-up visit on 03/18/2017 his M protein had shown a significant increase, up to 1.93 g/dL compared to 1.50 g/dL in December 2016. His blood counts at that point remained stable. His skeletal survey as of 02/11/2017 showed no active bone lesions. However, as it was evident that his disease was progressing, I did have him stop his treatment. He had subsequently reported development a chest wall mass. A noncontrast chest CT on 03/27/2017 showed evidence of a lytic expansile lesion of the anterior left fifth rib with an adjacent soft tissue mass. He was then referred to Dr. Navarro and he underwent radiation to the chest wall lesion, completed on 05/12/2017 to a total dose of 4000 cGy. He tolerated the treatment well. During this time he had also developed a lump on his forehead. Head CT on 06/18/2017 showed bifrontal and anterior ethmoid sinus soft tissue abnormality suggestive of mass and associated with mucocele expansion of the right frontal sinus and lytic bony erosive changes. Reported differential diagnosis included primary sinus neoplasm or extraosseous myeloma. Also noted was midline frontal scalp soft tissue mass secondary to erosion of the anterior wall frontal sinus. There was also apparent erosion of the floor of the anterior cranial fossa by the component of the mass in the ethmoid sinus. His laboratory studies from 06/22/2017 included CBC showing a decline in his hemoglobin to 10.4 g with white blood cell count 5100 and platelet count 253,000. Chem profile showed borderline renal function with BUN 25 and creatinine 1.44 mg/dL. Calcium was normal 9.7 mg/dL. Serum protein electrophoresis showed increase in his M protein to 3.43 g/dL. The 24-hour urine monoclonal protein excretion was 102 mg. He was then given radiation to the frontal bone, completed on 07/27/2017 to a total dose of 3600 cGy. His other medical illnesses include hypertension, type II diabetes, GERD, degenerative arthritis, and androgen deficiency. He had smoked in the past but quit more than 20 years ago. INTERIM HISTORY: On 07/06/2017 he began 3rd line treatment with daratumumab in combination with Revlimid and dexamethasone. It was initiated at a reduced dosage of Revlimid, 15 mg daily on a 21/28 day schedule. He was able to continue the daratumumab infusions weekly with no apparent toxicity. He completed his 8th weekly infusion on 08/26/2017. During that time he required a reduction in the Revlimid dosage to 10 mg. He also started monthly denosumab injections. Beginning on 09/09/2017 the frequency of his daratumumab infusions was increased to every 2 weeks. As of 12/23/2017 he completed his 8th dose of daratumumab at the 2-week dosing interval. His repeat protein electrophoresis on 01/21/2018 showed only a faint monoclonal protein band. The free light chain assay showed his kappa free light chain decreased to 1.19 mg/dL with kappa/lambda ratio normal at 0.9754. Beginning on 01/25/2018 he continued his daratumumab infusions at the 4-week dosing interval. During his time he had on his own accord adjusted his Revlimid schedule to a 14 days on/14 days off schedule because of throat swelling and spasms. The Revlimid dosage was then changed to 5 mg daily. In December 2017 he had presented with increased pain and swelling in his upper right arm. A PET/CT on 01/09/2018 showed improvement compared to the previous study from June 2017. Numerous hypermetabolic osseous lesions had become sclerotic with nearly negligible FDG uptake, consistent with a positive response to therapy. Hypermetabolic lymph nodes in the mediastinum were subcentimeter in size and FDG negative. He was referred back to his orthopedic surgeon in [place], where he underwent I & D of an abscess on 01/19/2018. It apparently was not involving the bone. In the absence of any evidence of progression of his myeloma, he continued treatment with daratumumab, Revlimid, and dexamethasone, but he opted to change the Revlimid to the previous schedule of 10 mg daily for 14 days of a 28 day schedule. As of his follow-up visit on 09/15/2018 there was no evidence of progression of the myeloma. Prior to that visit, though, he had opted to stop the Revlimid and the dexamethasone. He did receive his scheduled daratumumab infusion. During his further follow-up, he required additional surgery on his left foot, and he also required prolonged antibiotic therapy. He continued treatment with daratumumab and dexamethasone. As of October 2018 there was no increase in the serum monoclonal protein and no significant change in the kappa free light chain. The protein electrophoresis studies from 12/01/2018 again showed no change in the serum monoclonal protein. The free light chain assay did show a significant increase in the kappa free light chain, to 7.67 mg/L, but the lambda light chain also had increased such that the kappa/lambda ratio remained normal at 0.85. I had seen him for a scheduled visit on 12/08/2018. At that time he had developed pain, redness, and swelling at the site of his previous abscess in the upper right arm. He was having fever and chills. The clinical picture was consistent with recurrent cellulitis or abscess. His treatment was put on hold, and I had him restart IV antibiotic coverage with Rocephin. At about day 2 or 3 he developed spontaneous drainage of purulent material. Cultures from both the blood and subsequently from the exudate were negative. After the spontaneous drainage, he was transitioned to oral antibiotic therapy. During subsequent follow-up he had ongoing problems with the cellulitis and other issues, and he was not able to restart treatment. He had further evaluation with CT scans of the chest, abdomen, and pelvis on 01/25/2019. The most significant finding was the presence of progressive lytic myelomatous lesions of the left ischium and superior acetabular structures with probable nondisplaced pathologic fracture of the left acetabular margin. At that point he had developed significant pain in the left hip and left leg. He was referred to Dr. Navarro for additional radiation. He completed treatment to the left hip on 03/02/2019, total dose 3000 cGy. On 04/19/2019 he restarted systemic therapy with carfilzomib and dexamethasone in combination with daratumumab. He tolerated his initial day 1/day 2 treatment well, and he was then able to continue his treatment on schedule other than he missed his day 16 carfilzomib injection due to bad weather. He began cycle 2 on 05/18/2019. At that point the carfilzomib was adjusted to weekly dosing, and he was able to complete his day 1, day 8, and day 15 treatments with no adverse effects. He was then hospitalized with influenza A. He returned on 06/08/2023 for his day 22 treatment, limited just to the daratumumab, and that did complete his 8th weekly daratumumab infusion. He continued with his 3rd cycle of treatment on 06/22/2019, and with that cycle the frequency of the daratumumab infusions was reduced to every 2 weeks. During that time he had continued to complain of significant left hip pain. He was given additional radiation to that area, completed on 07/12/2019 to a total dose of 3000 cGy. He continued with cycle 4 of daratumumab/carfilzomib/dexamethasone on 07/20/2019, with cycle 5 on 08/17/2019, with cycle 6 on 09/14/2019, and with cycle 7 on 10/12/2019. Restaging CT scans of the chest, abdomen, and pelvis on 10/24/2019 showed small, noncalcified pulmonary nodules in both upper lobes and a tiny right pleural effusion. The liver showed no significant pathology. A mass was noted along the right paraspinal region measuring 7.8 x 7.6 cm. There was associated invasion of the contiguous L1 vertebral body and there was some mass-effect on the adjacent right kidney. There was noted to be incomplete healing of comminuted fractures involving the left acetabular region and there were extensive inhomogeneous lytic and sclerotic bony lesions throughout the visualized skeleton. He is seen for a follow-up visit. He is at day 15 of cycle 7. He has not been feeling good. He recently was having fever intermittently, up to 101 degrees. He says he had become incoherent with the fever, though does seem to have resolved now. He complains that his right arm has been giving him fits, and he is wondering if it has not gotten infected again. He has limited activity. His ECOG score is 3. Appetite is not as good. He says that he sweats continually. He does not complain of shortness of breath and he has just occasional cough. He has not been having chest pain. He has no GI complaints other than his bowels are occasionally a little loose. He has no complaints. He has been having pain in his right shoulder and arm. He has been having pain in the small of his back, and he also has been having pain in his right groin, near the right testicle. He has numbness/tingling in his feet. Medications: Acyclovir 1 (400 mg) Tablet Oral b.i.d., Amaryl (4 mg) Tablet Oral b.i.d., Aspirin 2 Tablet (of 81 mg) Tablet, enteric coated Oral daily, Benadryl 2 (25 mg) Tablet Oral four times a day PRN, Clotrimazole-Betamethasone Cream Topical PRN, Depo-Testosterone (200 mg/mL) Intramuscular q 2 weeks, Dilaudid 1 Tablet (of 8 mg) Oral q 3 hours PRN, Glucophage 1 Tablet (of 850 mg) Oral t.i.d., Invokana 1 (100 mg) Tablet Oral daily, Januvia 1 (100 mg) Tablet Oral daily, Lasix 1 Tablet (of 20 mg) Oral daily, Lisinopril 1 Tablet (of 2.5 mg) Oral daily, Lyrica 1 (75 mg) Capsule Oral daily, Mucinex (600 mg) Tablet SR 12 HR Oral b.i.d., Prandin 2 Tablet (of 2 mg) Tablet Oral t.i.d., Protonix 1 - 2 Tablet (of 20 mg) Tablet, enteric coated Oral daily, Victoza 1.8 mg Subcutaneous daily Allergies: Aparna, Claritin, Insulin (any type), Morphine Sulfate, and OxyCODONE HCl. Review of Systems: Constitutional - He has very limited activity. His appetite is not as good. His weight is back up. He has been having intermittent low fevers and he sweats continuously. ECOG score is 3, ENMT - He has chronic sinus drainage. No mouth sores. No sore throat or difficulty swallowing, Hematologic/Lymphatic - No abnormal bruising or bleeding, Respiratory - No shortness of breath. He has occasional cough. No pleuritic pain or hemoptysis, Cardiovascular - No angina pain. No palpitations, Gastrointestinal - No nausea or vomiting. He has acid reflux. No diarrhea or constipation. No blood in the stool or black stools, Genitourinary (M) - No dysuria or hematuria. He has some urinary frequency. No urgency or incontinence, Musculoskeletal - His right arm is giving him fits. He also has pain in the small of his back, and he has pain in the right groin area, Integumentary - No new skin ulcerations, but he has developed redness in the area of his previous right shoulder/arm surgery, Neurologic - No headache. He occasionally has dizziness. His neuropathy is unchanged. No other focal neurologic symptoms, Psychiatric - No anxiety or depression. He sometimes has difficulty sleeping, Constitutional - Complains of severe fatigue. Complains of fever has had one off and on that started on Thursday and has not had one since Thursday. THe highest it got was 101.0. Complains of night sweats and day sweats. Denies lack of appetite, Head - Has a knot that is on the right side of the head that is tender to the touch, Eyes - Denies blurred vision and double vision, ENMT - Complains of problems with hearing in both ears. Complains of tinnitus. Denies dysphagia, ear pain, mouth dryness, stomatitis and altered taste, Neck - Complains of neck pain. Denies decreased range of motion, Integumentary - Denies rash, Cardiovascular - Denies arrhythmias, chest pain and edema, Respiratory - Complains of cough occasionally. Complains of dyspnea associated with normal activity. Complains of wheezing had some the other day but no longer present, Gastrointestinal - Complains of occasional constipation. Complains of intermittent diarrhea. Complains of heartburn / dyspepsia. Denies abdominal pain, melena / GI bleeding, nausea and vomiting, Genitourinary (M) - Complains of incontinence occasionally and nocturia gets up about 1 to 2 times per night. Denies dysuria, frequency and urgency, Musculoskeletal - Complains of moderate bone pain in the right upper arm and lower back, and inside the groin on the right side. Complains of joint pain both hips and back. Complains of muscle weakness. Complains of decreased range of motion in the right arm, Neurologic - Denies dizziness and headaches, Endocrine - Complains of Type 2 diabetes. Denies thyroid disease, Hematologic/Lymphatic - Denies tender or enlarged lymph nodes. Vital Signs: Performed on Oct 26, 2019 15:14 Height - 72.00 in Weight - 299.0 lbs Temperature - 97.3 F Pulse - 100 Respiration - 26 BP - 119/73 mm(hg) O2 Sat - 100 % Pain - 10 Performed on Oct 26, 2019 15:14 BMI - 40.552 kg/m2 (HIGH) Performed on Oct 26, 2019 11:13 Height - 72.00 in Weight - 299.0 lbs (HIGH) BSA - 2.53 sq.m BMI - 40.55 (HIGH) Temperature - 97.3 F (LOW) Pulse - 100 /min Respiration - 26 /min BP - 119/73 mm(hg) O2 Sat - 100 % Pain - 10 Physical Examination: Constitutional - He appears generally weak and he is diffusely diaphoretic, Eyes - Sclerae nonicteric. Conjunctivae clear, ENMT - No lesions noted in the oral cavity, Hematologic/Lymphatic - No cervical, clavicular, or axillary adenopathy, Respiratory - Lungs sound clear with diminished air movement bilaterally, Cardiovascular - Heart rhythm is regular. There is a II/ systolic murmur. There is no gallop or rub noted, Abdomen - Mildly distended. Liver and spleen are not enlarged. There is no abdominal mass or ascites noted and there is no inguinal adenopathy, Extremities - There are venous stasis changes bilaterally. There is no edema, Integumentary - There is erythema in the area of his incisional scars in the upper right arm/right shoulder. The area is not particularly warm to touch, Neurologic - No focal neurologic deficits noted. Impression: 1. Patient with stage II, standard risk multiple myeloma and a large destructive plasmacytoma in the right humerus with associated pathological fracture. He underwent palliative radiation therapy and surgical repair of his arm. 2. Despite treatment he had a further progression of his M protein, and he was found to have hyperdiploid cytogenetics on bone marrow biopsy. 3. Induction chemotherapy with Velcade, Cytoxan, and Decadron began on 09/12/13. After 6 cycles of induction therapy cyclophosphamide was stopped, and he continued with Velcade and Decadron for 8 cycles. 4. On 04/11/2014 he underwent high-dose melphalan followed by an autologous stem cell transplantation. Post transplant bone marrow biopsy revealed residual disease. 5. He declined maintenance Revlimid therapy. Maintenance treatment with Velcade 1.3 mg/m2 sc every 2 weeks for 2 years began on 09/11/14. 6. He had progressive preexistent peripheral neuropathy. His dose was adjusted at 1 mg/m??? subcutaneously every 2 weeks, but he developed progressive neuropathy with pruritus. Velcade therapy was discontinued. His M protein level at that point was stable at 0.84 g/dL. 7. A trial of ixazomib 4 mg weekly on days 1, 8, and 15 of 28 day cycle began on 05/21/15. His other medical illnesses include: 8. Hypertension. 9. Type II diabetes. 10. GERD. 11. Degenerative arthritis. 12. Androgen deficiency. He had evidence of some response to the ixazomib. As of his follow-up visit in January 2016 his M protein had increased somewhat, but it then stabilized. During subsequent follow-up, the M protein had increased very gradually. However, between December and March 2017 there was a significant increase, from 1.50 g/dL to 1.93 g/dL. He had then presented with a mass in left chest wall. His chest CT showed an area of lytic involvement with associated soft tissue mass, consistent with myeloma. He underwent radiation to the involved area, completed on 05/12/2017 to a total dose of 4000 cGy. He then developed a new lump in his forehead. Head CT showed bifrontal and anterior ethmoid sinus soft tissue abnormality suggestive of mass as well as midline frontal scalp soft tissue mass secondary to erosion of the anterior wall frontal sinus. Overall, the findings were consistent with involvement with myeloma, and his laboratory studies also were indicative of significant further progression of his M protein. He was given radiation to the frontal bone, completed on 07/27/2017 to a total dose of 3600 cGy. He then began 3rd line treatment with daratumumab in combination with Revlimid and dexamethasone. He completed 8 weekly infusions of daratumumab, which he tolerated well, though he did require a reduction in the Revlimid dosage to 10 mg. He also started monthly injections of denosumab for the lytic bone involvement. As of 09/09/2017 the frequency of the daratumumab infusions was increased to every 2 weeks. As of 12/23/2017 he had completed 8 infusions at that interval. Beginning on 01/25/2018 he continued daratumumab at the 4-week dosing interval. During this time he had opted to adjust his Revlimid to a 14 days on/14 days off schedule due to throat swelling and spasms, and his Revlimid dosage was then further reduced to 5 mg daily on a 21/ day schedule. As of January 2018 his protein electrophoresis showed just a faint M band compared to a pretreatment M protein level of 3.43 g/dL. In December 2017 he presented with increased pain and swelling in his upper right arm. His repeat PET/CT showed significant response to treatment compared to the June 2017 study. 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 On 01/19/2018 he underwent incision/drainage of an abscess, which apparently was not involving the bone. He had an open wound at that site, but it has gradually healed. In the absence of any evidence of progression of the myeloma, he continued treatment with daratumumab, Revlimid, and dexamethasone. He has limited the Revlimid to 14 days each month because it does seem to cause some swelling in his throat. 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 During that time he required a prolonged course of antibiotic therapy with Rocephin. He has been able to continue treatment with daratumumab in combination with Revlimid and dexamethasone with no evidence of progression of the myeloma. He had been having increasing side effects with the Revlimid, and he opted to stop both the Revlimid and dexamethasone 6 weeks ago. During subsequent follow-up he had improvement in some symptoms, though his activity had been further limited due to his left foot problems. He was having more diarrhea, but that he had attributed to his antibiotic. As of his follow-up in October 2018 there was no evidence of progression of the myeloma. He had presented on 12/08/2018 with recurrence of pain in association with cellulitis/abscess of the right upper arm soft tissues. This was the same site as his previous abscess, which reportedly was not involving the bone. It showed gradual improvement on antibiotic therapy after spontaneous drainage. However, his treatment during that time had remained on hold. He then had further evaluation with CT scans of the chest, abdomen, and pelvis on 01/25/2019. 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 There appear to be associated nondisplaced lateral acetabular margin pathologic fracture. He was referred to Dr. Navarro, and he was then given radiation to the left hip, completed on 02/19/2019 to a total dose of 3000 cGy. On 04/19/2019 he restarted systemic therapy with carfilzomib and dexamethasone in combination with daratumumab. He tolerated his initial day 1/day 2 treatment well, and he was then able to continue his treatment on schedule other than he had to skip his day 16 carfilzomib injection due to bad weather. He began cycle 2 on 05/18/2019. He has been tolerating treatment with acceptable toxicity, though his treatment was complicated by a hospitalization for influenza A. He has had uneventful recovery. He continued with his 3rd cycle of treatment on 06/22/2019, and with that cycle the frequency of the daratumumab infusions was reduced to every 2 weeks. He continued to complain of significant left hip pain. He was given additional radiation to that area, completed on 07/12/2019 to a total dose of 3000 cGy. During that time he had developed significant diarrhea. A specific cause was not determined. His stool had tested negative for C. difficile. The diarrhea subsequently improved on symptomatic management. As of 07/20/2019 he continued with cycle 4 of daratumumab/carfilzomib/dexamethasone. At that point he was showing evidence of response, and he also appeared to be showing improvement in his clinical status. As of 10/12/2019 he appeared stable clinically, and he began his 7th cycle of treatment. However, his restaging CT scans on 10/24/2019 showed evidence of disease progression with development of a new mass in the right paraspinous region. There was associated invasion of the contiguous L1 vertebral body and there was compression of the adjacent right kidney. He is having more pain now and he recently has been having fever. He also is showing decline in his performance status. Plan: He will continue with his cycle 7-day 15 carfilzomib, but I will not be planning further treatment with this regimen, as he does appear to be showing disease progression. It is a concern that the progression was not evident in his protein electrophoresis studies from September. As the paraspinous mass is symptomatic, he will see be seen by the radiation oncologist today for additional palliative radiation. I will plan to see him again when the radiation is completed. Signed By: Rosendo Rodriges M.D. <<Signature on File>>
== END 2019-10-26 11:05 | disposition home or self-care (01) ==
LOC: ONCMED 11:07
PROVIDERS: Visit Provider Internal Medicine Medical Oncology
DX: Z51.11 Encounter for antineoplastic chemotherapy (principal); C90.00 Multiple myeloma not having achieved remission; G89.3 Neoplasm related pain (acute) (chronic); I10 Essential (primary) hypertension; E11.9 Type 2 diabetes mellitus without complications; K21.9 Gastro-esophageal reflux disease without esophagitis; M19.90 Unspecified osteoarthritis, unspecified site; Z92.3 Personal history of irradiation; Z79.899 Other long term (current) drug therapy
CPT/HCPCS: 96367; 96413; 99214; J1100; J1200; J2405; J7040; J9047

== ENCOUNTER 2019-11-10 06:04 | Outpatient (RCR) | payer MEDICARE, MEDICAID, SELFPAY ==
--- NOTE | 2019-11-01 15:49 | ONCRAD TMN_ITS ---
Radiation Oncology Weekly Treatment Management Patient: Hal Canchola MR#: [id number] : 1960> Age: 59> Sex: Male Dictated by: Dr. Sreekanth Munoz Date of Service: 11/01/2019 Referring Physician(s) : Rosendo Rodriges M.D. Diagnosis: M89.9 - Disorder of bone, unspecified, Diagnosed 06/10/2016 (Active) C90.00 - Multiple myeloma not having achieved remission, Diagnosed 01/30/2015 (Active) Radiotherapy to date: Course: RT Mass 2019, Treatment Site: RT mass 10FX, Ref. ID: [id number], Energy: 15X, Dose/Fx (cGy): 300, #Fx: , Dose Correction (cGy): 0, Total Dose (cGy): 1,200, Start Date: 10/27/2019, Elapsed Days: 5 Interim history: The patient reports that his low back pain has improved. He still has severe pain in his right shoulder and right upper arm and the patient believes that it is due to an infection. He awaits results from a CT completed at an outside facility. Current Medications: Acetaminophen, acyclovir, acyclovir, aloxi, amaryl, aspirin, ativan, benadryl, benadryl, carfilzomib, cefTRIAXone Sodium, clotrimazole-Betamethasone, clotrimazole-Betamethasone, compazine, daratumumab, depo-Testosterone, dexamethasone, dexamethasone Sodium Phosphate, diclofenac Sodium, dilaudid, dilaudid, diphenhydrAMINE HCl, first-Mouthwash BLM, glucophage, hYDROmorphone HCl, invokana, januvia, keflex, lasix, lisinopril, lisinopril, lomotil, lyrica, mucinex, [id number]-[id number]-VJ, ondansetron HCl, pantoprazole Sodium, pepcid, prandin, protonix, revlimid, sodium Chloride, victoza. Allergies: Aparna, Insulin (any type), Claritin, Morphine Sulfate and OxyCODONE HCl. Current Complaints/Review of Systems: Constitutional - Complains of lack of appetite. Complains of severe fatigue. Denies fever, night sweats and change in weight. Gastrointestinal - Complains of heartburn / dyspepsia and pain / cramping in which he had some yesterday. Denies abdominal pain, constipation, diarrhea, melena / GI bleeding, nausea and vomiting. Genitourinary (M) - Complains of nocturia gets up about 2 to 4 per night. Denies dysuria, frequency and urgency. Musculoskeletal - Has pain in the lower back but is improving. Has severe right shoulder and upper arm pain,. Vital Signs: Performed on 11/01/2019 1:41 PM BMI - 41.122 kg/m2 (high), Height - 72.00 in, Weight - 303.2 lbs, Temperature - 97.4 f, Pulse - 91, Respiration - 20, O2 Sat - 96 %, Pain - 6 and BP - 108/ 68 mm(hg). Physical Exam: Appears stable, no skin erythema or desquamation. Lungs are clear to auscultation. Performance Status: 3 - Capable of only limited self-care, confined to bed or chair more than 50% of waking hours. (ECOG) Lab: None pending in Radiation Oncology. Test performed on 08/01/2019 10:55 AM Manual Segs - 0.02 % (low), Test performed on 10/05/2019 8:36 AM HGB - 11.8 g/dl (low), MCHC - 31.9 g/dl (low), RDW - 15.7 % (high), Cr Clearance (Est) - 131.19 ml/min (high), Sodium - 134 mmol/l (low), [place] / Lambda Ratio - 4.23 absolute value (high), IGA - 13 mg/dl (low), IGG - 694 mg/dl (low) and IGM - 14 mg/dl (low). Imaging: All radiation therapy related imaging (including but not limited to kV, MV, and CBCT generated images) was reviewed. Appropriate changes, if any, were made to assure accurate target localization. Impression/Plan: Tolerating treatment well with expected side effects. Continue treatment as planned. CPT: 48521 Signed by: Dr. Sreekanth Munoz>11/01/2019 3:47:36 PM <<Signature on File>>
[2019-11-07] MEDS: cefTRIAXone 1,000 MG in sodium chloride 0.9% (plus) 50 ML 100 MG IV (15:15)
[2019-11-07] MEDS: sodium chloride 0.9% 500 ML 999 ML IV (15:15)
[2019-11-07 15:32] LABS: Basophils % 0.3 %; Eosinophils # 0.1 10^3/uL (0.0-0.8); Eosinophils % 1.1 %; Hematocrit 33.9 % (42.0-52.0); Hemoglobin 10.1 g/dL (11.7-16.6); Lymphocytes # 0.5 10^3/uL (0.8-4.8); Lymphocytes % 8.2 %; Mean Corpuscular HGB Conc 29.8 g/dL (30.0-36.0); Mean Corpuscular Hemoglobin 27.5 pg (28.0-34.0); Mean Corpuscular Volume 92.4 fL (80-94); Mean Platelet Volume 10.3 fL (7.4-10.4); Monocytes # 0.4 10^3/uL (0.2-0.9); Monocytes % 5.9 %; Neutrophils # 5.42 10^3/uL (1.8-7.7); Neutrophils % 84.2 %; Nucleated Red Blood Cells % 0 %; Platelet Count 218 10^3/cmm (130-400); Red Blood Count 3.67 10^6/uL (4.1-5.3); Red Cell Distribution Width 16.4 % (12.1-15.1); White Blood Count 6.4 10^3/uL (4.0-10.0)
[2019-11-07 16:24] LABS: Alanine Aminotransferase 22 U/L (0-41); Albumin Level 3.9 g/dL (3.5-5.2); Alkaline Phosphatase 100 IU/L (40-130); Anion Gap 16.8 (5-19); Aspartate Amino Transferase 17 U/L (0-40); Blood Urea Nitrogen 14 mg/dL (6-20); Calcium 9.3 mg/dL (8.5-10.5); Carbon Dioxide 24 mmol/L (22-29); Chloride 99 mmol/L (98-107); Globulin 2.5 g/dL (1.3-4.6); Glomerular Filtration Rate 98.9 mL/min (90-130); Glucose 218 mg/dL (65-115); Osmolality Calculated 285 mOsm/kg (285-295); Potassium 3.8 mmol/L (3.5-5.1); Sodium 136 mmol/L (136-145); Total Bilirubin 0.4 mg/dL (0.15-1.2); Total Protein 6.4 g/dL (6.6-8.7)
[2019-11-08] MEDS: cefTRIAXone 1,000 MG in sodium chloride 0.9% (plus) 50 ML 100 MG IV (14:45)
[2019-11-08] MEDS: sodium chloride 0.9% 500 ML 999 ML IV (14:45)
--- NOTE | 2019-11-09 12:51 | ONCRAD TMN_ITS ---
Radiation Oncology Weekly Treatment Management Patient: Hal Canchola MR#: [id number] : 1960 Age: 59 Sex: Male Dictated by: Dr. Sreekanth Munoz Date of Service: 11/08/2019 Referring Physician(s) : Rosendo Rodriges M.D. Diagnosis: M89.9 - Disorder of bone, unspecified, Diagnosed 06/10/2016 (Active) C90.00 - Multiple myeloma not having achieved remission, Diagnosed 01/30/2015 (Active) Radiotherapy to date: Course: RT Mass 2019, Treatment Site: RT mass 10FX, Ref. ID: [id number], Energy: 15X, Dose/Fx (cGy): 300, #Fx: 8 10, Dose Correction (cGy): 0, Total Dose (cGy): 2,400, Start Date: 10/27/2019, Elapsed Days: 12 Interval history: The patient is seen today as part of his regularly scheduled weekly on treatment visits. He reports the pain in his back is significantly improved. Furthermore, he is currently on Rocephin due to an infection in his right shoulder. Current Medications: Acetaminophen, acyclovir, acyclovir, aloxi, amaryl, aspirin, ativan, benadryl, benadryl, carfilzomib, cefTRIAXone Sodium, clotrimazole-Betamethasone, clotrimazole-Betamethasone, compazine, daratumumab, depo-Testosterone, dexamethasone, dexamethasone Sodium Phosphate, diclofenac Sodium, dilaudid, dilaudid, diphenhydrAMINE HCl, first-Mouthwash BLM, glucophage, hYDROmorphone HCl, invokana, januvia, keflex, lasix, lisinopril, lisinopril, lomotil, lyrica, mucinex, [id number]-[id number]-[id number], ondansetron HCl, pantoprazole Sodium, pepcid, prandin, protonix, revlimid, sodium Chloride, victoza. Allergies: Aparna, Insulin (any type), Claritin, Morphine Sulfate and OxyCODONE HCl. Current Complaints/Review of Systems: Constitutional - Complains of severe fatigue. Complains of night sweats which occur every night and also during the day. Denies lack of appetite and fever. Gastrointestinal - Complains of diarrhea which is characterized as loose which happened on Thursday and Thursday. Denies abdominal pain, constipation, heartburn / dyspepsia, nausea and vomiting. Genitourinary (M) - Complains of nocturia gets up about 1 time per night. Denies dysuria, frequency and urgency. Musculoskeletal - Complains of bone pain in the lower back which is improving. Vital Signs: Performed on 11/08/2019 2:22 PM BMI - 40.85 kg/m2 (high), Height - 72.00 in, Weight - 301.2 lbs, Temperature - 97.8 f, Pulse - 87, Respiration - 18, O2 Sat - 100 %, Pain - 4, BP - 123/ 73 mm(hg), Performed on 11/08/2019 2:45 PM Height - 72.00 in, Temperature - 97.9 f (low), Pulse - 75 /min, Respiration - 18 /min, O2 Sat - 98 % and BP - 120/ 77 mm(hg). Physical Exam: Appears stable, no skin erythema or desquamation. Performance Status: 3 - Capable of only limited self-care, confined to bed or chair more than 50% of waking hours. (ECOG) Lab: None pending in Radiation Oncology. Imaging: No new diagnostic imaging was performed since the last weekly treatment visit. All radiation therapy related imaging (including but not limited to kV, MV, and CBCT generated images) was reviewed. Appropriate changes, if any, were made to assure accurate target localization. Impression/Plan: Tolerating treatment well with expected side effects. Continue treatment as planned. CPT: 36024 Signed by: Dr. Sreekanth Munoz>11/09/2019 12:49:45 PM <<Signature on File>>
[2019-11-09] MEDS: cefTRIAXone 1,000 MG in sodium chloride 0.9% (plus) 50 ML 100 MG IV (14:10)
[2019-11-09] MEDS: sodium chloride 0.9% 500 ML 999 ML IV (14:35)
[2019-11-10] MEDS: cefTRIAXone 1,000 MG in sodium chloride 0.9% (plus) 50 ML 100 MG IV (12:15)
[2019-11-10] MEDS: sodium chloride 0.9% 500 ML 999 ML IV (12:45)
== END 2019-11-11 23:59 | disposition home or self-care (01) ==
LOC: ONCMED 06:04
PROVIDERS: Visit Provider Nurse Practitioner
DX: Z51.0 Encounter for antineoplastic radiation therapy (principal); C90.00 Multiple myeloma not having achieved remission; G89.3 Neoplasm related pain (acute) (chronic); M86.8X1 Other osteomyelitis, shoulder
CPT/HCPCS: 77300; 77301; 77336; 77338; 77386; 80053; 85025; 87070; 87077; 87186; 96361; 96365; J0696; J7040

== ENCOUNTER 2019-11-14 11:47 | Outpatient (CLI) | payer MEDICARE, MEDICAID, SELFPAY ==
[2019-11-14] MEDS: cefTRIAXone 1,000 MG in sodium chloride 0.9% (plus) 50 ML 100 MG IV ×2 (12:30→13:45)
[2019-11-14] MEDS: sodium chloride 0.9% 500 ML 999 ML IV (12:30)
--- NOTE | 2019-11-18 18:27 | ONC FU_ITS ---
Dr. Rodriges Patient Follow-Up Note Patient: Hal Canchola Unit #: [id number]: [id number] Dicatated By: Rosendo Rodriges M.D.Date of Visit:Nov 14, 2019 Onc Med Follow-up/Prog Note Chief Complaint: Myeloma. 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 He had presented with pain in the right arm. His x-ray on 05/12/13 showed a large expansile lytic lesion in the midshaft of humeral diaphysis. He was referred to see Dr. Arrieta in [place], [place]. Further work up included laboratory analysis on 05/23/13 that showed normal hemoglobin at 12.4 g/dL, mild renal insufficiency with BUN 26 and creatinine of 1.2, normal albumin at 3.9, and normal calcium at 9.6. His skeletal bone survey showed no additional lesions on 05/26/13. Biopsy of the right humeral lesion on 05/31/13 revealed plasma cell neoplasm, kappa restricted. He was first seen here on 06/16/13. His protein electrophoresis studies showed 1.79 g of IgG kappa. His bone marrow biopsy on 06/17/13 revealed 3% plasma cells, 5-10% CD138 positive cells by flow. Cytogenetic analysis showed two population of cells. First population comprising 10% showed loss of 1q, additional material on 20q, and trisomy of chromosomes 3, 5, 7, 9, 11 and 15. FISH panel revealed gain of 9q, 11q, 15q, and 17q. He had no iron storage. Radiation therapy to the arm lesion began on 06/20/13. In the midst of all of his radiation treatment, short of about 2 fractions, the patient sustained a mechanical fall and landed on the affected arm, sustaining significant fracture. He required surgery on 08/09/2013. Despite of the radiation therapy, his follow up plasmacytoma studies on 09/01/2013 showed further increase of M protein to 2.5 g/dL, IgG 3460, serum free light chain ratio increased to 35. He had mild anemia with hemoglobin of 11 g/dL. His creatinine was 1.1. with calcium 9. Induction chemotherapy with VCd regimen (Velcade, Cytoxan and dexamethasone) began on 09/12/13. He had a positive response to the treatment, and after 6 cycles of therapy cytoxan was dropped from the regimen. The patient completed a total of 8 cycles of treatment with a very good response. On 04/11/2014 he underwent high-dose melphalan followed by an autologous stem cell transplantation. On 07/14/14 he underwent a day 100 post transplant bone marrow biopsy at [facility] with residual disease. IgG kappa M protein 0.77 g/dL. Maintenance single agent Revlimid therapy was recommended, but the patient ultimately decided against it for a variety of reasons, including concerns over completing REMS questionnaire over the phone and privacy issues. Maintenance with single agent Velcade every 2 weeks for 2 years was recommended. Cycle 1 began on 09/11/14. Baseline IgG 0.94 g/dL. The patient received Velcade therapy up until 04/10/2015. He required a dose reduction to 1 mg/m??? every 2 weeks due to progressive peripheral neuropathy. He again developed recurrent cramps and pruritis in the legs, which occurred after restarting Velcade. Given recurrent peripheral neuropathy, Velcade therapy was discontinued. M protein remained stable at 0.84 g/dL on 05/01/2015. As he had measurable disease, single agent Ixazomib began on 05/21/15 at a standard dosage of 4 mg weekly on days 1, 8,and 15 of each 28 day cycle. As of his follow-up visit in November 2015 his M protein was stable, and he was tolerating treatment well. He began cycle 9 of ixazomib on 01/02/2016. He had also continued Zometa infusions every 3 months for the lytic bone involvement. The protein electrophoresis studies from 01/22/2016 did show slight increase in his kappa free light chain, but there was no change in the M protein or in the 24-hour urine monoclonal protein excretion. On 02/03/2016 he was admitted to the hospital with cellulitis associated with a diabetic foot ulceration. His repeat protein electrophoresis studies from 03/04/2016 showed a further increase in the kappa free light chain to 15.9 mg/dL compared to 7.26 mg/dL in January and to 4 0.7 mg/dL in November 2015. The M protein at that point had also increased, to 1.11 g/dL compared to 0.81 g/dL in January. The 24-hour urine at that time showed a total protein excretion of 2226 mg with 2.3% monoclonal protein. That was not significantly changed. His subsequent protein electrophoresis studies remained stable. As of 12/11/2016 the M protein had increased only slightly, to 1.30 g/dL with his kappa free light chain stable at 12.8 mg/dL. His 24-hour urine protein electrophoresis showed a total monoclonal protein excretion of 32 mg. Skeletal survey on 10/09/2016 showed probable old healed pathologic fracture deformity of the right mid humeral diaphysis and probable additional old healed pathologic fracture of the distal left fibular diaphysis. There were findings consistent with advanced neuropathic arthropathy of the feet. There were no other lytic bone lesions. As of 01/08/2017 there was further increase in the M protein level to 1.50 g/dL, but his repeat protein electrophoresis on 02/11/2017 showed no significant change in the M protein. He continued treatment with single agent ixazomib. As of his follow-up visit on 03/18/2017 his M protein had shown a significant increase, up to 1.93 g/dL compared to 1.50 g/dL in December 2016. His blood counts at that point remained stable. His skeletal survey as of 02/11/2017 showed no active bone lesions. However, as it was evident that his disease was progressing, I did have him stop his treatment. He had subsequently reported development a chest wall mass. A noncontrast chest CT on 03/27/2017 showed evidence of a lytic expansile lesion of the anterior left fifth rib with an adjacent soft tissue mass. He was then referred to Dr. Navarro and he underwent radiation to the chest wall lesion, completed on 05/12/2017 to a total dose of 4000 cGy. He tolerated the treatment well. During this time he had also developed a lump on his forehead. Head CT on 06/18/2017 showed bifrontal and anterior ethmoid sinus soft tissue abnormality suggestive of mass and associated with mucocele expansion of the right frontal sinus and lytic bony erosive changes. Reported differential diagnosis included primary sinus neoplasm or extraosseous myeloma. Also noted was midline frontal scalp soft tissue mass secondary to erosion of the anterior wall frontal sinus. There was also apparent erosion of the floor of the anterior cranial fossa by the component of the mass in the ethmoid sinus. His laboratory studies from 06/22/2017 included CBC showing a decline in his hemoglobin to 10.4 g with white blood cell count 5100 and platelet count 253,000. Chem profile showed borderline renal function with BUN 25 and creatinine 1.44 mg/dL. Calcium was normal 9.7 mg/dL. Serum protein electrophoresis showed increase in his M protein to 3.43 g/dL. The 24-hour urine monoclonal protein excretion was 102 mg. He was then given radiation to the frontal bone, completed on 07/27/2017 to a total dose of 3600 cGy. His other medical illnesses include hypertension, type II diabetes, GERD, degenerative arthritis, and androgen deficiency. He had smoked in the past but quit more than 20 years ago. INTERIM HISTORY: On 07/06/2017 he began 3rd line treatment with daratumumab in combination with Revlimid and dexamethasone. It was initiated at a reduced dosage of Revlimid, 15 mg daily on a 21/28 day schedule. He was able to continue the daratumumab infusions weekly with no apparent toxicity. He completed his 8th weekly infusion on 08/26/2017. During that time he required a reduction in the Revlimid dosage to 10 mg. He also started monthly denosumab injections. Beginning on 09/09/2017 the frequency of his daratumumab infusions was increased to every 2 weeks. As of 12/23/2017 he completed his 8th dose of daratumumab at the 2-week dosing interval. His repeat protein electrophoresis on 01/21/2018 showed only a faint monoclonal protein band. The free light chain assay showed his kappa free light chain decreased to 1.19 mg/dL with kappa/lambda ratio normal at 0.9754. Beginning on 01/25/2018 he continued his daratumumab infusions at the 4-week dosing interval. During his time he had on his own accord adjusted his Revlimid schedule to a 14 days on/14 days off schedule because of throat swelling and spasms. The Revlimid dosage was then changed to 5 mg daily. In December 2017 he had presented with increased pain and swelling in his upper right arm. A PET/CT on 01/09/2018 showed improvement compared to the previous study from June 2017. Numerous hypermetabolic osseous lesions had become sclerotic with nearly negligible FDG uptake, consistent with a positive response to therapy. Hypermetabolic lymph nodes in the mediastinum were subcentimeter in size and FDG negative. He was referred back to his orthopedic surgeon in [place], where he underwent I & D of an abscess on 01/19/2018. It apparently was not involving the bone. In the absence of any evidence of progression of his myeloma, he continued treatment with daratumumab, Revlimid, and dexamethasone, but he opted to change the Revlimid to the previous schedule of 10 mg daily for 14 days of a 28 day schedule. As of his follow-up visit on 09/15/2018 there was no evidence of progression of the myeloma. Prior to that visit, though, he had opted to stop the Revlimid and the dexamethasone. He did receive his scheduled daratumumab infusion. During his further follow-up, he required additional surgery on his left foot, and he also required prolonged antibiotic therapy. He continued treatment with daratumumab and dexamethasone. As of October 2018 there was no increase in the serum monoclonal protein and no significant change in the kappa free light chain. The protein electrophoresis studies from 12/01/2018 again showed no change in the serum monoclonal protein. The free light chain assay did show a significant increase in the kappa free light chain, to 7.67 mg/L, but the lambda light chain also had increased such that the kappa/lambda ratio remained normal at 0.85. I had seen him for a scheduled visit on 12/08/2018. At that time he had developed pain, redness, and swelling at the site of his previous abscess in the upper right arm. He was having fever and chills. The clinical picture was consistent with recurrent cellulitis or abscess. His treatment was put on hold, and I had him restart IV antibiotic coverage with Rocephin. At about day 2 or 3 he developed spontaneous drainage of purulent material. Cultures from both the blood and subsequently from the exudate were negative. After the spontaneous drainage, he was transitioned to oral antibiotic therapy. During subsequent follow-up he had ongoing problems with the cellulitis and other issues, and he was not able to restart treatment. He had further evaluation with CT scans of the chest, abdomen, and pelvis on 01/25/2019. The most significant finding was the presence of progressive lytic myelomatous lesions of the left ischium and superior acetabular structures with probable nondisplaced pathologic fracture of the left acetabular margin. At that point he had developed significant pain in the left hip and left leg. He was referred to Dr. Navarro for additional radiation. He completed treatment to the left hip on 03/02/2019, total dose 3000 cGy. On 04/19/2019 he restarted systemic therapy with carfilzomib and dexamethasone in combination with daratumumab. He tolerated his initial day 1/day 2 treatment well, and he was then able to continue his treatment on schedule other than he missed his day 16 carfilzomib injection due to bad weather. He began cycle 2 on 05/18/2019. At that point the carfilzomib was adjusted to weekly dosing, and he was able to complete his day 1, day 8, and day 15 treatments with no adverse effects. He was then hospitalized with influenza A. He returned on 06/08/2023 for his day 22 treatment, limited just to the daratumumab, and that did complete his 8th weekly daratumumab infusion. He continued with his 3rd cycle of treatment on 06/22/2019, and with that cycle the frequency of the daratumumab infusions was reduced to every 2 weeks. During that time he had continued to complain of significant left hip pain. He was given additional radiation to that area, completed on 07/12/2019 to a total dose of 3000 cGy. He continued with cycle 4 of daratumumab/carfilzomib/dexamethasone on 07/20/2019, with cycle 5 on 08/17/2019, with cycle 6 on 09/14/2019, and with cycle 7 on 10/12/2019. Restaging CT scans of the chest, abdomen, and pelvis on 10/24/2019 showed small, noncalcified pulmonary nodules in both upper lobes and a tiny right pleural effusion. The liver showed no significant pathology. A mass was noted along the right paraspinal region measuring 7.8 x 7.6 cm. There was associated invasion of the contiguous L1 vertebral body and there was some mass-effect on the adjacent right kidney. There was noted to be incomplete healing of comminuted fractures involving the left acetabular region and there were extensive inhomogeneous lytic and sclerotic bony lesions throughout the visualized skeleton. With CT evidence of disease progression, the daratumumab/carfilzomib/dexamethasone was put on hold following his cycle 7-day 15 treatment. In addition, due to the symptomatic involvement in the right paraspinous region, he was referred for additional palliative radiation. He completed treatment on 11/10/2019 to a total dose of 3000 cGy. Subsequent to his last visit, he had developed an open wound on his upper right arm. He had drainage of purulent material which cultured methicillin sensitive staph aureus. He currently is on treatment with IV Rocephin. After stopping the daratumumab/carfilzomib regimen, I have plan to transition his treatment to pomalidomide/dexamethasone, but thus far his further treatment has been deferred because of the abscess. He has been feeling a little better since he has been on the antibiotic, but he still complains that he is about wore out. His ECOG score is 3. Appetite is so-so. He has not had fever. He has had one recent episode of night sweating. He sometimes has shortness of breath, mainly when he is lying down. He has occasional cough, attributable to a tickle in his throat. He does not complain of chest pain. He says his bowels have been pretty active on the antibiotic. Bladder function is still okay. He has pain in his lower back and left leg. The pain on the right side did improve with the radiation. He has developed some new pain associated with a knot on the right side of his head. Medications: Acyclovir 1 (400 mg) Tablet Oral b.i.d., Amaryl (4 mg) Tablet Oral b.i.d., Aspirin 2 Tablet (of 81 mg) Tablet, enteric coated Oral daily, Benadryl 2 (25 mg) Tablet Oral four times a day PRN, Clotrimazole-Betamethasone Cream Topical PRN, Depo-Testosterone (200 mg/mL) Intramuscular q 2 weeks, Dilaudid 1 Tablet (of 8 mg) Tablet Oral q 3 hours PRN, Glucophage 1 Tablet (of 850 mg) Oral t.i.d., Imodium A-D 1 Tablet (of 2 mg) Oral PRN, Invokana 1 (100 mg) Tablet Oral daily, Januvia 1 (100 mg) Tablet Oral daily, Lasix 1 Tablet (of 20 mg) Oral daily, Lisinopril 1 Tablet (of 2.5 mg) Oral daily, Lyrica 1 (75 mg) Capsule Oral daily, Mucinex (600 mg) Tablet SR 12 HR Oral b.i.d., Prandin 2 Tablet (of 2 mg) Tablet Oral t.i.d., Protonix 1 - 2 Tablet (of 20 mg) Tablet, enteric coated Oral daily, Victoza 1.8 mg Subcutaneous daily Allergies: Aparna, Claritin, Insulin (any type), Morphine Sulfate, and OxyCODONE HCl. Review of Systems: Constitutional - He says he is about or out. His activity remains very limited. Appetite is so-so. He has not had fever. He had one recent episode of night sweating. ECOG score is 3, ENMT - He has sinus drainage. No mouth sores. No sore throat or difficulty swallowing, Hematologic/Lymphatic - He has bruising, Respiratory - He sometimes has shortness of breath, mainly when he is lying down. He has occasional cough, attributable to a tickle in his throat. No pleuritic pain or hemoptysis, Cardiovascular - No angina pain. No palpitations, Gastrointestinal - No nausea or vomiting. He has acid reflux. His bowels have been pretty active on the antibiotic. No blood in the stool or black stools, Genitourinary (M) - No dysuria or hematuria. He has frequent urination. No urgency or incontinence, Musculoskeletal - He is having pain in his right shoulder/right arm associated with the draining abscess. He has pain in his lower back and left leg. He also has developed some pain associated with a knot on the right side of his head, Integumentary - He has an open wound on the upper right arm, Neurologic - No headache or dizziness. He has neuropathy in his feet and in his left hand, Psychiatric - No anxiety or depression. He sometimes has difficulty sleeping. Vital Signs: Performed on Nov 14, 2019 11:45 Height - 72.00 in Weight - 295.4 lbs (LOW) BSA - 2.51 sq.m BMI - 40.06 (HIGH) Temperature - 98.4 F Pulse - 101 /min (HIGH) Respiration - 20 /min BP - 135/80 mm(hg) O2 Sat - 99 % Pain - 4 Physical Examination: Constitutional - He appears generally weak, Head - There is a palpable nodule in the occipital area of the calvarium. It measures about 2 cm. It is somewhat tender, Eyes - Sclerae nonicteric. Conjunctivae clear, ENMT - No lesions noted in the oral cavity, Hematologic/Lymphatic - No cervical, clavicular, or axillary adenopathy, Respiratory - Lungs sound clear with diminished air movement bilaterally, Cardiovascular - Heart rhythm is regular. There is a II/ systolic murmur. There is no gallop or rub noted, Abdomen - Mildly distended but soft. Liver and spleen are not enlarged. There is no abdominal mass or ascites noted and there is no inguinal adenopathy, Extremities - There are venous stasis changes bilaterally. There is no edema, Integumentary - There is a small open wound on the upper right arm. It is draining walter to brownish colored material, Neurologic - No focal neurologic deficits noted. Impression: 1. Patient with stage II, standard risk multiple myeloma and a large destructive plasmacytoma in the right humerus with associated pathological fracture. He underwent palliative radiation therapy and surgical repair of his arm. 2. Despite treatment he had a further progression of his M protein, and he was found to have hyperdiploid cytogenetics on bone marrow biopsy. 3. Induction chemotherapy with Velcade, Cytoxan, and Decadron began on 09/12/13. After 6 cycles of induction therapy cyclophosphamide was stopped, and he continued with Velcade and Decadron for 8 cycles. 4. On 04/11/2014 he underwent high-dose melphalan followed by an autologous stem cell transplantation. Post transplant bone marrow biopsy revealed residual disease. 5. He declined maintenance Revlimid therapy. Maintenance treatment with Velcade 1.3 mg/m2 sc every 2 weeks for 2 years began on 09/11/14. 6. He had progressive preexistent peripheral neuropathy. His dose was adjusted at 1 mg/m??? subcutaneously every 2 weeks, but he developed progressive neuropathy with pruritus. Velcade therapy was discontinued. His M protein level at that point was stable at 0.84 g/dL. 7. A trial of ixazomib 4 mg weekly on days 1, 8, and 15 of 28 day cycle began on 05/21/15. His other medical illnesses include: 8. Hypertension. 9. Type II diabetes. 10. GERD. 11. Degenerative arthritis. 12. Androgen deficiency. He had evidence of some response to the ixazomib. As of his follow-up visit in January 2016 his M protein had increased somewhat, but it then stabilized. During subsequent follow-up, the M protein had increased very gradually. However, between December and March 2017 there was a significant increase, from 1.50 g/dL to 1.93 g/dL. He had then presented with a mass in left chest wall. His chest CT showed an area of lytic involvement with associated soft tissue mass, consistent with myeloma. He underwent radiation to the involved area, completed on 05/12/2017 to a total dose of 4000 cGy. He then developed a new lump in his forehead. Head CT showed bifrontal and anterior ethmoid sinus soft tissue abnormality suggestive of mass as well as midline frontal scalp soft tissue mass secondary to erosion of the anterior wall frontal sinus. Overall, the findings were consistent with involvement with myeloma, and his laboratory studies also were indicative of significant further progression of his M protein. He was given radiation to the frontal bone, completed on 07/27/2017 to a total dose of 3600 cGy. He then began 3rd line treatment with daratumumab in combination with Revlimid and dexamethasone. He completed 8 weekly infusions of daratumumab, which he tolerated well, though he did require a reduction in the Revlimid dosage to 10 mg. He also started monthly injections of denosumab for the lytic bone involvement. As of 09/09/2017 the frequency of the daratumumab infusions was increased to every 2 weeks. As of 12/23/2017 he had completed 8 infusions at that interval. Beginning on 01/25/2018 he continued daratumumab at the 4-week dosing interval. During this time he had opted to adjust his Revlimid to a 14 days on/14 days off schedule due to throat swelling and spasms, and his Revlimid dosage was then further reduced to 5 mg daily on a / day schedule. As of January 2018 his protein electrophoresis showed just a faint M band compared to a pretreatment M protein level of 3.43 g/dL. In December 2017 he presented with increased pain and swelling in his upper right arm. His repeat PET/CT showed significant response to treatment compared to the June 2017 study. 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 On 01/19/2018 he underwent incision/drainage of an abscess, which apparently was not involving the bone. He had an open wound at that site, but it has gradually healed. In the absence of any evidence of progression of the myeloma, he continued treatment with daratumumab, Revlimid, and dexamethasone. He has limited the Revlimid to 14 days each month because it does seem to cause some swelling in his throat. 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 During that time he required a prolonged course of antibiotic therapy with Rocephin. He has been able to continue treatment with daratumumab in combination with Revlimid and dexamethasone with no evidence of progression of the myeloma. He had been having increasing side effects with the Revlimid, and he opted to stop both the Revlimid and dexamethasone 6 weeks ago. During subsequent follow-up he had improvement in some symptoms, though his activity had been further limited due to his left foot problems. He was having more diarrhea, but that he had attributed to his antibiotic. As of his follow-up in October 2018 there was no evidence of progression of the myeloma. He had presented on 12/08/2018 with recurrence of pain in association with cellulitis/abscess of the right upper arm soft tissues. This was the same site as his previous abscess, which reportedly was not involving the bone. It showed gradual improvement on antibiotic therapy after spontaneous drainage. However, his treatment during that time had remained on hold. He then had further evaluation with CT scans of the chest, abdomen, and pelvis on 01/25/2019. 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 There appear to be associated nondisplaced lateral acetabular margin pathologic fracture. He was referred to Dr. Navarro, and he was then given radiation to the left hip, completed on 02/19/2019 to a total dose of 3000 cGy. On 04/19/2019 he restarted systemic therapy with carfilzomib and dexamethasone in combination with daratumumab. He tolerated his initial day 1/day 2 treatment well, and he was then able to continue his treatment on schedule other than he had to skip his day 16 carfilzomib injection due to bad weather. He began cycle 2 on 05/18/2019. He has been tolerating treatment with acceptable toxicity, though his treatment was complicated by a hospitalization for influenza A. He has had uneventful recovery. He continued with his 3rd cycle of treatment on 06/22/2019, and with that cycle the frequency of the daratumumab infusions was reduced to every 2 weeks. He continued to complain of significant left hip pain. He was given additional radiation to that area, completed on 07/12/2019 to a total dose of 3000 cGy. During that time he had developed significant diarrhea. A specific cause was not determined. His stool had tested negative for C. difficile. The diarrhea subsequently improved on symptomatic management. As of 07/20/2019 he continued with cycle 4 of daratumumab/carfilzomib/dexamethasone. At that point he was showing evidence of response, and he also appeared to be showing improvement in his clinical status. As of 10/12/2019 he appeared stable clinically, and he began his 7th cycle of treatment. However, his restaging CT scans on 10/24/2019 showed evidence of disease progression with development of a new mass in the right paraspinous region. There was associated invasion of the contiguous L1 vertebral body and there was compression of the adjacent right kidney. With evidence of disease progression, I did opt to stop the daratumumab/carfilzomib. He was referred for palliative radiation, which he completed on 11/10/2019 to a total dose of 3000 cGy. He has had a good clinical response. However, during that time he also developed purulent drainage from an open wound/abscess on his upper right arm. Culture grew methicillin sensitive staph aureus. He does appear to be showing improvement on antibiotic therapy with IV Rocephin. Due to the abscess, further treatment of his myeloma has been deferred. Plan: He will continue IV Rocephin for a full 14-day course of treatment. I will now proceed with arrangements to get him started on pomalidomide/dexamethasone for further treatment of the myeloma. In the meantime, I also will have him see Dr. 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 Signed By: Rosendo Rodriges M.D. <<Signature on File>>
== END 2019-11-14 11:48 | disposition home or self-care (01) ==
LOC: ONCMED 11:47
PROVIDERS: Visit Provider Internal Medicine Medical Oncology
DX: C90.00 Multiple myeloma not having achieved remission (principal); S41.101A Unspecified open wound of right upper arm, initial encounter; B95.61 Methicillin susceptible Staphylococcus aureus infection as the cause of diseases classified elsewhere; X58.XXXA Exposure to other specified factors, initial encounter; Z79.2 Long term (current) use of antibiotics; I10 Essential (primary) hypertension; E11.9 Type 2 diabetes mellitus without complications; K21.9 Gastro-esophageal reflux disease without esophagitis; M19.90 Unspecified osteoarthritis, unspecified site; E29.1 Testicular hypofunction; Z87.891 Personal history of nicotine dependence; Z92.3 Personal history of irradiation; Z79.899 Other long term (current) drug therapy
CPT/HCPCS: 96361; 96365; 99214; J0696; J7040

== ENCOUNTER 2019-12-07 05:53 | Outpatient (RCR) | payer MEDICARE, MEDICAID, SELFPAY ==
--- NOTE | 2019-11-16 | CT_ITS ---
Radiation Therapy Planning CT images; total exam DLP: 638.64 mGy-cm MTDD
--- NOTE | 2019-11-16 19:19 | ONCRAD EPV_ITS ---
Radiation Oncology Established Patient Visit Patient: Hal Canchola MR#: [id number] : 1960 Age: 59 Sex: Male Dictated by: Dr. Sreekanth Muonz Date of Service: 11/16/2019 Referring Physician(s) : Rosendo Rodriges M.D. Diagnosis: M89.9 - Disorder of bone, unspecified, Diagnosed 06/10/2016 (Active) C90.00 - Multiple myeloma not having achieved remission, Diagnosed 01/30/2015 (Active) Radiotherapy to Date: Treatment Site: LT [id number], Ref. ID: PTV Lt Rib, Energy: 15X, Dose/Fx (cGy): 200, #Fx: 20 / 20, Dose Total Dose (cGy): 4,000, , Start Date: 04/14/2017, End Date: 05/12/2017, Elapsed Days: 28 Treatment Site: FRONTAL BRAIN [id number], Ref. ID: [id number], Energy: 6X, Dose/Fx (cGy): 180, #Fx: 20 / 20, Total Dose (cGy): 3,600, Start Date: 06/30/2017, End Date: 07/27/2017, Elapsed Days: 27 Treatment Site: RT ARM, Ref. ID: RT ARM, Energy: 15X/6X, Dose/Fx (cGy): 200, #Fx: 14 / 25, Dose Correction (cGy): 1,000, Total Dose (cGy): 2,800, Start Date: 06/22/2013, End Date: 07/11/2013, Elapsed Days: 19 Treatment Site: RT ARM, Ref. ID: RT ARM BOOST, Energy: 15X/6X, Dose/Fx (cGy): 200, #Fx: 5 / 11, Dose Total Dose (cGy): 1,000, Start Date: 07/12/2013, End Date: 07/18/2013, Elapsed Days: 6 Treatment Site: RT ARM Energy: 6X Dose/Fx (cGy): 200 #Fx: 4 / 6 Dose Correction (cGy): 1,000 Total Dose (cGy): 800 Start Date: 08/01/2013 End Date: 08/04/2013 Elapsed Days: 3 Treatment Site: LT Hip 30Gy Energy: 15X Dose/Fx (cGy): 300 #Fx: 10 10 Total Dose (cGy): 3,000 Start Date: 02/17/2019 End Date: 03/02/2019 Elapsed Days: 13 Treatment Site: LT Hip 2019 Energy: 15X Dose/Fx (cGy): 250 #Fx: 12 / 12 Total Dose (cGy): 3,000 Start Date: 06/27/2019 End Date: 07/12/2019 Elapsed Days: 15 Treatment Site: RT paraspinal mass 10FX Energy: 15X Dose/Fx (cGy): 300 #Fx: 10 / 10 Total Dose (cGy): 3,000 Start Date: 10/27/2019 End Date: 11/10/2019 Elapsed Days: 14 Chief Complaint / History of Present Illness: The patient is a 59-year-old male with multiple myeloma. He recently completed palliative radiation therapy to a 7.8 x 6.8 cm right paraspinal mass invading into the L1 vertebral body with mass-effect on the adjacent right kidney. This was treated to a total dose of 30 Gy in 10 fractions (completed 11/10/2019) and the spinal cord dose to this region was approximately 15 Gy/10 fx. thus, if further treatment to this area is clinically warranted, it should be able to be safely administered without undue risk to normal surrounding tissues. The patient has received a positive palliative response in his back pain has significantly improved. The patient now complains of a painful subcutaneous nodule on his right parietal occipital skull. This lesion has progressed, and a recent CT of the head without contrast (10/24/2019) revealed an indeterminant 1.3 cm soft tissue nodule over the right parietal occipital scalp. Current Medications: Acetaminophen, acyclovir, acyclovir, aloxi, amaryl, aspirin, ativan, benadryl, benadryl, carfilzomib, cefTRIAXone Sodium, clotrimazole-Betamethasone, clotrimazole-Betamethasone, compazine, daratumumab, depo-Testosterone, dexamethasone, dexamethasone Sodium Phosphate, diclofenac Sodium, dilaudid, dilaudid, diphenhydrAMINE HCl, first-Mouthwash BLM, glucophage, hYDROmorphone HCl, imodium A-D, invokana, januvia, keflex, lasix, lisinopril, lisinopril, lomotil, lyrica, mucinex, rcetxzvx-Rvdquiqal-JP, ondansetron HCl, pantoprazole Sodium, pepcid, prandin, protonix, revlimid, sodium Chloride, victoza. Allergies: Aparna, Insulin (any type), Claritin, Morphine Sulfate and OxyCODONE HCl. Current Complaints / Review of Systems: Constitutional - Complains of lack of appetite off and on. Complains of moderate fatigue. Complains of night sweats which occur occasionally. Head - Has a tender spot on the right side of the back of the head. Eyes - Denies blurred vision and double vision. ENMT - Denies dysphagia, ear pain, mouth dryness, stomatitis and altered taste. Has a area of tenderness to the left side of the ear. Neck - Complains of neck pain. Integumentary - Denies rash. Cardiovascular - Complains of edema in the lower legs and worse on the left. Denies arrhythmias and chest pain. Respiratory - Complains of cough occasionally. Complains of dyspnea associated with normal activity occasionally. Denies wheezing. Gastrointestinal - Complains of occasional constipation. Complains of heartburn / dyspepsia. Denies abdominal pain, diarrhea, nausea and vomiting. Genitourinary (M) - Complains of nocturia off and on. Denies dysuria, frequency and urgency. Musculoskeletal - Complains of generalized muscle weakness. Denies bone pain and joint pain. Neurologic - Complains of abnormal gait. Denies dizziness and headaches. Endocrine - Complains of Type 2 diabetes. Denies thyroid disease. Hematologic/Lymphatic - Denies tender or enlarged lymph nodes.. Vital Signs: Performed on 11/16/2019 4:10 PM BMI - 39.82 kg/m2 (high), Height - 72.00 in, Weight - 293.6 lbs, Temperature - 97.7 f, Pulse - 86, Respiration - 18, O2 Sat - 98 %, Pain - 0 and BP - 114/ 72 mm(hg). Physical Exam: General: Alert and oriented x 3. No acute distress. HEENT: Normocephalic, atraumatic. The patient has a firm and tender 3 cm subcutaneous nodule on his right parietal occipital scalp. Extraocular Movements Intact: Pupils Equal, Round, Reactive to Light and Accommodation: Sclerae anicteric. Oral cavity is clear without lesions, masses or ulcers. NECK: Supple without supraclavicular or jugular lymphadenopathy. LUNGS: Clear to auscultation bilaterally without rales, rhonchi or wheeze. HEART: Regular rate and rhythm, normal S1 and S2 without murmur, gallop or rub. MUSCULOSKELETAL: No tenderness or percussion pain over the axial skeleton, scapulae or pelvis. ABDOMEN: Soft, nontender, nondistended without masses or organomegaly. Bowell sounds are present. EXTREMITIES: No peripheral edema is identified. Limited motor and sensory examination are grossly intact and symmetric bilaterally. NEUROLOGIC: Cranial nerves II ???XII are grossly intact. Normal sensation, strength 5/5 in all extremities, normal gait, no ataxia. Performance Status: 3 - Capable of only limited self-care, confined to bed or chair more than 50% of waking hours. (ECOG) Lab: None pending. Test performed on 08/01/2019 10:55 AM Manual Segs - 0.02 % (low), Test performed on 10/05/2019 8:36 AM HGB - 11.8 g/dl (low), MCHC - 31.9 g/dl (low), RDW - 15.7 % (high), Cr Clearance (Est) - 131.19 ml/min (high), Sodium - 134 mmol/l (low), [place] / Lambda Ratio - 4.23 absolute value (high), IGA - 13 mg/dl (low), IGG - 694 mg/dl (low) and IGM - 14 mg/dl (low). Pathology: Primary, m89.9 - disorder of bone, unspecified, Diagnosed 06/10/2016 (active), Primary, c90.00 - multiple myeloma not having achieved remission, Diagnosed 01/30/2015 (active) and Secondary, z92.3 - personal history of irradiation, Diagnosed 03/2017 (active). Imaging: See HPI Impression: The patient is a 59-year-old male with multiple myeloma. He has had multiple sites treated with palliative intent and he has received a positive therapeutic response to each treatment. He recently completed palliative radiation therapy to a right paraspinal mass which invaded into the L1 vertebral body, and the patient has also received a positive therapeutic response from this. The patient now presents with a progressively painful right posterior scalp lesion and systemic therapy is being held at the moment while the patient is recovering from an infection in his right shoulder. I plan to provide 20 Gy in 10 fractions via electrons and a 1/2 cm custom bolus versus consideration for a creative photon plan. We will begin treatment planning/CT simulation today. Signed by: 11/16/2019 7:18:30 PM <<Signature on File>> Time spent with patient: CPT Code: CPT Code:
--- NOTE | 2019-11-16 19:24 | N.ONRAD NP_ITS ---
Physician Clinical Treatment Planning Note Hal Canchola has agreed to proceed with Radiation Therapy. The following information represents the intent for the treatment course. The final prescription reflecting the treatment parameters i.e. fractionation, energy, beam arrangement and total dose will be provided in the Prescribe Treat area of [facility] upon completion and my evaluation of the requested dosimetry planning. Clinical Evaluation: Diagnosis: C90.00 - multiple myeloma not having achieved remission, Diagnosed 01/30/2015 (active). Treatment Site: Right posterior occipital scalp Treatment Intent: Previous Treatment: The patient has been previously treated to the frontal brain. Therapeutic Modalities: ECOG Score: 3 - Capable of only limited self-care, confined to bed or chair more than 50% of waking hours. (ECOG) Anticipated start date: Requested Technique: Electrons versus 3D photons. Physics has been requested to compare with the previous plan to ensure that there is no field overlap. Critical Structures: Brain, lens, brainstem, eyes and chiasm. Physician Orders Simulation(s) will be performed to accomplish a reproducible treatment position, to determine optimal treatment portals/beam arrangements, to design beam modifying devices, and/or immobilization devices prior to the commencement of radiation therapy. Type: X CT Simulation Clinical Simulation: Imaging: X CT Guidance 4D CT Scan Area: Vertex to base of skull scan Direction: Slice Thickness: Contrast: Type: In case of contrast reaction, give epinephrine I.V. push 0.5 ml repeat x1 needed. If creatinine clearance is less than 58 GFR, use Visipaque 320 IV contrast and offer post contrast hydration. Re-evaluation scan: Special Instructions: Full Bladder Empty bladder Empty rectum Breath hold Bolus Other Instructions: Immobilization Devices: Aquaplast Mask Bite Block Breast Board: Vac-Richi Shoulder Retractors Belly Board Encompass board Body Fix Dosimetry Planning: Photon X Electron (may consider photons as dosimetrically indicated). Image Fusion: CT MRI PET Other: Type: Isodose Planning X 3D Conformal or enface electrons as needed. IMRT Goals / Dose Constraints: 20 Gy/ 10 fractions Additional Instructions: Beam modification devices as necessary per planning Monitor unit calculation per treatment port Respiratory Motion Management Boost planning: Imaging: Type: X Verification Simulation to confirm set up and beam parameters prior to treatment Stereoscopic Guidance: Frequency CBCT: Frequency Weekly Port Films Daily Port Films Light vital vs Daily kV images for set up (as clinically indicated) Other Services: Special Dosimetry: Diode Electron Output Frequency: Continuing Physics: Physics check once per week Special Physics Consultation: Physician request: Other Requests or Instructions: Special Treatment Procedure Special treatment procedure is Medical Necessity 3D Conformal technique is medically necessary due to: The volume of interest is irregular and in close apposition to normal structures that must be protected. The normal structures to be avoided include: The volume of interest is in such a location that its parameters can only be defined by MRI or CT. The volume of interested is located The final boost volume of interest must be constructed to the exact tumor volume with its irregular configuration. Multiple conformed portals are necessary to cover the volumes of interest with close margins and protect immediately adjacent normal structures. The adjacent normal structures include: Volume of interest bordering a previously irradiated area consisting of IMRT is necessary over other forms of therapy due to: The target volume is in close proximity to critical structures that must be protected. Sparing of normal tissues is necessary, which include The volume of interest must be covered with narrow margins to adequately protect immediately adjacent structures. A margin of will be necessary to protect the following structures: An immediately adjacent area has been previously irradiated and abutting portals must be established with high precision. Previous treatment was delivered to consisting of . The target volume is , and critical normal tissues are within or around that area. The normal tissues include: Dose escalation is planned to deliver radiation doses in excess of those commonly utilized for similar tumors with conventional treatment. A dose of will be necessary, which exceeds tolerances to the following surrounding structures Stereotactic delivery is necessary over other forms of therapy due to: Treatment of intracranial tumor(s) in [id number] locations require the stereotactic technique. The tumor location(s) include: The tumor(s) have an unusual shape requiring stereotactic delivery. The tumor is located to in close proximity to other vital structures including: An immediately adjacent area has been previously irradiated and reirradiation requires increased precision and accuracy. Previous treatment was delivered to consisting of . Surgery is not an option due to the of the tumor. The tumor is The patient???s medical condition justifies aggressive treatment to the to achieve total clearance or clinically beneficial reduction in the patient???s overall burden of systemic disease. Other forms of radiotherapy, including but not limited to external beam and IMRT, cannot be safely or effectively utilized due to The tumor burden can be completely targeted with acceptable risk to critical normal structures including Effective chemotherapy regimens have been exhausted or are otherwise not feasible including Other forms of focal therapy, including but not limited to radiofrequency ablation and cryotherapy, cannot be as safely or effectively utilized due to The patient has experienced recurrence after conventional radiation modalities including
[2019-11-24 11:35] LABS: Basophils # 0.1 10^3/uL (0.0-0.1); Basophils % 0.9 %; Eosinophils # 0.2 10^3/uL (0.0-0.8); Eosinophils % 3.2 %; Hematocrit 37.9 % (42.0-52.0); Hemoglobin 11.4 g/dL (11.7-16.6); Lymphocytes # 0.4 10^3/uL (0.8-4.8); Lymphocytes % 7.3 %; Mean Corpuscular HGB Conc 30.1 g/dL (30.0-36.0); Mean Corpuscular Hemoglobin 27.3 pg (28.0-34.0); Mean Corpuscular Volume 90.7 fL (80-94); Mean Platelet Volume 9.4 fL (7.4-10.4); Monocytes # 0.2 10^3/uL (0.2-0.9); Neutrophils # 4.52 10^3/uL (1.8-7.7); Neutrophils % 84.7 %; Nucleated Red Blood Cells % 0 %; Platelet Count 210 10^3/cmm (130-400); Red Blood Count 4.18 10^6/uL (4.1-5.3); White Blood Count 5.3 10^3/uL (4.0-10.0)
[2019-11-24 11:56] LABS: Alanine Aminotransferase 14 U/L (0-41); Albumin Level 4.2 g/dL (3.5-5.2); Alkaline Phosphatase 72 IU/L (40-130); Anion Gap 17.6 (5-19); Aspartate Amino Transferase 19 U/L (0-40); Blood Urea Nitrogen 21 mg/dL (6-20); Calcium 8.6 mg/dL (8.5-10.5); Carbon Dioxide 24 mmol/L (22-29); Chloride 99 mmol/L (98-107); Globulin 2.6 g/dL (1.3-4.6); Glomerular Filtration Rate 76.5 mL/min (90-130); Glucose 261 mg/dL (65-115); Osmolality Calculated 288 mOsm/kg (285-295); Potassium 4.6 mmol/L (3.5-5.1); Sodium 136 mmol/L (136-145); Total Bilirubin 0.3 mg/dL (0.15-1.2); Total Protein 6.8 g/dL (6.6-8.7)
[2019-11-25 09:36] LABS: PROTEIN, TOTAL 6.2 g/dL (6.1-8.1)
[2019-11-25 15:50] LABS: KAPPA LIGHT CHAIN, FREE, SERUM 6.4 mg/L (3.3-19.4); LAMBDA LIGHT CHAIN, FREE, SERU 3.2 mg/L (5.7-26.3)
[2019-11-25 16:20] LABS: ABNORMAL PROTEIN BAND 1 0.3 g/dL (NONE DETECTED); ALBUMIN 3.7 g/dL (3.8-4.8); ALPHA 1 GLOBULIN 0.4 g/dL (0.2-0.3); BETA 1 GLOBULIN 0.4 g/dL (0.4-0.6); BETA 2 GLOBULIN 0.2 g/dL (0.2-0.5); GAMMA GLOBULIN 0.5 g/dL (0.8-1.7)
--- NOTE | 2019-11-26 20:37 | ONC FU_ITS ---
[facility] Patient Note Patient: Hal Canchola Unit #: [id number]: 1960 Dictated By: Diandra NunnDate of Visit: Nov 23, 2019 Onc MED Follow-Up/Prog Note Chief Complaint: Myeloma. 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 He had presented with pain in the right arm. His x-ray on 05/12/13 showed a large expansile lytic lesion in the midshaft of humeral diaphysis. He was referred to see Dr. Arrieta in [place], [place]. Further work up included laboratory analysis on 05/23/13 that showed normal hemoglobin at 12.4 g/dL, mild renal insufficiency with BUN 26 and creatinine of 1.2, normal albumin at 3.9, and normal calcium at 9.6. His skeletal bone survey showed no additional lesions on 05/26/13. Biopsy of the right humeral lesion on 05/31/13 revealed plasma cell neoplasm, kappa restricted. He was first seen here on 06/16/13. His protein electrophoresis studies showed 1.79 g of IgG kappa. His bone marrow biopsy on 06/17/13 revealed 3% plasma cells, 5-10% CD138 positive cells by flow. Cytogenetic analysis showed two population of cells. First population comprising 10% showed loss of 1q, additional material on 20q, and trisomy of chromosomes 3, 5, 7, 9, 11 and 15. FISH panel revealed gain of 9q, 11q, 15q, and 17q. He had no iron storage. Radiation therapy to the arm lesion began on 3/10/14. In the midst of all of his radiation treatment, short of about 2 fractions, the patient sustained a mechanical fall and landed on the affected arm, sustaining significant fracture. He required surgery on 08/09/2013. Despite of the radiation therapy, his follow up plasmacytoma studies on 09/01/2013 showed further increase of M protein to 2.5 g/dL, IgG 3460, serum free light chain ratio increased to 35. He had mild anemia with hemoglobin of 11 g/dL. His creatinine was 1.1. with calcium 9. Induction chemotherapy with VCd regimen (Velcade, Cytoxan and dexamethasone) began on 09/12/13. He had a positive response to the treatment, and after 6 cycles of therapy cytoxan was dropped from the regimen. The patient completed a total of 8 cycles of treatment with a very good response. On 04/11/2014 he underwent high-dose melphalan followed by an autologous stem cell transplantation. On 07/14/14 he underwent a day 100 post transplant bone marrow biopsy at [facility] with residual disease. IgG kappa M protein 0.77 g/dL. Maintenance single agent Revlimid therapy was recommended, but the patient ultimately decided against it for a variety of reasons, including concerns over completing REMS questionnaire over the phone and privacy issues. Maintenance with single agent Velcade every 2 weeks for 2 years was recommended. Cycle 1 began on 09/11/14. Baseline IgG 0.94 g/dL. The patient received Velcade therapy up until 04/10/2015. He required a dose reduction to 1 mg/m??? every 2 weeks due to progressive peripheral neuropathy. He again developed recurrent cramps and pruritis in the legs, which occurred after restarting Velcade. Given recurrent peripheral neuropathy, Velcade therapy was discontinued. M protein remained stable at 0.84 g/dL on 05/01/2015. As he had measurable disease, single agent Ixazomib began on 05/21/15 at a standard dosage of 4 mg weekly on days 1, 8,and 15 of each 28 day cycle. As of his follow-up visit in November 2015 his M protein was stable, and he was tolerating treatment well. He began cycle 9 of ixazomib on 01/02/2016. He had also continued Zometa infusions every 3 months for the lytic bone involvement. The protein electrophoresis studies from 01/22/2016 did show slight increase in his kappa free light chain, but there was no change in the M protein or in the 24-hour urine monoclonal protein excretion. On 02/03/2016 he was admitted to the hospital with cellulitis associated with a diabetic foot ulceration. His repeat protein electrophoresis studies from 03/04/2016 showed a further increase in the kappa free light chain to 15.9 mg/dL compared to 7.26 mg/dL in January and to 4 0.7 mg/dL in November 2015. The M protein at that point had also increased, to 1.11 g/dL compared to 0.81 g/dL in January. The 24-hour urine at that time showed a total protein excretion of 2226 mg with 2.3% monoclonal protein. That was not significantly changed. His subsequent protein electrophoresis studies remained stable. As of 12/11/2016 the M protein had increased only slightly, to 1.30 g/dL with his kappa free light chain stable at 12.8 mg/dL. His 24-hour urine protein electrophoresis showed a total monoclonal protein excretion of 32 mg. Skeletal survey on 10/09/2016 showed probable old healed pathologic fracture deformity of the right mid humeral diaphysis and probable additional old healed pathologic fracture of the distal left fibular diaphysis. There were findings consistent with advanced neuropathic arthropathy of the feet. There were no other lytic bone lesions. As of 01/08/2017 there was further increase in the M protein level to 1.50 g/dL, but his repeat protein electrophoresis on 02/11/2017 showed no significant change in the M protein. He continued treatment with single agent ixazomib. As of his follow-up visit on 03/18/2017 his M protein had shown a significant increase, up to 1.93 g/dL compared to 1.50 g/dL in December 2016. His blood counts at that point remained stable. His skeletal survey as of 02/11/2017 showed no active bone lesions. However, as it was evident that his disease was progressing, Dr Stinson did have him stop his treatment. He had subsequently reported development a chest wall mass. A noncontrast chest CT on 03/27/2017 showed evidence of a lytic expansile lesion of the anterior left fifth rib with an adjacent soft tissue mass. He was then referred to Dr. Navarro and he underwent radiation to the chest wall lesion, completed on 05/12/2017 to a total dose of 4000 cGy. He tolerated the treatment well. During this time he had also developed a lump on his forehead. Head CT on 06/18/2017 showed bifrontal and anterior ethmoid sinus soft tissue abnormality suggestive of mass and associated with mucocele expansion of the right frontal sinus and lytic bony erosive changes. Reported differential diagnosis included primary sinus neoplasm or extraosseous myeloma. Also noted was midline frontal scalp soft tissue mass secondary to erosion of the anterior wall frontal sinus. There was also apparent erosion of the floor of the anterior cranial fossa by the component of the mass in the ethmoid sinus. His laboratory studies from 06/22/2017 included CBC showing a decline in his hemoglobin to 10.4 g with white blood cell count 5100 and platelet count 253,000. Chem profile showed borderline renal function with BUN 25 and creatinine 1.44 mg/dL. Calcium was normal 9.7 mg/dL. Serum protein electrophoresis showed increase in his M protein to 3.43 g/dL. The 24-hour urine monoclonal protein excretion was 102 mg. He was then given radiation to the frontal bone, completed on 07/27/2017 to a total dose of 3600 cGy. His other medical illnesses include hypertension, type II diabetes, GERD, degenerative arthritis, and androgen deficiency. He had smoked in the past but quit more than 20 years ago. INTERIM HISTORY: On 07/06/2017 he began 3rd line treatment with daratumumab in combination with Revlimid and dexamethasone. It was initiated at a reduced dosage of Revlimid, 15 mg daily on a 21/28 day schedule. He was able to continue the daratumumab infusions weekly with no apparent toxicity. He completed his 8th weekly infusion on 08/26/2017. During that time he required a reduction in the Revlimid dosage to 10 mg. He also started monthly denosumab injections. Beginning on 09/09/2017 the frequency of his daratumumab infusions was increased to every 2 weeks. As of 12/23/2017 he completed his 8th dose of daratumumab at the 2-week dosing interval. His repeat protein electrophoresis on 01/21/2018 showed only a faint monoclonal protein band. The free light chain assay showed his kappa free light chain decreased to 1.19 mg/dL with kappa/lambda ratio normal at 0.9754. Beginning on 01/25/2018 he continued his daratumumab infusions at the 4-week dosing interval. During his time he had on his own accord adjusted his Revlimid schedule to a 14 days on/14 days off schedule because of throat swelling and spasms. The Revlimid dosage was then changed to 5 mg daily. In December 2017 he had presented with increased pain and swelling in his upper right arm. A PET/CT on 01/09/2018 showed improvement compared to the previous study from June 2017. Numerous hypermetabolic osseous lesions had become sclerotic with nearly negligible FDG uptake, consistent with a positive response to therapy. Hypermetabolic lymph nodes in the mediastinum were subcentimeter in size and FDG negative. He was referred back to his orthopedic surgeon in [place], where he underwent I & D of an abscess on 01/19/2018. It apparently was not involving the bone. In the absence of any evidence of progression of his myeloma, he continued treatment with daratumumab, Revlimid, and dexamethasone, but he opted to change the Revlimid to the previous schedule of 10 mg daily for 14 days of a 28 day schedule. As of his follow-up visit on 09/15/2018 there was no evidence of progression of the myeloma. Prior to that visit, though, he had opted to stop the Revlimid and the dexamethasone. He did receive his scheduled daratumumab infusion. During his further follow-up, he required additional surgery on his left foot, and he also required prolonged antibiotic therapy. He continued treatment with daratumumab and dexamethasone. As of October 2018 there was no increase in the serum monoclonal protein and no significant change in the kappa free light chain. The protein electrophoresis studies from 12/01/2018 again showed no change in the serum monoclonal protein. The free light chain assay did show a significant increase in the kappa free light chain, to 7.67 mg/L, but the lambda light chain also had increased such that the kappa/lambda ratio remained normal at 0.85. Dr Stinson had seen him for a scheduled visit on 12/08/2018. At that time he had developed pain, redness, and swelling at the site of his previous abscess in the upper right arm. He was having fever and chills. The clinical picture was consistent with recurrent cellulitis or abscess. His treatment was put on hold, and he was restarted on IV antibiotic coverage with Rocephin. At about day 2 or 3 he developed spontaneous drainage of purulent material. Cultures from both the blood and subsequently from the exudate were negative. After the spontaneous drainage, he was transitioned to oral antibiotic therapy. During subsequent follow-up he had ongoing problems with the cellulitis and other issues, and he was not able to restart treatment. He had further evaluation with CT scans of the chest, abdomen, and pelvis on 01/25/2019. The most significant finding was the presence of progressive lytic myelomatous lesions of the left ischium and superior acetabular structures with probable nondisplaced pathologic fracture of the left acetabular margin. At that point he had developed significant pain in the left hip and left leg. He was referred to Dr. Navarro for additional radiation. He completed treatment to the left hip on 03/02/2019, total dose 3000 cGy. On 04/19/2019 he restarted systemic therapy with carfilzomib and dexamethasone in combination with daratumumab. He tolerated his initial day 1/day 2 treatment well, and he was then able to continue his treatment on schedule other than he missed his day 16 carfilzomib injection due to bad weather. He began cycle 2 on 05/18/2019. At that point the carfilzomib was adjusted to weekly dosing, and he was able to complete his day 1, day 8, and day 15 treatments with no adverse effects. He was then hospitalized with influenza A. He returned on 06/08/2023 for his day 22 treatment, limited just to the daratumumab, and that did complete his 8th weekly daratumumab infusion. He continued with his 3rd cycle of treatment on 06/22/2019, and with that cycle the frequency of the daratumumab infusions was reduced to every 2 weeks. During that time he had continued to complain of significant left hip pain. He was given additional radiation to that area, completed on 07/12/2019 to a total dose of 3000 cGy. He continued with cycle 4 of daratumumab/carfilzomib/dexamethasone on 07/20/2019, with cycle 5 on 08/17/2019, with cycle 6 on 09/14/2019, and with cycle 7 on 10/12/2019. Restaging CT scans of the chest, abdomen, and pelvis on 10/24/2019 showed small, noncalcified pulmonary nodules in both upper lobes and a tiny right pleural effusion. The liver showed no significant pathology. A mass was noted along the right paraspinal region measuring 7.8 x 7.6 cm. There was associated invasion of the contiguous L1 vertebral body and there was some mass-effect on the adjacent right kidney. There was noted to be incomplete healing of comminuted fractures involving the left acetabular region and there were extensive inhomogeneous lytic and sclerotic bony lesions throughout the visualized skeleton. With CT evidence of disease progression, the daratumumab/carfilzomib/dexamethasone was put on hold following his cycle 7-day 15 treatment. In addition, due to the symptomatic involvement in the right paraspinous region, he was referred for additional palliative radiation. He completed treatment on 11/10/2019 to a total dose of 3000 cGy. Subsequent to his last visit, he had developed an open wound on his upper right arm. He had drainage of purulent material which cultured methicillin sensitive staph aureus. He currently is on treatment with IV Rocephin. After stopping the daratumumab/carfilzomib regimen, it is planned to transition his treatment to pomalidomide/dexamethasone, but thus far his further treatment has been deferred because of the abscess. He has now completed 14 days of IV Rocephin and the wound has closed and greatly improved. He has pain in his lower back and left leg. The pain on the right side did improve with the radiation. He has developed some new pain associated with a knot on the right side of his head. His last dose of carfilzlomib was on 10/26/2019. Mr Canchola is here today to start pomalidomide. Ther current plan is to start him at 4 mg po daily days 1-21. He will also do dexamethasone 20 mg po weekly. He has no new concerns today. He states his right arm is feeling much better and he has not had any drainage from it. He denies any fever or chills. He has had some antibiotic associated diarrhea, but that is resolving. He states it is much better over the last 2-3 days. He denies any new pain. He continues to have limited activity but can care for himself with no assistance. He denies any worsening neuropathy. He states he is ready to get started on the pomalidomide. His ECOG is 2. Past Medical History: Allergic rhinitis Diabetes Gastroesophageal reflux Hypertension Hypoganadism Osteoarthritis Phlebitis Past Surgical History: Toe amputation x2 in 2019 [employer] stem cell transplant-Ro in 2013 Biopsy in 2013 - [facility] Surgery in 2011 Skin Graft in 1995 - Right [facility] July 2013, placed pin in right arm Allergies: Aparna, Claritin, Insulin (any type), Morphine Sulfate, and OxyCODONE HCl. Medications: Acyclovir 1 (400 mg) Tablet Oral b.i.d. Amaryl (4 mg) Tablet Oral b.i.d. Aspirin 2 Tablet (of 81 mg) Tablet, enteric coated Oral daily Benadryl 2 (25 mg) Tablet Oral four times a day PRN Clotrimazole-Betamethasone Cream Topical PRN Depo-Testosterone (200 mg/mL) Intramuscular q 2 weeks Dilaudid 1 Tablet (of 8 mg) Tablet Oral q 3 hours PRN Glucophage 1 Tablet (of 850 mg) Oral t.i.d. Imodium A-D 1 Tablet (of 2 mg) Oral PRN Invokana 1 (100 mg) Tablet Oral daily Januvia 1 (100 mg) Tablet Oral daily Lasix 1 Tablet (of 20 mg) Oral daily Lisinopril 1 Tablet (of 2.5 mg) Oral daily Lyrica 1 (75 mg) Capsule Oral daily Mucinex (600 mg) Tablet SR 12 HR Oral b.i.d. Prandin 2 Tablet (of 2 mg) Tablet Oral t.i.d. Protonix 1 - 2 Tablet (of 20 mg) Tablet, enteric coated Oral daily Victoza 1.8 mg Subcutaneous daily Family History: Mr. Canchola's mother is alive. Mr. Canchola's father at age 64: Myelomas Cancer. Mr. Canchola has 2 brothers: 2 alive. Mr. Canchola's first brother's renal pelvis and ureter cancer. Another brother's cancer history consists of Colon cancer. Social History: Mr. Canchola is single and he is an on disability. Mr. Canchola quit smoking 20 years ago but had smoked for 5 years. He has indicated exposure to the following products: cigars. Mr. Canchola reports the following support systems: lives alone, lives in own house, and supportive family/friends willing to assist with needs. His diet consists of regular meals. He indicates his activity level as: daily activities. Patient smoked 3 to 4 Cigars a day for 5 years. Review Of Symptoms: Constitutional Denies fevers, chills, night sweats, excessive fatigue or weight loss. Fatigue is unchanged. Nodule on right side of head that is now tender. Allergic/Immunologic No reactions. Eyes Denies significant visual changes. No diplopia. No amaurosis. ENMT Denies changes in hearing, sore throat, mouth sores, difficulty or changes in swallowing ability, and/or sinus drainage. Endocrine No diabetes, thyroid disease or hormone replacement. Denies hot flashes or night sweats. Hematologic/Lymphatic Denies easy bruising or bleeding. The patient denies any tender or palpable lymph nodes. Respiratory Denies worsening dyspnea on exertion, chest pain, cough or hemoptysis. Denies orthopnea. Cardiovascular Denies anginal chest pain, palpitations or orthopnea. Gastrointestinal Denies nausea, vomiting, diarrhea, GI bleeding, or constipation. Denies change in bowel habits and/or stool color, no heartburn or early satiety. Genitourinary (M) Denies hematuria, dysuria, increased frequency, urgency, hesitancy or incontinence. Musculoskeletal Denies joint pain, swelling or redness. No decreased range of motion. Integumentary Denies chronic rashes, inflammation, ulcerations or skin changes. Neurologic Denies headache, blurred vision. Psychiatric Denies insomnia, depression, jacqueline or mood swings. Vital Signs: Performed on Nov 23, 2019 15:23 Height - 72.00 in Temperature - 97.0 F (LOW) Pulse - 98 /min Respiration - 18 /min BP - 109/71 mm(hg) O2 Sat - 97 % Pain - 0,2 - Ambulatory/capable of all self-care, unable to perform any work activities. Up and about more than 50% of waking hours. (ECOG) Physical Examination: Constitutional Alert, oriented, no acute distress. Skin pink, warm and dry. Head Normocephalic; atraumatic. There is a nodule on the right side mid to posterior area that is semi firm-no exudate or skin breakdown. It is not red or hot. Eyes Conjunctivae and sclerae are clear and without icterus. Pupils are reactive and equal. Neck Supple without masses or thyromegaly. No jugular venous distension. Hematologic/Lymphatic No petechiae or purpura. No tender or palpable lymph nodes in the cervical or supraclavicular areas. Respiratory Lungs are clear to auscultation without rhonchi or wheezing. Cardiovascular Regular rate and rhythm of heart without murmurs,clicks, gallops or rubs. Abdomen Non-tender, non-distended, no masses or ascites. Good bowel sounds noted in all quads. No guarding or rebound tenderness. No pulsatile masses. Back/Spine Non-tender to palpation. Extremities No visible deformities, no cyanosis, clubbing or edema. Right shoulder area pink and dry with < 1 cm scabbed area noted from recent abscess. Musculoskeletal No tenderness or swelling, normal range of motion without obvious weakness. Integumentary No rashes or lesions. Neurologic No sensory or motor deficits, normal cerebellar function, normal gait. Psychiatric Alert and oriented times three. Coherent speech. Verbalizes understanding of our discussions today. Laboratory:Test performed on Oct 05, 2019 08:36 Glucose 282 mg/dL Protein, Total 6.1 g/dL Albumin, SPE 3.92 g/dL BUN 20 mg/dL Creatinine 1.10 mg/dL Cr Clearance (Est) 131.19 mL/min Sodium 134 mmol/L Potassium 5.1 mmol/L Chloride 98 mmol/L CO2 26 mmol/L Calcium 9.3 mg/dL Albumin 4.1 g/dL Bilirubin, Total 0.4 mg/dL Alkaline Phosphatase 67 IU/L AST (SGOT) 16 IU/L ALT (SGPT) 16 IU/L WBC 5.5 10^9/L RBC 4.11 10^12/L HGB 11.8 g/dL HCT 37.0 % MCV 90.0 fl MCH 28.7 pg MCHC 31.9 g/dL RDW 15.7 % Platelet Count 222 10^9/L MPV 10.0 fL Neutrophils (Gran) 3.34 10^9/L Lymphocytes 1.32 10^9/L Monocytes 0.51 10^9/L Eosinophils 0.28 10^9/L Basophils 0.02 10^9/L Manual Lymphocytes 24 % Manual Monocytes 9 % Manual Eosinophils 5 % Manual Basophils 0 % IGA 13 mg/dL IGG 694 mg/dL IGM 14 mg/dL [place] / Lambda Ratio 4.23 Absolute Value Lambda Light Chain 1.35 [place] Light Chain 5.71 [id number] 0.18 g/dL [id number] 0.76 g/dL Beta Globulin 0.68 g/dL Gamma Globulin 0.57 g/dL SPE Interpretation No significant change in monoclonal proteinemia since prior study Test performed on Aug 01, 2019 10:55 Manual Segs 0.02 % Test performed on Jul 04, 2019 11:30 Neutrophil % 68.9 % Lymphocyte % 15.8 % Monocyte % 11.4 % Eosinophil % 2.2 % Basophils % 0.2 % Impression: 1. Patient with stage II, standard risk multiple myeloma and a large destructive plasmacytoma in the right humerus with associated pathological fracture. He underwent palliative radiation therapy and surgical repair of his arm. 2. Despite treatment he had a further progression of his M protein, and he was found to have hyperdiploid cytogenetics on bone marrow biopsy. 3. Induction chemotherapy with Velcade, Cytoxan, and Decadron began on 09/12/13. After 6 cycles of induction therapy cyclophosphamide was stopped, and he continued with Velcade and Decadron for 8 cycles. 4. On 04/11/2014 he underwent high-dose melphalan followed by an autologous stem cell transplantation. Post transplant bone marrow biopsy revealed residual disease. 5. He declined maintenance Revlimid therapy. Maintenance treatment with Velcade 1.3 mg/m2 sc every 2 weeks for 2 years began on 09/11/14. 6. He had progressive preexistent peripheral neuropathy. His dose was adjusted at 1 mg/m??? subcutaneously every 2 weeks, but he developed progressive neuropathy with pruritus. Velcade therapy was discontinued. His M protein level at that point was stable at 0.84 g/dL. 7. A trial of ixazomib 4 mg weekly on days 1, 8, and 15 of 28 day cycle began on 05/21/15. His other medical illnesses include: 8. Hypertension. 9. Type II diabetes. 10. GERD. 11. Degenerative arthritis. 12. Androgen deficiency. He had evidence of some response to the ixazomib. As of his follow-up visit in January 2016 his M protein had increased somewhat, but it then stabilized. During subsequent follow-up, the M protein had increased very gradually. However, between December and March 2017 there was a significant increase, from 1.50 g/dL to 1.93 g/dL. He had then presented with a mass in left chest wall. His chest CT showed an area of lytic involvement with associated soft tissue mass, consistent with myeloma. He underwent radiation to the involved area, completed on 05/12/2017 to a total dose of 4000 cGy. He then developed a new lump in his forehead. Head CT showed bifrontal and anterior ethmoid sinus soft tissue abnormality suggestive of mass as well as midline frontal scalp soft tissue mass secondary to erosion of the anterior wall frontal sinus. Overall, the findings were consistent with involvement with myeloma, and his laboratory studies also were indicative of significant further progression of his M protein. He was given radiation to the frontal bone, completed on 07/27/2017 to a total dose of 3600 cGy. He then began 3rd line treatment with daratumumab in combination with Revlimid and dexamethasone. He completed 8 weekly infusions of daratumumab, which he tolerated well, though he did require a reduction in the Revlimid dosage to 10 mg. He also started monthly injections of denosumab for the lytic bone involvement. As of 09/09/2017 the frequency of the daratumumab infusions was increased to every 2 weeks. As of 12/23/2017 he had completed 8 infusions at that interval. Beginning on 01/25/2018 he continued daratumumab at the 4-week dosing interval. During this time he had opted to adjust his Revlimid to a 14 days on/14 days off schedule due to throat swelling and spasms, and his Revlimid dosage was then further reduced to 5 mg daily on a 21/ day schedule. As of January 2018 his protein electrophoresis showed just a faint M band compared to a pretreatment M protein level of 3.43 g/dL. In December 2017 he presented with increased pain and swelling in his upper right arm. His repeat PET/CT showed significant response to treatment compared to the June 2017 study. 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 On 01/19/2018 he underwent incision/drainage of an abscess, which apparently was not involving the bone. He had an open wound at that site, but it has gradually healed. In the absence of any evidence of progression of the myeloma, he continued treatment with daratumumab, Revlimid, and dexamethasone. He has limited the Revlimid to 14 days each month because it does seem to cause some swelling in his throat. 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 During that time he required a prolonged course of antibiotic therapy with Rocephin. He has been able to continue treatment with daratumumab in combination with Revlimid and dexamethasone with no evidence of progression of the myeloma. He had been having increasing side effects with the Revlimid, and he opted to stop both the Revlimid and dexamethasone 6 weeks ago. During subsequent follow-up he had improvement in some symptoms, though his activity had been further limited due to his left foot problems. He was having more diarrhea, but that he had attributed to his antibiotic. As of his follow-up in October 2018 there was no evidence of progression of the myeloma. He had presented on 12/08/2018 with recurrence of pain in association with cellulitis/abscess of the right upper arm soft tissues. This was the same site as his previous abscess, which reportedly was not involving the bone. It showed gradual improvement on antibiotic therapy after spontaneous drainage. However, his treatment during that time had remained on hold. He then had further evaluation with CT scans of the chest, abdomen, and pelvis on 01/25/2019. 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 There appear to be associated nondisplaced lateral acetabular margin pathologic fracture. He was referred to Dr. Navarro, and he was then given radiation to the left hip, completed on 02/19/2019 to a total dose of 3000 cGy. On 04/19/2019 he restarted systemic therapy with carfilzomib and dexamethasone in combination with daratumumab. He tolerated his initial day 1/day 2 treatment well, and he was then able to continue his treatment on schedule other than he had to skip his day 16 carfilzomib injection due to bad weather. He began cycle 2 on 05/18/2019. He has been tolerating treatment with acceptable toxicity, though his treatment was complicated by a hospitalization for influenza A. He has had uneventful recovery. He continued with his 3rd cycle of treatment on 06/22/2019, and with that cycle the frequency of the daratumumab infusions was reduced to every 2 weeks. He continued to complain of significant left hip pain. He was given additional radiation to that area, completed on 07/12/2019 to a total dose of 3000 cGy. During that time he had developed significant diarrhea. A specific cause was not determined. His stool had tested negative for C. difficile. The diarrhea subsequently improved on symptomatic management. As of 07/20/2019 he continued with cycle 4 of daratumumab/carfilzomib/dexamethasone. At that point he was showing evidence of response, and he also appeared to be showing improvement in his clinical status. As of 10/12/2019 he appeared stable clinically, and he began his 7th cycle of treatment. However, his restaging CT scans on 10/24/2019 showed evidence of disease progression with development of a new mass in the right paraspinous region. There was associated invasion of the contiguous L1 vertebral body and there was compression of the adjacent right kidney. With evidence of disease progression, dR Stinson did opt to stop the daratumumab/carfilzomib. He was referred for palliative radiation, which he completed on 11/10/2019 to a total dose of 3000 cGy. He has had a good clinical response. However, during that time he also developed purulent drainage from an open wound/abscess on his upper right arm. Culture grew methicillin sensitive staph aureus. He does appear to be showing improvement on antibiotic therapy with IV Rocephin. Due to the abscess, further treatment of his myeloma has been deferred. Mr Canchola has completed the antibiotic therapy and will start pomalidomide 4 mg po daily days 1-21 on 11/24/2019. Plan: 1. Proceed with pomalidomide 4 mg po daily days 1-21. He plans to start it on 11/24/2019. 2. dexamethasone 20 mg po weekly. 3. Baseline CBC, CMP, myeloma labs today. 4. Weekly CBC for monitoring on the pomalidomide. 5. Follow-up in 4 weeks with CBC CMP and repeat myeloma labs. 6. AVOID GRAPEFRUIT JUICE WITH POMALIDOMIDE 7. Mr. Canchola was instructed to contact us in interim should questions or problems arise. 8. Mr Canchola has not had recent PET/CT imagaing due to persistent hyperglycemia. Signed By: Diandra Nunn-, AOCNP Rosendo Stinson MD <<Signature on File>>
--- NOTE | 2019-11-29 19:34 | ONCRAD TMN_ITS ---
Radiation Oncology Weekly Treatment Management Patient: Jesika Hong MR#: [id number] : 1960 Age: 59 Sex: Male Dictated by: Dr. Sreekanth Munoz Date of Service: 11/29/2019 Referring Physician(s) : Rosendo Rodriges M.D. Diagnosis: M89.9 - Disorder of bone, unspecified, Diagnosed 06/10/2016 (Active) C90.00 - Multiple myeloma not having achieved remission, Diagnosed 01/30/2015 (Active) Myeloma. Prior Radiotherapy: Treatment Site: LT RIB_40GY, Ref. ID: PTV Lt Rib, Energy: 15X, Dose/Fx (cGy): 200, #Fx: 20 / 20, Dose Total Dose (cGy): 4,000, , Start Date: 04/14/2017, End Date: 05/12/2017, Elapsed Days: 28 Treatment Site: FRONTAL BRAIN [id number], Ref. ID: [id number], Energy: 6X, Dose/Fx (cGy): 180, #Fx: 20 / 20, Total Dose (cGy): 3,600, Start Date: 06/30/2017, End Date: 07/27/2017, Elapsed Days: 27 Treatment Site: RT ARM, Ref. ID: RT ARM, Energy: 15X/6X, Dose/Fx (cGy): 200, #Fx: 14 / 25, Dose Correction (cGy): 1,000, Total Dose (cGy): 2,800, Start Date: 06/22/2013, End Date: 07/11/2013, Elapsed Days: 19 Treatment Site: RT ARM, Ref. ID: RT ARM BOOST, Energy: 15X/6X, Dose/Fx (cGy): 200, #Fx: 5 / 11, Dose Total Dose (cGy): 1,000, Start Date: 07/12/2013, End Date: 07/18/2013, Elapsed Days: 6 Treatment Site: RT ARM Energy: 6X Dose/Fx (cGy): 200 #Fx: 4 / 6 Dose Correction (cGy): 1,000 Total Dose (cGy): 800 Start Date: 08/01/2013 End Date: 08/04/2013 Elapsed Days: 3 Treatment Site: LT Hip 30Gy Energy: 15X Dose/Fx (cGy): 300 #Fx: 10 / 10 Total Dose (cGy): 3,000 Start Date: 02/17/2019 End Date: 03/02/2019 Elapsed Days: 13 Treatment Site: LT Hip 2019 Energy: 15X Dose/Fx (cGy): 250 #Fx: Total Dose (cGy): 3,000 Start Date: 06/27/2019 End Date: 07/12/2019 Elapsed Days: 15 Treatment Site: RT paraspinal mass 10FX Energy: 15X Dose/Fx (cGy): 300 #Fx: Total Dose (cGy): 3,000 Start Date: 10/27/2019 End Date: 11/10/2019 Elapsed Days: 14 Current Radiotherapy to date: Course: Skull ebeam 20Gy, Treatment Site: Skull 9E, Ref. ID: [id number], Energy: 9E, Dose/Fx (cGy): 200, #Fx: 10, Dose Correction (cGy): 0, Total Dose (cGy): 1,000, Start Date: 11/23/2019, Elapsed Days: 6 Reason for visit: The patient is being seen today as part of their regularly scheduled weekly on treatment visits to assess for acute toxicities from radiotherapy. Interim History: The patient reports that his scalp mass is decreasing in size. He reports reduced back pain (now 2-3/10) and his right shoulder wound is improving. Current Medications: Acetaminophen, acyclovir, acyclovir, aloxi, amaryl, aspirin, ativan, benadryl, benadryl, carfilzomib, cefTRIAXone Sodium, clotrimazole-Betamethasone, clotrimazole-Betamethasone, compazine, daratumumab, depo-Testosterone, dexamethasone, dexamethasone Sodium Phosphate, diclofenac Sodium, dilaudid, dilaudid, diphenhydrAMINE HCl, first-Mouthwash BLM, glucophage, hYDROmorphone HCl, imodium A-D, invokana, januvia, keflex, lasix, lisinopril, lisinopril, lomotil, lyrica, mucinex, [id number]-Pzdxpadoh-SB, ondansetron HCl, pantoprazole Sodium, pepcid, prandin, protonix, revlimid, sodium Chloride, victoza. Allergies: Aparna, Insulin (any type), Claritin, Morphine Sulfate and OxyCODONE HCl. Current Complaints/Review of Systems: Constitutional - Complains of moderate fatigue. Complains of night sweats which occur occasionally. Denies lack of appetite, fever, lethargy, rigors / chills and change in weight. Eyes - Denies blurred vision and double vision. ENMT - Complains of mild altered taste and that has not affected the appetite. Complains of tinnitus chronic mild. Denies dysphagia, ear pain, epistaxis, problems with hearing, mouth dryness, oral bleeding, sputum production and stomatitis. Integumentary - Denies bruising, dry skin and rash. Reports right shoulder wound, drainage is improving, clear in color. No infection at this time. Gastrointestinal - Denies abdominal pain, change in bowel habits, constipation, diarrhea, heartburn / dyspepsia, hematochezia, hemorrhoids, melena / GI bleeding, nausea, pain / cramping, satiety and vomiting. Genitourinary (M) - Denies dysuria, frequency, hematuria, impotence, incontinence, nocturia, urgency and urine color change. Musculoskeletal - Complains of bone pain [place]- MT left foot, joint pain and muscle weakness right arm due to right shoulder wound, improving.. Denies decreased range of motion. Vital Signs: Performed on 11/29/2019 2:13 PM BMI - 38.979 kg/m2 (high), Height - 72.00 in, Weight - 287.4 lbs, Temperature - 98.3 f, Pulse - 101, Respiration - 17, O2 Sat - 100 %, Pain - 3, Fatigue - 4 and BP - 110/ 73 mm(hg). Physical Exam: Appears stable, no skin erythema or desquamation. The right occipital scalp lesion has decreased in size. Performance Status: 2 - Ambulatory/capable of all self-care, unable to perform any work activities. Up and about more than 50% of waking hours. (ECOG) Lab: None pending in Radiation Oncology. Imaging: Radiation therapy imaging related to accurate target localization (i.e. KV, MV and CBCT) was reviewed. Appropriate changes, if any, were made to ensure treatment accuracy. Plan: The patient is tolerating therapy reasonably well. Radiotherapy will continue as planned. CPT: 67108 Signed by: Dr. Sreekanth Munoz 11/29/2019 7:32:58 PM
[2019-11-30 14:37] LABS: Basophils % 0.5 %; Eosinophils % 0.8 %; Hematocrit 39.7 % (42.0-52.0); Hemoglobin 12.3 g/dL (11.7-16.6); Lymphocytes # 0.3 10^3/uL (0.8-4.8); Lymphocytes % 7.9 %; Mean Corpuscular Hemoglobin 27.7 pg (28.0-34.0); Mean Corpuscular Volume 89.4 fL (80-94); Mean Platelet Volume 10.3 fL (7.4-10.4); Monocytes # 0.1 10^3/uL (0.2-0.9); Monocytes % 1.8 %; Neutrophils # 3.32 10^3/uL (1.8-7.7); Neutrophils % 87.4 %; Nucleated Red Blood Cells % 0 %; Platelet Count 215 10^3/cmm (130-400); Red Blood Count 4.44 10^6/uL (4.1-5.3); Red Cell Distribution Width 15.7 % (12.1-15.1); White Blood Count 3.8 10^3/uL (4.0-10.0)
--- NOTE | 2019-12-06 16:36 | ONCRAD TMN_ITS ---
Radiation Oncology Weekly Treatment Management Patient: Jesika Hong MR#: [id number] : 1960 Age: 59 Sex: Male Dictated by: Dr. Sreekanth Munoz Date of Service: 12/06/2019 Referring Physician(s) : Rosendo Rodriges M.D. Diagnosis: M89.9 - Disorder of bone, unspecified, Diagnosed 06/10/2016 (Active) C90.00 - Multiple myeloma not having achieved remission, Diagnosed 01/30/2015 (Active) Prior Radiotherapy: Treatment Site: LT RIB_40GY, Ref. ID: PTV Lt Rib, Energy: 15X, Dose/Fx (cGy): 200, #Fx: 20 / 20, Dose Total Dose (cGy): 4,000, , Start Date: 04/14/2017, End Date: 05/12/2017, Elapsed Days: 28 Treatment Site: FRONTAL BRAIN [id number], Ref. ID: [email or web address], Energy: 6X, Dose/Fx (cGy): 180, #Fx: 20 / 20, Total Dose (cGy): 3,600, Start Date: 06/30/2017, End Date: 07/27/2017, Elapsed Days: 27 Treatment Site: RT ARM, Ref. ID: RT ARM, Energy: 15X/6X, Dose/Fx (cGy): 200, #Fx: 14 / 25, Dose Correction (cGy): 1,000, Total Dose (cGy): 2,800, Start Date: 06/22/2013, End Date: 07/11/2013, Elapsed Days: 19 Treatment Site: RT ARM, Ref. ID: RT ARM BOOST, Energy: 15X/6X, Dose/Fx (cGy): 200, #Fx: 5 / 11, Dose Total Dose (cGy): 1,000, Start Date: 07/12/2013, End Date: 07/18/2013, Elapsed Days: 6 Treatment Site: RT ARM Energy: 6X Dose/Fx (cGy): 200 #Fx: 4 / 6 Dose Correction (cGy): 1,000 Total Dose (cGy): 800 Start Date: 08/01/2013 End Date: 08/04/2013 Elapsed Days: 3 Treatment Site: LT Hip 30Gy Energy: 15X Dose/Fx (cGy): 300 #Fx: 10 / 10 Total Dose (cGy): 3,000 Start Date: 02/17/2019 End Date: 03/02/2019 Elapsed Days: 13 Treatment Site: Hip 2019 Energy: 15X Dose/Fx (cGy): 250 #Fx: Total Dose (cGy): 3,000 Start Date: 06/27/2019 End Date: 07/12/2019 Elapsed Days: 15 Treatment Site: RT paraspinal mass 10FX Energy: 15X Dose/Fx (cGy): 300 #Fx: Total Dose (cGy): 3,000 Start Date: 10/27/2019 End Date: 11/10/2019 Elapsed Days: 14 Radiotherapy to date: Course: Skull ebeam 20Gy, Treatment Site: Skull 9E, Ref. ID: [id number], Energy: 9E, Dose/Fx (cGy): 200, #Fx: , Dose Correction (cGy): 0, Total Dose (cGy): 1,800, Start Date: 11/23/2019, Elapsed Days: 13 Reason for visit: The patient is being seen today as part of their regularly scheduled weekly on treatment visits to assess for acute toxicities from radiotherapy. Interim History: The patient reports mild tenderness to his right occipital area being treated, but he has no other complaints. Current Medications: Acetaminophen, acyclovir, acyclovir, aloxi, amaryl, aspirin, ativan, benadryl, benadryl, carfilzomib, cefTRIAXone Sodium, clotrimazole-Betamethasone, clotrimazole-Betamethasone, compazine, daratumumab, depo-Testosterone, dexamethasone, dexamethasone Sodium Phosphate, diclofenac Sodium, dilaudid, dilaudid, diphenhydrAMINE HCl, first-Mouthwash BLM, glucophage, hYDROmorphone HCl, imodium A-D, invokana, januvia, keflex, lasix, lisinopril, lisinopril, lomotil, lyrica, mucinex, qewcfxuf-Biswbotkq-QR, ondansetron HCl, pantoprazole Sodium, pepcid, prandin, protonix, revlimid, sodium Chloride, victoza. Allergies: Aparna, Insulin (any type), Claritin, Morphine Sulfate and OxyCODONE HCl. Vital Signs: Performed on 12/06/2019 2:16 PM BMI - 39.575 kg/m2 (high), Height - 72.00 in, Weight - 291.8 lbs, Temperature - 97.2 f, Pulse - 88, Respiration - 18, O2 Sat - 98 %, Pain - 0 and BP - 102/ 55 mm(hg)(/low). Physical Exam: Mild erythema is appreciated within the treatment site. The patient has palpable tumor regression within the treatment site. Performance Status: 2 - Ambulatory/capable of all self-care, unable to perform any work activities. Up and about more than 50% of waking hours. (ECOG) Lab: None pending in Radiation Oncology. Test performed on 08/01/2019 10:55 AM Manual Segs - 0.02 % (low), Test performed on 10/05/2019 8:36 AM Cr Clearance (Est) - 131.19 ml/min (high), Sodium - 134 mmol/l (low), [place] / Lambda Ratio - 4.23 absolute value (high), IGA - 13 mg/dl (low), IGG - 694 mg/dl (low), IGM - 14 mg/dl (low), Test performed on 11/30/2019 2:00 PM WBC - 3.8 10 3/ul (low), HCT - 39.7 % (low), MCH - 27.7 pg (low), RDW - 15.7 % (high), Lymphocytes - 0.3 10 3/ul (low) and Monocytes - 0.1 10 3/ul (low). Imaging: Radiation therapy imaging related to accurate target localization (i.e. KV, MV and CBCT) was reviewed. Appropriate changes, if any, were made to ensure treatment accuracy. Plan: The patient is tolerating therapy reasonably well. Radiotherapy will continue as planned. CPT: 61440 Signed by: Dr. Sreekanth Munoz 12/06/2019 4:35:13 PM
== END 2019-12-12 23:59 | disposition home or self-care (01) ==
LOC: ONCMED 05:53
PROVIDERS: Internal Medicine Medical Oncology; Nurse Practitioner; Absent Provider Radiology Radiation Oncology; Visit Provider Radiology Radiation Oncology
DX: Z51.0 Encounter for antineoplastic radiation therapy (principal); C90.00 Multiple myeloma not having achieved remission; E11.9 Type 2 diabetes mellitus without complications; K21.9 Gastro-esophageal reflux disease without esophagitis; I10 Essential (primary) hypertension; E29.1 Testicular hypofunction; M19.90 Unspecified osteoarthritis, unspecified site; Z86.72 Personal history of thrombophlebitis; Z91.09 Other allergy status, other than to drugs and biological substances
CPT/HCPCS: 36415; 77300; 77321; 77331; 77334; 77336; 77412; 77417; 80053; 83883; 84155; 84165; 85025; 99214

== ENCOUNTER 2020-01-09 05:49 | Outpatient (RCR) | payer MEDICARE, MEDICAID, SELFPAY ==
--- NOTE | 2019-12-27 20:53 | ONC FU_ITS ---
[facility] Patient Note Patient: Hal Canchola Unit #: [id number]: [id number] Dictated By: Diandra NunnDate of Visit: Dec 21, 2019 Onc MED Follow-Up/Prog Note Chief Complaint: Myeloma. 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 He had presented with pain in the right arm. His x-ray on 05/12/13 showed a large expansile lytic lesion in the midshaft of humeral diaphysis. He was referred to see Dr. Arrieta in [place], [place]. Further work up included laboratory analysis on 05/23/13 that showed normal hemoglobin at 12.4 g/dL, mild renal insufficiency with BUN 26 and creatinine of 1.2, normal albumin at 3.9, and normal calcium at 9.6. His skeletal bone survey showed no additional lesions on 05/26/13. Biopsy of the right humeral lesion on 05/31/13 revealed plasma cell neoplasm, kappa restricted. He was first seen here on 06/16/13. His protein electrophoresis studies showed 1.79 g of IgG kappa. His bone marrow biopsy on 06/17/13 revealed 3% plasma cells, 5-10% CD138 positive cells by flow. Cytogenetic analysis showed two population of cells. First population comprising 10% showed loss of 1q, additional material on 20q, and trisomy of chromosomes 3, 5, 7, 9, 11 and 15. FISH panel revealed gain of 9q, 11q, 15q, and 17q. He had no iron storage. Radiation therapy to the arm lesion began on 3/10/14. In the midst of all of his radiation treatment, short of about 2 fractions, the patient sustained a mechanical fall and landed on the affected arm, sustaining significant fracture. He required surgery on 08/09/2013. Despite of the radiation therapy, his follow up plasmacytoma studies on 09/01/2013 showed further increase of M protein to 2.5 g/dL, IgG 3460, serum free light chain ratio increased to 35. He had mild anemia with hemoglobin of 11 g/dL. His creatinine was 1.1. with calcium 9. Induction chemotherapy with VCd regimen (Velcade, Cytoxan and dexamethasone) began on 09/12/13. He had a positive response to the treatment, and after 6 cycles of therapy cytoxan was dropped from the regimen. The patient completed a total of 8 cycles of treatment with a very good response. On 04/11/2014 he underwent high-dose melphalan followed by an autologous stem cell transplantation. On 07/14/14 he underwent a day 100 post transplant bone marrow biopsy at [facility] with residual disease. IgG kappa M protein 0.77 g/dL. Maintenance single agent Revlimid therapy was recommended, but the patient ultimately decided against it for a variety of reasons, including concerns over completing REMS questionnaire over the phone and privacy issues. Maintenance with single agent Velcade every 2 weeks for 2 years was recommended. Cycle 1 began on 09/11/14. Baseline IgG 0.94 g/dL. The patient received Velcade therapy up until 04/10/2015. He required a dose reduction to 1 mg/m??? every 2 weeks due to progressive peripheral neuropathy. He again developed recurrent cramps and pruritis in the legs, which occurred after restarting Velcade. Given recurrent peripheral neuropathy, Velcade therapy was discontinued. M protein remained stable at 0.84 g/dL on 05/01/2015. As he had measurable disease, single agent Ixazomib began on 05/21/15 at a standard dosage of 4 mg weekly on days 1, 8,and 15 of each 28 day cycle. As of his follow-up visit in November 2015 his M protein was stable, and he was tolerating treatment well. He began cycle 9 of ixazomib on 01/02/2016. He had also continued Zometa infusions every 3 months for the lytic bone involvement. The protein electrophoresis studies from 01/22/2016 did show slight increase in his kappa free light chain, but there was no change in the M protein or in the 24-hour urine monoclonal protein excretion. On 02/03/2016 he was admitted to the hospital with cellulitis associated with a diabetic foot ulceration. His repeat protein electrophoresis studies from 03/04/2016 showed a further increase in the kappa free light chain to 15.9 mg/dL compared to 7.26 mg/dL in January and to 4 0.7 mg/dL in November 2015. The M protein at that point had also increased, to 1.11 g/dL compared to 0.81 g/dL in January. The 24-hour urine at that time showed a total protein excretion of 2226 mg with 2.3% monoclonal protein. That was not significantly changed. His subsequent protein electrophoresis studies remained stable. As of 12/11/2016 the M protein had increased only slightly, to 1.30 g/dL with his kappa free light chain stable at 12.8 mg/dL. His 24-hour urine protein electrophoresis showed a total monoclonal protein excretion of 32 mg. Skeletal survey on 10/09/2016 showed probable old healed pathologic fracture deformity of the right mid humeral diaphysis and probable additional old healed pathologic fracture of the distal left fibular diaphysis. There were findings consistent with advanced neuropathic arthropathy of the feet. There were no other lytic bone lesions. As of 01/08/2017 there was further increase in the M protein level to 1.50 g/dL, but his repeat protein electrophoresis on 02/11/2017 showed no significant change in the M protein. He continued treatment with single agent ixazomib. As of his follow-up visit on 03/18/2017 his M protein had shown a significant increase, up to 1.93 g/dL compared to 1.50 g/dL in December 2016. His blood counts at that point remained stable. His skeletal survey as of 02/11/2017 showed no active bone lesions. However, as it was evident that his disease was progressing, Dr Stinson did have him stop his treatment. He had subsequently reported development a chest wall mass. A noncontrast chest CT on 03/27/2017 showed evidence of a lytic expansile lesion of the anterior left fifth rib with an adjacent soft tissue mass. He was then referred to Dr. Navarro and he underwent radiation to the chest wall lesion, completed on 05/12/2017 to a total dose of 4000 cGy. He tolerated the treatment well. During this time he had also developed a lump on his forehead. Head CT on 06/18/2017 showed bifrontal and anterior ethmoid sinus soft tissue abnormality suggestive of mass and associated with mucocele expansion of the right frontal sinus and lytic bony erosive changes. Reported differential diagnosis included primary sinus neoplasm or extraosseous myeloma. Also noted was midline frontal scalp soft tissue mass secondary to erosion of the anterior wall frontal sinus. There was also apparent erosion of the floor of the anterior cranial fossa by the component of the mass in the ethmoid sinus. His laboratory studies from 06/22/2017 included CBC showing a decline in his hemoglobin to 10.4 g with white blood cell count 5100 and platelet count 253,000. Chem profile showed borderline renal function with BUN 25 and creatinine 1.44 mg/dL. Calcium was normal 9.7 mg/dL. Serum protein electrophoresis showed increase in his M protein to 3.43 g/dL. The 24-hour urine monoclonal protein excretion was 102 mg. He was then given radiation to the frontal bone, completed on 07/27/2017 to a total dose of 3600 cGy. His other medical illnesses include hypertension, type II diabetes, GERD, degenerative arthritis, and androgen deficiency. He had smoked in the past but quit more than 20 years ago. INTERIM HISTORY: On 07/06/2017 he began 3rd line treatment with daratumumab in combination with Revlimid and dexamethasone. It was initiated at a reduced dosage of Revlimid, 15 mg daily on a 21/28 day schedule. He was able to continue the daratumumab infusions weekly with no apparent toxicity. He completed his 8th weekly infusion on 08/26/2017. During that time he required a reduction in the Revlimid dosage to 10 mg. He also started monthly denosumab injections. Beginning on 09/09/2017 the frequency of his daratumumab infusions was increased to every 2 weeks. As of 12/23/2017 he completed his 8th dose of daratumumab at the 2-week dosing interval. His repeat protein electrophoresis on 01/21/2018 showed only a faint monoclonal protein band. The free light chain assay showed his kappa free light chain decreased to 1.19 mg/dL with kappa/lambda ratio normal at 0.9754. Beginning on 01/25/2018 he continued his daratumumab infusions at the 4-week dosing interval. During his time he had on his own accord adjusted his Revlimid schedule to a 14 days on/14 days off schedule because of throat swelling and spasms. The Revlimid dosage was then changed to 5 mg daily. In December 2017 he had presented with increased pain and swelling in his upper right arm. A PET/CT on 01/09/2018 showed improvement compared to the previous study from June 2017. Numerous hypermetabolic osseous lesions had become sclerotic with nearly negligible FDG uptake, consistent with a positive response to therapy. Hypermetabolic lymph nodes in the mediastinum were subcentimeter in size and FDG negative. He was referred back to his orthopedic surgeon in [place], where he underwent I & D of an abscess on 01/19/2018. It apparently was not involving the bone. In the absence of any evidence of progression of his myeloma, he continued treatment with daratumumab, Revlimid, and dexamethasone, but he opted to change the Revlimid to the previous schedule of 10 mg daily for 14 days of a 28 day schedule. As of his follow-up visit on 09/15/2018 there was no evidence of progression of the myeloma. Prior to that visit, though, he had opted to stop the Revlimid and the dexamethasone. He did receive his scheduled daratumumab infusion. During his further follow-up, he required additional surgery on his left foot, and he also required prolonged antibiotic therapy. He continued treatment with daratumumab and dexamethasone. As of October 2018 there was no increase in the serum monoclonal protein and no significant change in the kappa free light chain. The protein electrophoresis studies from 12/01/2018 again showed no change in the serum monoclonal protein. The free light chain assay did show a significant increase in the kappa free light chain, to 7.67 mg/L, but the lambda light chain also had increased such that the kappa/lambda ratio remained normal at 0.85. Dr Stinson had seen him for a scheduled visit on 12/08/2018. At that time he had developed pain, redness, and swelling at the site of his previous abscess in the upper right arm. He was having fever and chills. The clinical picture was consistent with recurrent cellulitis or abscess. His treatment was put on hold, and he was restarted on IV antibiotic coverage with Rocephin. At about day 2 or 3 he developed spontaneous drainage of purulent material. Cultures from both the blood and subsequently from the exudate were negative. After the spontaneous drainage, he was transitioned to oral antibiotic therapy. During subsequent follow-up he had ongoing problems with the cellulitis and other issues, and he was not able to restart treatment. He had further evaluation with CT scans of the chest, abdomen, and pelvis on 01/25/2019. The most significant finding was the presence of progressive lytic myelomatous lesions of the left ischium and superior acetabular structures with probable nondisplaced pathologic fracture of the left acetabular margin. At that point he had developed significant pain in the left hip and left leg. He was referred to Dr. Navarro for additional radiation. He completed treatment to the left hip on 03/02/2019, total dose 3000 cGy. On 04/19/2019 he restarted systemic therapy with carfilzomib and dexamethasone in combination with daratumumab. He tolerated his initial day 1/day 2 treatment well, and he was then able to continue his treatment on schedule other than he missed his day 16 carfilzomib injection due to bad weather. He began cycle 2 on 05/18/2019. At that point the carfilzomib was adjusted to weekly dosing, and he was able to complete his day 1, day 8, and day 15 treatments with no adverse effects. He was then hospitalized with influenza A. He returned on 06/08/2023 for his day 22 treatment, limited just to the daratumumab, and that did complete his 8th weekly daratumumab infusion. He continued with his 3rd cycle of treatment on 06/22/2019, and with that cycle the frequency of the daratumumab infusions was reduced to every 2 weeks. During that time he had continued to complain of significant left hip pain. He was given additional radiation to that area, completed on 07/12/2019 to a total dose of 3000 cGy. He continued with cycle 4 of daratumumab/carfilzomib/dexamethasone on 07/20/2019, with cycle 5 on 08/17/2019, with cycle 6 on 09/14/2019, and with cycle 7 on 10/12/2019. Restaging CT scans of the chest, abdomen, and pelvis on 10/24/2019 showed small, noncalcified pulmonary nodules in both upper lobes and a tiny right pleural effusion. The liver showed no significant pathology. A mass was noted along the right paraspinal region measuring 7.8 x 7.6 cm. There was associated invasion of the contiguous L1 vertebral body and there was some mass-effect on the adjacent right kidney. There was noted to be incomplete healing of comminuted fractures involving the left acetabular region and there were extensive inhomogeneous lytic and sclerotic bony lesions throughout the visualized skeleton. With CT evidence of disease progression, the daratumumab/carfilzomib/dexamethasone was put on hold following his cycle 7-day 15 treatment. In addition, due to the symptomatic involvement in the right paraspinous region, he was referred for additional palliative radiation. He completed treatment on 11/10/2019 to a total dose of 3000 cGy. Subsequent to his last visit, he had developed an open wound on his upper right arm. He had drainage of purulent material which cultured methicillin sensitive staph aureus. He currently is on treatment with IV Rocephin. After stopping the daratumumab/carfilzomib regimen, it is planned to transition his treatment to pomalidomide/dexamethasone, but thus far his further treatment has been deferred because of the abscess. He has now completed 14 days of IV Rocephin and the wound has closed and greatly improved. He has pain in his lower back and left leg. The pain on the right side did improve with the radiation. He has developed some new pain associated with a knot on the right side of his head. His last dose of carfilzlomib was on 10/26/2019. Mr Canchola is here today to start cycle 2 pomalidomide. Ther current plan has been to start him at 4 mg po daily days 1-21. He will also do dexamethasone 20 mg po weekly. He has no new concerns today. He states his right shoulder is better overall although he did have a small amount of drainage from the wound area over the weekend. That has resolved currently. He denies any fever or chills. He has had some antibiotic associated diarrhea, but that has resolved. He denies any new pain. He continues to have limited activity but can care for himself with no assistance. He denies any worsening neuropathy. His ECOG is 2. Past Medical History: Allergic rhinitis Diabetes Gastroesophageal reflux Hypertension Hypoganadism Osteoarthritis Phlebitis Past Surgical History: Toe amputation x2 in 2019 Autologus stem cell transplant-[facility] in 2013 Biopsy in 2013 - [facility] in 2011 Skin Graft in 1995 - Right [place] July 2013, placed pin in right arm Allergies: Aparna, Claritin, Insulin (any type), Morphine Sulfate, and OxyCODONE HCl. Medications: Acyclovir 1 (400 mg) Tablet Oral b.i.d. Amaryl (4 mg) Tablet Oral b.i.d. Aspirin 2 Tablet (of 81 mg) Tablet, enteric coated Oral daily Benadryl 2 (25 mg) Tablet Oral four times a day PRN Clotrimazole-Betamethasone Cream Topical PRN Depo-Testosterone (200 mg/mL) Intramuscular q 2 weeks Dilaudid 1 Tablet (of 8 mg) Tablet Oral q 3 hours PRN Glucophage 1 Tablet (of 850 mg) Oral t.i.d. Imodium A-D 1 Tablet (of 2 mg) Oral PRN Invokana 1 (100 mg) Tablet Oral daily Januvia 1 (100 mg) Tablet Oral daily Lasix 1 Tablet (of 20 mg) Oral daily Lisinopril 1 Tablet (of 2.5 mg) Oral daily Lyrica 1 (75 mg) Capsule Oral daily Mucinex (600 mg) Tablet SR 12 HR Oral b.i.d. Prandin 2 Tablet (of 2 mg) Tablet Oral t.i.d. Protonix 1 - 2 Tablet (of 20 mg) Tablet, enteric coated Oral daily Victoza 1.8 mg Subcutaneous daily Family History: Mr. Canchola's mother is alive. Mr. Canchola's father at age 64: Myelomas Cancer. Mr. Canchola has 2 brothers: 2 alive. Mr. Canchola's first brother's renal pelvis and ureter cancer. Another brother's cancer history consists of Colon cancer. Social History: Mr. Canchola is single and he is an on disability. Mr. Canchola quit smoking 20 years ago but had smoked for 5 years. He has indicated exposure to the following products: cigars. Mr. Canchola reports the following support systems: lives alone, lives in own house, and supportive family/friends willing to assist with needs. His diet consists of regular meals. He indicates his activity level as: daily activities. Patient smoked 3 to 4 Cigars a day for 5 years. Review Of Symptoms: Constitutional Denies fevers, chills, night sweats, excessive fatigue or weight loss. Fatigue is unchanged. Nodule on right side of head that is tender-no worse. Allergic/Immunologic No reactions. Eyes Denies significant visual changes. No diplopia. No amaurosis. ENMT Denies changes in hearing, sore throat, mouth sores, difficulty or changes in swallowing ability, and/or sinus drainage. Endocrine No diabetes, thyroid disease or hormone replacement. Denies hot flashes or night sweats. Hematologic/Lymphatic Denies easy bruising or bleeding. The patient denies any tender or palpable lymph nodes. Respiratory Denies worsening dyspnea on exertion, chest pain, cough or hemoptysis. Denies orthopnea. Cardiovascular Denies anginal chest pain, palpitations or orthopnea. Gastrointestinal Denies nausea, vomiting, diarrhea, GI bleeding, or constipation. Denies change in bowel habits and/or stool color, no heartburn or early satiety. Genitourinary (M) Denies hematuria, dysuria, increased frequency, urgency, hesitancy or incontinence. Musculoskeletal Denies joint pain, swelling or redness. No decreased range of motion. Integumentary Denies chronic rashes, inflammation, ulcerations or skin changes. Neurologic Denies headache, blurred vision. Psychiatric Denies insomnia, depression, jacqueline or mood swings. Vital Signs: Performed on Dec 21, 2019 13:59 Height - 72.00 in Weight - 287.6 lbs (LOW) BSA - 2.49 sq.m BMI - 39.01 (HIGH) Temperature - 97.6 F (LOW) Pulse - 95 /min Respiration - 18 /min BP - 147/89 mm(hg) (HIGH) O2 Sat - 99 % Pain - 6,2 - Ambulatory/capable of all self-care, unable to perform any work activities. Up and about more than 50% of waking hours. (ECOG) Physical Examination: Constitutional Alert, oriented, no acute distress. Skin pink, warm and dry. Eyes Conjunctivae and sclerae are clear and without icterus. Pupils are reactive and equal. Neck Supple without masses or thyromegaly. No jugular venous distension. Hematologic/Lymphatic No petechiae or purpura. No tender or palpable lymph nodes in the cervical or supraclavicular areas. Respiratory Lungs are clear to auscultation without rhonchi or wheezing. Cardiovascular Regular rate and rhythm of heart without murmurs,clicks, gallops or rubs. Abdomen Non-tender, non-distended, no masses or ascites. Back/Spine Non-tender to palpation. Extremities No visible deformities, no cyanosis, clubbing or edema. Right shoulder area pink and dry with < 1 cm scabbed area noted from recent abscess. Musculoskeletal No tenderness or swelling, normal range of motion without obvious weakness. Integumentary No rashes or lesions. Neurologic No sensory or motor deficits, normal cerebellar function, normal gait. Psychiatric Alert and oriented times three. Coherent speech. Verbalizes understanding of our discussions today. Laboratory:Test performed on Dec 20, 2019 13:20 Glucose 293 mg/dL BUN 22 mg/dL Creatinine 1.06 mg/dL Cr Clearance (Est) 136.14 mL/min Sodium 136 mmol/L Potassium 4.7 mmol/L Chloride 97 mmol/L CO2 28 mmol/L Calcium 9.5 mg/dL Protein, Total 6.7 g/dL Albumin 4.3 g/dL Bilirubin, Total 0.3 mg/dL Alkaline Phosphatase 73 IU/L AST (SGOT) 21 IU/L ALT (SGPT) 22 IU/L WBC 3.1 10^9/L RBC 4.16 10^12/L HGB 11.6 g/dL HCT 36.2 % MCV 87.0 fl MCH 27.9 pg MCHC 32.0 g/dL RDW 16.3 % Platelet Count 263 10^9/L MPV 8.9 fL Neutrophils (Gran) 1.36 10^9/L Lymphocytes 0.67 10^9/L Monocytes 0.42 10^9/L Eosinophils 0.52 10^9/L Basophils 0.07 10^9/L Manual Lymphocytes 22 % Manual Monocytes 14 % Manual Eosinophils 17 % Manual Basophils 2 % Test performed on Dec 20, 2019 10:47 Albumin, SPE 3.63 g/dL IGA 31 mg/dL IGG 583 mg/dL IGM 27 mg/dL Rodessa / Lambda Ratio 1.06 Absolute Value Lambda Light Chain (Quant) 17.29 mg/dL [place] Light Chain (Quant) 18.28 mg/dL Oytdg-1-eacbsdrd 0.31 g/dL Ptytn-4-gzacosqw 0.90 g/dL Beta Globulin 0.66 g/dL Gamma Globulin 0.49 g/dL SPE Interpretation No significant change in monoclonal proteinemia since prior study Test performed on Nov 30, 2019 14:00 Neutrophil % 87.4 % Lymphocyte % 7.9 % Monocyte % 1.8 % Eosinophil % 0.8 % Basophils % 0.5 % NRBC % 0 % Test performed on Oct 05, 2019 08:36 Lambda Light Chain 1.35 [place]essa Light Chain 5.71 Test performed on Aug 01, 2019 10:55 Manual Segs 0.02 % Impression: 1. Patient with stage II, standard risk multiple myeloma and a large destructive plasmacytoma in the right humerus with associated pathological fracture. He underwent palliative radiation therapy and surgical repair of his arm. 2. Despite treatment he had a further progression of his M protein, and he was found to have hyperdiploid cytogenetics on bone marrow biopsy. 3. Induction chemotherapy with Velcade, Cytoxan, and Decadron began on 09/12/13. After 6 cycles of induction therapy cyclophosphamide was stopped, and he continued with Velcade and Decadron for 8 cycles. 4. On 04/11/2014 he underwent high-dose melphalan followed by an autologous stem cell transplantation. Post transplant bone marrow biopsy revealed residual disease. 5. He declined maintenance Revlimid therapy. Maintenance treatment with Velcade 1.3 mg/m2 sc every 2 weeks for 2 years began on 09/11/14. 6. He had progressive preexistent peripheral neuropathy. His dose was adjusted at 1 mg/m??? subcutaneously every 2 weeks, but he developed progressive neuropathy with pruritus. Velcade therapy was discontinued. His M protein level at that point was stable at 0.84 g/dL. 7. A trial of ixazomib 4 mg weekly on days 1, 8, and 15 of 28 day cycle began on 05/21/15. His other medical illnesses include: 8. Hypertension. 9. Type II diabetes. 10. GERD. 11. Degenerative arthritis. 12. Androgen deficiency. He had evidence of some response to the ixazomib. As of his follow-up visit in January 2016 his M protein had increased somewhat, but it then stabilized. During subsequent follow-up, the M protein had increased very gradually. However, between December and March 2017 there was a significant increase, from 1.50 g/dL to 1.93 g/dL. He had then presented with a mass in left chest wall. His chest CT showed an area of lytic involvement with associated soft tissue mass, consistent with myeloma. He underwent radiation to the involved area, completed on 05/12/2017 to a total dose of 4000 cGy. He then developed a new lump in his forehead. Head CT showed bifrontal and anterior ethmoid sinus soft tissue abnormality suggestive of mass as well as midline frontal scalp soft tissue mass secondary to erosion of the anterior wall frontal sinus. Overall, the findings were consistent with involvement with myeloma, and his laboratory studies also were indicative of significant further progression of his M protein. He was given radiation to the frontal bone, completed on 07/27/2017 to a total dose of 3600 cGy. He then began 3rd line treatment with daratumumab in combination with Revlimid and dexamethasone. He completed 8 weekly infusions of daratumumab, which he tolerated well, though he did require a reduction in the Revlimid dosage to 10 mg. He also started monthly injections of denosumab for the lytic bone involvement. As of 09/09/2017 the frequency of the daratumumab infusions was increased to every 2 weeks. As of 12/23/2017 he had completed 8 infusions at that interval. Beginning on 01/25/2018 he continued daratumumab at the 4-week dosing interval. During this time he had opted to adjust his Revlimid to a 14 days on/14 days off schedule due to throat swelling and spasms, and his Revlimid dosage was then further reduced to 5 mg daily on a / day schedule. As of January 2018 his protein electrophoresis showed just a faint M band compared to a pretreatment M protein level of 3.43 g/dL. In December 2017 he presented with increased pain and swelling in his upper right arm. His repeat PET/CT showed significant response to treatment compared to the June 2017 study. 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 On 01/19/2018 he underwent incision/drainage of an abscess, which apparently was not involving the bone. He had an open wound at that site, but it has gradually healed. In the absence of any evidence of progression of the myeloma, he continued treatment with daratumumab, Revlimid, and dexamethasone. He has limited the Revlimid to 14 days each month because it does seem to cause some swelling in his throat. 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 During that time he required a prolonged course of antibiotic therapy with Rocephin. He has been able to continue treatment with daratumumab in combination with Revlimid and dexamethasone with no evidence of progression of the myeloma. He had been having increasing side effects with the Revlimid, and he opted to stop both the Revlimid and dexamethasone 6 weeks ago. During subsequent follow-up he had improvement in some symptoms, though his activity had been further limited due to his left foot problems. He was having more diarrhea, but that he had attributed to his antibiotic. As of his follow-up in October 2018 there was no evidence of progression of the myeloma. He had presented on 12/08/2018 with recurrence of pain in association with cellulitis/abscess of the right upper arm soft tissues. This was the same site as his previous abscess, which reportedly was not involving the bone. It showed gradual improvement on antibiotic therapy after spontaneous drainage. However, his treatment during that time had remained on hold. He then had further evaluation with CT scans of the chest, abdomen, and pelvis on 01/25/2019. 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 There appear to be associated nondisplaced lateral acetabular margin pathologic fracture. He was referred to Dr. Navarro, and he was then given radiation to the left hip, completed on 02/19/2019 to a total dose of 3000 cGy. On 04/19/2019 he restarted systemic therapy with carfilzomib and dexamethasone in combination with daratumumab. He tolerated his initial day 1/day 2 treatment well, and he was then able to continue his treatment on schedule other than he had to skip his day 16 carfilzomib injection due to bad weather. He began cycle 2 on 05/18/2019. He has been tolerating treatment with acceptable toxicity, though his treatment was complicated by a hospitalization for influenza A. He has had uneventful recovery. He continued with his 3rd cycle of treatment on 06/22/2019, and with that cycle the frequency of the daratumumab infusions was reduced to every 2 weeks. He continued to complain of significant left hip pain. He was given additional radiation to that area, completed on 07/12/2019 to a total dose of 3000 cGy. During that time he had developed significant diarrhea. A specific cause was not determined. His stool had tested negative for C. difficile. The diarrhea subsequently improved on symptomatic management. As of 07/20/2019 he continued with cycle 4 of daratumumab/carfilzomib/dexamethasone. At that point he was showing evidence of response, and he also appeared to be showing improvement in his clinical status. As of 10/12/2019 he appeared stable clinically, and he began his 7th cycle of treatment. However, his restaging CT scans on 10/24/2019 showed evidence of disease progression with development of a new mass in the right paraspinous region. There was associated invasion of the contiguous L1 vertebral body and there was compression of the adjacent right kidney. With evidence of disease progression, dR Stinson did opt to stop the daratumumab/carfilzomib. He was referred for palliative radiation, which he completed on 11/10/2019 to a total dose of 3000 cGy. He has had a good clinical response. However, during that time he also developed purulent drainage from an open wound/abscess on his upper right arm. Culture grew methicillin sensitive staph aureus. He does appear to be showing improvement on antibiotic therapy with IV Rocephin. Due to the abscess, further treatment of his myeloma has been deferred. Mr Canchola has completed the antibiotic therapy and has now completed 1 cycle of pomalidomide 4 mg po daily days 1-21-he began the pomalidomide on 11/24/2019. Plan: 1. Hold cycle 2 pomalidomide 4 mg po daily days 1-21 due to ANC today of 1360 2. Continue dexamethasone 20 mg po weekly. 3. Labs from December 20, 2019 were reviewed in detail and discussed with Mr. Batista and a copy was given to him. WBC 3.1, hemoglobin 11.6, platelets 263,000 ANC is 1360 creatinine 1.0 random glucose 293 potassium 4.7 LFTs are normal. 4. We will plan to recheck a CBC CMP in 1 week to determine if we can resume the pomalidomide. He may need dose reduction depending on how well his blood counts recover. 5. I have asked for follow-up CT of the chest to evaluate the chest wall for potential infection. He has had tunneling infection from the shoulder before and he does have redness across the right side of his upper chest area. Of also asked for a CT of the head as he does have some not /lesions on the scalp this he feels are getting thicker. We have asked for these to be noncontrast due to his myeloma. We will plan to see him back in 1 week hopefully he will have a CTs done by that time and will reevaluate resuming the pomalidomide.. 6. AVOID GRAPEFRUIT JUICE WITH POMALIDOMIDE 7. Mr. Batista was instructed to contact us in interim should questions or problems arise. Signed By: Diandra Nunn-, AOCNP Rosendo Stinson MD <<Signature on File>>
[2020-01-02] MEDS: denosumab 120 mg SDV SUBCUT (14:22)
--- NOTE | 2020-01-10 08:52 | ONCRAD EPV_ITS ---
Radiation Oncology Established Patient Visit Patient: Jesika Hong [id number] : 1960 Age: 59 Sex: Male Dictated by: Dr. Sreekanth Munoz Date of Service: 01/09/2020 Referring Physician(s) : Rosendo Rodriges M.D. Diagnosis: M89.9 - Disorder of bone, unspecified, Diagnosed 06/10/2016 (Active) C90.00 - Multiple myeloma not having achieved remission, Diagnosed 01/30/2015 (Active) Prior Radiotherapy: Treatment Site: LT [id number], Ref. ID: PTV Lt Rib, Energy: 15X, Dose/Fx (cGy): 200, #Fx: 20 / 20, Dose Total Dose (cGy): 4,000, , Start Date: 04/14/2017, End Date: 05/12/2017, Elapsed Days: 28 Treatment Site: FRONTAL BRAIN [id number], Ref. ID: PTV_Brain, Energy: 6X, Dose/Fx (cGy): 180, #Fx: 20 / 20, Total Dose (cGy): 3,600, Start Date: 06/30/2017, End Date: 07/27/2017, Elapsed Days: 27 Treatment Site: RT ARM, Ref. ID: RT ARM, Energy: 15X/6X, Dose/Fx (cGy): 200, #Fx: 14 / 25, Dose Correction (cGy): 1,000, Total Dose (cGy): 2,800, Start Date: 06/22/2013, End Date: 07/11/2013, Elapsed Days: 19 Treatment Site: RT ARM, Ref. ID: RT ARM BOOST, Energy: 15X/6X, Dose/Fx (cGy): 200, #Fx: 5 / 11, Dose Total Dose (cGy): 1,000, Start Date: 07/12/2013, End Date: 07/18/2013, Elapsed Days: 6 Treatment Site: RT ARM Energy: 6X Dose/Fx (cGy): 200 #Fx: 4 / 6 Dose Correction (cGy): 1,000 Total Dose (cGy): 800 Start Date: 08/01/2013 End Date: 08/04/2013 Elapsed Days: 3 Treatment Site: LT Hip 30Gy Energy: 15X Dose/Fx (cGy): 300 #Fx: 10 / 10 Total Dose (cGy): 3,000 Start Date: 02/17/2019 End Date: 03/02/2019 Elapsed Days: 13 Treatment Site: LT Hip 2020 Energy: 15X Dose/Fx (cGy): 250 #Fx: 12 12 Total Dose (cGy): 3,000 Start Date: 06/27/2019 End Date: 07/12/2019 Elapsed Days: 15 Treatment Site: RT paraspinal mass 10FX Energy: 15X Dose/Fx (cGy): 300 #Fx: 10 / 10 Total Dose (cGy): 3,000 Start Date: 10/27/2019 End Date: 11/10/2019 Elapsed Days: 14 Treatment Site: Right Occipital Skull: Energy: 9MeV, 20 Gy / 10 fractions, Start Date: 11/23/2019, End Date: 12/07/2019, Elapsed Days: 14 Current History: The patient is seen today in follow-up approximately 1 month after completing palliative radiation therapy to the right posterior skull. Physical exam today demonstrates complete resolution of the soft tissue mass on the right occipital skull. The patient has no specific complaints today aside from minor growth in the left preauricular soft tissue mass measuring approximately 1.5 cm, and interval growth in the size of his soft tissue mass anterior to the sternum measuring approximately 3 cm by physical exam. The patient reports no specific pain, and he reports that he is tolerating and is fully compliant with his pomalidomide. Oncology is considering to to switch to an alternative agent if pomalidomide does not demonstrate clinical improvement. Since the patient was last seen, he obtained a CT of the head and chest (12/30/2019). The CT of the head revealed no acute intracranial abnormality, no suspicious cranial osseous lesions, and unchanged hyperostosis along the superior ethmoid bones. 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 Current Medications: Acetaminophen, acyclovir, acyclovir, aloxi, amaryl, aspirin, ativan, benadryl, benadryl, carfilzomib, cefTRIAXone Sodium, clotrimazole-Betamethasone, clotrimazole-Betamethasone, compazine, daratumumab, depo-Testosterone, dexamethasone, dexamethasone Sodium Phosphate, diclofenac Sodium, dilaudid, dilaudid, diphenhydrAMINE HCl, first-Mouthwash BLM, glucophage, hYDROmorphone HCl, imodium A-D, invokana, januvia, keflex, lasix, lisinopril, lisinopril, lomotil, lyrica, mucinex, ezgsatau-Rrrvnklkd-BY, ondansetron HCl, pantoprazole Sodium, pepcid, prandin, protonix, revlimid, sodium Chloride, victoza. Allergies: Aparna, Insulin (any type), Claritin, Morphine Sulfate and OxyCODONE HCl. Current Complaints / Review of Systems: Constitutional - Complains of severe fatigue. Denies lack of appetite, fever and night sweats. Head - Has a lesion on the left side of the head. Eyes - Denies blurred vision and double vision. ENMT - Complains of ear pain on the left side occasionally. Complains of mild mouth dryness. Denies dysphagia, stomatitis and altered taste. Neck - Complains of neck pain on the right side and decreased range of motion. Integumentary - Denies rash. Cardiovascular - Denies arrhythmias, chest pain and edema. Has a mass on the center of the chest wall and on the right side of the calvical. Respiratory - Complains of cough from sinus drainage. Complains of dyspnea associated with normal activity. Denies wheezing. Gastrointestinal - Complains of occasional constipation. Complains of occasional diarrhea. Complains of pain / cramping which happened today. Denies abdominal pain, heartburn / dyspepsia, melena / GI bleeding, nausea and vomiting. Genitourinary (M) - Complains of nocturia off and on. Denies dysuria, frequency and urgency. Musculoskeletal - Complains of joint pain right shoulder. Complains of generalized muscle weakness. Neurologic - Complains of abnormal gait and headaches occasionally. Denies dizziness. Endocrine - Complains of frequent hot flashes with taking steroids. Hematologic/Lymphatic - Denies tender or enlarged lymph nodes.. Vital Signs: Performed on 01/09/2020 4:02 PM BMI - 39.06 kg/m2 (high), Height - 72.00 in, Weight - 288.0 lbs, Temperature - 99.6 f, Pulse - 71, Respiration - 20, O2 Sat - 99 %, Pain - 0 and BP - 110/ 73 mm(hg). Physical Exam: General: Alert and oriented x 3. No acute distress. HEENT: The previously seen subcutaneous nodule overlying the right occipital skull has completely resolved after treatment. The patient also has a soft tissue/subcutaneous nodule measuring 1.5 cm in the left preauricular region anterior to the antitragus. Extraocular Movements Intact: Pupils Equal, Round, Reactive to Light and Accommodation: Sclerae anicteric. Oral cavity is clear without lesions, masses or ulcers. NECK: Supple without supraclavicular or jugular lymphadenopathy. LUNGS: Clear to auscultation bilaterally without rales, rhonchi or wheeze. HEART: Regular rate and rhythm, normal S1 and S2 without murmur, gallop or rub. MUSCULOSKELETAL: The patient has a soft tissue nodule anterior to the manubrium/superior sternum measuring approximately 3 cm with surrounding skin erythema. NEUROLOGIC: Cranial nerves II ???XII are grossly intact. Performance Status: 2 - Ambulatory/capable of all self-care, unable to perform any work activities. Up and about more than 50% of waking hours. (ECOG) Lab: None pending. Test performed on 08/01/2019 10:55 AM Manual Segs - 0.02 % (low), Test performed on 12/20/2019 10:47 AM IGA - 31 mg/dl (low), IGG - 583 mg/dl (low), IGM - 27 mg/dl (low), Vcney-6-[id number] - 0.31 g/dl (high), Gamma Globulin - 0.49 g/dl (low), Test performed on 12/20/2019 1:20 PM Manual Monocytes - 14 % (high), Manual Eosinophils - 17 % (high), Cr Clearance (Est) - 136.14 ml/min (high), Test performed on 12/28/2019 9:11 AM RBC - 3.78 10^12/l (low), HGB - 10.8 g/dl (low), HCT - 33.1 % (low), RDW - 16.8 % (high), Monocytes - 0.08 10^9/l (low) and Eosinophils - 0.48 10^9/l (high). Pathology: Primary, m89.9 - disorder of bone, unspecified, Diagnosed 06/10/2016 (active), Primary, c90.00 - multiple myeloma not having achieved remission, Diagnosed 01/30/2015 (active) and Secondary, z92.3 - personal history of irradiation, Diagnosed 03/2017 (active). Imaging: See HPI Impression: The patient is a 59-year-old male with active multiple myeloma which is rapidly progressing. The patient is seen approximately 1 month after completing palliative radiation therapy to the right occipital skull, and 2 months after completing palliative treatment to the right paraspinal mass. Physical exam demonstrates complete resolution of the right occipital skull lesion, and the patient shares improvement in his symptoms related to the right paraspinal mass. The growing subcutaneous nodule overlying his left preauricular region and anterior sternum is not significantly symptomatic at this time. My preference would be for systemic therapy at this time given the substantial intrapulmonary progression and new bulky right hilar adenopathy. The soft tissue masses located anterior to the manubrium, and preauricular region can be used to clinically assess effectiveness of stomach therapy. The patient was encouraged to return to us as needed. Going forward, the patient will be managed by Dr. Rodriges???s office until another referral to radiation oncology is warranted. Signed by: 01/10/2020 8:51:37 AM <<Signature on File>> Time spent with patient: CPT Code: CPT Code:
--- NOTE | 2020-01-10 13:09 | ONC FU_ITS ---
[facility] Patient Note Patient: Hal Canchola Unit #: [id number]: [id number] Dictated By: Diandra NunnDate of Visit: Jan 02, 2020 Onc MED Follow-Up/Prog Note Chief Complaint: Myeloma. 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 He had presented with pain in the right arm. His x-ray on 05/12/13 showed a large expansile lytic lesion in the midshaft of humeral diaphysis. He was referred to see Dr. Arrieta in [place], [place]. Further work up included laboratory analysis on 05/23/13 that showed normal hemoglobin at 12.4 g/dL, mild renal insufficiency with BUN 26 and creatinine of 1.2, normal albumin at 3.9, and normal calcium at 9.6. His skeletal bone survey showed no additional lesions on 05/26/13. Biopsy of the right humeral lesion on 05/31/13 revealed plasma cell neoplasm, kappa restricted. He was first seen here on 06/16/13. His protein electrophoresis studies showed 1.79 g of IgG kappa. His bone marrow biopsy on 06/17/13 revealed 3% plasma cells, 5-10% CD138 positive cells by flow. Cytogenetic analysis showed two population of cells. First population comprising 10% showed loss of 1q, additional material on 20q, and trisomy of chromosomes 3, 5, 7, 9, 11 and 15. FISH panel revealed gain of 9q, 11q, 15q, and 17q. He had no iron storage. Radiation therapy to the arm lesion began on 3/10/14. In the midst of all of his radiation treatment, short of about 2 fractions, the patient sustained a mechanical fall and landed on the affected arm, sustaining significant fracture. He required surgery on 08/09/2013. Despite of the radiation therapy, his follow up plasmacytoma studies on 09/01/2013 showed further increase of M protein to 2.5 g/dL, IgG 3460, serum free light chain ratio increased to 35. He had mild anemia with hemoglobin of 11 g/dL. His creatinine was 1.1. with calcium 9. Induction chemotherapy with VCd regimen (Velcade, Cytoxan and dexamethasone) began on 09/12/13. He had a positive response to the treatment, and after 6 cycles of therapy cytoxan was dropped from the regimen. The patient completed a total of 8 cycles of treatment with a very good response. On 04/11/2014 he underwent high-dose melphalan followed by an autologous stem cell transplantation. On 07/14/14 he underwent a day 100 post transplant bone marrow biopsy [facility] with residual disease. IgG kappa M protein 0.77 g/dL. Maintenance single agent Revlimid therapy was recommended, but the patient ultimately decided against it for a variety of reasons, including concerns over completing REMS questionnaire over the phone and privacy issues. Maintenance with single agent Velcade every 2 weeks for 2 years was recommended. Cycle 1 began on 09/11/14. Baseline IgG 0.94 g/dL. The patient received Velcade therapy up until 04/10/2015. He required a dose reduction to 1 mg/m??? every 2 weeks due to progressive peripheral neuropathy. He again developed recurrent cramps and pruritis in the legs, which occurred after restarting Velcade. Given recurrent peripheral neuropathy, Velcade therapy was discontinued. M protein remained stable at 0.84 g/dL on 05/01/2015. As he had measurable disease, single agent Ixazomib began on 05/21/15 at a standard dosage of 4 mg weekly on days 1, 8,and 15 of each 28 day cycle. As of his follow-up visit in November 2015 his M protein was stable, and he was tolerating treatment well. He began cycle 9 of ixazomib on 01/02/2016. He had also continued Zometa infusions every 3 months for the lytic bone involvement. The protein electrophoresis studies from 01/22/2016 did show slight increase in his kappa free light chain, but there was no change in the M protein or in the 24-hour urine monoclonal protein excretion. On 02/03/2016 he was admitted to the hospital with cellulitis associated with a diabetic foot ulceration. His repeat protein electrophoresis studies from 03/04/2016 showed a further increase in the kappa free light chain to 15.9 mg/dL compared to 7.26 mg/dL in January and to 4 0.7 mg/dL in November 2015. The M protein at that point had also increased, to 1.11 g/dL compared to 0.81 g/dL in January. The 24-hour urine at that time showed a total protein excretion of 2226 mg with 2.3% monoclonal protein. That was not significantly changed. His subsequent protein electrophoresis studies remained stable. As of 12/11/2016 the M protein had increased only slightly, to 1.30 g/dL with his kappa free light chain stable at 12.8 mg/dL. His 24-hour urine protein electrophoresis showed a total monoclonal protein excretion of 32 mg. Skeletal survey on 10/09/2016 showed probable old healed pathologic fracture deformity of the right mid humeral diaphysis and probable additional old healed pathologic fracture of the distal left fibular diaphysis. There were findings consistent with advanced neuropathic arthropathy of the feet. There were no other lytic bone lesions. As of 01/08/2017 there was further increase in the M protein level to 1.50 g/dL, but his repeat protein electrophoresis on 02/11/2017 showed no significant change in the M protein. He continued treatment with single agent ixazomib. As of his follow-up visit on 03/18/2017 his M protein had shown a significant increase, up to 1.93 g/dL compared to 1.50 g/dL in December 2016. His blood counts at that point remained stable. His skeletal survey as of 02/11/2017 showed no active bone lesions. However, as it was evident that his disease was progressing, Dr Stinson did have him stop his treatment. He had subsequently reported development a chest wall mass. A noncontrast chest CT on 03/27/2017 showed evidence of a lytic expansile lesion of the anterior left fifth rib with an adjacent soft tissue mass. He was then referred to Dr. Navarro and he underwent radiation to the chest wall lesion, completed on 05/12/2017 to a total dose of 4000 cGy. He tolerated the treatment well. During this time he had also developed a lump on his forehead. Head CT on 06/18/2017 showed bifrontal and anterior ethmoid sinus soft tissue abnormality suggestive of mass and associated with mucocele expansion of the right frontal sinus and lytic bony erosive changes. Reported differential diagnosis included primary sinus neoplasm or extraosseous myeloma. Also noted was midline frontal scalp soft tissue mass secondary to erosion of the anterior wall frontal sinus. There was also apparent erosion of the floor of the anterior cranial fossa by the component of the mass in the ethmoid sinus. His laboratory studies from 06/22/2017 included CBC showing a decline in his hemoglobin to 10.4 g with white blood cell count 5100 and platelet count 253,000. Chem profile showed borderline renal function with BUN 25 and creatinine 1.44 mg/dL. Calcium was normal 9.7 mg/dL. Serum protein electrophoresis showed increase in his M protein to 3.43 g/dL. The 24-hour urine monoclonal protein excretion was 102 mg. He was then given radiation to the frontal bone, completed on 07/27/2017 to a total dose of 3600 cGy. His other medical illnesses include hypertension, type II diabetes, GERD, degenerative arthritis, and androgen deficiency. He had smoked in the past but quit more than 20 years ago. INTERIM HISTORY: On 07/06/2017 he began 3rd line treatment with daratumumab in combination with Revlimid and dexamethasone. It was initiated at a reduced dosage of Revlimid, 15 mg daily on a 21/28 day schedule. He was able to continue the daratumumab infusions weekly with no apparent toxicity. He completed his 8th weekly infusion on 08/26/2017. During that time he required a reduction in the Revlimid dosage to 10 mg. He also started monthly denosumab injections. Beginning on 09/09/2017 the frequency of his daratumumab infusions was increased to every 2 weeks. As of 12/23/2017 he completed his 8th dose of daratumumab at the 2-week dosing interval. His repeat protein electrophoresis on 01/21/2018 showed only a faint monoclonal protein band. The free light chain assay showed his kappa free light chain decreased to 1.19 mg/dL with kappa/lambda ratio normal at 0.9754. Beginning on 01/25/2018 he continued his daratumumab infusions at the 4-week dosing interval. During his time he had on his own accord adjusted his Revlimid schedule to a 14 days on/14 days off schedule because of throat swelling and spasms. The Revlimid dosage was then changed to 5 mg daily. In December 2017 he had presented with increased pain and swelling in his upper right arm. A PET/CT on 01/09/2018 showed improvement compared to the previous study from June 2017. Numerous hypermetabolic osseous lesions had become sclerotic with nearly negligible FDG uptake, consistent with a positive response to therapy. Hypermetabolic lymph nodes in the mediastinum were subcentimeter in size and FDG negative. He was referred back to his orthopedic surgeon in [place], where he underwent I & D of an abscess on 01/19/2018. It apparently was not involving the bone. In the absence of any evidence of progression of his myeloma, he continued treatment with daratumumab, Revlimid, and dexamethasone, but he opted to change the Revlimid to the previous schedule of 10 mg daily for 14 days of a 28 day schedule. As of his follow-up visit on 09/15/2018 there was no evidence of progression of the myeloma. Prior to that visit, though, he had opted to stop the Revlimid and the dexamethasone. He did receive his scheduled daratumumab infusion. During his further follow-up, he required additional surgery on his left foot, and he also required prolonged antibiotic therapy. He continued treatment with daratumumab and dexamethasone. As of October 2018 there was no increase in the serum monoclonal protein and no significant change in the kappa free light chain. The protein electrophoresis studies from 12/01/2018 again showed no change in the serum monoclonal protein. The free light chain assay did show a significant increase in the kappa free light chain, to 7.67 mg/L, but the lambda light chain also had increased such that the kappa/lambda ratio remained normal at 0.85. Dr Stinson had seen him for a scheduled visit on 12/08/2018. At that time he had developed pain, redness, and swelling at the site of his previous abscess in the upper right arm. He was having fever and chills. The clinical picture was consistent with recurrent cellulitis or abscess. His treatment was put on hold, and he was restarted on IV antibiotic coverage with Rocephin. At about day 2 or 3 he developed spontaneous drainage of purulent material. Cultures from both the blood and subsequently from the exudate were negative. After the spontaneous drainage, he was transitioned to oral antibiotic therapy. During subsequent follow-up he had ongoing problems with the cellulitis and other issues, and he was not able to restart treatment. He had further evaluation with CT scans of the chest, abdomen, and pelvis on 01/25/2019. The most significant finding was the presence of progressive lytic myelomatous lesions of the left ischium and superior acetabular structures with probable nondisplaced pathologic fracture of the left acetabular margin. At that point he had developed significant pain in the left hip and left leg. He was referred to Dr. Navarro for additional radiation. He completed treatment to the left hip on 03/02/2019, total dose 3000 cGy. On 04/19/2019 he restarted systemic therapy with carfilzomib and dexamethasone in combination with daratumumab. He tolerated his initial day 1/day 2 treatment well, and he was then able to continue his treatment on schedule other than he missed his day 16 carfilzomib injection due to bad weather. He began cycle 2 on 05/18/2019. At that point the carfilzomib was adjusted to weekly dosing, and he was able to complete his day 1, day 8, and day 15 treatments with no adverse effects. He was then hospitalized with influenza A. He returned on 06/08/2023 for his day 22 treatment, limited just to the daratumumab, and that did complete his 8th weekly daratumumab infusion. He continued with his 3rd cycle of treatment on 06/22/2019, and with that cycle the frequency of the daratumumab infusions was reduced to every 2 weeks. During that time he had continued to complain of significant left hip pain. He was given additional radiation to that area, completed on 07/12/2019 to a total dose of 3000 cGy. He continued with cycle 4 of daratumumab/carfilzomib/dexamethasone on 07/20/2019, with cycle 5 on 08/17/2019, with cycle 6 on 09/14/2019, and with cycle 7 on 10/12/2019. Restaging CT scans of the chest, abdomen, and pelvis on 10/24/2019 showed small, noncalcified pulmonary nodules in both upper lobes and a tiny right pleural effusion. The liver showed no significant pathology. A mass was noted along the right paraspinal region measuring 7.8 x 7.6 cm. There was associated invasion of the contiguous L1 vertebral body and there was some mass-effect on the adjacent right kidney. There was noted to be incomplete healing of comminuted fractures involving the left acetabular region and there were extensive inhomogeneous lytic and sclerotic bony lesions throughout the visualized skeleton. With CT evidence of disease progression, the daratumumab/carfilzomib/dexamethasone was put on hold following his cycle 7-day 15 treatment. In addition, due to the symptomatic involvement in the right paraspinous region, he was referred for additional palliative radiation. He completed treatment on 11/10/2019 to a total dose of 3000 cGy. Subsequent to his last visit, he had developed an open wound on his upper right arm. He had drainage of purulent material which cultured methicillin sensitive staph aureus. He currently is on treatment with IV Rocephin. After stopping the daratumumab/carfilzomib regimen, it is planned to transition his treatment to pomalidomide/dexamethasone, but thus far his further treatment has been deferred because of the abscess. He has now completed 14 days of IV Rocephin and the wound has closed and greatly improved. He has pain in his lower back and left leg. The pain on the right side did improve with the radiation. He has developed some new pain associated with a knot on the right side of his head. His last dose of carfilzlomib was on 10/26/2019. Mr Canchola had followup CT scans without contrast on 12/30/2019. He had CT of the chest without contrast on 12/30/2019 which reported substantial enlargement of bilateral pulmonary nodules compatible with disease progression (compared to October 2019 study). There is soft tissue lesion anterior and likely involving the sternum has also substantially enlarged and is compatible with plasmacytoma. In addition bulky right hilar lymphadenopathy has developed compatible with metastatic disease. Redemonstration of multiple osseous metastatic lesions involving the axial skeleton which were similar to the prior exam in keeping with no myeloma. He had CT of the head without contrast also at 12/30/2019 at [facility]. This reported mild sequela small vessel ischemic disease and diffuse parenchymal volume loss. The ventricles were midline and basal cisterns were patent. Unchanged probable hemangioma within the right frontal bone. No suspicious cysts osseous lesion. Unchanged skin thickening along the right temporal scalp. Probable mucocele seen within the right frontal sinus. Stable hyperstosis along the bilateral superior ethmoid bones, likely from previous trauma or infection. Frothy mucosal thickening within the right sesamoid sinus. No mastoid effusion. The orbits were intact. Mr. Batista began his first cycle of pomalidomide on 11/24/2019 [address] CTs were obtained on 12/30/2019. Therefore the first cycle of pomalidomide had just been completed at the time of the CTs. They were restaging CTs. Mr Canchola is here today to start cycle 2 pomalidomide. The current plan has been to start him at 4 mg po daily days 1-21. He will also do dexamethasone 20 mg po weekly. He was due to start cycle 2 pomalidomide last week but was found to be neutropenic with an ANC of 1360. His treatment was delayed until today for reassessment. He has no new concerns. He states that the nodule on his left upper jaw area seems to be getting bigger. He states he will talk with Dr. Munoz regarding this as he sees him next week. He states that the right shoulder has still been draining some. He states this morning he got some walter pus out of it . That is currently resolved. He is trying to set up an appointment with the orthopedic in [place] for further follow-up. He has no new concerns today. His ECOG is 2. Past Medical History: Allergic rhinitis Diabetes Gastroesophageal reflux Hypertension Hypoganadism Osteoarthritis Phlebitis Past Surgical History: Toe amputation x2 in 2018 Autologus stem cell transplant-Starr in 2013 Biopsy in 2013 - RighTHumerus Ankle Surgery in 2011 Skin Graft in 1995 - Right Guffey July 2013, placed pin in right arm Allergies: Aparna, Claritin, Insulin (any type), Morphine Sulfate, and OxyCODONE HCl. Medications: Acyclovir 1 (400 mg) Tablet Oral b.i.d. Amaryl (4 mg) Tablet Oral b.i.d. Aspirin 2 Tablet (of 81 mg) Tablet, enteric coated Oral daily Benadryl 2 (25 mg) Tablet Oral four times a day PRN Clotrimazole-Betamethasone Cream Topical PRN Depo-Testosterone (200 mg/mL) Intramuscular q 2 weeks Dilaudid 1 Tablet (of 8 mg) Tablet Oral q 3 hours PRN Glucophage 1 Tablet (of 850 mg) Oral t.i.d. Imodium A-D 1 Tablet (of 2 mg) Oral PRN Invokana 1 (100 mg) Tablet Oral daily Januvia 1 (100 mg) Tablet Oral daily Lasix 1 Tablet (of 20 mg) Oral daily Lisinopril 1 Tablet (of 2.5 mg) Oral daily Lyrica 1 (75 mg) Capsule Oral daily Mucinex (600 mg) Tablet SR 12 HR Oral b.i.d. Prandin 2 Tablet (of 2 mg) Tablet Oral t.i.d. Protonix 1 - 2 Tablet (of 20 mg) Tablet, enteric coated Oral daily Victoza 1.8 mg Subcutaneous daily Family History: Mr. Canchola's mother is alive. Mr. Canchola's father at age 64: Myelomas Cancer. Mr. Canchola has 2 brothers: 2 alive. Mr. Canchola's first brother's renal pelvis and ureter cancer. Another brother's cancer history consists of Colon cancer. Social History: Mr. Canchola is single and he is an on disability. Mr. Canchola quit smoking 20 years ago but had smoked for 5 years. He has indicated exposure to the following products: cigars. Mr. Canchola reports the following support systems: lives alone, lives in own house, and supportive family/friends willing to assist with needs. His diet consists of regular meals. He indicates his activity level as: daily activities. Patient smoked 3 to 4 Cigars a day for 5 years. Review Of Symptoms: Constitutional Denies fevers, chills, night sweats, excessive fatigue or weight loss. Fatigue is unchanged. Nodule on right side of head that is tender-no worse. Allergic/Immunologic No reactions. Eyes Denies significant visual changes. No diplopia. No amaurosis. ENMT Denies changes in hearing, sore throat, mouth sores, difficulty or changes in swallowing ability, and/or sinus drainage. Endocrine No diabetes, thyroid disease or hormone replacement. Denies hot flashes or night sweats. Hematologic/Lymphatic Denies easy bruising or bleeding. The patient denies any tender or palpable lymph nodes. Breasts Respiratory Denies worsening dyspnea on exertion, chest pain, cough or hemoptysis. Denies orthopnea. Cardiovascular Denies anginal chest pain, palpitations or orthopnea. Gastrointestinal Denies nausea, vomiting, diarrhea, GI bleeding, or constipation. Denies change in bowel habits and/or stool color, no heartburn or early satiety. Genitourinary (M) Denies hematuria, dysuria, increased frequency, urgency, hesitancy or incontinence. Musculoskeletal Denies joint pain, swelling or redness. No decreased range of motion. Integumentary Denies chronic rashes, inflammation, ulcerations or skin changes. Neurologic Denies headache, blurred vision. Psychiatric Denies insomnia, depression, jacqueline or mood swings. Vital Signs: Performed on Jan 02, 2020 13:24 Height - 72.00 in Weight - 286.4 lbs (LOW) BSA - 2.48 sq.m BMI - 38.84 (HIGH) Temperature - 97.6 F (LOW) Pulse - 96 /min Respiration - 20 /min BP - 103/67 mm(hg) O2 Sat - 100 % Pain - 0,2 - Ambulatory/capable of all self-care, unable to perform any work activities. Up and about more than 50% of waking hours. (ECOG) Physical Examination: Constitutional Alert, oriented, no acute distress. Skin pink, warm and dry. Head Normocephalic; atraumatic. There is a nodule on the right side mid to posterior area that is semi firm-no exudate or skin breakdown. It is not red or hot. Eyes Conjunctivae and sclerae are clear and without icterus. Pupils are reactive and equal. Neck Supple without masses or thyromegaly. No jugular venous distension. Hematologic/Lymphatic No petechiae or purpura. No tender or palpable lymph nodes in the cervical or supraclavicular areas. Respiratory Lungs are clear to auscultation without rhonchi or wheezing. Cardiovascular Regular rate and rhythm of heart without murmurs,clicks, gallops or rubs. Abdomen Non-tender, non-distended, no masses or ascites. Back/Spine Non-tender to palpation. Extremities No visible deformities, no cyanosis, clubbing or edema. Right shoulder area pink and dry with < 1 cm scabbed area noted from recent abscess. Musculoskeletal No tenderness or swelling, normal range of motion without obvious weakness. Integumentary No rashes or lesions. Neurologic No sensory or motor deficits, normal cerebellar function, normal gait. Psychiatric Alert and oriented times three. Coherent speech. Verbalizes understanding of our discussions today. Laboratory:Test performed on Jan 09, 2020 11:22 Glucose 241 mg/dL BUN 19 mg/dL Creatinine 1.16 mg/dL Cr Clearance (Est) 124.41 mL/min Sodium 137 mmol/L Potassium 4.7 mmol/L Chloride 99 mmol/L CO2 25 mmol/L Calcium 9.4 mg/dL Protein, Total 6.7 g/dL Albumin 4.2 g/dL Bilirubin, Total 0.3 mg/dL Alkaline Phosphatase 66 IU/L AST (SGOT) 18 IU/L ALT (SGPT) 18 IU/L Test performed on Dec 28, 2019 09:11 WBC 4.0 10^9/L RBC 3.78 10^12/L HGB 10.8 g/dL HCT 33.1 % MCV 87.6 fl MCH 28.6 pg MCHC 32.6 g/dL RDW 16.8 % Platelet Count 238 10^9/L Neutrophils (Gran) 2.44 10^9/L Lymphocytes 0.84 10^9/L Monocytes 0.08 10^9/L Eosinophils 0.48 10^9/L Test performed on Dec 20, 2019 13:20 MPV 8.9 fL Basophils 0.07 10^9/L Manual Lymphocytes 22 % Manual Monocytes 14 % Manual Eosinophils 17 % Manual Basophils 2 % Test performed on Dec 20, 2019 10:47 Albumin, SPE 3.63 g/dL IGA 31 mg/dL IGG 583 mg/dL IGM 27 mg/dL [place] / Lambda Ratio 1.06 Absolute Value Lambda Light Chain (Quant) 17.29 mg/dL [place] Light Chain (Quant) 18.28 mg/dL [id number] 0.31 g/dL [id number] 0.90 g/dL Beta Globulin 0.66 g/dL Gamma Globulin 0.49 g/dL SPE Interpretation No significant change in monoclonal proteinemia since prior study Test performed on Nov 30, 2019 14:00 Neutrophil % 87.4 % Lymphocyte % 7.9 % Monocyte % 1.8 % Eosinophil % 0.8 % Basophils % 0.5 % NRBC % 0 % Test performed on Oct 05, 2019 08:36 Lambda Light Chain 1.35 [place] Light Chain 5.71 Test performed on Aug 01, 2019 10:55 Manual Segs 0.02 % Impression: 1. Patient with stage II, standard risk multiple myeloma and a large destructive plasmacytoma in the right humerus with associated pathological fracture. He underwent palliative radiation therapy and surgical repair of his arm. 2. Despite treatment he had a further progression of his M protein, and he was found to have hyperdiploid cytogenetics on bone marrow biopsy. 3. Induction chemotherapy with Velcade, Cytoxan, and Decadron began on 09/12/13. After 6 cycles of induction therapy cyclophosphamide was stopped, and he continued with Velcade and Decadron for 8 cycles. 4. On 04/11/2014 he underwent high-dose melphalan followed by an autologous stem cell transplantation. Post transplant bone marrow biopsy revealed residual disease. 5. He declined maintenance Revlimid therapy. Maintenance treatment with Velcade 1.3 mg/m2 sc every 2 weeks for 2 years began on 09/11/14. 6. He had progressive preexistent peripheral neuropathy. His dose was adjusted at 1 mg/m??? subcutaneously every 2 weeks, but he developed progressive neuropathy with pruritus. Velcade therapy was discontinued. His M protein level at that point was stable at 0.84 g/dL. 7. A trial of ixazomib 4 mg weekly on days 1, 8, and 15 of 28 day cycle began on 05/21/15. His other medical illnesses include: 8. Hypertension. 9. Type II diabetes. 10. GERD. 11. Degenerative arthritis. 12. Androgen deficiency. He had evidence of some response to the ixazomib. As of his follow-up visit in January 2016 his M protein had increased somewhat, but it then stabilized. During subsequent follow-up, the M protein had increased very gradually. However, between December and March 2017 there was a significant increase, from 1.50 g/dL to 1.93 g/dL. He had then presented with a mass in left chest wall. His chest CT showed an area of lytic involvement with associated soft tissue mass, consistent with myeloma. He underwent radiation to the involved area, completed on 05/12/2017 to a total dose of 4000 cGy. He then developed a new lump in his forehead. Head CT showed bifrontal and anterior ethmoid sinus soft tissue abnormality suggestive of mass as well as midline frontal scalp soft tissue mass secondary to erosion of the anterior wall frontal sinus. Overall, the findings were consistent with involvement with myeloma, and his laboratory studies also were indicative of significant further progression of his M protein. He was given radiation to the frontal bone, completed on 07/27/2017 to a total dose of 3600 cGy. He then began 3rd line treatment with daratumumab in combination with Revlimid and dexamethasone. He completed 8 weekly infusions of daratumumab, which he tolerated well, though he did require a reduction in the Revlimid dosage to 10 mg. He also started monthly injections of denosumab for the lytic bone involvement. As of 09/09/2017 the frequency of the daratumumab infusions was increased to every 2 weeks. As of 12/23/2017 he had completed 8 infusions at that interval. Beginning on 01/25/2018 he continued daratumumab at the 4-week dosing interval. During this time he had opted to adjust his Revlimid to a 14 days on/14 days off schedule due to throat swelling and spasms, and his Revlimid dosage was then further reduced to 5 mg daily on a / day schedule. As of January 2018 his protein electrophoresis showed just a faint M band compared to a pretreatment M protein level of 3.43 g/dL. In December 2017 he presented with increased pain and swelling in his upper right arm. His repeat PET/CT showed significant response to treatment compared to the June 2017 study. 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 On 01/19/2018 he underwent incision/drainage of an abscess, which apparently was not involving the bone. He had an open wound at that site, but it has gradually healed. In the absence of any evidence of progression of the myeloma, he continued treatment with daratumumab, Revlimid, and dexamethasone. He has limited the Revlimid to 14 days each month because it does seem to cause some swelling in his throat. 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 During that time he required a prolonged course of antibiotic therapy with Rocephin. He has been able to continue treatment with daratumumab in combination with Revlimid and dexamethasone with no evidence of progression of the myeloma. He had been having increasing side effects with the Revlimid, and he opted to stop both the Revlimid and dexamethasone 6 weeks ago. During subsequent follow-up he had improvement in some symptoms, though his activity had been further limited due to his left foot problems. He was having more diarrhea, but that he had attributed to his antibiotic. As of his follow-up in October 2018 there was no evidence of progression of the myeloma. He had presented on 12/08/2018 with recurrence of pain in association with cellulitis/abscess of the right upper arm soft tissues. This was the same site as his previous abscess, which reportedly was not involving the bone. It showed gradual improvement on antibiotic therapy after spontaneous drainage. However, his treatment during that time had remained on hold. He then had further evaluation with CT scans of the chest, abdomen, and pelvis on 01/25/2019. 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 There appear to be associated nondisplaced lateral acetabular margin pathologic fracture. He was referred to Dr. Navarro, and he was then given radiation to the left hip, completed on 02/19/2019 to a total dose of 3000 cGy. On 04/19/2019 he restarted systemic therapy with carfilzomib and dexamethasone in combination with daratumumab. He tolerated his initial day 1/day 2 treatment well, and he was then able to continue his treatment on schedule other than he had to skip his day 16 carfilzomib injection due to bad weather. He began cycle 2 on 05/18/2019. He has been tolerating treatment with acceptable toxicity, though his treatment was complicated by a hospitalization for influenza A. He has had uneventful recovery. He continued with his 3rd cycle of treatment on 06/22/2019, and with that cycle the frequency of the daratumumab infusions was reduced to every 2 weeks. He continued to complain of significant left hip pain. He was given additional radiation to that area, completed on 07/12/2019 to a total dose of 3000 cGy. During that time he had developed significant diarrhea. A specific cause was not determined. His stool had tested negative for C. difficile. The diarrhea subsequently improved on symptomatic management. As of 07/20/2019 he continued with cycle 4 of daratumumab/carfilzomib/dexamethasone. At that point he was showing evidence of response, and he also appeared to be showing improvement in his clinical status. As of 10/12/2019 he appeared stable clinically, and he began his 7th cycle of treatment. However, his restaging CT scans on 10/24/2019 showed evidence of disease progression with development of a new mass in the right paraspinous region. There was associated invasion of the contiguous L1 vertebral body and there was compression of the adjacent right kidney. With evidence of disease progression, dR Stinson did opt to stop the daratumumab/carfilzomib. He was referred for palliative radiation, which he completed on 11/10/2019 to a total dose of 3000 cGy. He has had a good clinical response. However, during that time he also developed purulent drainage from an open wound/abscess on his upper right arm. Culture grew methicillin sensitive staph aureus. He does appear to be showing improvement on antibiotic therapy with IV Rocephin. Due to the abscess, further treatment of his myeloma has been deferred. Mr Canchola has completed the antibiotic therapy and has now completed 1 cycle of pomalidomide 4 mg po daily days 1-21-he began the pomalidomide on 11/24/2019. He had CT of the chest without contrast on 12/30/2019 which reported substantial enlargement of bilateral pulmonary nodules compatible with disease progression (compared to October 2019 study). There is soft tissue lesion anterior and likely involving the sternum has also substantially enlarged and is compatible with plasmacytoma. In addition bulky right hilar lymphadenopathy has developed compatible with metastatic disease. Redemonstration of multiple osseous metastatic lesions involving the axial skeleton which were similar to the prior exam in keeping with no myeloma. He had CT of the head without contrast also at 12/30/2019 at [facility]. This reported mild sequela small vessel ischemic disease and diffuse parenchymal volume loss. The ventricles were midline and basal cisterns were patent. Unchanged probable hemangioma within the right frontal bone. No suspicious cysts osseous lesion. Unchanged skin thickening along the right temporal scalp. Probable mucocele seen within the right frontal sinus. Stable hyperstosis along the bilateral superior ethmoid bones, likely from previous trauma or infection. Frothy mucosal thickening within the right sesamoid sinus. No mastoid effusion. The orbits were intact. Mr. Batista began his first cycle of pomalidomide on 11/24/2019 and the CTs were obtained on 12/30/2019. Therefore the first cycle of pomalidomide had just completed at the time of the CTs. Plan: 1. Proceed with cycle 2 pomalidomide 4 mg po daily days 1-21. He was delayed an extra week due to ANC of 1360. 2. Continue dexamethasone 20 mg po weekly. 3. Labs from December 28, 2019 were reviewed in detail and discussed with Mr. Batista and a copy was given to him. WBC 4.0, hemoglobin 10.8, platelets 238,000 ANC is 2440 creatinine 1.0 random glucose 293 potassium 4.7 LFTs are normal. His myeloma labs From 12/20/2019 reported a monoclonal protein at 0.16 gammaglobulin is 0.14 and was 0.27 in September 2019. His labs are not showing disease progression as are the CTs. 4. We will plan to check interim CBC CMP and see him back in 4 weeks. 5. He began the pomalidomide on 12/20/2019 and had followup CTs on 12/30/2019. He had evidence of disease progression in the lungs. He had electect to trial another cycle of the pomalidomide as he was not on it long enough to see a dramatic change but he also required an additional week delay in his dose/cycle as he was neutropenic. His counts have now recovered. He will trial another 21 days of pomolidamide but we will go ahead and seek PA for belantamab to start in 1 month if still showing signs of disese progression. 6. AVOID GRAPEFRUIT JUICE WITH POMALIDOMIDE 7. Mr. Batista was instructed to contact us in interim should questions or problems arise. Signed By: Diandra Nunn-, AOCNP Rosendo Stinson MD <<Signature on File>>
== END 2020-01-11 23:59 | disposition home or self-care (01) ==
LOC: ONCMED 05:49
PROVIDERS: Visit Provider Radiology Radiation Oncology
DX: C90.00 Multiple myeloma not having achieved remission (principal); I10 Essential (primary) hypertension; E11.9 Type 2 diabetes mellitus without complications; K21.9 Gastro-esophageal reflux disease without esophagitis; M19.90 Unspecified osteoarthritis, unspecified site; E29.1 Testicular hypofunction; Z87.891 Personal history of nicotine dependence; Z79.899 Other long term (current) drug therapy; Z79.52 Long term (current) use of systemic steroids; Z92.3 Personal history of irradiation; Z94.84 Stem cells transplant status
CPT/HCPCS: 96372; 99214; J0897